=== PATIENT | female | born 1955 | race Caucasian/White ===

== ENCOUNTER → 2022-10-14 | Outpatient (CLI) | payer MEDICARE, SELFPAY ==
[2022-10-14 17:14] LABS: Absolute Lymphocyte Count 1.98 X10^3/uL (0.83-4.51); Absolute Neutrophil Count 4.1 X10^3/uL (2.0-7.7); Basophil# 0.02 X10^3/uL; Basophil% 0.3 % (0-1); Eosinophil# 0.14 X10^3/uL; Hematocrit 37.5 % (37-47); Lymphocyte # 1.98 X10^3/ul (0.83-4.51); Mean Corpuscular Hgb 29.1 pg (27.0-32.0); Mean Platelet Vol. 10.7 fl (6.2-12.0); Monocyte# 0.58 X10^3/uL; Monocyte% 8.5 % (0-10); NRBC Flagged by Analyzer 0 % (0-5); Neutrophil # 4.09 X10^3/uL (2.7-7.7); Neutrophil % 59.9 % (47-70); Platelet Count 237 K/mm3 (150-450); RBC Distribution Width CV 12.1 % (11.6-14.6); RBC Distribution Width SD 40.6 fl (35.1-43.9); Red Blood Count 4.12 M/mm3 (4.2-5.4); White Blood Count 6.8 K/mm3 (4.4-11.0)
[2022-10-14 17:27] LABS: Vitamin D,25 Hydroxy 14.2 ng/mL
[2022-10-14 17:47] LABS: ALB/GLOB Ratio 0.9 RATIO (0.9-2.4); AST(SGOT) 35 U/L (15-37); Alanine Aminotransfer ALT/SGPT 50 U/L (13-56); Albumin, Serum 3.4 g/dL (3.2-5.0); Alkaline Phosphatase 72 U/L (45-117); Anion Gap 5 (5-15); BUN 6 mg/dL (7-18); BUN/Creat Ratio 8.7 RATIO (10-20); Calcium,Total 8.9 mg/dL (8.5-10.1); Chloride 106 mmol/L (98-107); Creatinine, Serum 0.69 mg/dL (0.55-1.02); EST Glomerular Filtration Rate 91 mL/min (>60); Est Glom Filt Rate - Afr Amer 110 mL/min (>60); Globulin 3.9 g/dL (2.2-4.2); Glucose 86 mg/dL (74-106); Potassium 3.9 mmol/L (3.5-5.1); Protein, Total 7.3 g/dL (6.4-8.2); Sodium Level 139 mmol/L (136-145); Thyroid Stim Hormone (TSH) 0.47 uIU/mL (0.358-3.74)
== END | disposition home or self-care (01) ==
LOC: POLAB3 15:43
PROVIDERS: PCP Family Medicine Geriatric Medicine; Visit Provider Family Medicine Geriatric Medicine
DX: I10 Essential (primary) hypertension (principal)
CPT/HCPCS: 36415; 80053; 82306; 84443; 85025; 87522

== ENCOUNTER → 2022-10-20 | Outpatient (CLI) | payer MEDICARE, SELFPAY ==
[2022-10-24 18:07] LABS: Hepatitis C Genotype 1a (.)
== END | disposition home or self-care (01) ==
PROVIDERS: PCP Family Medicine Geriatric Medicine; Referring Provider Family Medicine Geriatric Medicine; Visit Provider Family Medicine Geriatric Medicine
DX: B19.20 Unspecified viral hepatitis C without hepatic coma (principal)
CPT/HCPCS: 36415; 87902

== ENCOUNTER → 2023-01-21 | Outpatient (CLI) | payer MEDICARE, SELFPAY ==
[2023-01-21 14:36] LABS: Absolute Lymphocyte Count 1.45 X10^3/uL (0.83-4.51); Absolute Neutrophil Count 4.3 X10^3/uL (2.0-7.7); Basophil# 0.03 X10^3/uL; Basophil% 0.4 % (0-1); Eosinophil# 0.08 X10^3/uL; Eosinophils% 1.2 % (0-5); Hematocrit 38.6 % (37-47); Hemoglobin 12.7 g/dL (12.0-15.0); Lymphocyte # 1.45 X10^3/ul (0.83-4.51); Lymphocyte % 21.7 % (19-41); Mean Corp Hgb Conc 32.9 g/dL (32-36); Mean Corpuscular Hgb 29.5 pg (27.0-32.0); Mean Corpuscular Volume 89.8 fL (81-99); Mean Platelet Vol. 11.2 fl (6.2-12.0); Monocyte# 0.77 X10^3/uL; Monocyte% 11.5 % (0-10); NRBC Flagged by Analyzer 0 % (0-5); Neutrophil # 4.33 X10^3/uL (2.7-7.7); Neutrophil % 65.1 % (47-70); Platelet Count 251 K/mm3 (150-450); RBC Distribution Width CV 12.3 % (11.6-14.6); RBC Distribution Width SD 40.2 fl (35.1-43.9); White Blood Count 6.7 K/mm3 (4.4-11.0)
[2023-01-21 14:48] LABS: Vitamin D,25 Hydroxy 37.3 ng/mL
[2023-01-21 15:06] LABS: ALB/GLOB Ratio 0.8 RATIO (0.9-2.4); AST(SGOT) 39 U/L (15-37); Alanine Aminotransfer ALT/SGPT 48 U/L (13-56); Albumin, Serum 3.4 g/dL (3.2-5.0); Alkaline Phosphatase 65 U/L (45-117); Anion Gap 4 (5-15); BUN 9 mg/dL (7-18); BUN/Creat Ratio 10.2 RATIO (10-20); Chloride 108 mmol/L (98-107); Creatinine, Serum 0.88 mg/dL (0.55-1.02); EST Glomerular Filtration Rate 69 mL/min (>60); Est Glom Filt Rate - Afr Amer 83 mL/min (>60); Globulin 4.1 g/dL (2.2-4.2); Glucose 101 mg/dL (74-106); Protein, Total 7.5 g/dL (6.4-8.2); Sodium Level 138 mmol/L (136-145); Thyroid Stim Hormone (TSH) 1.92 uIU/mL (0.358-3.74)
== END | disposition home or self-care (01) ==
LOC: POLAB3 13:25
PROVIDERS: PCP Family Medicine Geriatric Medicine; Visit Provider Family Medicine Geriatric Medicine
DX: I10 Essential (primary) hypertension (principal); E55.9 Vitamin D deficiency, unspecified
CPT/HCPCS: 36415; 80053; 82306; 84443; 85025

== ENCOUNTER → 2023-04-21 | Outpatient (CLI) | payer MEDICARE, SELFPAY ==
--- OUTSIDE RECORDS SUMMARY | 2023-04-21 11:43 | XMS RPT_ITS | CCD ---
Author Name Unknown Address [id number] [place] [address] Organization [facility] Care Team Providers Care Bufferer Name Role Phone No, Physician Primary Care Provider UnavailJarrett Dennison Primary Care Provider SADIA GRANT Attending Unav ailable JARRETT CARR Primary Care Unavailable Jarrett Carr MD Primary Care Provider El Douglass DO Primary Care Provider Saige White Unavailable Unavailable Otto DO, El N Primary Care Provider Saige White Unavailable Unavailable Saige White Unavailable Unavailable Fallon Franz Attending Unavailable Otto HAYS El N Primary Care Provider Jarrett Carr MD Primary Care Provider System, Provider Not In Primary Care Provider Un available AMY HAYWOOD Admitting Unavaila ble EL DOUGLASS N Primary Care Unavailable GSPANJACINTO STAPLES Admitting Unavail able JACINTO MERIDA Attending Unavail able AMY HAYWOOD Referring Unavaila ble EL DOUGLASS N Primary Care Unavailable Ly Mitchell DO Primary Care Provider Randi Moore MD Unavailable EL DOUGLASS Attending Unavailable EL DOUGLASS N Primary Care Unavailable EL DOUGLASS N Attending Unavailable EL DOUGLASS N Primary Care Unavailable LY MITCHELL Primary Care Unavailable LY MITCHELL Attending Unavailable Allergies Allergy Classification Reported Allergen(s) Allergy Type Date of Onset Reaction(s) Facility (6 sources) Sulfonamides (Antibiotic) Propensity to adverse reactions to drug 03-19-2020 [facility] Medications Current Medications Medication Drug Class(es) Dates Sig (Normalized) Sig (Original) acetaminophen 325 mg / HYDROcodone bitartrate 5 mg oral tablet (1 source) Opioid Agonist Start: 01-20-2020 End: 01-25-2020 take 1 tablet by mouth every four hours as needed for pain HYDROcodone-acetami nophen (NORCO) 5-325 mg per tablet Indications: Other closed intra-articular fracture of distal end of left radius with delayed healing, subsequent encounter Take 1 (one) tablet by mouth every 4 (four) hours as needed for pain . 20 tablet 0 01/20/2020 01/25/2020 Active atorvastatin 40 mg oral tablet (5 sources) HMG-CoA Reductase Inhibitor Start: 08-13-2022 End: 11-11-2022 take 1 tablet by mouth once daily atorvastatin (LIPITOR) 40 MG tablet Indications: Dyslipidemia Take 1 (one) tablet (40 mg total) by mouth daily . 30 tablet 2 08/13/2022 11/11/2022 Active carBAMazepine 200 mg oral tablet (20 sources) Mood Stabilizer Start: 07-25-2021 End: 08-08-2023 take 1 tablet by mouth twice daily carBAMazepine (TEGRETOL) 200 mg tablet Indications: Severe episode of recurrent major depressive disorder, without psychotic features (HCC) , History of seizure Take 1 (one) tablet (200 mg total) by mouth 2 (two) times a day . 60 tablet 11 08/13/2022 08/08/2023 Active Completed/Discontinued Medications Medication Drug Class(es) Dates Sig (Normalized) Sig (Original) ALPRAZolam 1 mg oral tablet (12 sources) Benzodiazepine Start: 01-11-2020 End: 04-11-2020 take 1 tablet by mouth three times daily ALPRAZolam (XANAX) 1 MG tablet TK 1 T PO TID PRA 0 01/11/2020 04/11/2020 Discontinued (Therapy completed) amLODIPine 10 mg oral tablet (20 sources) Dihydropyridine Calcium Channel Johnny Start: 04-02-2020 End: 07-14-2022 take 1 tablet by mouth once daily amLODIPine (NORVASC) 10 MG tablet Indications: Elevated BP without diagnosis of hypertension Take 1 (one) tablet (10 mg total) by mouth daily . 90 tablet 1 04/02/2020 07/14/2022 Discontinued (Patient's Request) Problems Active Problems Problem Classification Problem Date Documented Date Episodic/Chronic Administrative/socia l admission (10 sources) Patient encounter status; Translations: [Persons encountering health services in other specified circumstances] Episodic Alcohol-related disorders (3 sources) Alcohol abuse; Translations: [Alcohol dependence, in remission] Onset: 08-25-2022 08-26-2022 Chronic Anxiety disorders (20 sources) Anxiety; Translations: [Anxiety disorder, unspecified] Onset: 03-19-2020 03-19-2020 Chronic Disorders of lipid metabolism (9 sources) Dyslipidemia; Translations: [Hyperlipidemia, unspecified] Onset: 08-12-2022 08-13-2022 Chronic Esophageal disorders (18 sources) Gastroesophageal reflux disease; Translations: [Gastro-esophageal reflux disease without esophagitis] Onset: 10-06-2021 Chronic Essential hypertension (20 sources) Hypertensive disorder; Translations: [Essential (primary) hypertension] Onset: 03-19-2020 04-11-2020 Chronic Fracture of upper limb (1 source) Closed fracture of distal end of radius; Translations: [Other closed intra-articular fracture of distal end of left radius with delayed healing, subsequent encounter] Episodic Headache; including migraine (1 source) Acute headache; Translations: [Acute intractable headache, unspecified headache type] Hepatitis (5 sources) Chronic hepatitis C; Translations: [Chronic viral hepatitis C] Onset: 08-12-2022 07-16-2022 Chronic Immunizations and screening for infectious disease (20 sources) Suspected disease caused by 2019-nCoV; Translations: [Suspected COVID-19 virus infection] Onset: 07-14-2022 Episodic Mood disorders (20 sources) Depressive disorder; Translations: [Depression] Onset: 03-19-2020 Resolved: 07-14-2022 03-19-2020 Chronic Other circulatory disease (11 sources) Elevated blood-pressure reading without diagnosis of hypertension; Translations: [Elevated BP without diagnosis of hypertension] Onset: 03-19-2020 03-19-2020 Episodic Other nutritional; endocrine; and metabolic disorders (11 sources) Body mass index 30+ - obesity; Translations: [Obesity, unspecified] Onset: 07-14-2022 07-14-2022 Chronic Other nutritional; endocrine; and metabolic disorders (2 sources) Obesity, unspecified; Translations: [Obesity, unspecified] Onset: 07-14-2022 Chronic Other skin disorders (11 sources) Seborrheic keratosis; Translations: [Other seborrheic keratosis] Onset: 07-14-2022 07-14-2022 Episodic Other upper respiratory disease (18 sources) Seasonal allergy; Translations: [Other seasonal allergic rhinitis] Onset: 10-06-2021 Chronic Residual codes; unclassified (20 sources) Breast finding ; Translations: [Breast implant status] Onset: 03-19-2020 03-19-2020 Chronic Residual codes; unclassified (2 sources) Personal history of other specified conditions; Translations: [Personal history of other specified conditions] Onset: 03-19-2020 Episodic Substance-related disorders (20 sources) Benzodiazepine withdrawal; Translations: [Sedative, hypnotic or anxiolytic dependence with withdrawal, uncomplicated] Onset: 04-11-2020 Resolved: 06-12-2021 04-11-2020 Chronic Thyroid disorders (20 sources) Hypothyroidism; Translations: [Hypothyroidism, unspecified] Onset: 03-19-2020 03-19-2020 Chronic Unclassified (14 sources) History of clinical finding in subject; Translations: [History of seizure] Onset: 03-19-2020 03-19-2020 Unclassified (13 sources) Breast finding ; Translations: [Breast implant status] Onset: 03-19-2020 03-19-2020 Past or Other Problems Problem Classification Problem Date Documented Date Episodic/Chronic Genitourinary symptoms and ill-defined conditions (13 sources) Nocturia; Translations: [Nocturia] Onset: 07-14-2022 07-14-2022 Episodic Headache; including migraine (20 sources) Migraine; Translations: [Migraine, unspecified, not intractable, without status migrainosus] Onset: 04-02-2020 Resolved: 07-14-2022 04-02-2020 Chronic Inflammatory diseases of female pelvic organs (20 sources) Bacterial vaginosis; Translations: [Acute vaginitis] Onset: 06-25-2021 Resolved: 07-25-2021 Episodic Other skin disorders (12 sources) Actinic keratosis; Translations: [Actinic keratosis] Onset: 07-14-2022 07-14-2022 Episodic Other skin disorders (2 sources) Other seborrheic keratosis; Translations: [Other seborrheic keratosis] Onset: 07-14-2022 Episodic Other skin disorders (1 source) Actinic keratosis; Translations: [Actinic keratosis] Onset: 07-15-2022 Episodic Residual codes; unclassified (20 sources) History of clinical finding in subject; Translations: [Personal history of other specified conditions] Onset: 03-19-2020 03-19-2020 Episodic Substance-related disorders (12 sources) Benzodiazepine withdrawal; Translations: [Sedative, hypnotic or anxiolytic use, unspecified with withdrawal, uncomplicated] Onset: 04-11-2020 Resolved: 06-12-2021 06-12-2021 Episodic Results Test Name Value Interpretation Reference Range Facil ity Vital Signs Date Time Vital Sign Value Performing Clinician Faci lity 08-12-2022 10:59-0400 Diastolic blood pressure 102 mm[Hg] El Otto [employer] Work Phone: [facility] 08-12-2022 10:59-0400 Heart rate 76 /min [employer] Phone: [facility] 08-12-2022 10:59-0400 Systolic blood pressure 186 mm[Hg] [employer] Phone: [facility] 08-12-2022 10:56-0400 Body height 172.7 cm [employer] Phone: [facility] 08-12-2022 10:56-0400 Body mass index (BMI) [Ratio] 31.02 kg/m2 [employer] Phone: [facility] 08-12-2022 10:56-0400 Body weight 92.53 kg [employer] Phone: [facility] 08-12-2022 10:56-0400 SaO2% (BldA) [Mass fraction] 95 % [employer] Phone: [facility] 07-14-2022 13:55-0400 Diastolic blood pressure 94 mm[Hg] El Otto DO Work Phone: [facility] 07-14-2022 13:55-0400 Heart rate 65 /min El Otto DO Work Phone: [facility] 07-14-2022 13:55-0400 Systolic blood pressure 185 mm[Hg] El Otto DO Work Phone: [facility] 07-14-2022 13:54-0400 Body height 172.7 cm El Otto DO Work Phone: [facility] 07-14-2022 13:54-0400 Body mass index (BMI) [Ratio] 30.56 kg/m2 El Otto DO Work Phone: [facility] 07-14-2022 13:54-0400 Body weight 91.17 kg El Otto DO Work Phone: [facility] 07-14-2022 13:54-0400 SaO2% (BldA) [Mass fraction] 95 % El Otto DO Work Phone: [facility] 10-01-2021 14:51-0400 Body height 172.7 cm El Otto DO Work Phone: [facility] 10-01-2021 14:51-0400 Body mass index (BMI) [Ratio] 28.43 kg/m2 El Otto DO Work Phone: [facility] 10-01-2021 14:51-0400 Body temperature 98.4 [degF] El Otto DO Work Phone: [facility] 10-01-2021 14:51-0400 Body weight 84.82 kg El Otto DO Work Phone: [facility] 10-01-2021 14:51-0400 Diastolic blood pressure 67 mm[Hg] El Otto DO Work Phone: [facility] 10-01-2021 14:51-0400 Heart rate 72 /min El Otto DO Work Phone: [facility] 10-01-2021 14:51-0400 SaO2% (BldA) [Mass fraction] 96 % El Otto DO Work Phone: [facility] 10-01-2021 14:51-0400 Systolic blood pressure 126 mm[Hg] El Otto DO Work Phone: [facility] 07-24-2021 11:40-0400 Body temperature 98.49 [degF] El Otto DO Work Phone: [facility] 07-24-2021 11:40-0400 Heart rate 74 /min El Toto DO Work Phone: [facility] 07-24-2021 11:40-0400 SaO2% (BldA) [Mass fraction] 96 % El Otto DO Work Phone: [facility] 06-24-2021 10:51-0400 Diastolic blood pressure 85 mm[Hg] El Otto DO Work Phone: [facility] 06-24-2021 10:51-0400 Systolic blood pressure 134 mm[Hg] El Otto DO Work Phone: [facility] 06-24-2021 10:50-0400 Body height 172.7 cm El Otto DO Work Phone: [facility] 06-24-2021 10:50-0400 Body mass index (BMI) [Ratio] 27.67 kg/m2 El Otto DO Work Phone: [facility] 06-24-2021 10:50-0400 Body temperature 98.71 [degF] El Otto DO Work Phone: [facility] 06-24-2021 10:50-0400 Body weight 82.56 kg El Otto DO Work Phone: [facility] 06-24-2021 10:50-0400 Heart rate 70 /min El Otto DO Work Phone: [facility] 06-24-2021 10:50-0400 SaO2% (BldA) [Mass fraction] 96 % El Otto DO Work Phone: [facility] 06-11-2021 15:03-0400 Body mass index (BMI) [Ratio] 28.13 kg/m2 El Otto DO Work Phone: [facility] 06-11-2021 15:03-0400 Body weight 83.92 kg El Otto DO Work Phone: [facility] 06-11-2021 15:03-0400 Diastolic blood pressure 84 mm[Hg] El Otto DO Work Phone: [facility] 06-11-2021 15:03-0400 Heart rate 79 /min El Otto DO Work Phone: [facility] 06-11-2021 15:03-0400 SaO2% (BldA) [Mass fraction] 94 % El Otto DO Work Phone: [facility] 06-11-2021 15:03-0400 Systolic blood pressure 126 mm[Hg] El Otto DO Work Phone: [facility] 03-19-2020 13:57-0500 BMI (Body Mass Index) 26.61 kg/m2 [facility] 03-19-2020 13:57-0500 Body Temperature 97.81 [degF] [facility] 03-19-2020 13:57-0500 Body weight 79.38 kg [facility] 03-19-2020 13:57-0500 BP Diastolic 115 mm[Hg] [facility] 03-19-2020 13:57-0500 BP Systolic 179 mm[Hg] [facility] 03-19-2020 13:57-0500 Height 172.7 cm [facility] 03-19-2020 13:57-0500 Pulse (Heart Rate) 95 /min [facility] 03-19-2020 13:57-0500 Pulse Oximetry 96 % [facility] 01-20-2020 15:53-0500 BMI (Body Mass Index) 27.37 kg/m2 [facility] 01-20-2020 15:53-0500 Body Temperature 98.29 [degF] [facility] 01-20-2020 15:53-0500 Body weight 81.65 kg [facility] 01-20-2020 15:53-0500 BP Diastolic 92 mm[Hg] [facility] 01-20-2020 15:53-0500 BP Systolic 124 mm[Hg] [facility] 01-20-2020 15:53-0500 Height 172.7 cm [facility] 01-20-2020 15:53-0500 Pulse (Heart Rate) 87 /min [facility] 01-20-2020 15:53-0500 Pulse Oximetry 96 % [facility] 01-20-2020 15:53-0500 Respiratory Rate 16 /min [facility] Encounters Encounter Date Encounter Type Care Provider Facility Start: 09-29-2022 ambulatory [facility] Ambulatory Start: 09-17-2022 Refill Johnna Kunz [facility] Primary Care Physicians Procedures Date Procedure Procedure Detail Performing Clinician Start: 07-24-2021 Influenza virus A an d B and SARS-CoV-2 (COVID-19) and SARS-related CoV RNA panel - Respiratory specimen by MIGUEL ANGEL with probe detection El Douglass [employer] Work Phone: Start: 06-24-2021 Iadna nay specie s direct probe tq El Douglass DO Work Phone: Start: 01-20-2020 Application of splint B ivan Hong Work Phone: Start: 01-20-2020 Radex wrist complete minimum 3 views Nixon Hong Work Phone: Start: 02-25-2011 Mammography Nixon jewell Plan of Treatment Date Care Activity Detail Author Start: 11-07-2022 Influenza vaccination [facility] Start: 09-17-2022 End: 09-17-2022 Patient encounter procedure 09/17/2022 2:30 PM EDT Office Visit [facility] Physicians Infectious Disease [address] [place] [address] Randi Moore MD [address] [place] [address] [facility] Physicians Infectious Disease Start: 08-25-2022 End: 08-25-2022 Patient encounter procedure 08/25/2022 11:00 AM EDT Initial consult [facility] [address] [place] [address] Jacinto Merida MD [address] [place] [address] Discharge Disposition: Home [facility] Start: 08-12-2022 End: 08-12-2022 Patient encounter procedure 08/12/2022 10:50 AM EDT Office Visit [facility] Primary Care Physicians [address] [place] [address] [place] [phone] El Douglass DO [address] [place] [address] Dr [address] [place] [address] [facility] Primary Care Physicians Start: 08-01-2022 Depression Remission Assessment (PHQ9) Depression Remission Assessment (PHQ9) [facility] Start: 06-02-2022 End: 06-02-2022 Patient encounter procedure 06/02/2022 Office Visit Primary Care El Douglass DO [address] [place] [address] Dr [address] [place] [address] [facility] Physicians Start: 05-08-2022 End: 05-08-2022 Patient encounter procedure 05/08/2022 Office Visit Primary Care El Douglass DO [address] [place] [address] Dr [address] [place] [address] [facility] Physicians Start: 04-13-2022 Depression Remission Assessment (PHQ9) Depression Remission Assessment (PHQ9) [facility] Start: 11-26-2021 COVID-19 Vaccine (6 - Booster for Moderna series) COVID-19 Vaccine (6 - Booster for Moderna series) [facility] Start: 11-26-2021 COVID-19 Vaccine (6 - Moderna series) COVID-19 Vaccine (6 - Moderna series) [facility] Start: 11-07-2021 Influenza vaccination [facility] Start: 07-24-2021 End: 07-24-2021 Patient encounter procedure 07/24/2021 Office Visit Primary Care El Douglass DO [address] [facility] [place] [address] [facility] Primary Care Physicians Start: 07-10-2021 End: 07-10-2021 Patient encounter procedure 07/10/2021 Office Visit General Surgery Jacinto Liang, [address] [place] [phone] Aidne Mooney DO [address] [place] [address] [facility] Start: 07-04-2021 End: 07-04-2021 Patient encounter procedure 07/04/2021 Office Visit Primary Care El Douglass DO [address] [facility] [place] [address] [facility] Physicians Start: 05-30-2021 COVID-19 Vaccine (4 - Booster for Moderna series) COVID-19 Vaccine (4 - Booster for Moderna series) [facility] Start: 01-17-2021 Depression Remission Assessment (PHQ9) Depression Remission Assessment (PHQ9) [facility] Start: 11-29-2020 COVID-19 Vaccine (3 - Booster for Moderna series) COVID-19 Vaccine (3 - Booster for Moderna series) [facility] Start: 11-07-2020 Influenza vaccination Sequential Influenza Vaccine (#1) [facility] Start: 05-04-2020 End: 05-04-2020 Office Visit 05/04/2020 Office Visit Primary Care Esdras Munoz DO [address] [place] [address] [phone] [facility] Start: 04-11-2020 End: 04-11-2020 Office Visit 04/11/2020 Office Visit Primary Care Jarrett Carr MD [address] [place] [address] [phone] [facility] Physicians Start: 04-09-2020 End: 04-09-2020 Office Visit 04/09/2020 Office Visit Primary Care Jarrett Carr MD [address] [place] [address] [phone] [facility] Start: 04-02-2020 End: 04-02-2020 Office Visit 04/02/2020 Office Visit Primary Care Jarrett Carr MD [address] [place] [address] [phone] [facility] Start: 11-08-2019 Influenza vaccination given Sequential Influenza Vaccine (#1) [facility] Start: 02-14-2013 Tetanus vaccination Tetanus: Every 10yrs [facility] Start: 02-26-2012 Screening for malignant neoplasm of breast Mammogram [facility] Start: 02-26-2012 Screening mammography Mammogram [facility] Start: 12-05-2007 Administration of herpes zoster vaccine Zoster Vaccines (1 of 2) [facility] Start: 12-05-2007 Screening for malignant neoplasm of colon [facility] Start: 12-05-1975 Hepatitis C antibody, confirmatory test Hepatitis C Screening [facility] Start: 12-05-1975 Hepatitis C screening Hepatitis C Screening [facility] Start: 1973 COVID-19 Vaccine (1 of 2) COVID-19 Vaccine (1 of 2) [facility] Start: 1972 HIV screening HIV Screening [facility] Start: 12-05-1963 Pneumococcal Vaccine: Ped or At-Risk (1 - PCV) Pneumococcal Vaccine: Ped or At-Risk (1 - PCV) [facility] Start: 1960 History and physical examination, annual for health maintenance Wellness Visit [facility] Start: 1957 Screening for malignant neoplasm of cervix Pap Smear [facility] Start: 1957 Screening for malignant neoplasm of colon [facility] Start: 1957 Tetanus vaccination Tetanus: Every 10yrs [facility] End: 07-15-2023 Bacteria identified in Unspecified specimen by Aerobe culture Urine Aerobic Culture Microbiology Routine Nocturia 1 Occurrences starting 07/14/2022 until 07/15/2023 [facility] Work Phone: Immunizations Immunization Date Immunization Notes Care Provider Fa [facility] 08-12-2022 diphtheria, tetanus toxoids and acellular pertussis vaccine, unspecified formulation El Douglass DO Work Phone: [facility] 10-01-2021 Pfizer 12+ Years sandi-sucrose COVID-19 vaccine El Otto DO Work Phone: [facility] 10-01-2021 COVID-19 vac, sandi,Pfizer,,PF, (PFIZER COV-19 VACC, 12 YR UP,) injection (galvan cap) El Douglass DO Work Phone: [facility] 01-30-2021 Moderna SARS-CoV-2 Vaccination Booster El Otto DO Work Phone: [facility] 06-29-2020 Moderna SARS-CoV-2 Vaccination El Douglass DO Work Phone: [facility] 06-01-2020 Moderna SARS-CoV-2 Vaccination El Otto DO Work Phone: [facility] 01-05-2020 influenza, injectabl e, quadrivalent, preservative free Jarrett Carr [facility] Payers Date Payer Category Payer Unknown [id number] 2019 Unknown [id number] 2019 Medicare UHC MANAGED [facility] CARE UHC MEDICARE HMO/HMO-POS [id number] 2019-Present [id number] 2019 Medicare [id number] 2019 Medicare [employer] MANAGED MEDI CARE UHC MEDICARE HMO/HMO-POS [id number] 2019-Present [phone] [address] [place] [address] [id number] 1957 Unknown [id number] 1957 Unknown [id number] 1957 Unknown [id number] 1957 Unknown [id number] 1957 Unknown [id number] 1957 Unknown [id number] 1957 Unknown [id number] Social History Date Type Detail Facility Start: 01-20-2020 Tobacco smoking status NHIS Unknown if ever smoked [facility] Start: 1955 Sex Assigned At Not on file [facility] [facility] Start: 06-01-2021 End: 07-14-2022 Exposure to SARS-CoV-2 (event) Not sure [facility] Start: 03-19-2020 End: 04-02-2020 Tobacco smoking status NHIS Never smoker [facility] Start: 03-19-2020 End: 05-02-2021 Tobacco use and exposure Never used [facility] Start: 03-19-2020 End: 08-26-2022 Alcohol intake Lifetime non-drinker (finding) [facility] Start: 03-19-2020 End: 06-11-2021 History SDOH Alcohol Frequency 1 [facility] Start: 04-02-2020 History SDOH Social Connections Get Together 5 [facility] Start: 04-02-2020 End: 06-11-2021 History SDOH Financial 2 [facility] Start: 05-02-2021 Tobacco smoking status NHIS Ex-smoke r [facility] End: 04-30-2021 History of tobacco use Current smoker [facility] Start: 06-11-2021 History SDOH Social Connections Meetings 3 [facility] Start: 06-11-2021 History SDOH Social Connections Living 4 [facility] Start: 05-02-2021 End: 06-11-2021 Cigarette pack-years [facility] End: 04-30-2021 History of tobacco use Cigarette Smoker [facility] Start: 06-11-2021 End: 07-14-2022 Social connection and isolation panel [facility] Do you belong to any clubs or organizations such as gnosticist groups, unions, fraternal or athletic groups, or school groups? No [facility] Are you now , , , , never or living with a partner? [facility] How often to you hav e a drink containing alcohol? Never [facility] Average Number of Drinks Not on file [facility] How hard is it for y ou to pay for the very basics like food, housing, medical care, and heating Somewhat hard [facility] (I/We) worried wheth er (my/our) food would run out before (I/we) got money to buy more. Often true [facility] The food that (I/we) bought just didn't last, and (I/we) didn't have money to get more. Sometimes true [facility] Start: 05-02-2021 Sexual orientation Heterosexual (rosendo zavala) [facility] Clinical Notes 04-24-2021 to 09-17-2022 Telephone Encounter - Johnna Kunz MA - 09/17/2022 4:20 PM EDTTelephone Encounter - Johnna Kunz MA - 09/17/2022 4:20 PM EDTPatient Christina Douglass DO - 07/14/2022 1:50 PM EDT Note Date & Type Note Facility 09-17-2022 Miscellaneous Notes Formattin g of this note might be different from the original. ----- Message from Corina Hair sent at 09/17/2022 2:44 PM EDT ----- Regarding: RX Refill MEDICATION REFILL REQUEST: PCP: Ly Mitchell DO Patient called 09/17/22 and is requesting a medication refill for FLUoxetine (PROZAC) 40 MG capsule. This was confirmed from the current medication list found in the patients chart. Supply Requested: # of days: 30 days Method of receiving: Send to pharmacy Last set of flowsheet rows for OARRS report: OARRS/NARxCHECK Report Received and Assessed: 06/12/2021 Date controlled substance agreement signed: No data found Date of last drug screen: No data found Functional Assessment: No data found Will this refill be sent to the preferred pharmacy listed below? Yes Preferred pharmacies: [id number] - [place], [place] - [address] [facility] [address] [address] [facility] [phone] Pt Call Back Number Work Phone Not on file. Patient call back message sent to the primary care clinical pool. Corina Hair documented in this encounter [facility] 09-17-2022 Telephone encounter Note Form atting of this note might be different from the original. ----- Message from Corina Hair sent at 09/17/2022 2:44 PM EDT ----- Regarding: RX Refill MEDICATION REFILL REQUEST: PCP: Ly Mitchell DO Patient called 09/17/22 and is requesting a medication refill for FLUoxetine (PROZAC) 40 MG capsule. This was confirmed from the current medication list found in the patients chart. Supply Requested: # of days: 30 days Method of receiving: Send to pharmacy Last set of flowsheet rows for OARRS report: OARRS/NARxCHECK Report Received and Assessed: 06/12/2021 Date controlled substance agreement signed: No data found Date of last drug screen: No data found Functional Assessment: No data found Will this refill be sent to the preferred pharmacy listed below? Yes Preferred pharmacies: [id number] - [place], [place] - [address] [facility] [phone] Pt Call Back Number Work Phone Not on file. Patient call back message sent to the primary care clinical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 Differential includes UTI, undiagnosed sleep related breathing disorder, postmenopausal vaginal atrophy, and overactive bladder Urinalysis checked today and overall noninfectious, culture pending at this time If culture returns normal would recommend placing referral to sleep medicine for sleep study Can consider trial of pelvic therapy, vaginal estrogen, or antimuscarinic agent - Urinalysis with microscopic; Future - Urine Aerobic Culture; Future 2. Seborrheic keratosis Undiagnosed new problem Referral to dermatology as noted below - Ambulatory referral to Dermatology; Future 3. Actinic keratosis Undiagnosed new problem Referral to dermatology has been below - Ambulatory referral to Dermatology; Future 4. Severe episode of recurrent major depressive disorder, without psychotic features (HCC) Uncontrolled chronic problem with nocturia contributing to poor sleep as noted above We will continue current medications as noted below, refills have been sent with a short duration to ensure patient follows up in the office We will check blood work as noted below with the patient being on antipsychotic medication Patient not currently established with psychiatry/counseling, attempts at getting her established in the past have been unsuccessful We will place referral for one-time psych consult however patient will need psychiatry longitudinally Resources have been provided for [facility] psychiatrist and I have provided them again in her after visit summary We will also consult FINN Burroughs to assist patient with getting scheduled with psychiatry - Comprehensive Metabolic Panel; Future - CBC and Differential; Future - Lipid Panel; Future - Hemoglobin A1c; Future - hydrOXYzine (ATARAX) 25 MG tablet; Take 1 (one) tablet (25 mg total) by mouth 3 (three) times a day as needed for itching . Dispense: 90 tablet; Refill: 1 - QUEtiapine (SEROQUEL) 200 MG tablet; Take 1 (one) tablet (200 mg total) by mouth nightly . Dispense: 30 tablet; Refill: 1 - FLUoxetine (PROZAC) 40 MG capsule; Take 1 (one) capsule (40 mg total) by mouth daily . Dispense: 30 capsule; Refill: 1 5. Primary hypertension Uncontrolled chronic problem Patient not currently taking previously prescribed medications, Norvasc 10 mg daily and losartan 50 mg twice daily BP elevated in office today Encourage patient to check blood pressure over the next 2 weeks and bring log to her next visit If remains elevated would recommend restarting medications 6. Hypothyroidism, unspecified type Uncontrolled chronic problem TSH and T4 checked today and it seems patient has been undertreated Currently taking Synthroid 50 mcg every morning We will check with patient to ensure she is taking first thing in the morning at least 30 minutes prior to consuming any liquids, foods, or other medications If she confirms that she is taking medication appropriately we will plan to increase her Synthroid dose - TSH; Future - T4, Free; Future 7. Obesity (BMI 30-39.9) Uncontrolled chronic problem Recommended healthy lifestyle changes We will continue to monitor - Comprehensive Metabolic Panel; Future - Lipid Panel; Future - Hemoglobin A1c; Future 8. Polysubstance abuse (HCC) Stable chronic problem Most recent agent of abuse was Xanax which patient has avoided use since April 2021 We will continue to monitor and support patient as needed 9. Sedative, hypnotic or anxiolytic use disorder, severe, dependence (HCC) As above 10. History of seizure Stable chronic problem Possibly related to history of polysubstance abuse in the past Seizure-free for past 5 years on carbamazepine 200 mg twice daily Patient does not currently follow with neurology We can continue carbamazepine as long as patient remains stable If she does have a breakthrough seizure I would recommend that she establish with neurology Carbamazepine also likely providing additional mood stabilization for major depression as noted above 11. Encounter for hepatitis C screening test for low risk patient - Hepatitis C Antibody; Future 12. Screening for HIV without presence of risk factors - HIV Antibody (HIV1/HIV2); Future For any new medications prescribed today, patient was educated about indications for the medication, how to take the medication and potential side effects of the medications. Subjective: Kayla Page is a 66 y.o. female Chief Complaint Patient presents with Follow-up Requesting to see Dermatology to examine moles she has. Above L eye is bothersome- concerned for skin cancer. Gap Closure (Health Maintenance) Tetanus: Every 10yrs Never done Colorectal Cancer Screening/Monitoring Never done Pap Smear Never done Wellness Visit Never done HIV Screening Never done Hepatitis C Screening Never done Zoster Vaccines(1 of 2) Never done Mammogram due on 02/26/2012 COVID-19 Vaccine(6 - Booster for Moderna series) due on 11/26/2021 Depression Remission Assessment (PHQ9) due on 04/13/2022 HPI: Last visit September 2021 Hx of severe depression and polysubstance abuse (was using xanax but has been sober for 15 months, apr 2021) Currently taking Seroquel 200 mg nightly, Prozac 40 mg daily, and hydroxyzine prn Carbamazepine for hx of seizures Last seizure was 5-6 years ago Does not follow with neurology Referral placed for psychiatry, was unable to get in touch Waking up 3-4 times nightly because she has to pee Feels the urge to pee Has been a problem over last 2-3 months worse recently Urine has normal appearance, no cloudy, odor, blood Previous smoker, quit 3 weeks ago, average smoking 1 pack weekly, started at age 16 Has noticed that she has been gaining weight over last 6 months Has noticed that it has been hard to breath at night since gaining weight, sometimes snoring, denies apnea Hx of hypothyroid and HTN Was previously on Norvasc 10 mg daily and Losartan 50 mg BID PHQ= 14 (previously 16), denies SI CHUCK= 11 Wt Readings from Last 3 Encounters: 07/14/22 91.2 kg (201 lb) 10/01/21 84.8 kg (187 lb) 06/24/21 82.6 kg (182 lb) History of tanning bed use Concerned about mole RLQ abdomen, first noticed 4-5 years ago, seems to be gradually increasing in size since that time Another spot above left eye, sometimes looks like a scratch, patient also admits to scratching area, will scab up Due for many care gaps, pap/mammo/colonoscopy, TDAP, HIV and Hep C Labs The following portions of the patient's history were reviewed and updated as appropriate: allergies, current medications, past family history, past medical history, past social history, past surgical history and problem list. Review of Systems As noted in HPI Objective: Vitals: 07/14/22 1354 07/14/22 1355 BP: (!) 156/93 (!) 185/94 BP Location: Right arm Right arm Patient Position: Sitting Sitting BP Cuff Size: X-large Adult X-large Adult Pulse: 64 65 SpO2: 95% Weight: 91.2 kg (201 lb) Height: 5' 8 Physical Exam Vitals and nursing note reviewed. Constitutional: General: She is not in acute distress. Appearance: Normal appearance. HENT: Head: Normocephalic and atraumatic. Cardiovascular: Rate and Rhythm: Normal rate and regular rhythm. Heart sounds: No murmur heard. No friction rub. No gallop. Pulmonary: Effort: Pulmonary effort is normal. Breath sounds: No wheezing, rhonchi or rales. Abdominal: General: Bowel sounds are normal. There is no distension. Palpations: There is no mass. Tenderness: There is no abdominal tenderness. Hernia: No hernia is present. Skin: General: Skin is warm and dry. Comments: Small less than 0.5 cm brown plaque to right lower quadrant abdomen consistent with seborrheic keratoses. Small less than 0.5 cm crusted faintly red macule above left upper eyelid consistent with actinic keratoses. Neurological: Mental Status: She is alert. Psychiatric: Mood and Affect: Mood normal. Behavior: Behavior normal. El Guy, DO PGY-3 [facility] Depression Screening 03/19/2020 06/11/2021 10/01/2021 07/14/2022 Little interest or pleasure in doing things 3 3 3 3 Feeling down, depressed, or hopeless 3 3 2 2 PHQ-2 Total Score 6 6 5 5 Trouble falling or staying asleep, or sleeping too much 3 2 0 1 Feeling tired or having little energy 3 3 2 3 Poor appetite or overeating 3 3 3 3 Feeling bad about yourself - or that you are a failure or have let yourself or your family down 3 3 2 1 Trouble concentrating on things, such as reading the newspaper or watching television 3 1 2 1 Moving or speaking so slowly that other people could have noticed. Or the opposite - being so fidgety or restless that you have been moving around a lot more than usual 3 3 2 0 Thoughts that you would be better off , or of hurting yourself in some way 3 1 0 0 PHQ-9 Total Score 27 22 16 14 If you checked off any problems, how difficult have these problems made it for you to do your work, take care of things at home, or get along with other people? Extremely dIfficult Very difficult Very difficult Somewhat difficult documented in this encounter [facility] 07-15-2022 Note Addended by: EL GUY on: 07/15/2022 01:04 PM Modules accepted: Orders [facility] 07-15-2022 Miscellaneous Notes Addended by: EL GUY on: 07/15/2022 01:04 PM Modules accepted: Orders documented in this encounter [facility] 07-14-2022 Instructions El Douglass DO - 07/14/2022 10:31 PM EDT Crisis Resources- [facility] For immediate assistance with medical concerns, including overdose, call 911. 988 Suicide and Crisis Lifeline: When people call or 988, they will be connected to trained counselors that are part of the existing Lifeline network. These trained counselors will listen, understand how their problems are affecting them, provide support, and connect them to resources if necessary. Crisis Text Line: Text the keyword 4Hope to 808447 to be connected to a trained Crisis Counselor within 5 minutes. Throughout [place], you can text the keyword 4Hope to 774784 to be connected to a trained Crisis Counselor. National Suicide Prevention Hotline: 2-345-870-TALK (2512) [place] CareLine: Call the [place] CareLine at , 29/09 for free, confidential support. Adult Crisis Hotline: 894-424-ZUKJ (6424) Youth (17 and Under) Crisis Hotline: 654.256.5555 Older Adult Hotline: 617.764.4404 Teen Suicide Hotline: 763.991.1650 Veterans Crisis Line: LGBTQ youth: Contact The Ret[employer] hotline 396-435-0636, text 'Start' to 242-237 or visit website for online chat Medicare Insurance Counseling/Therapy Options (not all-inclusive) Below are some agencies in-network with Medicare for you to try. Just give any of the below agencies a call and verify they accept your specific insurance policy, accepting new patients and when they're scheduling new clients out. Please also check out [email or web address] and you can filter by zip code, insurance, provider preference, etc. if you don't go with any of the options listed below. You can also send online inquiries to schedule instead of calling individual therapists or offices which is helpful and a time-saver! [facility] [address] [place], [place] [id number] [facility] (also psychiatry) [address] [place], [place] [id number] *Must complete both New Patient Paperwork Packets prior to scheduling* Forms [facility] Multiple Locations Intake: [phone] [facility] (also has Older Adults program) [facility] Intake Line: [phone] extension 133 [facility] [address] [place], [place] [id number] [facility] [address] [facility] [facility] [address] [place] [id number] OMARI Vasquez [phone] Geena Castellon, Licensed Independent Assembly Line Leader, [place], [address] Munir Hamilton, [facility], [place] [phone] Munir Hamilton, Psychologist, [place], [address] [facility] [address] [place] [address] [address] [facility], [address] [place] [address] [facility] [address] [place] [address] [facility] [place] [address] [place] [address] [facility] [address] [place], [place] [address] [facility] [address] [place] [address] [facility] Counseling [facility] [phone] documented in this encounter [facility] 07-14-2022 Instructions El Douglass DO - 07/14/2022 10:31 PM EDT Crisis Resources- [place], [place] & [facility] For immediate assistance with medical concerns, including overdose, call 911. 972 Suicide and Crisis Lifeline: When people call or 988, they will be connected to trained counselors that are part of the existing Lifeline network. These trained counselors will listen, understand how their problems are affecting them, provide support, and connect them to resources if necessary. Crisis Text Line: Text the keyword 4Hope to 796289 to be connected to a trained Crisis Counselor within 5 minutes. Throughout [place], you can text the keyword 4Hope to 920169 to be connected to a trained Crisis Counselor. National Suicide Prevention Hotline: 2-977-795-TALK (6968) [place] CareLine: Call the [place] CareLine at , 29/09 for free, confidential support. Adult Crisis Hotline: 894-785-LOHC (2298) Youth (17 and Under) Crisis Hotline: 230.714.9206 Older Adult Hotline: 739.530.8661 Teen Suicide Hotline: 915.687.3940 Veterans Crisis Line: LGBTQ youth: Contact The [employer] hotline 829-043-9412, text 'Start' to 909-857 or visit website for online chat Medicare Insurance Counseling/Therapy Options (not all-inclusive) Below are some agencies in-network with Medicare for you to try. Just give any of the below agencies a call and verify they accept your specific insurance policy, accepting new patients and when they're scheduling new clients out. Please also check out [email or web address] and you can filter by zip code, insurance, provider preference, etc. if you don't go with any of the options listed below. You can also send online inquiries to schedule instead of calling individual therapists or offices which is helpful and a time-saver! [facility] [address] [place], [place] [id number] [facility] (also psychiatry) [address] [place], [place] [id number] *Must complete both New Patient Paperwork Packets prior to scheduling* Forms [facility] Multiple Locations Intake: [phone] [facility] (also has Older Adults program) [facility] Intake Line: [phone] extension 133 [facility] [address] [place] [address] [facility] [address] [facility] [facility] [address] [place], [place] [phone] CHILANGO VasquezW [phone] Geena Castellon, Licensed Independent Assembly Line Leader, [place], [address] Munir Hamilton [facility] [place], [place] [phone] Munir Hamilton, Psychologist, [place], [address] [facility] Today [facility] [address] [place] [address] [address] [facility], [address] [place] [address] [facility] [address] [place], [place] [address] [facility] [address] [facility] [address] [place] [id number] [facility] [address] [place] [address] [facility] [address] [place] [address] [facility] [phone] documented in this encounter [facility] 07-14-2022 History of Presen t illness Narrative Assessment/Plan: 1. Nocturia Undiagnosed new problem with uncertain prognosis Differential includes UTI, undiagnosed sleep related breathing disorder, postmenopausal vaginal atrophy, and overactive bladder Urinalysis checked today and overall noninfectious, culture pending at this time If culture returns normal would recommend placing referral to sleep medicine for sleep study Can consider trial of pelvic therapy, vaginal estrogen, or antimuscarinic agent - Urinalysis with microscopic; Future - Urine Aerobic Culture; Future 2. Seborrheic keratosis Undiagnosed new problem Referral to dermatology as noted below - Ambulatory referral to Dermatology; Future 3. Actinic keratosis Undiagnosed new problem Referral to dermatology has been below - Ambulatory referral to Dermatology; Future 4. Severe episode of recurrent major depressive disorder, without psychotic features (HCC) Uncontrolled chronic problem with nocturia contributing to poor sleep as noted above We will continue current medications as noted below, refills have been sent with a short duration to ensure patient follows up in the office We will check blood work as noted below with the patient being on antipsychotic medication Patient not currently established with psychiatry/counseling, attempts at getting her established in the past have been unsuccessful We will place referral for one-time psych consult however patient will need psychiatry longitudinally Resources have been provided for community longitudinal psychiatrist and I have provided them again in her after visit summary We will also consult FINN Burroughs to assist patient with getting scheduled with psychiatry - Comprehensive Metabolic Panel; Future - CBC and Differential; Future - Lipid Panel; Future - Hemoglobin A1c; Future - hydrOXYzine (ATARAX) 25 MG tablet; Take 1 (one) tablet (25 mg total) by mouth 3 (three) times a day as needed for itching . Dispense: 90 tablet; Refill: 1 - QUEtiapine (SEROQUEL) 200 MG tablet; Take 1 (one) tablet (200 mg total) by mouth nightly . Dispense: 30 tablet; Refill: 1 - FLUoxetine (PROZAC) 40 MG capsule; Take 1 (one) capsule (40 mg total) by mouth daily . Dispense: 30 capsule; Refill: 1 5. Primary hypertension Uncontrolled chronic problem Patient not currently taking previously prescribed medications, Norvasc 10 mg daily and losartan 50 mg twice daily BP elevated in office today Encourage patient to check blood pressure over the next 2 weeks and bring log to her next visit If remains elevated would recommend restarting medications 6. Hypothyroidism, unspecified type Uncontrolled chronic problem TSH and T4 checked today and it seems patient has been undertreated Currently taking Synthroid 50 mcg every morning We will check with patient to ensure she is taking first thing in the morning at least 30 minutes prior to consuming any liquids, foods, or other medications If she confirms that she is taking medication appropriately we will plan to increase her Synthroid dose - TSH; Future - T4, Free; Future 7. Obesity (BMI 30-39.9) Uncontrolled chronic problem Recommended healthy lifestyle changes We will continue to monitor - Comprehensive Metabolic Panel; Future - Lipid Panel; Future - Hemoglobin A1c; Future 8. Polysubstance abuse (HCC) Stable chronic problem Most recent agent of abuse was Xanax which patient has avoided use since April 2021 We will continue to monitor and support patient as needed 9. Sedative, hypnotic or anxiolytic use disorder, severe, dependence (HCC) As above 10. History of seizure Stable chronic problem Possibly related to history of polysubstance abuse in the past Seizure-free for past 5 years on carbamazepine 200 mg twice daily Patient does not currently follow with neurology We can continue carbamazepine as long as patient remains stable If she does have a breakthrough seizure I would recommend that she establish with neurology Carbamazepine also likely providing additional mood stabilization for major depression as noted above 11. Encounter for hepatitis C screening test for low risk patient - Hepatitis C Antibody; Future 12. Screening for HIV without presence of risk factors - HIV Antibody (HIV1/HIV2); Future For any new medications prescribed today, patient was educated about indications for the medication, how to take the medication and potential side effects of the medications. Subjective: Kayla Page is a 66 y.o. female Chief Complaint Patient presents with Follow-up Requesting to see Dermatology to examine moles she has. Above L eye is bothersome- concerned for skin cancer. Gap Closure (Health Maintenance) Tetanus: Every 10yrs Never done Colorectal Cancer Screening/Monitoring Never done Pap Smear Never done Wellness Visit Never done HIV Screening Never done Hepatitis C Screening Never done Zoster Vaccines(1 of 2) Never done Mammogram due on 02/26/2012 COVID-19 Vaccine(6 - Booster for Moderna series) due on 11/26/2021 Depression Remission Assessment (PHQ9) due on 04/13/2022 HPI: Last visit September 2021 Hx of severe depression and polysubstance abuse (was using xanax but has been sober for 15 months, apr 2021) Currently taking Seroquel 200 mg nightly, Prozac 40 mg daily, and hydroxyzine prn Carbamazepine for hx of seizures Last seizure was 5-6 years ago Does not follow with neurology Referral placed for psychiatry, was unable to get in touch Waking up 3-4 times nightly because she has to pee Feels the urge to pee Has been a problem over last 2-3 months worse recently Urine has normal appearance, no cloudy, odor, blood Previous smoker, quit 3 weeks ago, average smoking 1 pack weekly, started at age 16 Has noticed that she has been gaining weight over last 6 months Has noticed that it has been hard to breath at night since gaining weight, sometimes snoring, denies apnea Hx of hypothyroid and HTN Was previously on Norvasc 10 mg daily and Losartan 50 mg BID PHQ= 14 (previously 16), denies SI CHUCK= 11 Wt Readings from Last 3 Encounters: 07/14/22 91.2 kg (201 lb) 10/01/21 84.8 kg (187 lb) 06/24/21 82.6 kg (182 lb) History of tanning bed use Concerned about mole RLQ abdomen, first noticed 4-5 years ago, seems to be gradually increasing in size since that time Another spot above left eye, sometimes looks like a scratch, patient also admits to scratching area, will scab up Due for many care gaps, pap/mammo/colonoscopy, TDAP, HIV and Hep C Labs The following portions of the patient's history were reviewed and updated as appropriate: allergies, current medications, past family history, past medical history, past social history, past surgical history and problem list. Review of Systems As noted in HPI Objective: Vitals: 07/14/22 1354 07/14/22 1355 BP: (!) 156/93 (!) 185/94 BP Location: Right arm Right arm Patient Position: Sitting Sitting BP Cuff Size: X-large Adult X-large Adult Pulse: 64 65 SpO2: 95% Weight: 91.2 kg (201 lb) Height: 5' 8 Physical Exam Vitals and nursing note reviewed. Constitutional: General: She is not in acute distress. Appearance: Normal appearance. HENT: Head: Normocephalic and atraumatic. Cardiovascular: Rate and Rhythm: Normal rate and regular rhythm. Heart sounds: No murmur heard. No friction rub. No gallop. Pulmonary: Effort: Pulmonary effort is normal. Breath sounds: No wheezing, rhonchi or rales. Abdominal: General: Bowel sounds are normal. There is no distension. Palpations: There is no mass. Tenderness: There is no abdominal tenderness. Hernia: No hernia is present. Skin: General: Skin is warm and dry. Comments: Small less than 0.5 cm brown plaque to right lower quadrant abdomen consistent with seborrheic keratoses. Small less than 0.5 cm crusted faintly red macule above left upper eyelid consistent with actinic keratoses. Neurological: Mental Status: She is alert. Psychiatric: Mood and Affect: Mood normal. Behavior: Behavior normal. El Guy, DO PGY-3 [facility] Depression Screening 03/19/2020 06/11/2021 10/01/2021 07/14/2022 Little interest or pleasure in doing things 3 3 3 3 Feeling down, depressed, or hopeless 3 3 2 2 PHQ-2 Total Score 6 6 5 5 Trouble falling or staying asleep, or sleeping too much 3 2 0 1 Feeling tired or having little energy 3 3 2 3 Poor appetite or overeating 3 3 3 3 Feeling bad about yourself - or that you are a failure or have let yourself or your family down 3 3 2 1 Trouble concentrating on things, such as reading the newspaper or watching television 3 1 2 1 Moving or speaking so slowly that other people could have noticed. Or the opposite - being so fidgety or restless that you have been moving around a lot more than usual 3 3 2 0 Thoughts that you would be better off , or of hurting yourself in some way 3 1 0 0 PHQ-9 Total Score 27 22 16 14 If you checked off any problems, how difficult have these problems made it for you to do your work, take care of things at home, or get along with other people? Extremely dIfficult Very difficult Very difficult Somewhat difficult documented in this encounter [facility] 05-26-2022 Telephone encounter Note Form atting of this note might be different from the original. Patient requesting refills of Seroquel and trazodone. 30-day refills of both medications sent today. Patient has follow-up with me on 06/02 and will evaluate medications at that time. [facility] 05-26-2022 Miscellaneous Notes Formattin g of this note might be different from the original. Patient requesting refills of Seroquel and trazodone. 30-day refills of both medications sent today. Patient has follow-up with me on 06/02 and will evaluate medications at that time. ----- Message from Carlton Edwards sent at 05/26/2022 3:24 PM EDT ----- Regarding: Rx Refill MEDICATION REFILL REQUEST: PCP: lE Douglass DO Patient called 05/26/22 and is requesting a medication refill for QUEtiapine (SEROQUEL) 200 MG tablet traZODone (DESYREL) 100 MG tablet . This was confirmed from the current medication list found in the patients chart. Supply Requested: # of days: 90 days Method of receiving: Send to pharmacy Last set of flowsheet rows for OARRS report: OARRS/NARxCHECK Report Received and Assessed: 06/12/2021 Date controlled substance agreement signed: No data found Date of last drug screen: No data found Functional Assessment: No data found Will this refill be sent to the preferred pharmacy listed below? Yes [facility] pharmacies[id number] - [place], [place] [facility] [address] [facility] [address] [facility] [phone] Pt Call Back Number Work Phone Not on file. Patient call back message sent to the [facility]. Carlton Edwards documented in this encounter [facility] 05-26-2022 Telephone encounter Note Form atting of this note might be different from the original. ----- Message from Carlton Edwards sent at 05/26/2022 3:24 PM EDT ----- Regarding: Rx Refill MEDICATION REFILL REQUEST: PCP: El Douglass DO Patient called 05/26/22 and is requesting a medication refill for QUEtiapine (SEROQUEL) 200 MG tablet traZODone (DESYREL) 100 MG tablet . This was confirmed from the current medication list found in the patients chart. Supply Requested: # of days: 90 days Method of receiving: Send to pharmacy Last set of flowsheet rows for OARRS report: OARRS/NARxCHECK Report Received and Assessed: 06/12/2021 Date controlled substance agreement signed: No data found Date of last drug screen: No data found Functional Assessment: No data found Will this refill be sent to the preferred pharmacy listed below? Yes Preferred pharmacies: [id number] [address] [facility] [address] [facility] [phone] Pt Call Back Number Work Phone Not on file. Patient call back message [facility] [place]. Carlton Edwards [facility] 03-17-2022 Telephone encounter Note Form atting of this note might be different from the original. ----- Message from Christine Wahl MA sent at 03/17/2022 9:52 AM EST ----- Regarding: Rx Refill Contact: self MEDICATION REFILL REQUEST: PCP: El Douglass DO Patient is completely out of these medications Patient called 03/17/22 and is requesting a medication refill for levothyroxine (SYNTHROID, LEVOTHROID) 50 MCG tablet QUEtiapine (SEROQUEL) 200 MG tablet traZODone (DESYREL) 100 MG tablet This was confirmed from the current medication list found in the patients chart. Supply Requested: # of days: 30 days Method of receiving: Send to pharmacy Last set of flowsheet rows for OARRS report: OARRS/NARxCHECK Report Received and Assessed: 06/12/2021 Date controlled substance agreement signed: No data found Date of last drug screen: No data found Functional Assessment: No data found Will this refill be sent to the preferred pharmacy listed below? Yes Preferred pharmacies: [id number] - [place], [place] - [address] [facility] [address] [facility] [phone] Pt Call Back Number Patient call back message sent to the primary care clinical pool. Christine Wahl [facility] 03-17-2022 Miscellaneous Notes Formattin g of this note might be different from the original. ----- Message from Christine Wahl MA sent at 03/17/2022 9:52 AM EST ----- Regarding: Rx Refill Contact: self MEDICATION REFILL REQUEST: PCP: El Douglass DO Patient is completely out of these medications Patient called 03/17/22 and is requesting a medication refill for levothyroxine (SYNTHROID, LEVOTHROID) 50 MCG tablet QUEtiapine (SEROQUEL) 200 MG tablet traZODone (DESYREL) 100 MG tablet This was confirmed from the current medication list found in the patients chart. Supply Requested: # of days: 30 days Method of receiving: Send to pharmacy Last set of flowsheet rows for OARRS report: OARRS/NARxCHECK Report Received and Assessed: 06/12/2021 Date controlled substance agreement signed: No data found Date of last drug screen: No data found Functional Assessment: No data found Will this refill be sent to the preferred pharmacy listed below? Yes Preferred pharmacies: [facility] #[id number] - [place], [place] - [address] [facility] [address] [place] [phone] Pt Call Back Number Patient call back message sent to the primary care clinical pool. Christine Wahl documented in this encounter [facility] 10-14-2021 History of Presen t illness Narrative Consulted by Dr. Guy to assist patient in linkage with psychiatry. Call placed to patient to introduce self and role. MyChart message sent to patient as discussed via phone call with multiple provider options and instructions to schedule an appointment at preferred agency. This SW's direct phone number provided as need for additional support/assistance. Plan to follow up in one week. Will remain available to support patient as needed. documented in this encounter [facility] 10-11-2021 Telephone encounter Note Form atting of this note might be different from the original. Will refill mood medications today. Patient is working on scheduling with community psychiatrist as this would be ideal for her but has had some difficulty. Psych referral also placed at last appointment. Will notify in office pre parole counseling aide Laura Wen to see if she can assist. El Guy DO PGY-3 [facility] 10-11-2021 Miscellaneous Notes Formattin g of this note might be different from the original. Will refill mood medications today. Patient is working on scheduling with community psychiatrist as this would be ideal for her but has had some difficulty. Psych referral also placed at last appointment. Will notify in office pre parole counseling aide Laura Wen to see if she can assist. El Guy DO [facility]3 [facility] ----- Message from Amy Watson sent at 10/11/2021 10:27 AM EDT ----- Regarding: Medication Refill Contact: Patient advised she will be out of one medication on Thursday. She would like these called in today if possible. Please advise. MEDICATION REFILL REQUEST: PCP: El Douglass DO Patient called 10/11/21 and is requesting a medication refill for traZODone (DESYREL) 100 MG tablet QUEtiapine (SEROQUEL) 200 MG tablet This was confirmed from the current medication list found in the patients chart. Supply Requested: # of days: 30 days Method of receiving: Send to pharmacy Last set of flowsheet rows for OARRS report: OARRS/NARxCHECK Report Received and Assessed: 06/12/2021 Date controlled substance agreement signed: No data found Date of last drug screen: No data found Functional Assessment: No data found Will this refill be sent to the preferred pharmacy listed below? Yes [facility]ies: [id number] - [place], [place] - [address] [facility] [address] [facility] [phone] Pt Call Back Number Work Phone Not on file. documented in this encounter [facility] 10-11-2021 Telephone encounter Note Form atting of this note might be different from the original. ----- Message from Amy Watson sent at 10/11/2021 10:27 AM EDT ----- Regarding: Medication Refill Contact: Patient advised she will be out of one medication on Thursday. She would like these called in today if possible. Please advise. MEDICATION REFILL REQUEST: PCP: El Douglass DO Patient called 10/11/21 and is requesting a medication refill for traZODone (DESYREL) 100 MG tablet QUEtiapine (SEROQUEL) 200 MG tablet This was confirmed from the current medication list found in the patients chart. Supply Requested: # of days: 30 days Method of receiving: Send to pharmacy Last set of flowsheet rows for OARRS report: OARRS/NARxCHECK Report Received and Assessed: 06/12/2021 Date controlled substance agreement signed: No data found Date of last drug screen: No data found Functional Assessment: No data found Will this refill be sent to the preferred pharmacy listed below? Yes Preferred pharmacies: [facility] #[id number] - [place], [place] - [address] [facility] [address] [place] [phone] Pt Call Back Number Work Phone Not on file. [facility] 10-06-2021 Evaluation + Plan note Associ ated Problem(s): Seasonal allergies Uncontrolled Likely contributing to head pressure/pain Recommended discontinuing benadryl and starting Flonase and Zyrtec Follow up as needed [facility] 10-06-2021 Miscellaneous Notes Associate d Problem(s): Seasonal allergies Uncontrolled Likely contributing to head pressure/pain Recommended discontinuing benadryl and starting Flonase and Zyrtec Follow up as needed Associated Problem(s): Depression Uncontrolled Hx of severe depression with bipolar tendencies and polysubstance abuse likely used to cope with depression Current regimen Seroquel 200 mg nightly, hydroxyzine prn, and Prozac 40 mg daily Also taking carbamazepine for seizures but also likely providing mood stabilization No success with establishing with community psychiatry, will place referral to psychiatry today Associated Problem(s): Gastroesophageal reflux disease Controlled Continue Protonix 20 mg daily, refill sent today documented in this encounter [facility] 10-06-2021 Evaluation + Plan note Associ ated Problem(s): Depression Uncontrolled Hx of severe depression with bipolar tendencies and polysubstance abuse likely used to cope with depression Current regimen Seroquel 200 mg nightly, hydroxyzine prn, and Prozac 40 mg daily Also taking carbamazepine for seizures but also likely providing mood stabilization No success with establishing with community psychiatry, will place referral to psychiatry today [facility] 10-06-2021 Evaluation + Plan note Associ ated Problem(s): Gastroesophageal reflux disease Controlled Continue Protonix 20 mg daily, refill sent today [facility] 10-01-2021 History of Presen t illness Narrative I have reviewed the history, physical, diagnosis and care plan with the resident physician, El Douglass DO. I confirm the assessment and treatment plan: Diagnoses and all orders for this visit: COVID-19 vaccine administered - Pf[employer] 12+ Years sandi-sucrose COVID-19 vaccine Gastroesophageal reflux disease, unspecified whether esophagitis present - pantoprazole (PROTONIX) 20 MG tablet; Take 1 (one) tablet (20 mg total) by mouth daily . Ref to psych - now on med marijuana Flonase for allergies Assessment/Plan: Problem List Items Addressed This Visit Digestive Gastroesophageal reflux disease Controlled Continue Protonix 20 mg daily, refill sent today Relevant Medications pantoprazole (PROTONIX) 20 MG tablet Other Depression - Primary Uncontrolled Hx of severe depression with bipolar tendencies and polysubstance abuse likely used to cope with depression Current regimen Seroquel 200 mg nightly, hydroxyzine prn, and Prozac 40 mg daily Also taking carbamazepine for seizures but also likely providing mood stabilization No success with establishing with community psychiatry, will place referral to psychiatry today Relevant Orders Ambulatory referral to Behavioral Health Mood disorder (HCC) Relevant Orders Ambulatory referral to Behavioral Health Seasonal allergies Uncontrolled Likely contributing to head pressure/pain Recommended discontinuing benadryl and starting Flonase and Zyrtec Follow up as needed Other Visit Diagnoses COVID-19 vaccine administered Relevant Orders [employer] 12+ Years sandi-sucrose COVID-19 vaccine (Completed) For any new medications prescribed today, patient was educated about indications for the medication, how to take the medication and potential side effects of the medications. Subjective: Kayla Page is a 65 y.o. female Chief Complaint Patient presents with Headache Everyday for the last two weeks Mood Follow up Wants klonipin used to take it but wants to restart Gastroesophageal Reflux Needs pantoprazole refill HPI: Headaches During the whole day Frontal Throbbing pain No pain today, has not had for past week Has been taking benadryl but has not been helpful Has not tried anything else for allergies Allergies, runny nose, eye itching, throat drainage Denies any vision changes, waking up from headaches during the night, fevers, chills, Has not gotten into psychiatry Denies SI/HI The following portions of the patient's history were reviewed and updated as appropriate: allergies, current medications, past family history, past medical history, past social history, past surgical history and problem list. Review of Systems All systems have been reviewed and are negative except as noted in HPI PHQ-9 Total Score: 16 If you checked off any problems, how difficult have these problems made it for you to do your work, take care of things at home, or get along with other people?: Very difficult Objective: Vitals: 10/01/21 1451 BP: 126/67 BP Location: Left arm Patient Position: Sitting BP Cuff Size: X-large Adult Pulse: 72 Temp: 98.4 F (36.9 C) TempSrc: Infrared SpO2: 96% Weight: 84.8 kg (187 lb) Height: 5' 8 Physical Exam Vitals reviewed. Constitutional: Appearance: Normal appearance. HENT: Head: Normocephalic and atraumatic. Eyes: Extraocular Movements: Extraocular movements intact. Cardiovascular: Rate and Rhythm: Normal rate and regular rhythm. Pulses: Normal pulses. Heart sounds: No murmur heard. No friction rub. No gallop. Pulmonary: Effort: Pulmonary effort is normal. Breath sounds: Normal breath sounds. No wheezing, rhonchi or rales. Abdominal: General: Bowel sounds are normal. Tenderness: There is no abdominal tenderness. Musculoskeletal: General: Normal range of motion. Skin: General: Skin is warm and dry. Neurological: General: No focal deficit present. Mental Status: She is alert. Psychiatric: Mood and Affect: Mood normal. Behavior: Behavior normal. El Guy DO PGY-3 [facility] Depression Screening 03/19/2020 06/11/2021 10/01/2021 Little interest or pleasure in doing things 3 3 3 Feeling down, depressed, or hopeless 3 3 2 PHQ-2 Total Score 6 6 5 Trouble falling or staying asleep, or sleeping too much 3 2 0 Feeling tired or having little energy 3 3 2 Poor appetite or overeating 3 3 3 Feeling bad about yourself - or that you are a failure or have let yourself or your family down 3 3 2 Trouble concentrating on things, such as reading the newspaper or watching television 3 1 2 Moving or speaking so slowly that other people could have noticed. Or the opposite - being so fidgety or restless that you have been moving around a lot more than usual 3 3 2 Thoughts that you would be better off , or of hurting yourself in some way 3 1 0 PHQ-9 Total Score 27 22 16 If you checked off any problems, how difficult have these problems made it for you to do your work, take care of things at home, or get along with other people? Extremely dIfficult Very difficult Very difficult documented in this encounter [facility] 10-01-2021 History of Presen t illness Narrative I have reviewed the history, physical, diagnosis and care plan with the resident physician, El Douglass DO. I confirm the assessment and treatment plan: Diagnoses and all orders for this visit: Severe episode of recurrent major depressive disorder, without psychotic features (HCC) - Ambulatory referral to Behavioral Health; Future Mood disorder (HCC) - Ambulatory referral to Behavioral Health; Future Seasonal allergies Gastroesophageal reflux disease, unspecified whether esophagitis present - pantoprazole (PROTONIX) 20 MG tablet; Take 1 (one) tablet (20 mg total) by mouth daily . COVID-19 vaccine administered - Pfizer 12+ Years sandi-sucrose COVID-19 vaccine Ref to psych - now on med marijuana Flonase for allergies Assessment/Plan: Problem List Items Addressed This Visit Digestive Gastroesophageal reflux disease Controlled Continue Protonix 20 mg daily, refill sent today Relevant Medications pantoprazole (PROTONIX) 20 MG tablet Other Depression - Primary Uncontrolled Hx of severe depression with bipolar tendencies and polysubstance abuse likely used to cope with depression Current regimen Seroquel 200 mg nightly, hydroxyzine prn, and Prozac 40 mg daily Also taking carbamazepine for seizures but also likely providing mood stabilization No success with establishing with community psychiatry, will place referral to psychiatry today Relevant Orders Ambulatory referral to Behavioral Health Mood disorder (HCC) Relevant Orders Ambulatory referral to Behavioral Health Seasonal allergies Uncontrolled Likely contributing to head pressure/pain Recommended discontinuing benadryl and starting Flonase and Zyrtec Follow up as needed Other Visit Diagnoses COVID-19 vaccine administered Relevant Orders Pfizer 12+ Years sandi-sucrose COVID-19 vaccine (Completed) For any new medications prescribed today, patient was educated about indications for the medication, how to take the medication and potential side effects of the medications. Subjective: Kayla Page is a 65 y.o. female Chief Complaint Patient presents with Headache Everyday for the last two weeks Mood Follow up Wants klonipin used to take it but wants to restart Gastroesophageal Reflux Needs pantoprazole refill HPI: Headaches During the whole day Frontal Throbbing pain No pain today, has not had for past week Has been taking benadryl but has not been helpful Has not tried anything else for allergies Allergies, runny nose, eye itching, throat drainage Denies any vision changes, waking up from headaches during the night, fevers, chills, Has not gotten into psychiatry Denies SI/HI The following portions of the patient's history were reviewed and updated as appropriate: allergies, current medications, past family history, past medical history, past social history, past surgical history and problem list. Review of Systems All systems have been reviewed and are negative except as noted in HPI PHQ-9 Total Score: 16 If you checked off any problems, how difficult have these problems made it for you to do your work, take care of things at home, or get along with other people?: Very difficult Objective: Vitals: 10/01/21 1451 BP: 126/67 BP Location: Left arm Patient Position: Sitting BP Cuff Size: X-large Adult Pulse: 72 Temp: 98.4 F (36.9 C) TempSrc: Infrared SpO2: 96% Weight: 84.8 kg (187 lb) Height: 5' 8 Physical Exam Vitals reviewed. Constitutional: Appearance: Normal appearance. HENT: Head: Normocephalic and atraumatic. Eyes: Extraocular Movements: Extraocular movements intact. Cardiovascular: Rate and Rhythm: Normal rate and regular rhythm. Pulses: Normal pulses. Heart sounds: No murmur heard. No friction rub. No gallop. Pulmonary: Effort: Pulmonary effort is normal. Breath sounds: Normal breath sounds. No wheezing, rhonchi or rales. Abdominal: General: Bowel sounds are normal. Tenderness: There is no abdominal tenderness. Musculoskeletal: General: Normal range of motion. Skin: General: Skin is warm and dry. Neurological: General: No focal deficit present. Mental Status: She is alert. Psychiatric: Mood and Affect: Mood normal. Behavior: Behavior normal. El Guy, DO PGY-3 [facility] Depression Screening 03/19/2020 06/11/2021 10/01/2021 Little interest or pleasure in doing things 3 3 3 Feeling down, depressed, or hopeless 3 3 2 PHQ-2 Total Score 6 6 5 Trouble falling or staying asleep, or sleeping too much 3 2 0 Feeling tired or having little energy 3 3 2 Poor appetite or overeating 3 3 3 Feeling bad about yourself - or that you are a failure or have let yourself or your family down 3 3 2 Trouble concentrating on things, such as reading the newspaper or watching television 3 1 2 Moving or speaking so slowly that other people could have noticed. Or the opposite - being so fidgety or restless that you have been moving around a lot more than usual 3 3 2 Thoughts that you would be better off , or of hurting yourself in some way 3 1 0 PHQ-9 Total Score 27 22 16 If you checked off any problems, how difficult have these problems made it for you to do your work, take care of things at home, or get along with other people? Extremely dIfficult Very difficult Very difficult documented in this encounter [facility] 08-23-2021 Telephone encounter Note Form atting of this note might be different from the original. ----- Message from Christine Wahl MA sent at 08/23/2021 10:17 AM EDT ----- Regarding: Rx REfill Contact: self MEDICATION REFILL REQUEST: PCP: El Douglass DO Patient is completely out of this medication Patient called 08/23/21 and is requesting a medication refill for QUEtiapine (SEROQUEL) 200 MG tablet This was confirmed from the current medication list found in the patients chart. Supply Requested: # of days: 30 days Method of receiving: Send to pharmacy Last set of flowsheet rows for OARRS report: OARRS/NARxCHECK Report Received and Assessed: 06/12/2021 Date controlled substance agreement signed: No data found Date of last drug screen: No data found Functional Assessment: No data found Will this refill be sent to the preferred pharmacy listed below? Yes [facility] pharmacies: [id number] [place], [place] [facility] [address] [facility] [address] [facility] [phone] Pt Call Back Number Patient call back message sent to the primary care clinical pool. Christine Wahl [facility] 08-23-2021 Miscellaneous Notes Formattin g of this note might be different from the original. ----- Message from Christine Wahl MA sent at 08/23/2021 10:17 AM EDT ----- Regarding: Rx REfill Contact: self MEDICATION REFILL REQUEST: PCP: El Douglass DO Patient is completely out of this medication Patient called 08/23/21 and is requesting a medication refill for QUEtiapine (SEROQUEL) 200 MG tablet This was confirmed from the current medication list found in the patients chart. Supply Requested: # of days: 30 days Method of receiving: Send to pharmacy Last set of flowsheet rows for OARRS report: OARRS/NARxCHECK Report Received and Assessed: 06/12/2021 Date controlled substance agreement signed: No data found Date of last drug screen: No data found Functional Assessment: No data found Will this refill be sent to the preferred pharmacy listed below? Yes Preferred pharmacies: [id number] [address] [facility] [address] [facility] [phone] Pt Call Back Number Patient call back message sent to the primary care clinical pool. Christine Wahl documented in this encounter [facility] 07-25-2021 Evaluation + Plan note Associ ated Problem(s): MDD (major depressive disorder), recurrent episode (HCC) - Somewhat controlled with current regimen -We will increase Prozac to 40 mg daily, patient has noticed some relief with 20 mg dosing -We will send new refill for carbamazepine 200 mg twice daily -Encouraged patient to look into psychiatry/counseling options, patient states that she has been discussing with our office pre parole counseling aide -Follow-up in 4 weeks [facility] 07-25-2021 Miscellaneous Notes Associate d Problem(s): MDD (major depressive disorder), recurrent episode (HCC) - Somewhat controlled with current regimen -We will increase Prozac to 40 mg daily, patient has noticed some relief with 20 mg dosing -We will send new refill for carbamazepine 200 mg twice daily -Encouraged patient to look into psychiatry/counseling options, patient states that she has been discussing with our office pre parole counseling aide -Follow-up in 4 weeks documented in this encounter [facility] 07-24-2021 History of Presen t illness Narrative (GE) I have reviewed the history, physical, diagnosis and care plan with the resident physician, El Douglass DO. 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 Rf Carbamezapine. Susie Lau MD Assessment/Plan: Problem List Items Addressed This Visit Other MDD (major depressive disorder), recurrent episode (HCC) - Somewhat controlled with current regimen -We will increase Prozac to 40 mg daily, patient has noticed some relief with 20 mg dosing -We will send new refill for carbamazepine 200 mg twice daily -Encouraged patient to look into psychiatry/counseling options, patient states that she has been discussing with our office pre parole counseling aide -Follow-up in 4 weeks Relevant Medications carBAMazepine (TEGRETOL) 200 mg tablet FLUoxetine (PROZAC) 40 MG capsule Other Visit Diagnoses Suspected COVID-19 virus infection - Primary Relevant Orders COVID-19/Influenza A,B Molecular (Completed) For any new medications prescribed today, patient was educated about indications for the medication, how to take the medication and potential side effects of the medications. Subjective: Kayla Page is a 65 y.o. female coming into the office for follow up of mood and respiratory symptoms. Chief Complaint Patient presents with Medication Problem Pt would like an increase in prozac dosage, 40 instead of 20mg. Pt also needs carBAMazepine (TEGretol XR) 200 MG 12 hr tablet changed to immediate release instead of XR. Pt states this is cheaper. HPI: Last seen in office on 06/24/21 for severe depression with bipolar tendencies and polysubstance abuse to cope Current regimen Seroquel 200 mg nightly and Carbamazepine 200 mg BID Started on Prozac 20 mg daily at last visit due to predominately depressed symptoms Working to get patient to psychiatry/counseling Patient states that carbamazepine was refilled and extended release version, she needs is changed to immediate release version Prozac 20 mg daily has been somewhat working but patient is interested in increasing the dosage She is also noticed some sore throat, cough, runny nose, congestion x2 weeks which has been waxing and waning No known COVID contacts, has received COVID vaccination No other known sick contacts The following portions of the patient's history were reviewed and updated as appropriate: allergies, current medications, past family history, past medical history, past social history, past surgical history and problem list. Review of Systems All systems have been reviewed and are negative except as noted in HPI Objective: Vitals: 07/24/21 1140 Pulse: 74 Temp: 98.5 F (36.9 C) TempSrc: Infrared SpO2: 96% Physical Exam Vitals reviewed. Constitutional: Appearance: Normal appearance. HENT: Head: Normocephalic and atraumatic. Eyes: Extraocular Movements: Extraocular movements intact. Cardiovascular: Rate and Rhythm: Normal rate and regular rhythm. Pulses: Normal pulses. Heart sounds: No murmur heard. No friction rub. No gallop. Pulmonary: Effort: Pulmonary effort is normal. Breath sounds: Normal breath sounds. No wheezing, rhonchi or rales. Abdominal: General: Bowel sounds are normal. Tenderness: There is no abdominal tenderness. Musculoskeletal: General: Normal range of motion. Skin: General: Skin is warm and dry. Neurological: General: No focal deficit present. Mental Status: She is alert. Psychiatric: Mood and Affect: Mood normal. Behavior: Behavior normal. El Guy DO PGY-2 [facility] documented in this encounter [facility] 07-24-2021 Instructions El Douglass DO - 07/24/2021 11:55 AM EDT [facility] COVID-19 Post-swabbing Instructions We will do our best to update you as soon as we receive your test results, but if we had to send your test to be run at the lab, you may see the results on MyChart or receive a call from [facility] before we are able to contact you. You should continue to follow isolation recommendations until your test results have returned. You should receive a call from our COVID-19 results provider as soon as possible. If you test POSITIVE for COVID-19: If you have symptoms or are without symptoms isolate until: - 5 days have passed since onset of symptoms AND - If you have no symptoms or your symptoms are resolving AND - You have been without fever (100.4F) without the use of fever-reducing medication for 24 hours AND - You are able to wear a well fitting mask around others for 5 days after initial 5 day isolation period - If you have continued symptoms or fever on or after day 5, continue quarantine until resolution and wear a mask around others until day 10. - If you had been without symptoms and develop symptoms at any point please contact your medical provider Isolation is when you test positive for COVID-19 and is meant to keep the infected person away from all others, even in their own home. If you live with others, stay in a specific sick room or area and away from other people or animals, including pets. Use a separate bathroom, if available. It is not recommended by the CDC to have another COVID-19 test done in order to discontinue isolation or return to work/school. [facility] follows CDC guidelines and does not routinely retest within 90 days of previous infection. You should notify anyone within close contact with you (defined below) two days prior to your symptoms starting until 5 days after symptoms started, that they have been exposed while you were contagious. They should follow the instructions below on what quarantine/isolation is necessary based on their vaccination status, symptoms, and test results. If you are FULLY VACCINATED and have had a BOOSTER or if the LAST DOSE OF YOUR VACCINE WAS LESS THAN 6 MONTHS AGO (less than 2 months for J&J): - If you have had close contact with someone who tested positive for COVID-19, you do not need to isolate/quarantine unless you have symptoms. - It is recommended that you get tested 5 days after last exposure date, whether or not you have symptoms. - You should wear a mask in public for 10 days following last exposure date, whether or not you have symptoms. - If you have any symptoms after an exposure, you should immediately self-isolate. You will need a negative test to resume normal activity. Symptoms may be mild. - If you test positive for COVID and are fully vaccinated, follow the instructions above on what to do if you test positive. - People are considered fully vaccinated: 2 weeks after their second dose in a 2-dose series (such as Pfizer or Moderna vaccines) OR 2 weeks after a single-dose vaccine (such as [employer] vaccine) If you are sick or exposed and NOT FULLY VACCINATED, or your LAST DOSE OF YOUR VACCINE WAS MORE THAN 6 MONTHS AGO (or 2 months ago for J&J) and you have not received a BOOSTER: - You should quarantine for 5 days (even if you have no symptoms) plus wear a mask around others for 5 additional days. - Get tested on day 5 after exposure. - If you develop symptoms, quarantine and get tested. If this test is negative, you may end isolation when fever free for 24 hours and symptoms are improved. When Do I Self-Quarantine? You should quarantine if you are unvaccinated and have had a significant exposure which is defined as having been in close contact (as defined below) with someone that has a laboratory confirmed infection from COVID-19 or that person was diagnosed by a medical professional. This includes contact within 48 hours prior to when the COVID-19 positive person developed symptoms. You should also quarantine if you are vaccinated, but having symptoms. - Quarantine is used to keep someone who might have been exposed to COVID-19 away from others. - Quarantine helps prevent spread of disease that can occur before a person knows they are sick or if they are infected with the virus without feeling symptoms. - People in quarantine should stay home, separate themselves from others, monitor their health, and follow directions from their state or local health department. What counts as close contact? - You were within 6 feet of someone who has COVID-19 for at least 15 minutes - You provided care at home to someone who is sick with COVID-19 - You had direct physical contact with the person (touched, hugged, or kissed them) - You shared eating or drinking utensils - They sneezed, coughed, or somehow got respiratory droplets on you When and How Will I Get Results? Tests performed in the clinic will be available within 15-20 minutes from initiation of test. If your test was sent out to the lab for testing, it could take anywhere from 1-5 days after your specimen is collected. The provider/practice who placed the order for your test will notify you of your results. - If you have an active [employer] account, and your COVID-19 test is negative (not detected), then you will be notified through your [employer] account. You should call the urgent care if you have any further questions. - If your COVID-19 test is positive (detected), you will receive a phone call to discuss your results and answer any questions you might have at that time. Please make sure [facility] has your updated phone number so we can contact you. [facility] will notify the [facility] of any positive results to comply with state regulations. What Happens if I Develop Worsening COVID-19 Symptoms? All patients should self-quarantine at home until they receive their test results. While self-quarantining, contact your PCP or return to the urgent care if you develop any of the following: - A fever of 103 degrees F (39.4 C) or higher - A fever that lasts more than 3 days without medication - A fever that returns after being gone for more than 24 hours - Chest pain or difficulty breathing - A worsening of current symptoms For work concerns, please contact your employer's HR department. What Do I Do If I am Sick? Stay Home: If you are sick, stay home from work, school, public places, and social gatherings Social Distance: maintain 6 feet of distance from other people. Monitor Your Symptoms: If you develop fever, shortness of breath, confusion, or any respiratory symptoms, please notify your doctor immediately Cover Your Cough: Cough and sneeze into your shirt sleeve or inner elbow. Do not cough into your hands or into the air. If available, cough into a tissue and throw it into a trash can. Wash Your Hands: Wash hands often with soap and warm water and/or alcohol based hand grinding room supervisor, scrubbing your hands for at least 20 seconds. Wash your hands after sneezing or coughing, after going to the bathroom, and before eating or drinking. Wear a Mask: Wear a face mask when around others. Always wear a face mask (if able) if you have to leave your home Don't Touch: avoid touching your eyes, nose, and mouth Don't Share: avoid sharing items with others as they can spread infection Call First: If you do need to seek urgent medical care, call the facility first to let them know you are on your way Other COVID Questions? CDC - https://www.cdc.gov/coronavirus/2019-n cov/index.html - https://www.cdc.gov/coronavirus/2019-n cov/rc-naw-apk-sick/quarantine.html [facility] - Website: https://coronavirus.[place].gov/wps/gordy l/gov/covid-19/home - Hotline: 314-6-ATZ-[facility] (548-084-4452) [facility]: [email or web address].[employer]/series/cov iw-96-qirdctgoief-toolkit/ documented in this encounter [facility] 07-11-2021 Telephone encounter Note Form atting of this note might be different from the original. ----- Message from Hector Rosen sent at 07/10/2021 4:38 PM EDT ----- Regarding: Rx Refill Contact: Self Pt says that Dr. Guy is the only dr who should be prescribing this for her now, but our records show it was prescribed by [facility]. Don't see any record of Dr. Guy prescribing this. Pls contact pt if she will need an appt before this can be prescribed. MEDICATION REFILL REQUEST: PCP: El Douglass DO Patient called 07/10/21 and is requesting a medication refill for traZODone (DESYREL) 100 MG tablet This was confirmed from the current medication list found in the patients chart. Supply Requested: # of days: 30 days Method of receiving: Send to pharmacy Last set of flowsheet rows for OARRS report: OARRS/NARxCHECK Report Received and Assessed: 06/12/2021 Date controlled substance agreement signed: No data found Date of last drug screen: No data found Functional Assessment: No data found Will this refill be sent to the preferred pharmacy listed below? Yes Preferred pharmacies: [id number] [place], [place] [address] [facility] [address] [facility] [phone] Pt Call Back Number Patient call back message sent to the primary care clinical pool. Hector Rosen [facility] 07-11-2021 Miscellaneous Notes Formattin g of this note might be different from the original. ----- Message from Hector Rosen sent at 07/10/2021 4:38 PM EDT ----- Regarding: Rx Refill Contact: Self Pt says that Dr. Guy is the only dr who should be prescribing this for her now, but our records show it was prescribed by [facility]. Don't see any record of Dr. Guy prescribing this. Pls contact pt if she will need an appt before this can be prescribed. MEDICATION REFILL REQUEST: PCP: El Douglass DO Patient called 07/10/21 and is requesting a medication refill for traZODone (DESYREL) 100 MG tablet This was confirmed from the current medication list found in the patients chart. Supply Requested: # of days: 30 days Method of receiving: Send to pharmacy Last set of flowsheet rows for OARRS report: OARRS/NARxCHECK Report Received and Assessed: 06/12/2021 Date controlled substance agreement signed: No data found Date of last drug screen: No data found Functional Assessment: No data found Will this refill be sent to the preferred pharmacy listed below? Yes Preferred pharmacies: [id number] [place], [place] [address] [facility] [address] [place] [address] Pt Call Back Number Patient call back message sent to the primary care clinical pool. Hector Silas documented in this encounter [facility] 06-26-2021 History of Presen t illness Narrative I have reviewed the history, physical, diagnosis and care plan with the resident physician, El Douglass DO. I confirm the assessment and treatment plan: Diagnoses and all orders for this visit: Bacterial vaginosis - Chlamydia/GC/Trichomonas Amplified RNA; Future - Vaginitis DNA Probes; Future - Chlamydia/GC/Trichomonas Amplified RNA - Vaginitis DNA Probes - metroNIDAZOLE (FLAGYL) 500 MG tablet; Take 1 (one) tablet (500 mg total) by mouth 2 (two) times a day with meals for 7 days . Severe episode of recurrent major depressive disorder, without psychotic features (HCC) - Ambulatory Ref to [facility]; Future - FLUoxetine (PROZAC) 20 MG capsule; Take 1 (one) capsule (20 mg total) by mouth daily . Additional attending assessment/plan notes: Pelvic region odor with positive affirm for BV - agree with treatment with Metronidazole at this time. Recurrent MDD with mood disorder/bipolar suspect, need evaluation with psychiatry - patient declines resuming care with [facility]. Primary care team to bridge mental health management gap in meantime while / team assisting with transition to new psychiatrist. Start Prozac 20mg daily as depressive sx much more prominent at this time, and advised to continue on mood stabilization with Seroquel. Assessment/Plan: Problem List Items Addressed This Visit Genitourinary Bacterial vaginosis - Primary - Testing positive for bacterial vaginosis which is likely contributing to patient's vaginal odor -We will treat with metronidazole twice daily 500 mg x 7 days -Patient to follow-up as needed Relevant Medications metroNIDAZOLE (FLAGYL) 500 MG tablet Other Relevant Orders Chlamydia/GC/Trichomonas Amplified RNA (Completed) Vaginitis DNA Probes (Completed) Other Depression - History of severe depression with bipolar tendencies and polysubstance abuse likely used to cope with depression -Patient currently sober, recently discharged from [facility] after tapering off of benzodiazepines -Currently taking Seroquel 200 mg nightly which has been very helpful however patient still feels close during the day, denies any manic episodes -Patient is also taking carbamazepine for seizures but also likely contributing to some mood stabilization -We will start Prozac 20 mg daily, patient has been on this in the past seems to have been helpful -We will reach out to an office pre parole counseling aide Laura to assist with getting patient into alternative counseling/psychiatry as patient would like to avoid [facility] Relevant Medications FLUoxetine (PROZAC) 20 MG capsule Other Relevant Orders Ambulatory Ref to [facility] Tutor For any new medications prescribed today, patient was educated about indications for the medication, how to take the medication and potential side effects of the medications. Subjective: Kayla Page is a 65 y.o. female coming into the office this morning for follow up. Chief Complaint Patient presents with Follow-up Kayla is here to f/u with bladder infection/ c/o symptoms getting worse, states the odor is getting worse and she would like to treat this today. HPI: Established care on 06/11/2021 Concerns for UTI at that time, urine checked and negative History of Major depression and SI requiring hospitalization History of Polysubstance abuse Patient recommended to establish with psychiatrist and counseling at [facility] Confusion surrounding whether or not she should continue with Prozac switch to Seroquel or be on both of these medication, was suppose to reach out to [facility] Found a place and was accept for apartment, son cosigned Suppose to be taking seroquel 200 mg nightly, refill sent previously Psych cancled because on vacation, doesn't want to see [facility] anymore Would like something during the day to where she would feel better Feeling really down, hoping there can be adjustments made to her mood medication in the meantime while she tries to get in with psychiatry Foul smelling urine [address] 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 Review of Systems All systems have been reviewed and are negative except as noted in HPI Objective: Vitals: 06/24/21 1050 06/24/21 1051 BP: (!) 134/102 134/85 BP Location: Right arm Left arm Patient Position: Sitting Sitting BP Cuff Size: Adult Adult Pulse: 70 Temp: 98.7 F (37.1 C) TempSrc: Infrared SpO2: 96% Weight: 82.6 kg (182 lb) Height: 5' 8 Intimate exam performed with chaser helper Michelle Cedillo present for duration of exam. Physical Exam Vitals reviewed. Constitutional: Appearance: Normal appearance. HENT: Head: Normocephalic and atraumatic. Eyes: Extraocular Movements: Extraocular movements intact. Cardiovascular: Rate and Rhythm: Normal rate and regular rhythm. Pulses: Normal pulses. Heart sounds: No murmur heard. No friction rub. No gallop. Pulmonary: Effort: Pulmonary effort is normal. Breath sounds: Normal breath sounds. No wheezing, rhonchi or rales. Abdominal: General: Bowel sounds are normal. Tenderness: There is no abdominal tenderness. Genitourinary: General: Normal vulva. Vagina: No vaginal discharge. Musculoskeletal: General: Normal range of motion. Skin: General: Skin is warm and dry. Neurological: General: No focal deficit present. Mental Status: She is alert. Psychiatric: Mood and Affect: Mood is anxious. Affect is labile. Behavior: Behavior normal. El Guy DO PGY-2 [facility] documented in this encounter [facility] 06-26-2021 History of Presen t illness Narrative [facility] Salome SALCIDO made initial outreach attempt to [place] per referral to [facility] from Dr. Douglass for Depression. Message left requesting return call regarding referral from PCP. Follow-up 1 week should pt not return call. documented in this encounter [facility] 06-25-2021 Evaluation + Plan note Associ ated Problem(s): Depression - History of severe depression with bipolar tendencies and polysubstance abuse likely used to cope with depression -Patient currently sober, recently discharged from [facility] after tapering off of benzodiazepines -Currently taking Seroquel 200 mg nightly which has been very helpful however patient still feels close during the day, denies any manic episodes -Patient is also taking carbamazepine for seizures but also likely contributing to some mood stabilization -We will start Prozac 20 mg daily, patient has been on this in the past seems to have been helpful -We will reach out to an office pre parole counseling aide Laura to assist with getting patient into alternative counseling/psychiatry as patient would like to avoid [place] [facility] 06-25-2021 Miscellaneous Notes Associate d Problem(s): Depression - History of severe depression with bipolar tendencies and polysubstance abuse likely used to cope with depression -Patient currently sober, recently discharged from [facility] after tapering off of benzodiazepines -Currently taking Seroquel 200 mg nightly which has been very helpful however patient still feels close during the day, denies any manic episodes -Patient is also taking carbamazepine for seizures but also likely contributing to some mood stabilization -We will start Prozac 20 mg daily, patient has been on this in the past seems to have been helpful -We will reach out to an office pre parole counseling aide Laura to assist with getting patient into alternative counseling/psychiatry as patient would like to avoid [place] Associated Problem(s): Bacterial vaginosis - Testing positive for bacterial vaginosis which is likely contributing to patient's vaginal odor -We will treat with metronidazole twice daily 500 mg x 7 days -Patient to follow-up as needed documented in this encounter [facility] 06-25-2021 Miscellaneous Notes Associate d Problem(s): Depression - History of severe depression with bipolar tendencies and polysubstance abuse likely used to cope with depression -Patient currently sober, recently discharged from [facility] after tapering off of benzodiazepines -Currently taking Seroquel 200 mg nightly which has been very helpful however patient still feels close during the day, denies any manic episodes -Patient is also taking carbamazepine for seizures but also likely contributing to some mood stabilization -We will start Prozac 20 mg daily, patient has been on this in the past seems to have been helpful -We will reach out to an office pre parole counseling aide Laura to assist with getting patient into alternative counseling/psychiatry as patient would like to [place] Associated Problem(s): Bacterial vaginosis - Testing positive for bacterial vaginosis which is likely contributing to patient's vaginal odor -We will treat with metronidazole twice daily 500 mg x 7 days -Patient to follow-up as needed documented in this encounter [facility] 06-25-2021 Evaluation + Plan note Associ ated Problem(s): Bacterial vaginosis - Testing positive for bacterial vaginosis which is likely contributing to patient's vaginal odor -We will treat with metronidazole twice daily 500 mg x 7 days -Patient to follow-up as needed [facility] 06-24-2021 History of Presen t illness Narrative Assessment/Plan: Problem List Items Addressed This Visit Genitourinary Bacterial vaginosis - Primary - Testing positive for bacterial vaginosis which is likely contributing to patient's vaginal odor -We will treat with metronidazole twice daily 500 mg x 7 days -Patient to follow-up as needed Relevant Medications metroNIDAZOLE (FLAGYL) 500 MG tablet Other Relevant Orders Chlamydia/GC/Trichomonas Amplified RNA (Completed) Vaginitis DNA Probes (Completed) Other Depression - History of severe depression with bipolar tendencies and polysubstance abuse likely used to cope with depression -Patient currently sober, recently discharged from [facility] after tapering off of benzodiazepines -Currently taking Seroquel 200 mg nightly which has been very helpful however patient still feels close during the day, denies any manic episodes -Patient is also taking carbamazepine for seizures but also likely contributing to some mood stabilization -We will start Prozac 20 mg daily, patient has been on this in the past seems to have been helpful -We will reach out to an office pre parole counseling aide Laura to assist with getting patient into alternative counseling/psychiatry as patient would like to avoid [facility] Relevant Medications FLUoxetine (PROZAC) 20 MG capsule Other Relevant Orders Ambulatory Ref to [facility] Tutor For any new medications prescribed today, patient was educated about indications for the medication, how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 MG tablet SUMAtriptan (IMITREX) 100 MG tablet Take 1 (one) tablet (100 mg total) by mouth every 2 (two) hours as needed for migraine . Max of 200 mg in 24hrs . 10 tablet 0 traZODone (DESYREL) 100 MG tablet Take 1 (one) tablet (100 mg total) by mouth nightly as needed for sleep . 30 tablet 0 No current facility-administered medications for this visit. Social History Tobacco Use Smoking status: Former Smoker Quit date: 04/30/2021 Years since quittin.1 Smokeless tobacco: Never Used Vaping Use Vaping Use: Never used Substance Use Topics Alcohol use: Never Drug use: Yes Types: Marijuana Objective: Vitals: 06/11/21 1503 BP: 126/84 BP Location: Right arm Patient Position: Sitting BP Cuff Size: Adult Pulse: 79 SpO2: 94% Weight: 83.9 kg (185 lb) Physical Exam Vitals reviewed. Constitutional: Appearance: Normal appearance. HENT: Head: Normocephalic and atraumatic. Eyes: Extraocular Movements: Extraocular movements intact. Cardiovascular: Rate and Rhythm: Normal rate and regular rhythm. Pulses: Normal pulses. Heart sounds: No murmur heard. No friction rub. No gallop. Pulmonary: Effort: Pulmonary effort is normal. Breath sounds: Normal breath sounds. No wheezing, rhonchi or rales. Abdominal: General: Bowel sounds are normal. Tenderness: There is no abdominal tenderness. Musculoskeletal: General: Normal range of motion. Skin: General: Skin is warm and dry. Neurological: General: No focal deficit present. Mental Status: She is alert. Psychiatric: Attention and Perception: Attention normal. Mood and Affect: Affect is labile and tearful. Speech: Speech normal. Behavior: Behavior normal. Comments: Tangential thoughts Hearing and vision grossly normal. 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 The patient did not answer. Voice mail message was left with request for return call. [phone] documented in this encounter [facility] Diagnosis Severe episode of recurrent major depressive disorder, without psychotic features (HCC)- Primary Polysubstance abuse (HCC) Other, mixed, or unspecified nondependent drug abuse, unspecified Migraine without status migrainosus, not intractable, unspecified migraine type Encounter to establish care with new doctor Screening for colon cancer Special screening for malignant neoplasms, colon Encounter for screening mammogram for malignant neoplasm of [facility] Diagnosis Severe episode of recurrent major depressive disorder, without psychotic features (HCC)- Primary [facility] of [facility] Diagnosis Bacterial vaginosis- Primary Unspecified vaginitis and vulvovaginitis Severe episode of recurrent major depressive disorder, without psychotic features (HCC) [facility] Diagnosis Bacterial vaginosis- Primary Unspecified vaginitis and vulvovaginitis Severe episode of recurrent major depressive disorder, without psychotic features (HCC) [facility] Diagnosis Suspected COVID-19 virus infection- Primary Severe episode of recurrent major depressive disorder, without psychotic features (HCC) [facility] Diagnosis Severe episode of recurrent major depressive disorder, without psychotic features (HCC) [facility] Diagnosis Severe episode of recurrent major depressive disorder, without psychotic features (HCC)- Primary Mood disorder (HCC) Unspecified episodic mood disorder Seasonal allergies Allergic rhinitis, cause unspecified Gastroesophageal reflux disease, unspecified whether esophagitis present COVID-19 vaccine administered [facility] Diagnosis Severe episode of recurrent major depressive disorder, without psychotic features (HCC) [facility]* Diagnosis Depression, unspecified depression type Anxiety Anxiety state, unspecified [facility] Diagnosis Severe episode of recurrent major depressive disorder, without psychotic features (HCC) [facility] Diagnosis Nocturia- Primary Seborrheic keratosis Actinic keratosis Severe episode of recurrent major depressive disorder, without psychotic features (HCC) Primary hypertension Unspecified essential hypertension Hypothyroidism, unspecified type Obesity (BMI 30-39.9) Polysubstance abuse (HCC) Other, mixed, or unspecified nondependent drug abuse, unspecified Sedative, hypnotic or anxiolytic use disorder, severe, dependence (HCC) History of seizure Encounter for hepatitis C screening test for low risk patient Screening for HIV without presence of risk factors [facility] Diagnosis Nocturia- Primary Seborrheic keratosis Actinic keratosis Severe episode of recurrent major depressive disorder, without psychotic features (HCC) Primary hypertension Unspecified essential hypertension Hypothyroidism, unspecified type Obesity (BMI 30-39.9) Polysubstance abuse (HCC) Other, mixed, or unspecified nondependent drug abuse, unspecified Sedative, hypnotic or anxiolytic use disorder, severe, dependence (HCC) History of seizure Encounter for hepatitis C screening test for low risk patient Screening for HIV without presence of risk factors Positive hepatitis C antibody test [facility] Diagnosis Severe episode of recurrent major depressive disorder, without psychotic features (HCC)- Primary [facility]* Diagnosis Chronic hepatitis C without hepatic coma (HCC)- Primary [facility]* Diagnosis Severe episode of recurrent major depressive disorder, without psychotic features (HCC)- Primary Hypothyroidism, unspecified type Primary hypertension Unspecified essential hypertension History of seizure Dyslipidemia Other and unspecified hyperlipidemia Chronic hepatitis C without hepatic coma (HCC) Need for vaccination Need for prophylactic vaccination and inoculation against unspecified single disease [facility]* Diagnosis Persistent depressive disorder- Primary Generalized anxiety disorder Xanax use disorder, severe, in sustained remission (HCC) Alcohol use disorder, severe, in sustained remission (HCC) Tobacco use disorder, severe, in early remission [facility]* Diagnosis Severe episode of recurrent major depressive disorder, without psychotic features (HCC) [facility] [place] [facility] Diagnosis Severe episode of recurrent major depressive disorder, without psychotic features (HCC) documented in this encounter [facility] for referral (narrative)* Consultation (Routine) - Authorized Specialty Diagnoses / Procedures Referred By Sekou diego Referred To Contact Care Management Diagnoses Encounter to establish care with new Jacinto Eddy DO [address] [place] [address] Referral ID Status Reason Start Date Expiration Date Visits Requested Visits Authorized [id number] Authorized Specialty Services Required/Pat ient's Best Interest 06/11/2021 06/11/2022 1 1 * Screening Colonoscopy (Routine) - Authorized Specialty Diagnoses / Procedures Referred By Sekou diego Referred To Contact General Surgery Diagnoses Screening for colon cancer Jacinto Liang DO [address] [place] [address] [facility] [address] [place] [address] Referral ID Status Reason Start Date Expiration Date V isits Requested Visits Authorized [id number] Authorized 06/11/2021 06/11/2022 1 1 * Diagnostic Imaging (Routine) - Authorized Specialty Diagnoses / Procedures Referred By Contac t Referred To Contact Radiology Diagnoses Encounter for screening mammogram for malignant neoplasm of breast Procedures Mammography Screening Myles Jacinto Santa DO [address] [place] [address] Referral ID Status Reason Start Date Expiration Date V isits Requested Visits Authorized [id number] Authorized 06/11/2021 06/11/2022 1 1 [facility] for referral (narrative)* Consultation (Routine) - Authorized Specialty Diagnoses / Procedures Referred By Contac t Referred To Contact Care Management Diagnoses Severe episode of recurrent major depressive disorder, without psychotic features (HCC) Amy Haywood MD [address] [place] [address] [address] [facility] [place] [address] Referral ID Status Reason Start Date Expiration Date Visits Requested Visits Authorized [id number] Authorized Specialty Services Required/Pat ient's Best Interest 07/15/2022 07/15/2023 1 1 * Psychiatric (Routine) - Pending Review Specialty Diagnoses / Procedures Referred By Contac t Referred To Contact Psychiatry Diagnoses Severe episode of recurrent major depressive disorder, without psychotic features (HCC) Amy Haywood MD [address] [place] [address] [address] [facility] [place] [address] Referral ID Status Reason Start Date Expiration Date V isits Requested Visits Authorized [id number] Pending Review 07/15/2022 07/15/2023 1 1 [facility] Discharge Instructions * Instructions* Nixon Hong MD - 01/20/2020 Be sure to keep the splint on until seen in follow-up by Ortho 1 and having a another splint or cast placed. * Attachments The following attachments cannot be sent through Care Everywhere. * Wrist Fracture (Lao) documented in this encounter Assessments Diagnosis Other closed intra-articular fracture of distal end of left radius with delayed healing, subsequent encounter- Primary Diagnosis Elevated BP without diagnosis of hypertension History of seizure Diagnosis Anxiety- Primary Anxiety state, unspecified Breast implant status Hypothyroidism, unspecified type Depression, unspecified depression type Elevated BP without diagnosis of hypertension History of seizure Diagnosis Anxiety- Primary Anxiety state, unspecified Acute intractable headache, unspecified headache type Diagnosis Anxiety- Primary Anxiety state, unspecified Depression, unspecified depression type Benzodiazepine withdrawal without complication (HCC) Hypertension, unspecified type Advance Directives No Advanced Directives Records FoundDocuments on File Type Date Recorded Patient Dry Curer Expl anation Advance Directives and Livin g Will 01/20/2020 4:03 PM Documents on File Type Date Recorded Patient Dry Curer Expl anation Advance Directives and Livin g Will 01/20/2020 4:03 PM Documents on File Type Date Recorded Patient Dry Curer Expl anation Advance Directives and Livin g Will 02/10/2021 8:20 AM Documents on File Type Date Recorded Patient Dry Curer Expl anation Advance Directives and Livin g Will 05/02/2021 3:46 PM Latest Code Status on File Code Status Date Activated Date Inactivated Comments Full Code - Unverified 05/03/2021 12:28 AM 05/06/2021 4: 50 PM Full Code 05/02/2021 1:31 PM 05/02/2021 11:24 PM Documents on File Type Date Recorded Patient Dry Curer Expl anation Advance Directives and Livin g Will 05/02/2021 3:46 PM Latest Code Status on File Code Status Date Activated Date Inactivated Comments Full Code - Unverified 05/03/2021 12:28 AM 05/06/2021 4: 50 PM Full Code 05/02/2021 1:31 PM 05/02/2021 11:24 PM Latest Code Status on File Code Status Date Activated Date Inactivated Comments Full Code - Unverified 05/03/2021 12:28 AM 05/06/2021 4: 50 PM Code Status History Code Status Date Activated Date Inactivated Comments Full Code 05/02/2021 1:31 PM 05/02/2021 11:24 PM Latest Code Status on File Code Status Date Activated Date Inactivated Comments Full Code - Unverified 05/03/2021 12:28 AM 05/06/2021 4: 50 PM Code Status History Code Status Date Activated Date Inactivated Comments Full Code 05/02/2021 1:31 PM 05/02/2021 11:24 PM Reason for Referral Status Reason Specialty Diagnoses / Procedures Referred By Contact Referred To Contact Pending Review Specialty Services Required/Patien t's Best Interest Neurology Diagnoses History of seizure Jarrett Carr MD [address] [place] [address] Status Reason Specialty Diagnoses / Procedures Referred By Contact Referred To Contact Pending Review Specialty Services Required/Patie nt's Best Interest Behavorist (Outpatient Social Work) Diagnoses Depression, unspecified depression type Anxiety Jarrett Carr MD [address] [place] [address] Status Reason Specialty Diagnoses / Procedures Referred By Contact Referred To Contact Pending Review Specialty Services Required/Patie nt's Best Interest Plastic Surgery Diagnoses Breast implant status Jarrett Carr MD [address] [place] [address] Specialty Diagnoses / Procedures Referred By Contac t Referred To Contact Behavorist (Outpatient Social Work) Diagnoses Severe episode of recurrent major depressive disorder, without psychotic features (HCC) Ivan Avery MD [address] [place] [address] Referral ID Status Reason Start Date Expiration Date V isits Requested Visits Authorized [id number] Pending Review 06/25/2021 06/25/2022 1 1 Referral ID Status Reason Start Date Expiration Date Visits Re quested Visits Authorized [id number] Closed 06/25/2021 06/25/2022 1 1 Specialty Diagnoses / Procedures Referred By Contac t Referred To Contact Psychiatry Diagnoses Severe episode of recurrent major depressive disorder, without psychotic features (HCC) Mood disorder (HCC) Jacinto Liang, DO [address] [place] [address] Referral ID Status Reason Start Date Expiration Date V isits Requested Visits Authorized [id number] Pending Review 10/06/2021 10/06/2022 1 1 Specialty Diagnoses / Procedures Referred By Contac t Referred To Contact Psychiatry Diagnoses Severe episode of recurrent major depressive disorder, without psychotic features (HCC) Mood disorder (HCC) Jacinto Liang, DO [address] [place] [address] Ny [facility] Bh/Psych [address] [place] [address] Specialty Diagnoses / Procedures Referred By Contac t Referred To Contact Dermatology Diagnoses Seborrheic keratosis Actinic keratosis Amy Haywood MD [address] [place] [address] [address] [place] [id number] Referral ID Status Reason Start Date Expiration Date V isits Requested Visits Authorized [id number] Pending Review 07/14/2022 07/14/2023 1 1 Specialty Diagnoses / Procedures Referred By Contac t Referred To Contact Infectious Diseases Diagnoses Chronic hepatitis C without hepatic coma (HCC) Amy Haywood MD [address] [place] [address] [address] [place] [id number] Referral ID Status Reason Start Date Expiration Date V isits Requested Visits Authorized [id number] Pending Review 07/16/2022 07/16/2023 1 1 Instructions * Patient Instructions* Jarrett Carr MD - 03/19/2020 2:40 PM EST I recommend you check your blood pressure regularly at home. If you do not have a blood pressure cuff, you can get one at a pharmacy or online (e.g., [facility]). You can get them more cheaply online, but please try to get one with a good number of positive reviews. As a note, arm cuffs are generally more accurate than wrist cuffs. When you check your blood pressure, please make sure that you are seated with both feet on the floor, and leaning against a back rest. Sitting upright on a stool or the edge of a couch can give an elevated reading. Try to check your blood pressure at about the same time every day - every morning after waking up, every afternoon after finishing work, or every evening before bed. This helps control for the natural changes in blood pressure during the day. Finally, please keep a log of your blood pressures. When we discuss your blood pressures, I will generally want to know the highest, lowest, and most common readings over the past few weeks. Please let me know if you have any questions. documented in this encounter History of Present Illness * Jarrett Carr MD - 03/19/2020 1:48 PM EST Kayla Page is a 64 y.o. female who presents for Chief Complaint Patient presents with [facility] establish care for anxiety and depression issues Procedure requests breast reduction consult Assessment/Plan: Problem List Items Addressed This Visit Endocrine Hypothyroidism Hx of hypothyroid. Has been stable on Synthroid 50mcg for several years. Does have current anxiety and depression; cannot rule out hypothyroid contribution. - TSH Relevant Orders TSH with Reflex Free T4 Other Breast implant status Breast augmentation performed approx 30yrs ago. Reports recent change in appearance of breasts. Also reports cold feeling in chest. Would like evaluation. - Refer plastics Relevant Orders Ambulatory referral to Plastic Surgery Depression Significant depression w/o SI. Had prior benefit from Zoloft, Prozac, but was switched to Cymbalta.Not tolerating cymbalta at prescribed dose; taking half dose. No recent therapy. Discussed. - Wean Cymbalta - Start Prozac - Refer [facility] for initial counseling, linkage to ongoing therapy Relevant Medications FLUoxetine (PROZAC) 10 MG capsule DULoxetine (Cymbalta) 20 MG capsule Other Relevant Orders Ambulatory Ref to [facility] Anxiety - Primary Significant anxiety. Does have occasional panic attacks. Significant recent stressors. Currently treated with cymbalta, temazepam, and alprazolam. Poor response to cymbalta. Has been out of benzos x1wk. Previously had benefit with prozac, zoloft. Has not worked with therapist recently. Discussed medication options, need to avoid benzos. - Taper cymbalta - Start Prozac - Hydroxyzine for panic - Refer [facility] for initial counseling, linkage to ongoing therapy Relevant Medications FLUoxetine (PROZAC) 10 MG capsule hydrOXYzine (VISTARIL) 25 MG capsule DULoxetine (Cymbalta) 20 MG capsule Other Relevant Orders Ambulatory Ref to [facility] Elevated BP without diagnosis of hypertension Significant elevation in BP in office. In setting of anxiety/depression. May have previously been on antihypertensives. Does report some headache. - Home BP check w/daily log - Start Amlodipine 5mg; consider titration Relevant Medications miscellaneous medical supply Misc Other Relevant Orders TSH with Reflex Free T4 Basic Metabolic Panel History of seizure Reports hx seizures. Last seizure approx 3yrs ago. Was on tegretol 200mg, but was rationing doses due to lack of refills; currently taking 200mg when feeling onset of seizure. Unclear etiology. - Refill tegretol - Refer Neuro for evaluation Relevant Orders Ambulatory referral to Neurology Goals None Return in about 2 weeks (around 04/02/2020) for Follow Up Mood, Elevated BP. Subjective: Was in [place] for 7yrs. Moved back to [place] a few months ago. Needs to reestablish local care. Reports hx breast implants 30yrs ago. Feels new sense of coldness in the chest. Wondering if there's a problem with the implants. Depression/Anxiety. Taking temazepam for sleep; has been out since 03/11. Has been out of Xanax sincethe same period; was taking for anxiety. Taking Cymbalta 30mg; was Rx'd 60mg, but didn't tolerate. States that symptoms started years ago; most recently exacerbated when mother had a stroke and sister/mother excluded her. Hasn't done therapy in several years. Reports having tried prozac or zoloft. Whatley that both worked. Reports hx panic attacks; happens 1/2wks. Elevated BP: Was previously on medication for HTN; was discontinued by prior PCP. Doesn't recall what medication it was. Taking Synthroid 50mcg for several years. Reports hx of seizures; hasn't had one in 3yrs. Takes tegretol (carbamazepine) 200mg PRN. Used to take daily, but has been rationing. Has lost chunks of time, but not in the last year. Patient Active Problem List Diagnosis Breast implant status Hypothyroidism Depression Anxiety Elevated BP without diagnosis of hypertension History of seizure Past Medical History: Diagnosis Date Anxiety Chronic headaches Depression Disease of thyroid gland Seizures (HCC) Past Surgical History: Procedure Laterality Date BREAST AUGMENTATION N/A ORTHOPEDIC SURGERY Family History Problem Relation Age of Onset Stroke Mother Social History Tobacco Use Smoking status: Never Smoker Smokeless tobacco: Never Used Substance Use Topics Alcohol use: Never Frequency: Never Drug use: Never Tobacco Counseling: Counseling given: Not Answered Current Outpatient Medications Medication Sig Dispense Refill ALPRAZolam (XANAX) 1 MG tablet TK 1 T PO TID PRA amLODIPine (NORVASC) 5 MG tablet TAKE 1 TABLET(5 MG) BY MOUTH DAILY 90 tablet 3 carBAMazepine (TEGretol XR) 200 MG 12 hr tablet TAKE 1 TABLET(200 MG) BY MOUTH TWICE DAILY 180 tablet 0 DULoxetine (Cymbalta) 20 MG capsule Take 1 (one) capsule (20 mg total) by mouth daily for 7 days, THEN 1 (one) capsule (20 mg total) every other day for 7 days. 11 capsule 0 FLUoxetine (PROZAC) 10 MG capsule Take 1 (one) capsule (10 mg total) by mouth daily . 30 capsule 11 hydrOXYzine (VISTARIL) 25 MG capsule Take 1 (one) capsule (25 mg total) by mouth 3 (three) times a day as needed for itching . 30 capsule 0 levothyroxine (SYNTHROID, LEVOTHROID) 50 MCG tablet TK 1 T PO QD [employer] [facility] [place] [place] 1 blood pressure monitoring system, use as directed to monitor blood pressure . 1 each 0 pantoprazole (PROTONIX) 40 MG tablet temazepam (RESTORIL) 30 mg capsule TK 1 C PO QHS PRN No current facility-administered medications for this visit. Review of Systems Constitutional: Negative for chills and fever. Respiratory: Negative for cough and shortness of breath. Neurological: Positive for headaches. Psychiatric/Behavioral: Positive for dysphoric mood and sleep disturbance. Negative for suicidal ideas. The patient is nervous/anxious. Objective: BP (!) 179/115 Pulse 95 Temp 97.8 F (36.6 C) Ht 5' 8 Wt 79.4 kg (175 lb) SpO2 96% BMI 26.61 kg/m Wt Readings from Last 3 Encounters: 03/19/20 79.4 kg (175 lb) 01/20/20 81.6 kg (180 lb) 12/26/19 83.9 kg (185 lb) BP Readings from Last 3 Encounters: 03/19/20 (!) 179/115 01/20/20 (!) 124/92 12/26/19 (!) 150/100 Physical Exam Vitals signs reviewed. Constitutional: General: She is not in acute distress. Appearance: Normal appearance. She is well-developed. She is not ill-appearing. HENT: Head: Normocephalic and atraumatic. Right Ear: External ear normal. Left Ear: External ear normal. Nose: No rhinorrhea. Eyes: Extraocular Movements: Extraocular movements intact. Conjunctiva/sclera: Conjunctivae normal. Neck: Musculoskeletal: Normal range of motion and neck supple. Cardiovascular: Rate and Rhythm: Normal rate and regular rhythm. Heart sounds: Normal heart sounds. No murmur. Pulmonary: Effort: Pulmonary effort is normal. No respiratory distress. Breath sounds: Normal breath sounds. No wheezing, rhonchi or rales. Abdominal: General: There is no distension. Musculoskeletal: Normal range of motion. General: No deformity or signs of injury. Skin: General: Skin is warm and dry. Findings: No rash. Neurological: General: No focal deficit present. Mental Status: She is alert and oriented to person, place, and time. Psychiatric: Mood and Affect: Mood normal. Behavior: Behavior normal. PHQ-9 Depression Screening - 03/19/20 6515 Over the last 2 weeks, how often have you been bothered by any of the following problems? (Retired)Little interest or pleasure in doing things Little interest or pleasure in doing things 3 (Retired)Feeling down, depressed, or hopeless Feeling down, depressed, or hopeless 3 PHQ-2 Total Score 6 Trouble falling or staying asleep, or sleeping too much 3 Feeling tired or having little energy 3 Poor appetite or overeating 3 Feeling bad about yourself - or that you are a failure or have let yourself or your family down 3 Trouble concentrating on things, such as reading the newspaper or watching television 3 Moving or speaking so slowly that other people could have noticed. Or the opposite - being so fidgety or restless that you have been moving around a lot more than usual 3 Thoughts that you would be better off , or of hurting yourself in some way 3 PHQ-9 Total Score 27 RETIRED - PHQ-9 Total Score If you checked off any problems, how difficult have these problems made it for you to do your work,take care of things at home, or get along with other people? Extremely dIfficult PHQ-2 Total Score For any new medications prescribed today, patient was educated about indications for the medication, how to take the medication and potential side effects of the medications. documented in this encounter* Valeria Tay MA - 03/20/2020 3:40 PM EST This [facility] landmen attempted to contact patient regarding referral to BHI program placed by PCP at request of [facility]. Note: PCP note stated that pt denies current SI....would benefit from initial counseling sessions and being tied into ongoing therapy. The patient did not answer. Left voice mail message at patient's contact number with request for return call. First attempt. documented in this encounter* Valeria Tay MA - 03/27/2020 11:08 AM EST This [facility] landmen attempted to contact patient regarding referral to BHI program placed by PCP at request of [facility]. Note: PCP note stated that pt denies current SI....would benefit from initial counseling sessions and being tied into ongoing therapy. The patient did not answer. Left voice mail message at patient's contact number with request for return call. SECOND attempt. documented in this encounter* Fallon Sky LSW - 04/03/2020 9:55 AM EST SW received referral from: Dr. Carr Reason for Referral: Community resources Resources Recommended: left message Action/Result: SW received referral to help pt with community resources. SW attempted to call pt and left a message offering assistance. SW will make follow up call as well to pt. RUPALI Moreno, RHIANNON Assembly Line Leader [facility] documented in this encounter* Fallon Sky LSW - 04/10/2020 3:05 PM EST SW follow up call this date. Reason for call: Community resources Result: SW sent [email or web address] message to pt offering assistance. Will remain available to assist pt as needed. RUPALI Moreno, RHIANNON Assembly Line Leader [facility] documented in this encounter* Valeria Tay MA - 04/11/2020 9:42 AM EST This [facility] landmen contacted the patient regarding referral to BHI program placed by PCP at request of [facility]. Note: PCP note stated pt denies current SI....would benefit from initial counseling sessions and being tied into ongoing therapy. Today the pt shared that she had participated in counseling on and off for quite a while ending 15-20 yrs ago for similar symptoms. [place]. Pt is actually scheduled with a new PCP, as she is unhappy that Dr. Shipley refused benzodiazepine refills. Pt was informed that switching PCP's disqualified her from BHI program, as new PCP office does not have [facility] access. Pt agreed to receiving both counseling and psychiatry resources via [employer] and was appreciative of this offer. Pt was informed that she should receive resources within next 48 hours. documented in this encounter* Jarrett Carr MD - 04/11/2020 3:00 PM EST Kayla Page is a 64 y.o. female who presents for No chief complaint on file. Video Visit [facility] [address] [place] [address] Video Visit [facility] 04/11/2020 Jarrett Carr MD Provider Location: Office Patient Location Butadiene Converter Operator: None Patient Location: Patient's Home Patient: Kayla Page Date of : 1955 (64 y.o. female) PCP: Jarrett Carr MD Video Visit Consent Statement: I discussed risks, benefits and alternatives of a video visit telemedicine consultation with the patient (and any accompanying persons) including the risks that the patient s personal health details and medical records will be discussed over real-time, synchronous, interactive video/audio/telecommunication technology, the visit will not be recorded without the express consent of both the provider and the patient, and that there are inherent diagnostic limitations compared to [id number] evaluations. We elected to proceed with the video visit telemedicine consultation. Assessment/Plan: Problem List Items Addressed This Visit Cardiovascular and Mediastinum Hypertension Did not bring home log, but reports DBP well above goal. Otherwise tolerating Amlodipine w/o issues. 2/3: Continuing to tolerate medication. Some improvement in BP at higher dose, but remains above goal. Ongoing anxiety, possible withdrawal, contributing to pressures. - Continue current dose - Consider adding RIGO-I - Continue home logging Other Depression Significant depression w/o SI. Had prior benefit from Zoloft, Prozac, but was switched to Cymbalta.Not tolerating cymbalta at prescribed dose; taking half dose. No recent therapy. Discussed. 04/02: Stopped cymbalta w/o difficulty. No improvement from prozac at this time/dose. Labile and depressed. Makes fatalistic comments about the end in context of being refused benzodiazepine refills. Improves with discussion of plan w/addition of seroquel to improve sleep and assist in symptom management. Low suspicion of SI, but patient is in need of support. Reports stressful home environment,but no indication of abuse per patient report. 2/3: Stable mood. Denies SI. See above. - Continue Prozac - Increase Seroquel, as above - F/u [facility] as above Relevant Medications QUEtiapine (SEROQUEL) 100 MG tablet diazePAM (VALIUM) 5 MG tablet diazePAM (VALIUM) 2 MG tablet Anxiety - Primary Significant anxiety. Does have occasional panic attacks. Significant recent stressors. Currently treated with cymbalta, temazepam, and alprazolam. Poor response to cymbalta. Has been out of benzos x1wk. Previously had benefit with prozac, zoloft. Has not worked with therapist recently. Discussed medication options, need to avoid benzos. 04/02: Off Cymbalta. Tolerating prozac, but not seeing benefit. No improvement with Atarax. Tried Klonopin as stopgap, but didn't see benefit and reported disposing of medication. Did not respond to calls from [facility]. Requesting prior Xanax, Restoril. Lengthy discussion of risks/benefits of medication. 04/11: Continued symptoms. Little benefit from seroquel at this time. Continues to ask for xanax. Haslinked to [facility]; should get list of providers, psychiatry. 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 Ran out of medication just over 3wks ago. Continues to have headache, anxiety. Tremor noted on exam. Given duration of treatment, may have continuing symptoms of withdrawal. Discussed with patient. Will provide taper of long-acting benzo for treatment of withdrawal; patient understands that this is not for treatment of her anxiety or insomnia. Patient is to continue her other treatments, and follow-up with Psychiatry. - Diazepam 5mg BID x2wks, 2mg BID x2wks, 1mg BID x7d, 1mg QD X6d, then off Relevant Medications diazePAM (VALIUM) 5 MG tablet diazePAM (VALIUM) 2 MG tablet Goals None Return in about 2 weeks (around 04/25/2020) for Follow Up Mood, Sleep. Subjective: HPI Elevated BP (Amlod 5>10mg; ?log): Has checked in a few days. Last 148/117. Denies any hypotensive episodes. Anxiety/Depression (-Cymbalta; +Prozac 10 > 30mg; +Seroquel 50; ?N[facility]; ?Psych): Doesn't feel that the medications are helping. Not much benefit from seroquel at this time. Continues to feelthat xanax would work best for her. Did get call from pre parole counseling aide; discussed. Looking forward to meeting with psychiatrist. Thinks the zoloft is making her feel a little off, but doesn't want to switch to another medication. Reports feeling like her head is going to explode . Has headache that won't go away. 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 90 tablet 1 carBAMazepine (TEGretol XR) 200 MG 12 hr tablet TAKE 1 TABLET(200 MG) BY MOUTH TWICE DAILY 180 tablet 0 diazePAM (VALIUM) 2 MG tablet Take 1 (one) tablet (2 mg total) by mouth 2 (two) times a day for 14 days, THEN 0.5 (one-half) tablet (1 mg total) 2 (two) times a day for 7 days, THEN 0.5 (one-half) tablet (1 mg total) daily for 6 days. (Days supply per fill: 28). 38 tablet 0 diazePAM (VALIUM) 5 MG tablet Take 1 (one) tablet (5 mg total) by mouth 2 (two) times a day (Days supply per fill: 14) for 14 days . 28 tablet 0 FLUoxetine (PROZAC) 10 MG capsule Take 3 (three) capsules (30 mg total) by mouth daily . 90 [id number] levothyroxine (SYNTHROID, LEVOTHROID) 50 MCG tablet TK 1 T PO QD miscellaneous medical supply [place] 1 blood pressure monitoring system, use as directed to monitor blood pressure . 1 each 0 pantoprazole (PROTONIX) 40 MG tablet QUEtiapine (SEROQUEL) 100 MG tablet Take 1 (one) tablet (100 mg total) by mouth nightly . 30 [id number] SUMAtriptan (IMITREX) 100 MG tablet Take 1 (one) tablet (100 mg total) by mouth every 2 (two) hoursas needed for migraine . Max of 200 mg in 24hrs . 10 tablet 0 No current facility-administered medications for this visit. Review of Systems Constitutional: Negative for chills and fever. Respiratory: Negative for cough and shortness of breath. Skin: Reports cold breasts . Neurological: Positive for headaches. Psychiatric/Behavioral: Positive for dysphoric mood and sleep disturbance. Negative for suicidal ideas. The patient is nervous/anxious. Objective: There were no vitals taken for this visit. Wt Readings from Last 3 Encounters: 04/02/20 81.9 kg (180 lb 8 oz) 03/19/20 79.4 kg (175 lb) 01/20/20 81.6 kg (180 lb) BP Readings from Last 3 Encounters: 04/02/20 127/82 03/19/20 (!) 179/115 01/20/20 (!) 124/92 Physical Exam Constitutional: General: She is not in acute distress. Appearance: Normal appearance. HENT: Head: Normocephalic and atraumatic. Nose: Nose normal. Pulmonary: Effort: Pulmonary effort is normal. Neurological: General: No focal deficit present. Mental Status: She is alert. Psychiatric: Mood and Affect: Affect is labile. Thought Content: Thought content does not include suicidal ideation. For any new medications prescribed today, patient was educated about indications for the medication, how to take the medication and potential side effects of the medications. documented in this encounter* Valeria Tay MA - 03/27/2020 11:08 AM EST This [facility] landmen attempted to contact patient regarding referral to BHI program placed by PCP at request of [facility]. Note: PCP note stated that pt denies current SI....would benefit from initial counseling sessions and being tied into ongoing therapy. The patient did not answer. Left voice mail message at patient's contact number with request for return call. SECOND attempt. documented in this encounter Summary Purpose Family History No Family History Records FoundNo Family History Records FoundNo Family History Records FoundNo Family History Records FoundNo Family History Records Found Additional Source Comments Reason for Visit (unrecogniz ed section and content) Reason Comments Medication Refill Reason Comments Establish Care establish care for a nxiety and depression issues Procedure requests breast redu ction consult Reason Onset Date Comments Care coordination [facility] 03/20/2020 Reason Onset Date Comments Care coordination [facility] 03/27/2020 Reason Onset Date Comments Medication Refill 03/28/2020 Reason Onset Date Comments Community Resource Linkage 04/03/2020 Resou rces Reason Onset Date Comments Community Resource Linkage 04/10/2020 Follo w up Reason Onset Date Comments Care coordination [facility] 04/11/2020 Reason Onset Date Comments Medication Refill 03/27/2020 Reason Onset Date Comments Care coordination [facility] 04/24/2021 Reason Comments Establish Care Needs to know which medications she should be taking since leaving [facility] Dysuria Going on for a coupl e weeks, c/o foul oder getting stronger and stronger. Reason Onset Date Comments Social Care 06/17/2021 SDOH Reason Onset Date Comments Medication Refill 06/21/2021 Reason Comments Follow-up Kayla is here to f /u with bladder infection/ c/o symptoms getting worse, states the odor is getting worse and she would like to treat this today. Reason Onset Date Comments Care Coordination - [facility] 06/26/2021 Reason Comments Medication Problem Pt would like an inc rease in prozac dosage, 40 instead of 20mg.Pt also needs carBAMazepine (TEGretol XR) 200 MG 12 hr tablet changed to immediate release instead of XR. Pt states this is cheaper. Reason Onset Date Comments SDOH 07/31/2021 Reason Comments Headache Everyday for the las t two weeks Mood Follow up Wants klonipin used to take it but wants to restart Gastroesophageal Reflux Needs pantoprazo le refill Reason Onset Date Comments Medication Refill 05/26/2022 Reason Comments Follow-up Requesting to see De rmatology to examine moles she has. Above L eye is bothersome- concerned for skin cancer. Gap Closure (Health Maintenance) Tetanus : Every 10yrs Never doneColorectal Cancer Screening/Monitoring Never donePap Smear Never doneWellness Visit Never doneHIV Screening Never doneHepatitis C Screening Never doneZoster Vaccines(1 of 2) Never doneMammogram due on 02/26/2012COVID-19 Vaccine(6 - Booster for Moderna series) due on 2Depression Remission Assessment (PHQ9) due on 04/13/2022 Reason Comments Gap Closure (Health Maintenance) Tetanus : Every 10yrs Never doneColorectal Cancer Screening/Monitoring Never donePap Smear Never doneWellness Visit Never donePneumococcal Vaccine: Ped or At-Risk(1 - PCV) Never doneZoster Vaccines(1 of 2) Never doneMammogram due on 02/26/2012COVID-19 Vaccine(6 - Booster for Moderna series) due on 2Depression Remission Assessment (PHQ9) due on 08/01/2022 Medication Refill Seizure medications- pt has 5 days left Pt is asking for a water pill- feels like she is retaining water Specialty Diagnoses / Procedures Referred By Contac t Referred To Contact Psychiatry Diagnoses Severe episode of recurrent major depressive disorder, without psychotic features ([facility]) Amy Haywood MD [address] [place] [address] [place] [id number] [place] [address] [place] [address] Referral ID Status Reason Start Date Expiration Date Visits Re quested Visits Authorized [id number] Closed 07/15/2022 07/15/2023 1 1 Reason Onset Date Comments Medication Refill 08/28/2022 Reason Onset Date Comments Medication Refill 09/17/2022 [place] Hong MD - 01/20/2020 4:02 PM Kamari Thomas RN - 01/20/2020 3:51 PM EST ED Notes (unrecognized secti on and content) PCP - Provider Not in System Chief Complaint Patient presents with Wrist Pain HPI This is a very pleasant 64-year-old female who presents emerge department with complaint of swelling of her left wrist decreased range of motion and decreased ability to do activities at home. Patient fell and suffered a distal radius fracture on 25 December. She was seen in the emerge department had a splint placed. Patient was to follow-up with orthopedics she made an appointment apparently with Dr. Baer of hand. However her pipe broke and she had some flooding so she missed her appointment that day. Subsequently between her calling the office them calling back another 2 weeks past. At this point the patient had taken off her splint. They told her that should they could see her in 2 weeks which is still be on this date so she did not make the appointment she has not followed up and she is been using her hand and wrist for the last 10 days. She does have some pain with certain activities a sharp aching pain. No recurrent injury no other complaints. She is slowly healing wound on her right tib-fib area that she wanted looked at. Not infected see below Review of Systems All systems reviewed negative except as mentioned above. Past Medical History Past Medical History: Diagnosis Date Disease of thyroid gland Seizures (HCC) Past Surgical History Past Surgical History: Procedure Laterality Date ORTHOPEDIC SURGERY Family History History reviewed. No pertinent family history. Social History Social History Socioeconomic History Marital status: Spouse name: Not on file Number of children: Not on file Years of education: Not on file Highest education level: Not on file Occupational History Not on file Social Needs Financial resource strain: Not on file Food insecurity Worry: Not on file Inability: Not on file Transportation needs Medical: Not on file Non-medical: Not on file Tobacco Use Smoking status: Not on file Substance and Sexual Activity Alcohol use: Not on file Drug use: Not on file Sexual activity: Not on file Lifestyle Physical activity Days per week: Not on file Minutes per session: Not on file Stress: Not on file Relationships Social connections Talks on phone: Not on file Gets together: Not on file Attends scientologist service: Not on file Active member of club or organization: Not on file Attends meetings of clubs or organizations: Not on file Relationship status: Not on file Other Topics Concern Not on file Social History Narrative Not on file Allergies No Known Allergies Medications Kayla Page Home Medication Instructions Prior to Surgery KAUR:[id number] Printed on:01/20/20 6084 Medication Information Take last dose on Take the morning of surgery Comment(s) ALPRAZolam (XANAX) 1 MG tablet TK 1 T PO TID PRA DULoxetine (CYMBALTA) 30 MG capsule Take 30 mg by mouth 2 (two) times a day . levothyroxine (SYNTHROID, LEVOTHROID) 50 MCG tablet TK 1 T PO QD pantoprazole (PROTONIX) 40 MG tablet temazepam (RESTORIL) 30 mg capsule TK 1 C PO QHS PRN Physical Exam Initial Vital Signs BP (!) 124/92 (BP Location: Right arm, Patient Position: Sitting) Pulse 87 Temp 98.3 F (36.8 C) (Oral) Resp 16 Ht 5' 8 Wt 81.6 kg (180 lb) SpO2 96% BMI 27.37 kg/m Vital Signs During ED Visit (as charted by nursing) Patient Vitals for the past 24 hrs: BP Temp Temp src Pulse Resp SpO2 Height Weight 01/20/20 1553 (!) 124/92 98.3 F (36.8 C) Oral 87 16 96 % 5' 8 81.6 kg (180 lb) Physical Exam Vitals signs and nursing note reviewed. Constitutional: General: She is not in acute distress. Appearance: Normal appearance. She is not ill-appearing, toxic-appearing or diaphoretic. HENT: Head: Normocephalic and atraumatic. Right Ear: External ear normal. Left Ear: External ear normal. Eyes: General: No scleral icterus. Right eye: No discharge. Left eye: No discharge. Extraocular Movements: Extraocular movements intact. Conjunctiva/sclera: Conjunctivae normal. Pupils: Pupils are equal, round, and reactive to light. Musculoskeletal: Comments: Left wrist has what appears now by a chronic swelling deformity fairly uniform. Flexion is to just 60 degrees extension is full. No specific tenderness. Radial pulse 2+ radial median and ulnar function tach with warm sensory distally. Proximal forearm normal nontender. Skin: General: Skin is warm and dry. Capillary Refill: Capillary refill takes less than 2 seconds. Comments: Scabbed area volar aspect right lower tib-fib approximately a 2 cm oval healing well scabbing no surrounding erythema drainage discharge nothing infectious. Scab is starting to peel off. Neurological: General: No focal deficit present. Mental Status: She is alert. Cranial Nerves: No cranial nerve deficit. Motor: No weakness. Coordination: Coordination normal. Gait: Gait normal. Psychiatric: Mood and Affect: Mood normal. Behavior: Behavior normal. IMPRESSION/ ED COURSE The patient came in she was evaluated as noted. X-ray of her left wrist shows no change in alignment of the nondisplaced intra-articular distal radius fracture. There is only faint sclerosis indicating incomplete healing. I reviewed these films I feel like there is some displacement of the previous fracture and I agree that there is no healing going on here. This is the etiology of the patient's ongoing pain decreased range of motion. Patient replaced in a volar splint and given referral for orthopedic follow-up. Refer to Ortho 1 as they are on-call today and patient does not wish to go back to [facility]. FINAL DIAGNOSIS 1. Other closed intra-articular fracture of distal end of left radius with delayed healing, subsequent encounter Labs Reviewed - No data to display Radiographic Imaging (if any) During ED Visit XR Wrist Left 3+ Views (Standard) Final Result No change in alignment to the nondisplaced intra-articular distal radial fracture. Workstation ID: [id number] Medications Ordered/Given During ED Visit Medications - No data to display Procedures [place] Hong MD 01/20/20 1635 Pt states she was here a month ago for a broken bone in the left wrist. Pt states they splinted it. Pt had an appointment with the ortho doc and was unable to make it to the appointment. Pt was unable to reschedule the appointment and took her splint off after 2 weeks. Pt also c/o wound on the right lower leg that occurred a week ago. documented in this encounter ED Procedure Note - [place] MD - 01/20/2020 4:35 PM ESTAssessment & Plan Note - Jarrett Carr MD - 03/19/2020 3:38 PM EST Miscellaneous Notes (unrecog nized section and content) Associated Order(s): Splint Application Splint Application Date/Time: 01/20/2020 4:35 PM Performed by: [place] MD Authorized by: [place] MD Verbal consent: obtained Location details: left wrist Splint type: volar short arm Supplies used: cotton padding, elastic bandage and Ortho-Glass Post-procedure: The splinted body part was neurovascularly intact following the procedure. Patient tolerance: patient tolerated the procedure well with no immediate complications documented in this encounter Associated Problem(s): History of seizure Reports hx seizures. Last seizure approx 3yrs ago. Was on tegretol 200mg, but was rationing doses due to lack of refills; currently taking 200mg when feeling onset of seizure. Unclear etiology. - Refill tegretol - Refer Neuro for evaluation Associated Problem(s): Elevated BP without diagnosis of hypertension Significant elevation in BP in office. In setting of anxiety/depression. May have previously been on antihypertensives. Does report some headache. - Home BP check w/daily log - Start Amlodipine 5mg; consider titration Associated Problem(s): Depression Significant depression w/o SI. Had prior benefit from Zoloft, Prozac, but was switched to Cymbalta. Not tolerating cymbalta at prescribed dose; taking half dose. No recent therapy. Discussed. - Wean Cymbalta - Start Prozac - Refer [facility] for initial counseling, linkage to ongoing therapy Associated Problem(s): Breast implant status Breast augmentation performed approx 30yrs ago. Reports recent change in appearance of breasts. Also reports cold feeling in chest. Would like evaluation. - Refer plastics Associated Problem(s): Anxiety Significant anxiety. Does have occasional panic attacks. Significant recent stressors. Currently treated with cymbalta, temazepam, and alprazolam. Poor response to cymbalta. Has been out of benzos x1wk. Previously had benefit with prozac, zoloft. Has not worked with therapist recently. Discussed medication options, need to avoid benzos. - Taper cymbalta - Start Prozac - Hydroxyzine for panic - Refer [facility] for initial counseling, linkage to ongoing therapy Associated Problem(s): Hypothyroidism Hx of hypothyroid. Has been stable on Synthroid 50mcg for several years. Does have current anxiety and depression; cannot rule out hypothyroid contribution. - TSH documented in this encounter [prior documentation @ 1440 was incomplete] Reports headache feeling like its going to explode . Describes frontal headache. Sometimes feels to the sides. Headache present for two weeks; doesn't go away. Denies nausea or scintillation. Vision has decreased over past month. Reports some paresthesias in legs/feet, mostly on the right. Denies any peripheral weakness. Taking 10mg amlodipine. Has taken 1000mg ibuprofen with some benefit. Suspect that headache is independent of blood pressure. Suspect migraine w/o aura based on patient description. Likely has some increased blood pressure 2/2 headache. Started taking prozac yesterday. Hydroxyzine not helping with anxiety; has increased to 50mg. Patient very upset and noting that xanax would work to control her symptoms. Discussed with patient. Patient does have significant anxiety; not benefiting from hydroxyzine. Will need some coverage pending improvement on SSRI. Discussed using long-acting benzo to cover. Discussed that this was a short term medication while waiting for Prozac to become effective. There will be no refills of this medication; patient is aware and agrees. - Trial imitrex for headache - Short course of Klonopin Called and left [facility] for pt stating that there was a new RX being sent to the pharmacy per the plan that Dr. Carr and the pt had worked out. Reports headache feeling like its going to explode . Describes frontal headache. Sometimes feels to the sides. Headache present for two weeks; doesn't go away. Denies nausea or scintillation. Vision has decreased over past month. Reports some paresthesias in legs/feet, mostly on the right. Denies any peripheral weakness. Taking 10mg amlodipine. Has taken 1000mg ibuprofen with Started taking prozac yesterday. Hydroxyzine not helping with anxiety; has increased to 50mg. Per pt she has tried two tablets (50mg) of hydroxyzine (atarax/vistaril) but she is still have excruciating headaches. Pt states she has tried taking two tablets of the amlodipine (norvasc) (10mg total) for the last 2 days. Still getting excruciating headaches. Her BP today is 148/118 Patient will need to wait until the 04/02 visit to discuss the Xanax. If she has tried the hydroxyzine (atarax/vistaril) 25mg and it is not working to control her anxiety, she can increase to two tablets (50mg) PRN. Please ask about BP medication not working : does this mean side effects, or her BP is not coming down? If the first, I will change the prescription. If the second, and assuming she is taking it as directed, she can take two tablets of the amlodipine (norvasc) (10mg total) each day until her appointment on 04/02. Refill alprazolam [address] JOHN: 03/19/20 NOV: 04/02/20 Pt stated in [facility] message that BP medication is not working. Pt has upcoming appt on 04/02/20. No CSA on file. Will pt need to wait for visit on 04/02/20 for refill? ----- Message from Francisca Zavaleta sent at 03/26/2020 11:32 AM EST ----- Regarding: RX refill Contact: Kayla Page, MEDICATION REFILL REQUEST: PCP: Jarrett Carr MD Patient called 03/26/20 and is requesting a medication refill for ALPRAZolam (XANAX) 1 MG tablet And blood pressure medication(pt stated what he prescribed to her is not working) Pt has appt 04/02 This was confirmed from the current medication list found in the patients chart. Supply Requested: # of days: 90 days Method of receiving: Send to pharmacy Last set of flowsheet rows for OARRS report: OARRS/NARxCHECK Report Received and Assessed: No data found Date controlled substance agreement signed: No data found Date of last drug screen: No data found Functional Assessment: No data found Will this refill be sent to the preferred pharmacy listed below? Yes Preferred pharmacies: [id number] - [place], [place] - [address] [facility] [phone] Pt Call Back Number Patient call back message sent to the primary care clinical pool. 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 Ran out of medication just over 3wks ago. Continues to have headache, anxiety. Tremor noted on exam. Given duration of treatment, may have continuing symptoms of withdrawal. Discussed with patient. Will provide taper of long-acting benzo for treatment of withdrawal; patient understands that this is not for treatment of her anxiety or insomnia. Patient is to continue her other treatments, and follow-up with Psychiatry. - Diazepam 5mg BID x2wks, 2mg BID x2wks, 1mg BID x7d, 1mg QD X6d, then off Associated Problem(s): Depression Significant depression w/o SI. Had prior benefit from Zoloft, Prozac, but was switched to Cymbalta. Not tolerating cymbalta at prescribed dose; taking half dose. No recent therapy. Discussed. 04/02: Stopped cymbalta w/o difficulty. No improvement from prozac at this time/dose. Labile and depressed. Makes fatalistic comments about the end in context of being refused benzodiazepine refills. Improves with discussion of plan w/addition of seroquel to improve sleep and assist in symptom management. Low suspicion of SI, but patient is in need of support. Reports stressful home environment, but no indication of abuse per patient report. 2/3: Stable mood. Denies SI. See above. - Continue Prozac - Increase Seroquel, as above - F/u [facility] as above Associated Problem(s): Anxiety Significant anxiety. Does have occasional panic attacks. Significant recent stressors. Currently treated with cymbalta, temazepam, and alprazolam. Poor response to cymbalta. Has been out of benzos x1wk. Previously had benefit with prozac, zoloft. Has not worked with therapist recently. Discussed medication options, need to avoid benzos. 04/02: Off Cymbalta. Tolerating prozac, but not seeing benefit. No improvement with Atarax. Tried Klonopin as stopgap, but didn't see benefit and reported disposing of medication. Did not respond to calls from [facility]. Requesting prior Xanax, Restoril. Lengthy discussion of risks/benefits of medication. 2/3: Continued symptoms. Little benefit from seroquel at this time. Continues to ask for xanax. Has linked to [facility]; should get list of providers, psychiatry. - Continue current dose - Increase Seroquel 50 > 100mg QHS - Encourage patient to follow-up w/therapy, psychiatry Associated Problem(s): Hypertension Did not bring home log, but reports DBP well above goal. Otherwise tolerating Amlodipine w/o issues. 2/3: Continuing to tolerate medication. Some improvement in BP at higher dose, but remains above goal. Ongoing anxiety, possible withdrawal, contributing to pressures. - Continue current dose - Consider adding RIGO-I - Continue home logging documented in this encounter Received refill request for Xanax, Restoril. New patient; seen one time previously. At that visit, patient had been out of benzo medications for 1wk. Plan after discussion was to discontinue those medications and start other medications to manage anxiety. Patient referred to counseling; did not answer/return call per [facility] note. Has PCP follow-up appt in 6d. - Refills refused - Patient to notify office if current medications are not sufficient LV: 03/19/2020 [place]: 04/02/2020 .last office notes state to return Return in about 2 weeks (around 04/02/2020) for Follow Up Mood, Elevated BP. ----- Message from Woody Odell sent at 03/23/2020 12:07 PM EST ----- Regarding: RX refill Contact: KAYLA PAGE [[id number]] MEDICATION REFILL REQUEST: PCP: Jarrett Carr MD Patient called 03/23/20 and is requesting a medication refill for ALPRAZolam (XANAX) 1 MG tablet temazepam (RESTORIL) 30 mg capsule This was confirmed from the current medication list found in the patients chart. Supply Requested: # of days: 30 days Method of receiving: Send to pharmacy Last set of flowsheet rows for OARRS report: OARRS/NARxCHECK Report Received and Assessed: No data found Date controlled substance agreement signed: No data found Date of last drug screen: No data found Functional Assessment: No data found Will this refill be sent to the preferred pharmacy listed below? Yes Preferred pharmacies: [id number] [place], [place] - [address] [facility] [address] [facility] [phone] Pt Call Back Number Work Phone Not on file. Pt states she had high blood pressure and headaches for about a week now and thoise RX need filled bc they are the ones that make her feel better. Patient call back message sent to the primary care clinical pool. Yesley Leanna Odell documented in this encounter INFORMATION SOURCE (unrecogn ized section and content) DATE CREATED AUTHOR AUTHOR'S ORGANIZ ATION 01/25/[address] [facility] DATE CREATED AUTHOR AUTHOR'S ORGANIZ ATION 07/19/2022 [facility] DATE CREATED AUTHOR AUTHOR'S ORGANIZ ATION 08/29/2022 [facility] DATE CREATED AUTHOR AUTHOR'S ORGANIZ ATION 10/31/2022 [facility] Teams (unrecognized sec tion and content) Bufferer Relationship Specialty Start Date End Date El Douglass DO [address] [place] [address] [place] [address] PCP - General Family Medicine 06/11/21 Bufferer Relationship Specialty Start Date End Date El Douglass [address] [place] [address] PCP - General Family Medicine 06/11/21 Bufferer Relationship Specialty Start Date End Date El Douglass DO [address] [place] [address] [place] [address] PCP - General Family Medicine 06/11/21 Saige [facility] Worker Case Management 06/17/21 Bufferer Relationship Specialty Start Date End Date El Douglass DO [address] [place] [address] [place] [address] PCP - General Family Medicine 06/11/21 Saige White Community Health Worker Case Management 06/17/21 Bufferer Relationship Specialty Start Date End Date El Douglass DO [address] [place] [address] [place] [address] PCP - General Family Medicine 06/11/21 Saige White Community Health Worker Case Management 06/17/21 Bufferer Relationship Specialty Start Date End Date El Douglass, DO [address] [place] [address] [place] [address] PCP - General Family Medicine 06/11/21 Saige White Community Health Worker Case Management 06/17/21 Bufferer Relationship Specialty Start Date End Date El Douglass, [address] [place] [address] [place] [address] PCP - General Family Medicine 06/11/21 Saige White Community Health Worker Case Management 06/17/21 Bufferer Relationship Specialty Start Date End Date El Douglass, [address] [place] [address] [place] [address] PCP - General Family Medicine 06/11/21 Saige White Community Health Worker Case Management 06/17/21 Bufferer Relationship Specialty Start Date End Date El Douglass, [address] [place] [address] PCP - General Family Medicine 06/11/21 Saige White Community Health Worker Case Management 06/17/21 Bufferer Relationship Specialty Start Date End Date El Douglass, [address] [place] [address] [place] [address] PCP - General Family Medicine 06/11/21 Saige White Community Health Worker Case Management 06/17/21 Bufferer Relationship Specialty Start Date End Date El Douglass, [address] [place] [address] [place] [address] PCP - General Family Medicine 06/11/21 Saige White Community Health Worker Case Management 06/17/21 Bufferer Relationship Specialty Start Date End Date El Douglass, [address] [place] [address] [place] [address] PCP - General Family Medicine 06/11/21 Saige White Community Health Worker Case Management 06/17/21 Bufferer Relationship Specialty Start Date End Date El Douglass, [address] [place] [address] PCP - General Family Medicine 06/11/21 Saige White Community Health Worker Case Management 06/17/21 09/18/21 Bufferer Relationship Specialty Start Date End Date El Douglass, [address] [place] [address] PCP - General Family Medicine 06/11/21 Bufferer Relationship Specialty Start Date End Date El Douglass, [address] [place] [address] PCP - General Family Medicine 06/11/21 Bufferer Relationship Specialty Start Date End Date El Douglass, [address] [place] [address] PCP - General Family Medicine 06/11/21 Bufferer Relationship Specialty Start Date End Date Jarrett Carr MD [address] [place] [address] [place] [address], [place] [address] PCP - General Family Medicine 03/19/20 05/01/21 System, Provider Not In PCP - General 05/02/21 06/10/21 El Douglass, [address] [place] [facility] [place] [address] PCP - General Family Medicine 06/11/21 Saige White Community Health Worker Case Management 06/17/21 09/18/21 Bufferer Relationship Specialty Start Date End Date El Douglass, [address] [place] [address] PCP - General Family Medicine 06/11/21 Bufferer Relationship Specialty Start Date End Date El Douglass DO [address] [place] [address] [place] [address] PCP - General Family Medicine 06/11/21 Bufferer Relationship Specialty Start Date End Date El Douglass DO [address] [place] [address] [place] [address] PCP - General Family Medicine 06/11/21 Bufferer Relationship Specialty Start Date End Date El Douglass DO [address] [place] [address] [place] [address] PCP - General Family Medicine 06/11/21 Bufferer Relationship Specialty Start Date End Date El Douglass DO [address] [place] [address] [place] [address] PCP - General Family Medicine 06/11/21 Bufferer Relationship Specialty Start Date End Date El Douglass DO [address] [place] [address] [place] [address] PCP - General Family Medicine 06/11/21 Bufferer Relationship Specialty Start Date End Date El Douglass DO [address] [place] [address] [place] [address] PCP - General Family Medicine 06/11/21 Bufferer Relationship Specialty Start Date End Date El Douglass DO [address] [place] [address] [place] [address] PCP - General Family Medicine 06/11/21 Bufferer Relationship Specialty Start Date End Date Ly Mitchell DO [address] [facility] [address] [place] [address] PCP - General Family Medicine 09/02/22 Randi Moore MD [address] [facility] [address] [place] [address] Infectious Diseases 09/12/22 FOR RECORDS PERTAINING TO PATIENTS WHO ARE OR HAVE BEEN ENROLLED IN A CHEMICAL DEPENDENCY/SUBSTANCEABUSE PROGRAM, SOME INFORMATION MAY BE OMITTED. This clinical summary was aggregated from multiple sources. Caution should be exercised in using it in the provision of clinical care. This summary normalizes information from multiple sources, and as a consequence, information in this document may materially change the coding, format and clinical context of patient data. In addition, data may be omitted in some cases. CLINICAL DECISIONS SHOULD BE BASED ON THE PRIMARY CLINICAL RECORDS. [employer] provides no warranty or guarantee of the accuracy or completeness of information in this document.
[2023-04-21 12:44] LABS: Absolute Lymphocyte Count 1.49 X10^3/uL (0.83-4.51); Absolute Neutrophil Count 3.9 X10^3/uL (2.0-7.7); Basophil# 0.03 X10^3/uL; Basophil% 0.5 % (0-1); Eosinophil# 0.06 X10^3/uL; Eosinophils% 0.9 % (0-5); Hematocrit 40.6 % (37-47); Hemoglobin 12.9 g/dL (12.0-15.0); Lymphocyte # 1.49 X10^3/ul (0.83-4.51); Lymphocyte % 23.4 % (19-41); Mean Corp Hgb Conc 31.8 g/dL (32-36); Mean Corpuscular Hgb 29.3 pg (27.0-32.0); Mean Corpuscular Volume 92.1 fL (81-99); Mean Platelet Vol. 11.1 fl (6.2-12.0); Monocyte# 0.81 X10^3/uL; Monocyte% 12.7 % (0-10); NRBC Flagged by Analyzer 0 % (0-5); Neutrophil # 3.94 X10^3/uL (2.7-7.7); Platelet Count 250 K/mm3 (150-450); RBC Distribution Width CV 12.5 % (11.6-14.6); RBC Distribution Width SD 42.1 fl (35.1-43.9); Red Blood Count 4.41 M/mm3 (4.2-5.4); White Blood Count 6.4 K/mm3 (4.4-11.0)
[2023-04-21 13:01] LABS: Vitamin D,25 Hydroxy 28.9 ng/mL
[2023-04-21 13:06] LABS: ALB/GLOB Ratio 0.8 RATIO (0.9-2.4); AST(SGOT) 55 U/L (15-37); Alanine Aminotransfer ALT/SGPT 64 U/L (13-56); Albumin, Serum 3.7 g/dL (3.2-5.0); Alkaline Phosphatase 74 U/L (45-117); Anion Gap 5 (5-15); BUN 10 mg/dL (7-18); BUN/Creat Ratio 12.1 RATIO (10-20); Calcium,Total 9.4 mg/dL (8.5-10.1); Chloride 108 mmol/L (98-107); Creatinine, Serum 0.83 mg/dL (0.55-1.02); EST Glomerular Filtration Rate 73 mL/min (>60); Est Glom Filt Rate - Afr Amer 89 mL/min (>60); Globulin 4.5 g/dL (2.2-4.2); Glucose 111 mg/dL (74-106); Potassium 3.9 mmol/L (3.5-5.1); Protein, Total 8.2 g/dL (6.4-8.2); Sodium Level 140 mmol/L (136-145); Thyroid Stim Hormone (TSH) 2.58 uIU/mL (0.358-3.74)
== END | disposition home or self-care (01) ==
LOC: LAB.FUTURE 11:14 → POLAB3 11:15
PROVIDERS: PCP Family Medicine Geriatric Medicine; Visit Provider Family Medicine Geriatric Medicine
DX: I10 Essential (primary) hypertension (principal); E55.9 Vitamin D deficiency, unspecified
CPT/HCPCS: 36415; 80053; 82306; 84443; 85025

== ENCOUNTER → 2023-06-10 | Outpatient (CLI) | payer MEDICARE, SELFPAY ==
[2023-06-10 18:55] LABS: ALB/GLOB Ratio 0.8 RATIO (0.9-2.4); AST(SGOT) 44 U/L (15-37); Alanine Aminotransfer ALT/SGPT 57 U/L (13-56); Albumin, Serum 3.5 g/dL (3.2-5.0); Alkaline Phosphatase 77 U/L (45-117); Anion Gap 7 (5-15); BUN 17 mg/dL (7-18); BUN/Creat Ratio 17.4 RATIO (10-20); Calcium,Total 9.9 mg/dL (8.5-10.1); Chloride 105 mmol/L (98-107); Creatinine, Serum 0.98 mg/dL (0.55-1.02); EST Glomerular Filtration Rate 61 mL/min (>60); Est Glom Filt Rate - Afr Amer 73 mL/min (>60); Globulin 4.5 g/dL (2.2-4.2); Glucose 107 mg/dL (74-106); Potassium 4.1 mmol/L (3.5-5.1); Sodium Level 137 mmol/L (136-145)
[2023-06-16 00:06] LABS: AFP, Tumor Marker 2.8 ng/mL (0.0-9.2); HCV Quant. RNA PCR 530000 IU/mL (.); HCV log 10 5.724 (.); Hepatitis C Genotype 1a (.)
== END | disposition home or self-care (01) ==
PROVIDERS: PCP Family Medicine Geriatric Medicine; Referring Provider Internal Medicine Gastroenterology; Visit Provider Internal Medicine Gastroenterology
DX: B18.2 Chronic viral hepatitis C (principal)
CPT/HCPCS: 36415; 80053; 82105; 87522; 87902

== ENCOUNTER → 2023-06-25 | Outpatient (CLI) | payer MEDICARE, SELFPAY ==
--- NOTE | 2023-06-25 09:22 | US_ITS ---
STUDY: ABDOMINAL ULTRASOUND - RIGHT UPPER QUADRANT; ELASTOGRAPHY REASON FOR VISIT: Female, 67 years old. Hepatitis C. TECHNIQUE: Ultrasound evaluation of the right upper quadrant was performed with real-time and static galvan-scale imaging. Point quantification shear wave elastography was performed (UGOBE). TECHNICAL QUALITY: Adequate. COMPARISON: None. FINDINGS: Liver: The liver is enlarged and measures 22.4 cm. There is increased echogenicity consistent with fatty infiltration. The bile ducts are within normal limits. There is hepatic color flow. The direction of portal flow is hepatopetal. There is no demonstrated mass lesion. Median liver stiffness measured 8.5 kPa. Gallbladder: Normal distended gallbladder. The gallbladder wall measures 2.7 mm. There is a negative sonographic Man''s sign. There is no pericholecystic fluid. There are multiple echogenic structures within the gallbladder, consistent with multiple gallstones. Common Bile Duct (C.B.D.): The common bile duct measures 4.8 mm. Pancreas: There is normal echogenicity of the visualized pancreas. There is no demonstrated pancreatic mass or cyst. Right Kidney: Normal size of the right kidney. The right kidney measures 11.7 cm x 6 cm x 3.5 cm. Normal renal cortex. The right cortex measures 1.5 cm. There is no demonstrated renal mass or cyst. There is no right hydronephrosis. US/ABD Limited w/ Elastography IMPRESSION: 1. Liver stiffness measures 8.5 kPa compatible with F2-F3 (Mild to moderate liver fibrosis) Metavir score. 2. Hepatomegaly. 3. Multiple gallstones. Electronically Signed: Natalio Hutchins MD at 16:17 EDT ,
== END | disposition home or self-care (01) ==
PROVIDERS: PCP Family Medicine Geriatric Medicine; Referring Provider Internal Medicine Gastroenterology; Visit Provider Internal Medicine Gastroenterology
DX: B19.20 Unspecified viral hepatitis C without hepatic coma (principal)
CPT/HCPCS: 76705; 76981

== ENCOUNTER → 2023-10-14 | Outpatient (CLI) | payer MEDICARE, SELFPAY ==
[2023-10-14 12:00] LABS: Absolute Lymphocyte Count 2.03 X10^3/uL (0.83-4.51); Absolute Neutrophil Count 6.8 X10^3/uL (2.0-7.7); Basophil# 0.05 X10^3/uL; Basophil% 0.5 % (0-1); Eosinophil# 0.16 X10^3/uL; Eosinophils% 1.6 % (0-5); Hematocrit 39.9 % (37-47); Hemoglobin 12.8 g/dL (12.0-15.0); Lymphocyte # 2.03 X10^3/ul (0.83-4.51); Lymphocyte % 20.4 % (19-41); Mean Corp Hgb Conc 32.1 g/dL (32-36); Mean Corpuscular Hgb 29.4 pg (27.0-32.0); Mean Corpuscular Volume 91.5 fL (81-99); Mean Platelet Vol. 9.7 fl (6.2-12.0); Monocyte# 0.89 X10^3/uL; NRBC Flagged by Analyzer 0 % (0-5); Neutrophil # 6.77 X10^3/uL (2.7-7.7); Neutrophil % 68.2 % (47-70); Platelet Count 338 K/mm3 (150-450); RBC Distribution Width CV 13.3 % (11.6-14.6); RBC Distribution Width SD 45.1 fl (35.1-43.9); Red Blood Count 4.36 M/mm3 (4.2-5.4); White Blood Count 9.9 K/mm3 (4.4-11.0)
[2023-10-14 12:13] LABS: Protein, Urine (Random) 14.2 mg/dL (<11.9)
[2023-10-14 12:30] LABS: Vitamin B12 281 pg/mL (211-911); Vitamin D,25 Hydroxy 23.2 ng/mL
[2023-10-14 12:39] LABS: ALB/GLOB Ratio 0.8 RATIO (0.9-2.4); AST(SGOT) 22 U/L (15-37); Alanine Aminotransfer ALT/SGPT 41 U/L (13-56); Albumin, Serum 3.7 g/dL (3.2-5.0); Alkaline Phosphatase 66 U/L (45-117); Anion Gap 7 (5-15); BUN 12 mg/dL (7-18); BUN/Creat Ratio 11.2 RATIO (10-20); Calcium,Total 9.4 mg/dL (8.5-10.1); Chloride 107 mmol/L (98-107); Creatinine, Serum 1.07 mg/dL (0.55-1.02); EST Glomerular Filtration Rate 55 mL/min (>60); Est Glom Filt Rate - Afr Amer 66 mL/min (>60); Globulin 4.5 g/dL (2.2-4.2); Glucose 99 mg/dL (74-106); Potassium 3.5 mmol/L (3.5-5.1); Protein, Total 8.2 g/dL (6.4-8.2); Sodium Level 138 mmol/L (136-145); Thyroid Stim Hormone (TSH) 0.72 uIU/mL (0.358-3.74)
[2023-10-21 00:06] LABS: HOMOCYSTEINE 17.7 umol/L (0.0-17.2); Methylmalonic Acid Bld 306 nmol/L (0-378)
== END | disposition home or self-care (01) ==
LOC: LAB 11:33
PROVIDERS: PCP Family Medicine Geriatric Medicine; Referring Provider Family Medicine Geriatric Medicine; Visit Provider Family Medicine Geriatric Medicine
DX: I10 Essential (primary) hypertension (principal); E55.9 Vitamin D deficiency, unspecified; E87.1 Hypo-osmolality and hyponatremia; G62.9 Polyneuropathy, unspecified; D51.9 Vitamin B12 deficiency anemia, unspecified
CPT/HCPCS: 36415; 80053; 82306; 82607; 83090; 83921; 84156; 84443; 85025

== ENCOUNTER → 2023-10-19 | Outpatient (CLI) | payer MEDICARE, SELFPAY ==
--- NOTE | 2023-10-19 07:47 | CT_ITS ---
STUDY: LOW DOSE CT LUNG CANCER SCREENING REASON FOR EXAM: Female, 67 years old. NICOTINE DEPENDENCE. Patient smoked 2 packs per days for 40 years. COPD. RADIATION DOSAGE (If Supplied By Facility): CTDIvol = ( 3.18 ) mGy, DLP = ( 101.25 ) mGycm TECHNIQUE: No contrast was administered. Low dose technique was utilized (average mAS-38 and kVp 120). 1.25 mm axial source images with a slice interval of 1.25-mm were reconstructed in lung windows. 2.5 mm axial source images with a slice interval of 2.5-mm were reconstructed in lung windows. 5.0 mm axial source images with a slice interval of 5.0-mm were reconstructed in soft tissue windows. COMPARISON: None. NODULES: No suspicious nodules seen. Emphysema: No significant emphysematous changes. Endobronchial lesion: None Aorta: Mild atherosclerotic plaque formation of the aortic arch. CORONARY ARTERIES: Coronary artery calcification is seen. Heart: Unremarkable Pulmonary artery: Remarkable Mediastinal nodes: Unremarkable Other chest and abdominal findings: Bilateral breast prostheses. CT/Low Dose CT Lung Screening IMPRESSION: Lung-RADS category 2 - Continue annual screening with LDCT in 12 months. IMPORTANT NOTES FOR USE: ACR Lung-RADS Version 1.1 Assessment Categories Release Date: 2018 Category: Coded 0-4 bases on nodule(s) with highest degree of suspicion. Negative screen is defined as categories 1 and 2; a positive screen is defined as categories 3 and 4. Category 3 and 4A nodules that are unchanged on interval CT should be coded as category 2, and individuals returned to screening in 12 months. Category 4X: Category 3 or 4 nodules with additional imaging findings that increase the suspicion of lung cancer, such as spiculation, GGN that doubles in size in 1 year, enlarged lymph notes, etc. Category Modifiers: S (significant finding unrelated to lung cancer) Electronically Signed: Natalio Hutchins MD at 15:56 EDT ,
== END | disposition home or self-care (01) ==
PROVIDERS: PCP Family Medicine Geriatric Medicine; Referring Provider Family Medicine Geriatric Medicine; Visit Provider Family Medicine Geriatric Medicine
DX: F17.210 Nicotine dependence, cigarettes, uncomplicated (principal); Z12.39 Encounter for other screening for malignant neoplasm of breast
CPT/HCPCS: 71271

== ENCOUNTER → 2023-10-26 | Outpatient (CLI) | payer MEDICARE, SELFPAY ==
--- NOTE | 2023-10-26 12:22 | BI_ITS ---
MAMMOGRAPHY - BILATERAL SCREENING REASON FOR EXAM: Female, 67 years old. Routine annual screening examination. PERTINENT HISTORY: Non-contributory. Bilateral breast implants. TECHNIQUE: Digital bilateral breast brain (3D mammographic acquisition) in the CC and MLO projections. 2-D mediolateral oblique (MLO) and craniocaudad (CC) views of both breasts were obtained. CAD: Full Field Digital Mammography with Computer Added Detection was performed. COMPARISON: Comparison is made with prior outside examination dated October 23, 2016. FINDINGS: Breast Composition: There are scattered areas of fibroglandular density. There are no dominant masses or suspicious calcifications. Stable appearance of the bilateral breast implants with a calcific rim. Stable fat-containing bilateral axillary lymph nodes. No other significant abnormalities are identified. There has been no significant change since the prior study. BI/SCRN MAMM (CAD)W/BRAIN BILAT IMPRESSION: Stable bilateral screening mammogram. Yearly follow-up mammogram recommended. (A) ASSESSMENT CATEGORY: BIRADS Category 2: Benign. A letter regarding these results will be sent to the patient by the facility within 30 days. Approximately 10% of breast cancers are not detected by mammography. A normal mammogram should not delay biopsy of a clinically suspicious abnormality. [id number] Electronically Signed: Natalio Hutchins MD at 7:49 EDT ,
== END | disposition home or self-care (01) ==
LOC: OPBI 12:20
PROVIDERS: PCP Family Medicine Geriatric Medicine; Referring Provider Family Medicine Geriatric Medicine; Visit Provider Family Medicine Geriatric Medicine
DX: Z12.31 Encounter for screening mammogram for malignant neoplasm of breast (principal); F17.210 Nicotine dependence, cigarettes, uncomplicated
CPT/HCPCS: 77063; 77067

== ENCOUNTER → 2023-12-04 | Outpatient (CLI) | payer MEDICARE, SELFPAY | END | disposition home or self-care (01) | PROVIDERS: PCP Family Medicine Geriatric Medicine; Referring Provider Internal Medicine Gastroenterology; Visit Provider Internal Medicine Gastroenterology | DX: B19.20 Unspecified viral hepatitis C without hepatic coma (principal) | CPT/HCPCS: 36415 ==

== ENCOUNTER → 2024-04-06 | Outpatient (CLI) | payer OTHER, SELFPAY ==
[2024-04-06 11:04] LABS: Absolute Lymphocyte Count 2.15 X10^3/uL (0.83-4.51); Absolute Neutrophil Count 7.8 X10^3/uL (2.0-7.7); Basophil# 0.08 X10^3/uL; Basophil% 0.7 % (0-1); Eosinophil# 0.29 X10^3/uL; Eosinophils% 2.6 % (0-5); Hematocrit 39.2 % (37-47); Lymphocyte # 2.15 X10^3/ul (0.83-4.51); Mean Corp Hgb Conc 33.2 g/dL (32-36); Mean Corpuscular Hgb 29.7 pg (27.0-32.0); Mean Corpuscular Volume 89.7 fL (81-99); Monocyte# 0.94 X10^3/uL; Monocyte% 8.3 % (0-10); NRBC Flagged by Analyzer 0 % (0-5); Neutrophil # 7.78 X10^3/uL (2.7-7.7); Neutrophil % 68.6 % (47-70); Platelet Count 333 K/mm3 (150-450); RBC Distribution Width CV 13.1 % (11.6-14.6); RBC Distribution Width SD 43.1 fl (35.1-43.9); Red Blood Count 4.37 M/mm3 (4.2-5.4); White Blood Count 11.3 K/mm3 (4.4-11.0)
[2024-04-06 11:42] LABS: ALB/GLOB Ratio 0.8 RATIO (0.9-2.4); AST(SGOT) 18 U/L (15-37); Alanine Aminotransfer ALT/SGPT 23 U/L (13-56); Albumin, Serum 3.5 g/dL (3.2-5.0); Alkaline Phosphatase 55 U/L (45-117); Anion Gap 9 (5-15); BUN 12 mg/dL (7-18); BUN/Creat Ratio 10.7 RATIO (10-20); Calcium,Total 9.3 mg/dL (8.5-10.1); Chloride 105 mmol/L (98-107); Creatinine, Serum 1.12 mg/dL (0.55-1.02); EST Glomerular Filtration Rate 52 mL/min (>60); Est Glom Filt Rate - Afr Amer 63 mL/min (>60); Globulin 4.6 g/dL (2.2-4.2); Glucose 118 mg/dL (74-106); Potassium 4.1 mmol/L (3.5-5.1); Protein, Total 8.1 g/dL (6.4-8.2); Sodium Level 136 mmol/L (136-145)
== END | disposition home or self-care (01) ==
PROVIDERS: PCP Family Medicine Geriatric Medicine; Visit Provider Family Medicine Geriatric Medicine
DX: I10 Essential (primary) hypertension (principal); E55.9 Vitamin D deficiency, unspecified
CPT/HCPCS: 36415; 80053; 82306; 84443; 85025

== ENCOUNTER → 2024-06-22 | Outpatient (CLI) | payer MEDICARE, SELFPAY ==
--- NOTE | 2024-06-22 10:47 | US_ITS ---
PROCEDURE: ABDOMEN LIMITED (USABDL), 06/22/2024 REASON FOR EXAM: GALLSTONE COMPARISON: None FINDINGS: Liver: Echogenic and mildly coarsened echotexture. 21.5 cm in length. Gallbladder: Cholelithiasis. No visualized wall thickening or pericholecystic fluid. Reportedly, sonographic Man's was negative. Biliary tree: Extrahepatic biliary dilatation. CBD measures 5 mm at the gordy hepatis, 11 mm more inferiorly, tapering near the ampulla to 2 mm. Pancreas: Partially obscured by shadowing bowel gas, grossly unremarkable as visualized. Prominent but technically nonenlarged main pancreatic duct measures 3 mm. Right kidney: Unremarkable. 11.2 cm in length. Other: No visualized free fluid. US/Abdomen Limited IMPRESSION: 1. Cholelithiasis without findings to suggest cholecystitis. Biliary dilatatio n as detailed, without visualized choledocholithiasis or other obstructing process. Correlate with serum bilirub in and recommend cross-sectional imaging such as MRCP. 2. Hepatomegaly with echogenic appearance of the liver which is typically assoc iated with steatosis although given mild coarsening coexisting fibrosis may be present. No overt serosal nodularity to confirm cirrhosis. Correlate with clinical and laboratory evaluation. 3. Additional description as above. Reading Location: [id number]
== END | disposition home or self-care (01) ==
PROVIDERS: PCP Family Medicine Geriatric Medicine; Referring Provider Family Medicine Geriatric Medicine; Visit Provider Family Medicine Geriatric Medicine
DX: K80.20 Calculus of gallbladder without cholecystitis without obstruction (principal)
CPT/HCPCS: 76705

== ENCOUNTER → 2024-07-08 | Outpatient (CLI) | payer MEDICARE, SELFPAY ==
--- NOTE | 2024-07-08 11:11 | NM_ITS ---
PROCEDURE: HEPATOBILLIARY IMG W/PHARM INT 07/08/2024 REASON FOR EXAM: GALLSTONES TECHNIQUE: Intravenous Choletec with planar imaging of the abdomen. RADIOPHARMACEUTICAL: 5.3 mCi of technetium 99 M mebrofenin COMPARISON: None. FINDINGS: There is good uptake of the radiopharmaceutical by the liver. Despite imaging for 120 minutes, there is nonvisualization of the gallbladder. There is excretion of radiopharmaceutical into the biliary tree through the common bile duct and into the duodenum and jejunum. Minutes. NM/Hepatobilliary Img w/Pharm Int IMPRESSION: Nonvisualization of the gallbladder. Differential diagnosis includes prolonged fasting, recent meal, acute cholecystitis, or chronic cholecystitis. Reading Location: [id number]
== END | disposition home or self-care (01) ==
LOC: NM 11:09
PROVIDERS: PCP Family Medicine Geriatric Medicine; Referring Provider Surgery; Visit Provider Surgery
DX: K80.20 Calculus of gallbladder without cholecystitis without obstruction (principal)
CPT/HCPCS: 78227; A9537

== ENCOUNTER 2024-08-18 08:16 | Day surgery (SDC) | payer MEDICARE, SELFPAY ==
--- NOTE | 2024-08-09 11:47 | EKG12_ITS ---
Test Reason : PRE OP Blood Pressure : */* mmHG Vent. Rate : 89 BPM Atrial Rate : 89 BPM P-R Int : 130 ms QRS Dur : 68 ms QT Int : 386 ms P-R-T Axes : 52 15 71 degrees QTcB Int : 469 ms Normal sinus rhythm Possible Left atrial enlargement Low voltage QRS Cannot rule out Septal infarct , age undetermined Abnormal ECG Confirmed by Flaco Sutton ([id number]), clinical editor JADE DE LA ROSA ([id number]) on 08/10/2024 5:49:26 AM Referred By: Vicente Villanueva Confirmed By: Flaco Sutton
[2024-08-09 12:59] LABS: Partial Thromboplast Time 22.2 Seconds (24.1-36.2)
--- NOTE | 2024-08-10 10:48 | PAT.ANESEVAL ---
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 When Was Last Pacemaker Check QUESTION #4 FULL TEXT: You/Your Family Experience fever (hyperthermia) with Anesthesia Last Oral Intake Last Oral intake: Last Oral Intake NPO since Meds taken in AM with sips of water? 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 Female Yes 08/04/24 09:45 HX of Motion Sickness Yes 08/04/24 09:45 HX of N/V After Surgery No 08/04/24 09:45 Non-Smoker Yes 08/04/24 09:45 Duration of Surgery greater Yes 08/04/24 09:45 than 60 minutes Number of Risk Factors 4 08/04/24 09:45 PONV Score Severe Risk 08/04/24 09:45 Height & Weight Height & Weight: Anesthesia: Height & Weight Height 5 ft 8 in 07/22/24 13:12 Respiratory Assessment Respiratory Assessment - coke crusher operator: Respiratory Tract Infection Hx - coke crusher operator Hx Respiratory Tract Infection No 08/04/24 09:45 STOP Sleep Apnea STOP Sleep Apnea - coke crusher operator: STOP Sleep Apnea - coke crusher operator Hx Hypertension Yes: controlled with meds 08/04/24 09:45 Hx Sleep Apnea No 08/04/24 09:45 CPAP BIPAP Do you snore loudly (louder Yes 08/04/24 09:45 than talking or can be heard Do you often feel tired/ Yes 08/04/24 09:45 fatigued/ sleepy during daytime? Has anyone observed you stop No 08/04/24 09:45 breathing during sleep? STOP Results Positive 08/04/24 09:45 QUESTION #5 FULL TEXT : Do you snore loudly (louder than talking or can be heard through closed doors)? 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 Specify any problems Hx of Preganancy in last 3 No 08/04/24 09:45 Months Nurse Filling Out Transfusion JZOLLINGE 08/04/24 09:45 & Questions: Date: 08/04/24 08/04/24 09:45 Time: 09:48 08/04/24 09:45 Patient unable to answer at this time (ie. confused, unrespo /Reproduction History /Reproductive History - coke crusher operator: /Reproductive Hx- coke crusher operator Hx Now No 08/04/24 09:45 Gestational Age (in weeks): EDC: Hx Hx Para Hx Section SAB No 08/04/24 09:45 Active Medications Active Medications: Current Medications Generic Name Dose Route Start Last Admin Trade Name Freq PRN Reason Stop Dose Admin Indocyanine Green 3.75 mg/ N/A 1.5 mls @ 999 mls/hr 08/18/24 09:30 IV 08/18/24 09:31 PREOP [facility] Medical History (Updated 08/04/24 @ 09:45 by Saige Salcido) Wears glasses Wears dentures Marijuana use Injury of head and neck Gastric reflux Heartburn Former smoker Shortness of breath on exertion Chronic cough Constipation Abdominal pain Cholelithiasis Thyroid disease Skin cancer Seizures Osteoporosis Neuropathy High cholesterol High blood pressure Hearing problem Cataracts, bilateral Arthritis Major depressive disorder, recurrent, in full remission Anxiety disorder, unspecified Bipolar 1 disorder Home Medications ?Medication ?Instructions ?Recorded ?Last Taken ?Type cholecalciferol (vitamin D3) 25 25 mcg PO QDAY 05/16/24 Unknown History mcg (1,000 unit) tablet (Vitamin D3) fluoxetine 60 mg tablet 60 mg PO QDAY 05/16/24 Unknown History levetiracetam 500 mg tablet 500 mg PO QDAY 05/16/24 Unknown History levothyroxine 75 mcg tablet 75 mcg PO QDAY 05/16/24 Unknown History mecobalamin (vitamin B12) 10,000 10,000 mcg IM MONTHLY 05/16/24 Unknown History mcg solution for injection Held on 08/04/24. Instructions: pt waiting until november quetiapine 400 mg tablet 100 mg PO QHS 05/16/24 Unknown History valacyclovir 500 mg tablet 500 mg PO QDAY 05/16/24 Unknown History valsartan 320 mg tablet 320 mg PO QDAY 05/16/24 Unknown History aripiprazole 5 mg tablet 5 mg PO DAILY #30 tabs 06/15/24 Unknown Rx Allergy/AdvReac Type Severity Reaction Status Date / Time No Known Allergies Allergy Verified 08/04/24 09:29 Family History Other Anxiety Surgical History (Updated 08/04/24 @ 09:45 by Saige Salcido) Hx of colonoscopy Hx of tubal ligation H/O knee surgery Hx of tonsillectomy History of ankle surgery Social History Smoking Status: Former smoker alcohol intake: former substance use type: marijuana Audit: Pertinent Findings Pertinent Findings EKG Perinent findings: NSR, possible left atrial enlargement Recommendation Anesthesia Recommendation Anesthesia recommendation: OPTIMIZED for anesthesia
[2024-08-18] VITALS (12 sets, daily range): BP systolic 99–125; BP diastolic 52–73; PULSE 78–89; RESP 16–18; TEMP 36.2–36.7; O2SAT 2–98; BMI 34.7
--- NOTE | 2024-08-18 08:27 | PCM.PRE.AN2 ---
ASA Classification* ASA Classification ASA Classification: 2 Assessment & Plan Anesthesia* Anesthesia Assessment Anesthesia Assessment: Discussed sedation and/or anesthesia options, risks, benefits, and alternatives with patient/parents/legal guardian/POA. Questions invited. The patient/parents/legal guardian/POA seems to understand and agrees to proceed with anesthesia plan. Reviewed the physical assessment, medical history, allergy history and patient home medications list prior to surgery/procedure/anesthetic and documented any changes. Performed airway and anesthesia risk assessments. Anesthesia Type Anesthesia Type: General Anesthesia Focused Assessment* Airway Assessment Mouth opens: >3 cm Mallampati Score: II Labs Anesthesia Preop lab: CBC WBC 11.3 K/mm3 (4.4-11.0) H 04/06/24 10:36 04/06/24 RBC 4.37 M/mm3 (4.2-5.4) 04/06/24 10:36 04/06/24 Hgb 13.0 g/dL (12.0-15.0) 04/06/24 10:36 04/06/24 Hct 39.2 % (37-47) 04/06/24 10:36 04/06/24 Plt Count 333 K/mm3 (150-450) 04/06/24 10:36 04/06/24 CHEMISTRY Potassium 4.1 mmol/L (3.5-5.1) 04/06/24 10:36 04/06/24 Sodium 136 mmol/L (136-145) 04/06/24 10:36 04/06/24 BUN 12 mg/dL (7-18) 04/06/24 10:36 04/06/24 Creatinine 1.12 mg/dL (0.55-1.02) H 04/06/24 10:36 04/06/24 Glucose 118 mg/dL (74-106) H 04/06/24 10:36 04/06/24 TSH 1.280 uIU/mL (0.300-4.200) 08/09/24 12:00 08/09/24 COAG Pre-Assessment Diagnosis/Proposed Procedure Planned Operative Procedure(s): Robotic Cholecystectomy with ICG Anesthesia History 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 When Was Last Pacemaker Check QUESTION #4 FULL TEXT: You/Your Family Experience fever (hyperthermia) with Anesthesia Last Oral Intake Last Oral intake: Last Oral Intake NPO since Meds taken in AM with sips of water? Meds patient instructed to take am of surgery PONV PONV - medical records administrator: PONV - medical records administrator Female Yes 08/04/24 09:45 HX of Motion Sickness Yes 08/04/24 09:45 HX of N/V After Surgery No 08/04/24 09:45 Non-Smoker Yes 08/04/24 09:45 Duration of Surgery greater Yes 08/04/24 09:45 than 60 minutes Number of Risk Factors 4 08/04/24 09:45 PONV Score Severe Risk 08/04/24 09:45 Height & Weight Height & Weight: Anesthesia: Height & Weight Height 5 ft 8 in 07/22/24 13:12 Respiratory Assessment Respiratory Assessment - medical records administrator: Respiratory Tract Infection Hx - medical records administrator Hx Respiratory Tract Infection No 08/04/24 09:45 STOP Sleep Apnea STOP Sleep Apnea - medical records administrator: STOP Sleep Apnea - medical records administrator Hx Hypertension Yes: controlled with meds 08/04/24 09:45 Hx Sleep Apnea No 08/04/24 09:45 CPAP BIPAP Do you snore loudly (louder Yes 08/04/24 09:45 than talking or can be heard Do you often feel tired/ Yes 08/04/24 09:45 fatigued/ sleepy during daytime? Has anyone observed you stop No 08/04/24 09:45 breathing during sleep? STOP Results Positive 08/04/24 09:45 QUESTION #5 FULL TEXT : Do you snore loudly (louder than talking or can be heard through closed doors)? 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 Specify any problems Hx of Preganancy in last 3 No 08/04/24 09:45 Months Nurse Filling Out Transfusion JZOLLINGE 08/04/24 09:45 & Questions: Date: 08/04/24 08/04/24 09:45 Time: 09:48 08/04/24 09:45 Patient unable to answer at this time (ie. confused, unrespo /Reproduction History /Reproductive History - medical records administrator: /Reproductive Hx- medical records administrator Hx Now No 08/04/24 09:45 Gestational Age (in weeks): EDC: Hx Hx Para Hx Section SAB No 08/04/24 09:45 Active Medications Active Medications: Current Medications Generic Name Dose Route Start Last Admin Trade Name Freq PRN Reason Stop Dose Admin Indocyanine Green 3.75 mg/ N/A 1.5 mls @ 999 mls/hr 08/18/24 09:30 IV 08/18/24 09:31 PREOP ONE Lactated Ringer's 1,000 mls @ 15 mls/hr 08/18/24 08:30 IV .Q48H KALEY PFSH Medical History Wears glasses Wears dentures Marijuana use Injury of head and neck Gastric reflux Heartburn Former smoker Shortness of breath on exertion Chronic cough Constipation Abdominal pain Cholelithiasis Thyroid disease Skin cancer Seizures Osteoporosis Neuropathy High cholesterol High blood pressure Hearing problem Cataracts, bilateral Arthritis Major depressive disorder, recurrent, in full remission Anxiety disorder, unspecified Bipolar 1 disorder Home Medications ?Medication ?Instructions ?Recorded ?Last Taken ?Type cholecalciferol (vitamin D3) 25 25 mcg PO QDAY 05/16/24 Unknown History mcg (1,000 unit) tablet (Vitamin D3) fluoxetine 60 mg tablet 60 mg PO QDAY 05/16/24 Unknown History levetiracetam 500 mg tablet 500 mg PO QDAY 05/16/24 Unknown History levothyroxine 75 mcg tablet 75 mcg PO QDAY 05/16/24 Unknown History mecobalamin (vitamin B12) 10,000 10,000 mcg IM MONTHLY 05/16/24 Unknown History mcg solution for injection Held on 08/04/24. Instructions: pt waiting until november quetiapine 400 mg tablet 100 mg PO QHS 05/16/24 Unknown History valacyclovir 500 mg tablet 500 mg PO QDAY 05/16/24 Unknown History valsartan 320 mg tablet 320 mg PO QDAY 05/16/24 Unknown History aripiprazole 5 mg tablet 5 mg PO DAILY #30 tabs 06/15/24 Unknown Rx Allergy/AdvReac Type Severity Reaction Status Date / Time No Known Allergies Allergy Verified 08/04/24 09:29 Family History Other Anxiety Surgical History Hx of colonoscopy Hx of tubal ligation H/O knee surgery Hx of tonsillectomy History of ankle surgery Social History Smoking Status: Former smoker alcohol intake: former substance use type: marijuana Review of Systems (Anesthesia) ROS Narrative System reviewed and no additional complaints, except as documented.
[2024-08-18] MEDS: Lactated Ringers 1,000 ML 15 ML IV (09:05)
[2024-08-18] MEDS: INDOCYANINE GREEN 3.75 MG in Syringe 1.5 ML 999 MG IV (09:06)
--- NOTE | 2024-08-18 09:52 | PCM.HP.STD ---
HPI - General General Date of Admission: 08/18/24 Date of Service: 08/18/24 Chief Complaint: Right upper quadrant pain HPI Narrative AMIE PAGE, is a 68 F who presents for robotic cholecystectomy. She was seen in the office recently with right upper quadrant pain, gallstones and a HIDA scan that showed nonvisualization of the gallbladder. I offered her cholecystectomy as treatment. We discussed the details of the planned procedure and she wishes to proceed. [facility] Medical History Wears glasses Wears dentures Marijuana use Injury of head and neck Gastric reflux Heartburn Former smoker Shortness of breath on exertion Chronic cough Constipation Abdominal pain Cholelithiasis Thyroid disease Skin cancer Seizures Osteoporosis Neuropathy High cholesterol High blood pressure Hearing problem Cataracts, bilateral Arthritis Major depressive disorder, recurrent, in full remission Anxiety disorder, unspecified Bipolar 1 disorder Home Medications ?Medication ?Instructions ?Recorded ?Last Taken ?Type cholecalciferol (vitamin D3) 25 25 mcg PO QDAY 05/16/24 08/18/24 04:00 History mcg (1,000 unit) tablet (Vitamin D3) fluoxetine 60 mg tablet 60 mg PO QDAY 05/16/24 08/18/24 04:00 History levetiracetam 500 mg tablet 500 mg PO QDAY 05/16/24 08/18/24 04:00 History levothyroxine 75 mcg tablet 75 mcg PO QDAY 05/16/24 08/18/24 04:00 History mecobalamin (vitamin B12) 10,000 10,000 mcg IM MONTHLY 05/16/24 Unknown History mcg solution for injection Held on 08/04/24. Instructions: pt waiting until november quetiapine 400 mg tablet 100 mg PO QHS 05/16/24 08/17/24 History valacyclovir 500 mg tablet 500 mg PO QDAY 05/16/24 08/18/24 04:00 History valsartan 320 mg tablet 320 mg PO QDAY 05/16/24 08/18/24 04:00 History aripiprazole 5 mg tablet 5 mg PO DAILY #30 tabs 06/15/24 08/18/24 04:00 Rx Allergy/AdvReac Type Severity Reaction Status Date / Time No Known Allergies Allergy Verified 08/18/24 08:53 Family History Other Anxiety Surgical History Hx of colonoscopy Hx of tubal ligation H/O knee surgery Hx of tonsillectomy History of ankle surgery Social History Smoking Status: Former smoker alcohol intake: former substance use type: marijuana Vital Signs Vital Signs Vital Signs: 08/18/24 08:55 08/18/24 08:59 Temperature 98.0 F Temperature Source Temporal Pulse Rate 78 Respiratory Rate 16 Respiratory Pattern Normal Blood Pressure 122/73 H Blood Pressure Mean 89 Blood Pressure Source Monitor Blood Pressure Position Semi-Fowlers Blood Pressure Location Left Arm Pulse Ox 98 Oxygen Delivery Method Room Air Weight Weight: 228 lb 9.6 oz Body Mass Index (BMI) 34.7 Physical Exam Const alert and oriented x3 Assessment & Plan Assessment/Plan (1) Cholelithiasis: PLAN: Plan Plan for robotic cholecystectomy today.
--- NOTE | 2024-08-18 10:00 | GALL_PTH ---
PATIENT: AMIE PAGE [place] [facility] [id number] AGE/SX: 68/F ROOM: RE08/18/[address]: Dr. Vicente Villanueva MD : 1955 BED: DIS: 08/18/2024 SPEC #: [id number] RECD: 08/18/24 12:53 STATUS: CULLEN REDarren #: [id number] NABILA: 08/18/24 10:[address]: Vicente Villanueva DEPT: SURGICAL PATHOLOGY RECD BY: Henrry Meraz ENTERED: 08/18/24 14:40 SP TYPE: TESFAYE SHARMA DR: Dr. Morro Gonzalez MD Tissues: A - Gallbladder, NOS Procedures: Surgery Specimen Level III HEADER OPERATION: Robotic cholecystectomy with OCG PRE-OP DIAGNOSIS: Cholelithiasis TISSUE SUBMITTED: A- Gallbladder and contents MICROSCOPIC DIAGNOSIS A. Gallbladder and contents, cholecystectomy: * Chronic cholecystitis, cholelithiasis. MICROSCOPIC DESCRIPTION Slides are reviewed. GROSS DESCRIPTION A. Received in formalin labeled with the patient's name and date of . Designated as gallbladder and contents is an 11.8 x 4.6 x 4.5 cm green and distended, intact gallbladder with attached patent cystic duct (inked black, shaved). There are focal serosal adhesions. Opening reveals green bile admixed with multiple pigmented choleliths, 0.4-0.5 cm each. The mucosa is carrillo-green and granular with a maximum wall thickness of 0.1 cm. No cholesterolosis is grossly identified. Featheredger And Reducer Machine sections are submitted in 1 cassette. [facility] [place] 08/18/2024 CPT:[id number]
--- NOTE | 2024-08-18 11:32 | DCINST_ITS ---
Discharge Instructions Diet Discharge Diet: Light diet - advance as tolerated Activity Discharge Activity: May Shower May shower in (days): 1 Ice area for (Minutes): 30 Lifting Restrictions: No lifting pushing or pulling more than 20 pounds for 3 weeks Dressing / Incision Call your doctor if your incision/area has: Continuous Slow Oozing, Sudden Increased Bleeding, Increased Pain/ Swelling, Increased Redness, Foul Smelling Discharge and Swelling at the incision site Call your doctor if you observe: Fever of 101 or Higher Cleanse incision/area with: Soap & Water Follow Up Care Please Follow Up With: Vicente Villanueva MD When: 2 weeks. Please call office to schedule appointment Test Results: Test results from this visit will be discussed in further detail at your follow- up appointment, if applicable. Discharge Plan Admission Primary Reason for Your Visit: Robotic cholecystectomy Attending Provider: Vicente Villanueva Primary Care Provider: Morro Gonzalez Chi Instructions Print Language: Syriac Discharge Orders/Prescriptions Prescriptions: New oxycodone-acetaminophen [Percocet] 5-325 mg tablet 1 tab PO Q8H PRN (Reason: pain) 4 Days Qty: 10 0RF Continued fluoxetine 60 mg tablet 60 mg PO QDAY valsartan 320 mg tablet 320 mg PO QDAY quetiapine 400 mg tablet 100 mg PO QHS levothyroxine 75 mcg tablet 75 mcg PO QDAY levetiracetam 500 mg tablet 500 mg PO QDAY cholecalciferol (vitamin D3) [Vitamin D3] 25 mcg (1,000 unit) tablet 25 mcg PO QDAY valacyclovir 500 mg tablet 500 mg PO QDAY mecobalamin (vitamin B12) 10,000 mcg recon soln 10,000 mcg IM MONTHLY aripiprazole 5 mg tablet 5 mg PO DAILY Qty: 30 2RF Referrals / Follow Up: Morro Gonzalez Chi, MD [Primary Care Provider] - Disposition Disposition (needs filled in before D/C Order can be placed): Home, Self Care
--- NOTE | 2024-08-18 11:36 | OP.PCM_ITS ---
Problems Associated Problem List Diagnoses (1) Cholelithiasis: Operative Report (Standard) Operative Information Date of Procedure: 08/18/24 Pre-Operative Diagnosis: Symptomatic cholelithiasis Post-Operative Diagnosis: Symptomatic cholelithiasis Surgery/Procedure Performed: Robotic cholecystectomy with intraoperative ICG cholangiogram commissioning editor: Yes Interior Assemblies Installer: Muna Nino Tasks completed by wheelchair van operator first responder: Closing, Trocar and Other Additional office assistant receptionist?: No Type of Anesthesia: General and Local RN Documented Start/Stop Times: Operation Date: 08/18/24 10:00 Case Time Into Pre-Op 08/18/24 08:19 Out of Pre-Op 08/18/24 10:20 Anesthesia Start 08/18/24 10:24 Into Room 08/18/24 10:24 Procedure Start 08/18/24 10:40 Procedure Start Time: 10:40 Procedure Stop Time: 11:30 Select all DRAINS/GRAFTS/IMPLANTS that apply: None Estimated Blood Loss: 5 mL Specimen collected: Yes Description of specimen(s) removed: Gallbladder and contents Surgical Findings: See operative note; normal ICG cholangiogram Complications Complications: No Admit VTE Documentation VTE Present on Admission: No VTE Mechan Device Prophylaxis: SCD's VTE Pharm Prophylaxis ordered?: No Reason prophylaxis not ordered: Treatment Not Indicated
--- NOTE | 2024-08-18 11:36 | PCM.OPRPT ---
Problems Associated Problem List Diagnoses (1) Cholelithiasis: Procedures Digestive [id number]: [id number] Laparo cholecystectomy/graph Operative Report (Standard) Operative Information Date of Procedure: 08/18/24 Pre-Operative Diagnosis: Symptomatic cholelithiasis Post-Operative Diagnosis: Symptomatic cholelithiasis Surgery/Procedure Performed: Robotic cholecystectomy with intraoperative ICG cholangiogram accounts payable payroll coordinator: Yes Tile And Marble Setter: Muna Nino Tasks completed by certified first assistant: Closing, Trocar and Other Additional library services assistant?: No Type of Anesthesia: General and Local RN Documented Start/Stop Times: Operation Date: 08/18/24 10:00 Case Time Into Pre-Op 08/18/24 08:19 Out of Pre-Op 08/18/24 10:20 Anesthesia Start 08/18/24 10:24 Into Room 08/18/24 10:24 Procedure Start 08/18/24 10:40 Procedure Start Time: 10:40 Procedure Stop Time: 11:30 Select all DRAINS/GRAFTS/IMPLANTS that apply: None Estimated Blood Loss: 5 mL Specimen collected: Yes Description of specimen(s) removed: Gallbladder and contents Description of surgery: The patient is a 68-year-old female who was recently seen through the office with right upper quadrant pain. Workup revealed gallstones but no gallbladder wall thickening. She also had a HIDA scan as part of the workup and this revealed nonvisualization of the gallbladder. It was felt that her symptoms were likely suggestive of biliary colic and so a robotic cholecystectomy was offered to her as treatment. We discussed the details of the planned surgery as well as risks, benefits as well as alternatives to treatment and she wished to proceed. She was brought to the operating room today following informed consent. She was placed supine on the operative table with arms at her side. A general endotracheal anesthesia was induced. Once adequately anesthetized the abdomen was then prepped and draped in usual sterile manner. Local anesthetic was injected just above the umbilicus for which a 5 mm incision was made. A 5 mm trocar was then placed optically. This was placed without incident. The abdomen was then fully insufflated with CO2 gas. A 5 mm 0 degree scope was inserted. There were no signs of bowel or vascular injury. 3 additional 8 mm trocars were placed under direct visualization. 1 was placed on the right side of the abdomen. 1 was placed on the left side of the abdomen and then another was placed in the left upper quadrant. These were placed without difficulty. The original umbilical trocar was then switched also to a robotic 8 mm trocar. The da Ron robot was then brought onto the operative field. All 4 arms were docked. Prior to docking the patient was positioned with some head up and rolled to the left. The gallbladder was identified in the right upper quadrant. This was grasped and reflected in a cephalad direction. The infundibulum of the gallbladder was identified. The peritoneum on either side of the gallbladder was then scored using electrocautery and the L-hook. This provided greater mobility to the infundibulum to facilitate exposure. The cystic duct and cystic artery were both identified and dissected out circumferentially. ICG cholangiogram was performed and this clearly identified the cystic duct. The lower third of the gallbladder was then dissected free from the liver thus establishing a critical view of safety. There were 2 and only 2 structures going to the gallbladder. These structures were clipped proximally and distally and then transected using electrocautery. The gallbladder was then dissected off of the liver using electrocautery and the L-hook. Once the gallbladder was freed it was placed into a bag and brought out through the left sided trocar site. The fascia did need to be stretched in order to extract the gallbladder. The fascia was then closed using 0 PDS with the aid of the fascial closure device. 2 sutures were placed at this level. The remaining trocars were opened up. Insufflation was allowed to escape. Total of 30 cc of local anesthetic were injected through the course of the operation. 4-0 Vicryl was used to close the skin incisions. Skin glue was applied as dressing. She was awakened and taken to recovery in good condition. Surgical Findings: See operative note; normal ICG cholangiogram Complications Complications: No Admit VTE Documentation VTE Present on Admission: No VTE Mechan Device Prophylaxis: SCD's VTE Pharm Prophylaxis ordered?: No Reason prophylaxis not ordered: Treatment Not Indicated
--- NOTE | 2024-08-18 13:48 | PCM.POST.ANE ---
Anesthesia: Postop Eval I Current Vital Signs Temperature: 97.7 F Pulse Rate: 89 Blood Pressure: 109/69 Respiratory Rate: 16 Pulse Ox: 92 Oxygen Delivery Method: Room Air Assessment Airway patent: Yes Spontaneous unlabored respirations: Yes Mental status: Awake nausea: No Vomiting: No Anesthesia Complication: No Fluid Hydration Crystalloid volume administer (ml): 500 Total IV fluid infused: 500 Progress Note Anesthesia document: Postop Eval 1 completed: Yes
--- NOTE | 2024-08-18 13:50 | PCM.POSTANE2 ---
Anesthesia Postop Eval I Sum Postop Eval Completion status Anesthesia document: Postop Eval 1 completed: Yes Anesthesia Postop Eval I Summary Anesthesia Postop Eval I Summary: Anesthesia Postop Eval I: Assessment Summary Airway patent Yes 08/18/24 13:49 Spontaneous unlabored Yes 08/18/24 13:49 respirations Mental status Awake 08/18/24 13:49 nausea No 08/18/24 13:49 Vomiting No 08/18/24 13:49 Anesthesia Postop Eval I: Fluid Summary Crystalloid volume administer 500 08/18/24 13:49 (ml) Colloids volume administered ( ml) Blood Product volume administered (ml) Total IV fluid infused 500 08/18/24 13:49 Anesthesia Postop Eval I: Summary Notes Anesthesia Complication No 08/18/24 13:49 Anesthesia Complication Comment: Post-operative progress note Anesthesia: Postop Eval II Evaluation Mental status: Awake Pain Level: 0 nausea: No Vomiting: No
== END 2024-08-18 14:05 | disposition home or self-care (01) ==
LOC: SDC 08:16 → AC 08:18
PROVIDERS: Student in an Organized Health Care Education/Training Program; PCP Family Medicine Geriatric Medicine; Referring Provider Surgery; Visit Provider Surgery
PROC: 0FT44ZZ Resection of Gallbladder, Percutaneous Endoscopic Approach (ICD-10-PCS; CPT 47562; principal; 2024-08-18 09:45)
DX: K80.10 Calculus of gallbladder with chronic cholecystitis without obstruction (principal); E78.00 Pure hypercholesterolemia, unspecified; Z87.891 Personal history of nicotine dependence; I10 Essential (primary) hypertension; F33.42 Major depressive disorder, recurrent, in full remission; Z79.899 Other long term (current) drug therapy; K21.9 Gastro-esophageal reflux disease without esophagitis; E07.9 Disorder of thyroid, unspecified; Z79.890 Hormone replacement therapy
CPT/HCPCS: 47563; S2900; 00790; 36415; 84443; 85730; 88304; 93005; J2405

== ENCOUNTER → 2024-10-14 | Outpatient (CLI) | payer MEDICARE, SELFPAY ==
[2024-10-14 10:33] LABS: Hematocrit 35.8 % (37-47); Hemoglobin 11.4 g/dL (12.0-15.0); Immature Granulocytes Count 0.030 X10^3/uL (0.0-0.0); Mean Corp Hgb Conc 31.8 g/dL (32-36); Mean Corpuscular Volume 93.2 fL (81-99); Mean Platelet Vol. 9.9 fl (6.2-12.0); NRBC Flagged by Analyzer 0 % (0-5); Platelet Count 319 K/mm3 (150-450); RBC Distribution Width CV 13.5 % (11.6-14.6); RBC Distribution Width SD 45.9 fl (35.1-43.9); Red Blood Count 3.84 M/mm3 (4.2-5.4); White Blood Count 9.9 K/mm3 (4.4-11.0)
[2024-10-14 11:34] LABS: AST(SGOT) 27 U/L (<=31); Alanine Aminotransfer ALT/SGPT 27 U/L (<=34); Albumin, Serum 4.2 g/dL (3.4-4.8); Alkaline Phosphatase 60 U/L (35-104); Anion Gap 13 (5-15); BUN 18 mg/dL (4-19); BUN/Creat Ratio 16.6 RATIO (10-20); Calcium,Total 9.8 mg/dL (7.6-11.0); Carbon Dioxide 22.2 mmol/L (21.0-32.0); Chloride 104 mmol/L (98-108); Globulin 3.2 g/dL (2.2-4.2); Glucose 82 mg/dL (70-99); Potassium 4.0 mmol/L (3.3-5.1); Vitamin D,25 Hydroxy 22.9 ng/mL (30-100)
[2024-10-14 18:23] LABS: Xtra Tube Kwok EXTRA TUBE
== END | disposition home or self-care (01) ==
LOC: POLAB3 10:23
PROVIDERS: PCP Family Medicine Geriatric Medicine; Visit Provider Family Medicine Geriatric Medicine
DX: I10 Essential (primary) hypertension (principal); E55.9 Vitamin D deficiency, unspecified
CPT/HCPCS: 36415; 80053; 82306; 84443; 85025

== ENCOUNTER → 2024-11-22 | Outpatient (CLI) | payer MEDICARE, SELFPAY ==
[2024-11-22 19:23] LABS: Staph aureus DNA By PCR NEGATIVE (Negative)
--- OUTSIDE RECORDS SUMMARY | 2024-11-22 23:15 | XMS RPT_ITS | CCD ---
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 Phone No, Physician Primary Care Provider UnavailJarrett Dennison Primary Care Provider [phone] SADIA GRANT Attending Unav husseinable JARRETT CARR Primary Care Unavailable Jarrett Crar MD Primary Care Provider [phone] Rafat HAYS El N Primary Care Provider Saige White Unavailable Unavailable Rafat DO, El N Primary Care Provider Saige White Unavailable Unavailable Saige White Unavailable Unavailable Fallon Franz Attending Unavailable Rafat DO, El N Primary Care Provider [phone] Jarrett Crar MD Primary Care Provider System, Provider Not In Primary Care Provider Un available AMY HAYWOOD Admitting Unavaila ble RAFAT, EL N Primary Care Unavailable GSPANDLJACINTO Admitting Unavail able GSJACINTO TELLEZ Attending Unavail able AMY HAYWOOD Referring Unavaila ble RAFAT, EL N Primary Care Unavailable Gakpo DO, Ly Primary Care Provider Randi Moore MD Unavailable EL DOUGLASS N Attending Unavailable RAFAT, EL N Primary Care Unavailable RAFAT, EL N Attending Unavailable RAFAT, EL N Primary Care Unavailable GAKPO, LY Primary Care Unavailable GAKPO, LY Attending Unavailable Carlos, Morro Chi Primary Care Unavailable Carlos, Morro Chi Attending Unavailable Carlos, Morro Chi Primary Care Unavailable Vicente Villanueva Attending Unavailable WanekVicente Referring Unavailable Carlos, Morro Chi Primary Care Unavailable Wanek, Vicente Lai Referring Unavailable Wanek, Vicente Lai Attending Unavailable Carlos, Morro Chi Primary Care Unavailable Carlos, Morro Chi Attending Unavailable WanekVicente Consulting Unavailable Carlos, Morro Chi Referring Unavailable WanekVicente Attending Unavailable Carlos, Morro Chi Referring Unavailable Carlos, Morro Chi Primary Care Unavailable Carlos, Morro Chi Primary Care Unavailable WanVicente jc Attending Unavailable Carlos, Morro Chi Referring Unavailable Flaco Sutton Attending Unavailable Carlos, Morro Chi Primary Care Unavailable Wanek, Vicente Lai Referring Unavailable Carlos, Morro Chi Primary Care Unavailable Wanek, Vicente Lai Referring Unavailable Wanek, Vicente Lai Consulting Unavailable Wanek, Vicente Lai Attending Unavailable Carlos, Morro Chi Primary Care Unavailable Wanek, Vicente Lai Attending Unavailable Carlos, Morro Chi Referring Unavailable SeeseVicente Attending Unavailable Carlos, Morro Chi Primary Care Unavailable Vicente Keith Attending Unavailable Carlos, Morro Chi Primary Care Unavailable Carlos, Morro Chi Referring Unavailable JabourRoni Attending Unavailable JabourRoni Referring Unavailable Carlos, Morro Chi Primary Care Unavailable Carlos, Morro Chi Primary Care Unavailable Carlos, Morro Chi Attending Unavailable Carlos, Morro Chi Referring Unavailable Carlos, Morro Chi Attending Unavailable Carlos, Morro Chi Primary Care Unavailable Allergies Allergy Classification Reported Allergen(s) Allergy Type Date of Onset Reaction(s) Facility (6 sources) Sulfonamides (Antibiotic) Propensity to adverse reactions to drug 03-19-2020 [facility] Medications Current Medications Medication Drug Class(es) Dates [...] . 60 tablet 11 08/13/2022 08/08/2023 Active Start: 06-23-2021 End: 08-22-2021 take 1 tablet by mouth twice daily carBAMazepine (TEGretol XR) 200 MG 12 hr tablet Indications: History of seizure Take 1 (one) tablet (200 mg total) by mouth 2 (two) times a day . 60 tablet 1 06/23/2021 07/25/2021 Discontinued Start: 03-19-2020 End: 06-21-2021 take 1 tablet by mouth twice daily carBAMazepine (TEGretol XR) 200 MG 12 hr tablet Indications: History of seizure TAKE 1 TABLET(200 MG) BY MOUTH TWICE DAILY 180 tablet 0 03/19/2020 06/21/2021 Discontinued (Reorder (Suppress CancelRx Message to Pharmacy)) clonazePAM 0.5 mg oral tablet (1 source) Benzodiazepine Start: 03-28-2020 End: 04-27-2020 take 0.5 tablet by mouth twice daily as needed for anxiety clonazePAM (KlonoPIN) 0.5 MG tablet Indications: Anxiety Take 0.5 (one-half) tablet (0.25 mg total) by mouth 2 (two) times a day as needed for anxiety (Days supply per fill: 30) . 30 tablet 0 03/28/2020 04/27/2020 Active diazePAM 5 mg oral tablet (6 sources) Benzodiazepine Start: 04-11-2020 End: 05-08-2020 take 1 tablet by mouth twice daily diazePAM (VALIUM) 2 MG tablet Indications: Benzodiazepine withdrawal without complication (HCC) Take 1 (one) tablet (2 mg total) by mouth 2 (two) times a day for 14 days, THEN 0.5 (one-half) tablet (1 mg total) 2 (two) times a day for 7 days, THEN 0.5 (one-half) tablet (1 mg total) daily for 6 days. (Days supply per fill: 28). 38 tablet 0 04/11/2020 Active Start: 04-11-2020 End: 04-25-2020 take 1 tablet by mouth twice daily diazePAM (VALIUM) 5 MG tablet Indications: Benzodiazepine withdrawal without complication (HCC) Take 1 (one) tablet (5 mg total) by mouth 2 (two) times a day (Days supply per fill: 14) for 14 days . 28 tablet 0 04/11/2020 Active FLUoxetine 40 mg oral capsule (20 sources) Serotonin Reuptake Inhibitor Start: 09-19-2022 End: 11-18-2022 take 1 capsule by mouth once daily FLUoxetine (PROZAC) 40 MG capsule Indications: Severe episode of recurrent major depressive disorder, without psychotic features (HCC) Take 1 (one) capsule (40 mg total) by mouth daily . 30 capsule 1 09/19/2022 11/18/2022 Active Start: 07-25-2021 End: 09-17-2022 take 1 capsule by mouth once daily FLUoxetine (PROZAC) 40 MG capsule Indications: Severe episode of recurrent major depressive disorder, without psychotic features (HCC) Take 1 (one) capsule (40 mg total) by mouth daily . 30 capsule 1 07/14/2022 09/17/2022 Discontinued (Reorder (Suppress CancelRx Message to Pharmacy)) Start: 06-25-2021 End: 06-25-2022 take 1 capsule by mouth once daily FLUoxetine (PROZAC) 20 MG capsule Indications: Severe episode of recurrent major depressive disorder, without psychotic features (HCC) Take 1 (one) capsule (20 mg total) by mouth daily . 30 capsule 11 06/25/2021 07/25/2021 Discontinued (Reorder) Start: 05-07-2021 End: 06-25-2021 take 1 capsule by mouth once daily FLUoxetine (PROZAC) 40 MG capsule Take 1 (one) capsule (40 mg total) by mouth daily Start: 05/07/21. 30 capsule 0 05/07/2021 06/25/2021 Discontinued Start: 04-02-2020 End: 04-02-2021 take 3 capsules by mouth once daily FLUoxetine (PROZAC) 10 MG capsule Indications: Depression, unspecified depression type , Anxiety Take 3 (three) capsules (30 mg total) by mouth daily . 90 capsule 11 04/02/2020 Active Start: 03-19-2020 End: 03-19-2021 take 1 capsule by mouth once daily FLUoxetine (PROZAC) 10 MG capsule Indications: Depression, unspecified depression type , Anxiety Take 1 (one) capsule (10 mg total) by mouth daily . 30 capsule 11 03/19/2020 04/02/2020 Discontinued hydrOXYzine hydrochloride 25 mg oral tablet (20 sources) Antihistamine Start: 12-24-2021 End: 07-14-2022 take 1 tablet by mouth three times daily as needed hydrOXYzine (ATARAX) 25 MG tablet Indications: Severe episode of recurrent major depressive disorder, without psychotic features (HCC) Take 1 (one) tablet (25 mg total) by mouth 3 (three) times a day as needed for itching . 90 tablet 1 07/14/2022 Active Start: 06-08-2021 hydrOXYzine (A TARAX) 25 MG tablet Start: 03-19-2020 End: 03-19-2021 take 1 capsule by mouth three times daily as needed hydrOXYzine (VISTARIL) 25 MG capsule Indications: Anxiety Take 1 (one) capsule (25 mg total) by mouth 3 (three) times a day as needed for itching . 30 capsule 0 03/19/2020 04/02/2020 Discontinued (Ineffective) levothyroxine sodium 0.075 mg oral tablet (20 sources) l-Thyroxine Start: 08-13-2022 take 1 tablet by mouth once daily in the morning levothyroxine (SYNTHROID, LEVOTHROID) 75 MCG tablet Indications: Hypothyroidism, unspecified type Take 1 (one) tablet (75 mcg total) by mouth every morning . 30 tablet 2 08/13/2022 Active Start: 06-17-2022 End: 08-13-2022 take 1 tablet by mouth once daily in the morning levothyroxine (SYNTHROID, LEVOTHROID) 50 MCG tablet Take 1 (one) tablet (50 mcg total) by mouth every morning . 30 tablet 2 06/17/2022 08/13/2022 Discontinued (Reorder (Suppress CancelRx Message to Pharmacy)) Start: 11-08-2019 End: 03-17-2022 take 1 tablet by mouth once daily in the morning levothyroxine (SYNTHROID, LEVOTHROID) 50 MCG tablet Take 1 (one) tablet (50 mcg total) by mouth every morning . 30 tablet 2 03/18/2022 Active losartan potassium 50 mg oral tablet (20 sources) Angiotensin 2 Receptor Johnny Start: 08-13-2022 End: 11-11-2022 take 1 tablet by mouth once daily losartan (COZAAR) 50 MG tablet Indications: Primary hypertension Take 1 (one) tablet (50 mg total) by mouth daily . 30 tablet 2 08/13/2022 11/11/2022 Active Start: 03-19-2021 End: 07-14-2022 take 1 tablet by mouth twice daily losartan (COZAAR) 50 MG tablet Take 50 mg by mouth 2 (two) times a day . 0 03/19/2021 07/14/2022 Discontinued (Patient's Request) metroNIDAZOLE 500 mg oral tablet (3 sources) Nitroimidazole Antimicrobial Start: 06-25-2021 End: 07-02-2021 take 1 tablet by mouth twice daily at mealtime metroNIDAZOLE (FLAGYL) 500 MG tablet Indications: Bacterial vaginosis Take 1 (one) tablet (500 mg total) by mouth 2 (two) times a day with meals for 7 days . 14 tablet 0 06/25/2021 07/02/2021 Active pantoprazole 20 mg delayed release oral tablet (20 sources) Proton Pump Inhibitor Start: 03-12-2021 End: 09-26-2022 take 1 tablet by mouth once daily pantoprazole (PROTONIX) 20 MG tablet Indications: Gastroesophageal reflux disease, unspecified whether esophagitis present Take 1 (one) tablet (20 mg total) by mouth daily . 30 tablet 11 10/01/2021 09/26/2022 Active Start: 01-19-2020 End: 05-03-2021 pantoprazole (PROTONIX) 40 M G tablet QUEtiapine 200 mg oral tablet (20 sources) Atypical Antipsychotic Start: 06-23-2021 End: 10-28-2022 take 1 tablet by mouth once daily QUEtiapine (SEROQUEL) 200 MG tablet Indications: Severe episode of recurrent major depressive disorder, without psychotic features (HCC) Take 1 (one) tablet (200 mg total) by mouth nightly . 30 tablet 1 08/29/2022 10/28/2022 Active Start: 06-10-2021 End: 06-21-2021 take 1 tablet by mouth once daily QUEtiapine (SEROQUEL) 200 MG tablet Take 200 mg by mouth nightly . 0 06/10/2021 06/21/2021 Discontinued (Reorder) Start: 04-11-2020 End: 04-11-2021 take 1 tablet by mouth once daily QUEtiapine (SEROQUEL) 100 MG tablet Indications: Depression, unspecified depression type , Anxiety Take 1 (one) tablet (100 mg total) by mouth nightly . 30 tablet 11 04/11/2020 Active Start: 04-02-2020 End: 04-02-2021 take 1 tablet by mouth once daily QUEtiapine (SEROQUEL) 50 MG tablet Indications: Depression, unspecified depression type , Anxiety Take 1 (one) tablet (50 mg total) by mouth nightly . 30 tablet 11 04/02/2020 04/11/2020 Discontinued traZODone hydrochloride 100 mg oral tablet (20 sources) Serotonin Reuptake Inhibitor Start: 07-13-2021 End: 11-27-2022 take 1 tablet by mouth once daily as needed for sleep traZODone (DESYREL) 100 MG tablet Indications: Severe episode of recurrent major depressive disorder, without psychotic features (HCC) Take 1 (one) tablet (100 mg total) by mouth nightly as needed for sleep . 30 tablet 2 08/29/2022 11/27/2022 Active Start: 05-06-2021 End: 07-11-2021 take 1 tablet by mouth once daily as needed for sleep traZODone (DESYREL) 100 MG tablet Take 1 (one) tablet (100 mg total) by mouth nightly as needed for sleep . 30 tablet 0 05/06/2021 07/11/2021 Discontinued (Reorder) Completed/Discontinued Medications Medication Drug Class(es) Dates Sig [...] tablet 1 04/02/2020 07/14/2022 Discontinued (Patient's Request) Start: 03-19-2020 End: 04-02-2020 take 1 tablet by mouth once daily amLODIPine (NORVASC) 5 MG tablet Indications: Elevated BP without diagnosis of hypertension TAKE 1 TABLET(5 MG) BY MOUTH DAILY 90 tablet 3 03/19/2020 04/02/2020 Discontinued DULoxetine 20 mg delayed release oral capsule (9 sources) Serotonin and Norepinephrine Reuptake Inhibitor Start: 03-19-2020 End: 04-02-2020 take 1 capsule by mouth once daily, then take 1 capsule by mouth every other day DULoxetine (Cymbalta) 20 MG capsule Indications: Depression, unspecified depression type , Anxiety Take 1 (one) capsule (20 mg total) by mouth daily for 7 days, THEN 1 (one) capsule (20 mg total) every other day for 7 days. 11 capsule 0 03/19/2020 04/02/2020 Discontinued (Alternate therapy) End: 03-19-2020 take 1 capsule by mouth twice daily DULoxetine (CYMBALTA) 30 MG capsule Take 30 mg by mouth 2 (two) times a day . 0 03/19/2020 Discontinued (Alternate therapy) LORazepam 2 mg oral tablet (2 sources) Benzodiazepine Start: 05-06-2021 End: 06-11-2021 LORazepam (ATIVAN) 2 MG tablet Indications: Benzodiazepine withdrawal without complication (HCC) Take 1 (one) tablet (2 mg total) by mouth every 8 (eight) hours (Days supply per fill: 10) for 10 days . 30 tablet 0 05/06/2021 06/11/2021 Discontinued miscellaneous medical supply Misc (16 sources) Start: 03-19-2020 End: 06-11-2021 miscellaneous medical supply Misc Indications: Elevated BP without diagnosis of hypertension 1 blood pressure monitoring system, use as directed to monitor blood pressure . 1 each 0 03/19/2020 06/11/2021 Discontinued Start: 03-19-2020 miscellaneous medical supply [facility] [place] Indications: Elevated BP without diagnosis of hypertension 1 blood pressure monitoring system, use as directed to monitor blood pressure . 1 each 0 03/19/2020 Active sod sulf-pot chloride-mag arreola lf (Sutab) 1.479-0.188- 0.225 gram Tab (19 sources) Start: 06-14-2021 End: 07-14-2022 sod sulf-pot chloride-mag arreola lf (Sutab) 1.479-0.188- 0.225 gram Tab Take 12 tablets by mouth See Admin Instructions Please begin clear liquid diet the day before colonoscopy. Take one bottle Sutab at 3pm and 8pm on 07/09/2021 . 24 tablet 0 06/14/2021 07/14/2022 Discontinued (Patient's Request) Start: 06-14-2021 sod sulf-pot c hloride-mag sulf (Sutab) 1.479-0.188- 0.225 gram Tab Take 12 tablets by mouth See Admin Instructions Please begin clear liquid diet the day before colonoscopy. Take one bottle Sutab at 3pm and 8pm on 07/09/2021 . 24 tablet 0 06/14/2021 Active SUMAtriptan 100 mg oral tablet (20 sources) Serotonin-1b and Serotonin-1d Receptor Agonist Start: 03-28-2020 End: 07-14-2022 take 1 tablet by mouth every two hours as needed SUMAtriptan (IMITREX) 100 MG tablet Indications: Migraine without status migrainosus, not intractable, unspecified migraine type Take 1 (one) tablet (100 mg total) by mouth every 2 (two) hours as needed for migraine . Max of 200 mg in 24hrs . 10 tablet 0 06/11/2021 07/14/2022 Discontinued (Patient's Request) temazepam 30 mg oral capsule (12 sources) Benzodiazepine Start: 01-07-2020 End: 04-11-2020 temazepam (RESTORIL) 30 mg capsule TK 1 C PO QHS PRN 0 01/07/2020 04/11/2020 Discontinued (Therapy completed) Problems Active Problems Problem Classification Problem Date Documented Date Episodic/Chronic Abdominal pain (1 source) Right upper quadrant pain; Translations: [Right upper quadrant pain] Onset: 09-01-2024 Episodic Administrative/socia l admission (10 sources) Patient encounter status; Translations: [Persons encountering health services in other specified circumstances] Episodic Alcohol-related disorders (3 sources) Alcohol abuse; Translations: [Alcohol dependence, in remission] Onset: 08-25-2022 08-26-2022 Chronic Anxiety disorders (20 sources) Anxiety; Translations: [Anxiety disorder, unspecified] Onset: 03-19-2020 03-19-2020 Chronic Biliary tract disease (2 sources) Calculus of gallbladder without cholecystitis without obstruction; Translations: [Calculus of gallbladder without cholecystitis without obstruction] Onset: 09-01-2024 Episodic Disorders of lipid metabolism (9 sources) Dyslipidemia; [...] migrainosus] Onset: 04-02-2020 Resolved: 07-14-2022 04-02-2020 Chronic Hepatitis (1 source) Unspecified viral hepatitis C without hepatic coma; Translations: [Unspecified viral hepatitis C without hepatic coma] Onset: 01-04-2024 Episodic Inflammatory diseases of female pelvic organs (20 sources) Bacterial vaginosis; Translations: [Acute vaginitis] Onset: 06-25-2021 Resolved: 07-25-2021 Episodic Other screening for suspected conditions (not mental disorders or infectious disease) (1 source) Encounter for screening mammogram for malignant neoplasm of breast; Translations: [Encounter for screening mammogram for malignant neoplasm of breast] Onset: 11-13-2023 Episodic Other skin disorders (12 sources) Actinic [...] Results Test Name Value Interpretation Reference Range Facility CBC W/Diff, Automatedon 08-0 Absolute Lymph 2.28 X10 3/uL Normal 0.83-4.51 [facility] Comment on above: Performed By: #### L 100.0100, L500.4050, L506.1001, L501.9520 ####[facility] [address] [place], [place], [phone] Absolute Neut 6.1 X10 3/uL Normal 2.0-7.7 [facility] Comment on above: Performed By: #### L 100.0100, L500.4050, L506.1001, [id number] ####[facility] [address] [place], [address] Basophils/100 WBC (Bld) 0.5 % Normal 0-1 [facility] Comment on above: Performed By: #### L 100.0100, L500.4050, L506.1001, [id number] ####[facility] [address] [place], [address] Eosinophils/100 WBC (Bld) 4.6 % Normal 0-5 [facility] Comment on above: Performed By: #### L 100.0100, L500.4050, L506.1001, [id number] ####[facility] [address] [place], [address] Erythrocyte distribution width (RBC) [Ratio] 13.5 % Normal 11.6-14.6 [facility] Comment on above: Performed By: #### L 100.0100, L500.4050, L506.1001, [id number] ####[facility] [address] [place], [address] Hematocrit (Bld) [Volume fraction] 35.8 % Low 37-47 [facility] Comment on above: Performed By: #### L 100.0100, L500.4050, L506.1001, [id number] ####[facility] [address] [place], [address] Hemoglobin (Bld) [Mass/Vol] 11.4 g/dL Low 12.0-15.0 [facility] Comment on above: Performed By: #### L 100.0100, L500.4050, L506.1001, [id number] ####[facility] [address] [place], [address] IG% 0.300 Normal 0.0-0.9 [facility] Comment on above: Result Comment: IG% - Immature Granulocytes (promyelocytes, myelocytes and metamyelocytes) > 1% indicates that a LEFT SHIFT is Present. Performed By: #### L 100.0100, L500.4050, L506.1001, L501.9520 ####[facility] [address] [place], [address] Lymphocytes/100 WBC (Bld) 23.0 % Normal 19-41 [facility] Comment on above: Performed By: #### L 100.0100, L500.4050, L506.1001, [id number] ####[facility] [address] [place], [address] MCH (RBC) [Entitic mass] 29.7 pg Normal 27.0-32.0 [facility] Comment on above: Performed By: #### L 100.0100, L500.4050, L506.1001, [id number] ####[facility] [address] [place], [address] MCHC (RBC) [Mass/Vol] 31.8 g/dL Low 32-36 [facility] Comment on above: Performed By: #### L 100.0100, L500.4050, L506.1001, [id number] ####[facility] [address] [place], [address] MCV (RBC) [Entitic vol] 93.2 fL Normal 81-99 [facility] Comment on above: Performed By: #### L 100.0100, L500.4050, L506.1001, [id number] ####[facility] [address] [place], [address] Monocytes/100 WBC (Bld) 10.2 % High 0-10 [facility] Comment on above: Performed By: #### L 100.0100, L500.4050, L506.1001, [id number] ####[facility] [address] [place], [address] Neutrophils/100 WBC (Bld) 61.4 % Normal 47-70 [facility] Comment on above: Performed By: #### L 100.0100, L500.4050, L506.1001, [id number] ####[facility] [address] [place], [address] Nucleated RBC (Bld) [#/Vol] 0 10*3/uL Normal 0-5 [facility] Comment on above: Performed By: #### L 100.0100, L500.4050, L506.1001, [id number] ####[facility] [address] [place], [address] Platelet mean volume (Bld) [Entitic vol] 9.9 fL Normal 6.2-12.0 [facility] Comment on above: Performed By: #### L 100.0100, L500.4050, L506.1001, [id number] ####[facility] [address] [place], [address] Platelets (Bld) [#/Vol] 319 10*3/uL Normal 150-450 [facility] Comment on above: Performed By: #### L 100.0100, L500.4050, L506.1001, [id number] ####[facility] [address] [place], [address] RBC (Bld) [#/Vol] 3.84 10*6/uL Low 4.2-5.4 [facility] Comment on above: Performed By: #### L 100.0100, L500.4050, L506.1001, [id number] ####[facility] [address] [place], [address] RDW SD 45.9 fl High 35.1-43.9 [facility] Comment on above: Performed By: #### L 100.0100, L500.4050, L506.1001, [id number] ####[facility] [address] [place], [address] WBC (Bld) [#/Vol] 9.9 10*3/uL Normal 4.4-11.[address] [facility] Comment on above: Performed By: #### L 100.0100, L500.4050, L506.1001, [id number] ####[facility] [address] [place], [address] [facility] Albumin [Mass/Vol] 4.2 g/dL Normal 3.4-4.[address] [facility] Comment on above: Performed By: #### L 100.0100, L500.4050, L506.1001, [id number] ####[facility] [address] [place], [address] Albumin/Globulin [Mass ratio] 1.3 {ratio} Normal 0.9-2.4 [facility] Comment on above: Performed By: #### L 100.0100, L500.4050, L506.1001, [id number] ####[facility] [address] [place], [address] ALK PHOS 60 U/L Normal 35-104 [facility] Comment on above: Performed By: #### L 100.0100, L500.4050, L506.1001, [id number] ####[facility] [address] [place], [address] ALT [Catalytic activity/Vol] 27 U/L Normal <=34 [facility] Comment on above: Performed By: #### L 100.0100, L500.4050, L506.1001, [id number] ####[facility] [address] [place], [address] AST [Catalytic activity/Vol] 27 U/L Normal <=31 [facility] Comment on above: Performed By: #### L 100.0100, L500.4050, L506.1001, [id number] ####[facility] [address] [place], [address] Bilirubin [Mass/Vol] 0.22 mg/dL Normal 0.00-1.30 [facility] Comment on above: Performed By: #### L 100.0100, L500.4050, L506.1001, [id number] ####[facility] [address] [place], [address] BUN/CRE 16.6 RATIO Normal 10-20 [facility] Comment on above: Performed By: #### L 100.0100, L500.4050, L506.1001, [id number] ####[facility] [address] [place], [address] Calcium [Mass/Vol] 9.8 mg/dL Normal 7.6-11.[address] [facility] Comment on above: Performed By: #### L 100.0100, L500.4050, L506.1001, [id number] ####[facility] [address] [place], [address] Chloride [Moles/Vol] 104 mmol/L Normal 98-108 [facility] Comment on above: Performed By: #### L 100.0100, L500.4050, L506.1001, L501.9520 ####[facility] [address] [place], [address] CO2 [Moles/Vol] 22.2 mmol/L Normal 21.0-32.0 [facility] Comment on above: Performed By: #### L 100.0100, L500.4050, L506.1001, L501.9520 ####[facility] [address] [place], [address] Creatinine [Mass/Vol] 1.11 mg/dL Normal 0.70-1.20 [facility] Comment on above: Performed By: #### L 100.0100, L500.4050, L506.1001, L501.9520 ####[facility] [address] [place], [address] GAP 13 Normal 5-15 [facility] Comment on above: Performed By: #### L 100.0100, L500.4050, L506.1001, L501.9520 ####[facility] [address] [place], [address] GFR/1.73 sq M.predicted among non-blacks MDRD (S/P/Bld) [Vol rate/Area] 55 mL/min/{1.73_m2} Low >60 [facility] Comment on above: Result Comment: mL/m in/1.73m2 CKD-EPI Creatinine Equation (2020) Performed By: #### L 100.0100, L500.4050, L506.1001, L501.9520 ####[facility] [address] [place], [address] Globulin (S) [Mass/Vol] 3.2 g/dL Normal 2.2-4.2 [facility] Comment on above: Performed By: #### L 100.0100, L500.4050, L506.1001, L501.9520 ####[facility] [address] [place], [address] Glucose [Mass/Vol] 82 mg/dL Normal 70-[address] [facility] Comment on above: Performed By: #### L 100.0100, L500.4050, L506.1001, L501.9520 ####[facility] [address] [place], [address] Potassium [Moles/Vol] 4.0 mmol/L Normal 3.3-5.1 [facility] Comment on above: Performed By: #### L 100.0100, L500.4050, L506.1001, L501.9520 ####[facility] [address] [place], [address] Sodium [Moles/Vol] 139 mmol/L Normal 133-[address] [facility] Comment on above: Performed By: #### L 100.0100, L500.4050, L506.1001, L501.9520 ####[facility] [address] [place], [address] T PROT 7.4 g/dL Normal 5.9-8.4 [facility] Comment on above: Performed By: #### L 100.0100, L500.4050, L506.1001, L501.9520 ####[facility] [address] [place], [address] Urea nitrogen [Mass/Vol] 18 mg/dL Normal 4-19 [facility] Comment on above: Performed By: #### L 100.0100, L500.4050, L506.1001, L501.9520 ####[facility] [address] [place], [address] Thyroid Stim Hormone (TSH)on 10-14-2024 TSH 2.830 uIU/mL Normal 0.300-4.20 0 [facility] Comment on above: Performed By: #### L 100.0100, L500.4050, L506.1001, L501.9520 ####[facility] [address] [place], [address] Vitamin D,25 Hydroxyon 10-14 Vitamin D 25-OH 22.9 ng/mL Low 30-100 [facility] Comment on above: Result Comment: Penny min D Status Deficiency: <20 ng/mL (50nmol/L) Insufficiency: 20-30 ng/mL (50-75 nmol/L) Sufficiency: 30-100 ng/mL (75-250 nmol/L) Toxicity: >100 ng/mL (>250 nmol/L) Performed By: #### L 100.0100, L500.4050, L506.1001, L501.9520 ####[facility] [address] [place], [address] Surgery Visit Reporton 09-12 Surgery Visit Report [facility] [address] [place] [address] OFFICE VISIT Date of Service: 09/12/24 MR#: [id number] Acct: [id number] Name: KAYLA PAGE Rep #: [id number] : 1955 Provider: Dr. Vicente jc MD Age/Sex: 68/F Location: [facility] Status: Signed Intake Vital Signs 08/18/24 08:59 Height 5 ft 8 in Intake Visit Reasons: GALLBLADDER DOS 08/18/24 Chief Complaint: gallbladder dos 08/18/1924 Is patient in pain?: No Allergies No Known Allergies Allergy (Verified 09/12/24 14:17) Medications ???Medication ???Instructions ???Recorded ???Confirmed ???Type cholecalciferol (vitamin D3) 25 25 mcg PO QDAY 05/16/24 09/12/24 H istory mcg (1,000 unit) tablet (Vitamin D3) fluoxetine 60 mg tablet 60 mg PO QDAY 05/16/24 09/12/24 Hi story levetiracetam 500 mg tablet 500 mg PO QDAY 05/16/24 09/12/24 H istory levothyroxine 75 mcg tablet 75 mcg PO QDAY 05/16/24 09/12/24 H istory mecobalamin (vitamin B12) 10,000 10,000 mcg IM MONTHLY 05/16/2409/30 History mcg solution for injection quetiapine 400 mg tablet 100 mg PO QHS 05/16/24 09/12/24 Hi story valacyclovir 500 mg tablet 500 mg PO QDAY 05/16/24 09/12/24 H istory valsartan 320 mg tablet 320 mg PO QDAY 05/16/24 09/12/24 H istory aripiprazole 5 mg tablet 5 mg PO DAILY #30 tabs 06/15/24 Rx Have you fallen in the past year?: No Subjective Details: Patient is a 68-year-old female status post a recent cholecystectomy. She returns today for postoperative visit. She denies any significant issues or problems. She states that all of her preoperative symptoms have resolved. She does admit that she has not had a bowel movement a couple days. All of her preoperative symptoms have resolved since surgery. Objective Details: She is alert and oriented x 3. She is in no acute distress. Her abdomen is soft nontender nondistended. Incisions appear to be healing well. No signs of erythema or infection. Coding Level of Care Code Global Post Op Diagnoses S/P cholecystectomy Z90.49 [facility] Medical History Wears glasses Wears dentures Marijuana use Injury of head and neck Gastric reflux Heartburn Former smoker Shortness of breath on exertion Chronic cough Constipation Abdominal pain Cholelithiasis Thyroid disease Skin cancer Seizures Osteoporosis Neuropathy High cholesterol High blood pressure Hearing problem Cataracts, bilateral Arthritis Major depressive disorder, recurrent, in full remission Anxiety disorder, unspecified Bipolar 1 disorder Surgical History (Updated 09/12/24 @ 14:18 by Surekha Hsu) S/P cholecystectomy Hx of colonoscopy Hx of tubal ligation H/O knee surgery Hx of tonsillectomy History of ankle surgery Family History Other Anxiety Social History Smoking Status: Former smoker alcohol intake: former substance use type: marijuana Assessment and Plan (No Qualifiers) Assessment and Plan (1) S/P cholecystectomy: Status: Acute Plan The patient is a 68-year-old female status post a successful robotic cholecystectomy. She is doing well postoperatively. I suggested adding MiraLAX daily to assist with more frequent bowel movements. Otherwise follow-up will be as needed. She may certainly call if any questions or problems arise 09/12/24 1432 Date Vicente Villanueva MD Cosigner Signature: Date (if applicable) CC: Dr. Morro Gonzalez MD Normal [facility] Discharge Instructionon 08-07 Discharge Instruction [facility] Medical Records Department [address] [place] [address] Instructions for Home/Discharge Instructions 08/18/24 1132 MR#: [id number] Acct: [id number] Name: KAYLA PAGE Rep #: [id number] : 1955 68 From: Vicente Villanueva MD PCP: Dr. Morro Gonzalez MD Status:REG [facility] [place]charge Instructions Diet Discharge Diet: Light diet - advance as tolerated Activity Discharge Activity: May Shower May shower in (days): 1 Ice area for (Minutes): 30 Lifting Restrictions: No lifting pushing or pulling more than 20 pounds for 3 weeks Dressing / Incision Call your doctor if your incision/area has: Continuous Slow Oozing, Sudden Increased Bleeding, Increased Pain/ Swelling, Increased Redness, Foul Smelling Discharge and Swelling at the incision site Call your doctor if you observe: Fever of 101 or Higher Cleanse incision/area with: Soap Water Follow Up Care Please Follow Up With: Vicente Villanueva MD When: 2 weeks. Please call office to schedule appointment Test Results: Test results from this visit will be discussed in further detail at your follow-up appointment, if applicable. Discharge Plan Admission Primary Reason for Your Visit: Robotic cholecystectomy Attending Provider: Vicente Villanueva Primary Care Provider: Morro Gonzalez Chi Instructions Print Language: Nepali Discharge Orders/Prescriptions Prescriptions: New oxycodone-acetaminophen [Percocet] 5-325 mg tablet 1 tab PO Q8H PRN (Reason: pain) 4 Days Qty: 10 0RF Continued fluoxetine 60 mg tablet 60 mg PO QDAY valsartan 320 mg tablet 320 mg PO QDAY quetiapine 400 mg tablet 100 mg PO QHS levothyroxine 75 mcg tablet 75 mcg PO QDAY levetiracetam 500 mg tablet 500 mg PO QDAY cholecalciferol (vitamin D3) [Vitamin D3] 25 mcg (1,000 unit) tablet 25 mcg PO QDAY valacyclovir 500 mg tablet 500 mg PO QDAY mecobalamin (vitamin B12) 10,000 mcg recon soln 10,000 mcg IM MONTHLY aripiprazole 5 mg tablet 5 mg PO DAILY Qty: 30 2RF Referrals / Follow Up: Morro Gonzalez Chi, MD [Primary Care Provider] - Disposition Disposition (needs filled in before D/C Order can be placed): Home, Self Care 08/18/24 1136 Vicente Villanueva MD CC: Dr. Morro Gonzalez MD Signed [facility] MR/POSTOP.ANEon 08-18-2024 MR/[facility]OP[facility] Medical Records Department [address] [place] [address] Anesthesia Postop Eval I 08/18/24 1348 MR#: [id number] Acct: [id number] Name: KAYLA PAGE Rep #: [id number] : 1955 68 From: Apolinar Gracia MD PCP: Dr. Morro Gonzalez MD Status:REG [facility] Y Race: C Location: [place] [address] Anesthesia: Postop Eval I Current Vital Signs Temperature: 97.7 F Pulse Rate: 89 Blood Pressure: 109/69 Respiratory Rate: 16 Pulse Ox: 92 Oxygen Delivery Method: Room Air Assessment Airway patent: Yes Spontaneous unlabored respirations: Yes Mental status: Awake nausea: No Vomiting: No Anesthesia Complication: No Fluid Hydration Crystalloid volume administer (ml): 500 Total IV fluid infused: 500 Progress Note Anesthesia document: Postop Eval 1 completed: Yes 08/18/24 1349 Date Apolinar Gracia MD Cosigner Signature: Date CC: Signed [facility] MR/SJPOSPTV8dw 08-18-2024 MR/POSTOPAN2 [facility] Medical Records Department [address] [place] [address] Anesthesia Postop Eval II 08/18/24 1350 MR#: [id number] Acct: [id number] Name: KAYLA PAGE SOPHIE Rep #: [id number] : 1955 68 From: Apolinar Gracia MD PCP: Dr. Morro Gonzalez MD Status:REG [facility] Y Race: C Location: [address] Anesthesia Postop Eval I Sum Postop Eval Completion status Anesthesia document: Postop Eval 1 completed: Yes Anesthesia Postop Eval I Summary Anesthesia Postop Eval I Summary: Anesthesia Postop Eval I: Assessment Summary Airway patent Yes 08/18/24 13:49 Spontaneous unlabored Yes 08/18/24 13:49 respirations Mental status Awake 08/18/24 13:49 nausea No 08/18/24 13:49 Vomiting No 08/18/24 13:49 Anesthesia Postop Eval I: Fluid Summary Crystalloid volume administer 500 08/18/24 13:49 (ml) Colloids volume administered ( ml) Blood Product volume administered (ml) Total IV fluid infused 500 08/18/24 13:49 Anesthesia Postop Eval I: Summary Notes Anesthesia Complication No 08/18/24 13:49 Anesthesia Complication Comment: Post-operative progress note Anesthesia: Postop Eval II Evaluation Mental status: Awake Pain Level: 0 nausea: No Vomiting: No 08/18/24 1350 Date Apolinar Gracia MD Cosigner Signature: Date CC: Signed Normal [facility] Operative Reporton 5 Operative Report [facility] Medical Records Department [address] [place] [address] Operative Report 08/18/24 1136 MR#: [id number] Acct: [id number] Name: KAYLA PAGE Rep #: [id number] : 1955 68 From: Vicente Villanueva MD PCP: Dr. Morro Gonzalez MD Status:REG [facility] Location: [place] [address] Problems Associated Problem List Diagnoses (1) Cholelithiasis: Procedures Digestive 40xxx-49xxx: 45018 Laparo cholecystectomy/graph Operative Report (Standard) Operative Information Date of Procedure: 08/18/24 Pre-Operative Diagnosis: Symptomatic cholelithiasis Post-Operative Diagnosis: Symptomatic cholelithiasis Surgery/Procedure Performed: Robotic cholecystectomy with intraoperative ICG cholangiogram capsule filler: Yes Dressmaker Garment Fitter: Muna Nino Tasks completed by delivery driver assistant: Closing, Trocar and Other Additional funeral director's assistant?: No Type of Anesthesia: General and Local RN Documented Start/Stop Times: Operation Date: 08/18/24 10:00 Case Time Into Pre-Op 08/18/24 08:19 Out of Pre-Op 08/18/24 10:20 Anesthesia Start 08/18/24 10:24 Into Room 08/18/24 10:24 Procedure Start 08/18/24 10:40 Procedure Start Time: 10:40 Procedure Stop Time: 11:30 Select all DRAINS/GRAFTS/IMPLANTS that apply: None Estimated Blood Loss: 5 mL Specimen collected: Yes Description of specimen(s) removed: Gallbladder and contents Description of surgery: The patient is a 68-year-old female who was recently seen through the office with right upper quadrant pain. Workup revealed gallstones but no gallbladder wall thickening. She also had a HIDA scan as part of the workup and this revealed nonvisualization of the gallbladder. It was felt that her symptoms were likely suggestive of biliary colic and so a robotic cholecystectomy was offered to her as treatment. We discussed the details of the planned surgery as well as risks, benefits as well as alternatives to treatment and she wished to proceed. She was brought to the operating room today following informed consent. She was placed supine on the operative table with arms at her side. A general endotracheal anesthesia was induced. Once adequately anesthetized the abdomen was then prepped and draped in usual sterile manner. Local anesthetic was injected just above the umbilicus for which a 5 mm incision was made. A 5 mm trocar was then placed optically. This was placed without incident. The abdomen was then fully insufflated with CO2 gas. A 5 mm 0 degree scope was inserted. There were no signs of bowel or vascular injury. 3 additional 8 mm trocars were placed under direct visualization. 1 was placed on the right side of the abdomen. 1 was placed on the left side of the abdomen and then another was placed in the left upper quadrant. These were placed without difficulty. The original umbilical trocar was then switched also to a robotic 8 mm trocar. The da Ron robot was then brought onto the operative field. All 4 arms were docked. Prior to docking the patient was positioned with some head up and rolled to the left. The gallbladder was identified in the right upper quadrant. This was grasped and reflected in a cephalad direction. The infundibulum of the gallbladder was identified. The peritoneum on either side of the gallbladder was then scored using electrocautery and the L-hook. This provided greater mobility to the infundibulum to facilitate exposure. The cystic duct and cystic artery were both identified and dissected out circumferentially. ICG cholangiogram was performed and this clearly identified the cystic duct. The lower third of the gallbladder was then dissected free from the liver thus establishing a critical view of safety. There were 2 and only 2 structures going to the gallbladder. These structures were clipped proximally and distally and then transected using electrocautery. The gallbladder was then dissected off of the liver using electrocautery and the L- hook. Once the gallbladder was freed it was placed into a bag and brought out through the left sided trocar site. The fascia did need to be stretched in order to extract the gallbladder. The fascia was then closed using 0 PDS with the aid of the fascial closure device. 2 sutures were placed at this level. The remaining trocars were opened up. Insufflation was allowed to escape. Total of 30 cc of local anesthetic were injected through the course of the operation. 4-0 Vicryl was used to close the skin incisions. Skin glue was applied as dressing. She was awakened and taken to recovery in good condition. Surgical Findings: See operative note; normal ICG cholangiogram Complications Complications: No Admit VTE Documentation VTE Present on Admission: No VTE Mechan Device Prophylaxis: SCD's VTE Pharm Prophylaxis ordered?: No Reason prophylaxis not ordered: Treatment Not Indicated 08/18/24 1151 Shira Lott (more content not included)... Normal [facility] Surgery Specimen Level IIIon 08-18-2024 Surgery Specimen Level III Patient Age/Sex Location Account Attending Physician KAYLA PAGE 68/F [facility] [id number] Dr. Vicente Villanueva MD Specimen: [id number] Received: 08/18/24 Status: CULLEN Frost Num: [id number] Spec Type: TESFAYE Thomas Dr: Dr. Vicente Villanueva MD HEADER OPERATION: Robotic cholecystectomy with OCG PRE-OP DIAGNOSIS: Cholelithiasis TISSUE SUBMITTED: A- Gallbladder and contents MICROSCOPIC DIAGNOSIS A. Gallbladder and contents, cholecystectomy: * Chronic cholecystitis, cholelithiasis. MICROSCOPIC DESCRIPTION Slides are reviewed. GROSS DESCRIPTION A. Received in formalin labeled with the patient's name and date of . Designated as gallbladder and contents is an 11.8 x 4.6 x 4.5 cm green and distended, intact gallbladder with attached patent cystic duct (inked black, shaved). There are focal serosal adhesions. Opening reveals green bile admixed with multiple pigmented choleliths, 0.4-0.5 cm each. The mucosa is carrillo-green and granular with a maximum wall thickness of 0.1 cm. No cholesterolosis is grossly identified. Aluminum Welder sections are submitted in 1 cassette. [facility] [place] 08/18/2024 CPT:02402 Patient Age/Sex Location Account Attending Physician KAYLA PAGE 68/F [facility] [id number] Dr. Vicente Villanueva MD Signed (signature on file) Dr. Rafaela Muhammad MD 08/19/24 1705 Normal [facility] Comment on above: Performed By: #### P SUIII ####[facility] [address] [place], [address] MR/PAT.Shreyas 08-10-2024 MR/PAT.CAYLA [facility] Medical Records Department [address] [place] [address] PAT - Anesthesia 08/10/24 1048 MR#: [id number] Acct: [id number] Name: KAYLA PAEG SOPHIE Rep #: [id number] : 1955 68 From: Conor Joseph MD PCP: Dr. Morro Gonzalez MD Status:PRE [facility] Y Race: C Location: [facility] Pre-Assessment Diagnosis/Proposed Procedure Planned Operative Procedure(s): Robotic Cholecystectomy with ICG Anesthesia History Anesthesia History - emblem fuser tender: Anesthesia History - emblem fuser tender Hx Hospitalization No 08/04/24 09:45 Any Problems With Anesthesia No 08/04/24 09:45 Cholinesterase deficiency No 08/04/24 09:45 You/Your Family Experience No 08/04/24 09:45 fever (hyperthermia) with Relationship Recent Exposure to Contagious Disease Does patient have nerve No 08/04/24 09:45 stimulator Patient instructed to have device shut off --Does patient have Pacemaker or ICD? When Was Last Pacemaker Check QUESTION #4 FULL TEXT: You/Your Family Experience fever (hyperthermia) with Anesthesia Last Oral Intake Last Oral intake: Last Oral Intake NPO since Meds taken in AM with sips of water? Meds patient instructed to take am of surgery PONV PONV - emblem fuser tender: PONV - emblem fuser tender Female Yes 08/04/24 09:45 HX of Motion Sickness Yes 08/04/24 09:45 HX of N/V After Surgery No 08/04/24 09:45 Non-Smoker Yes 08/04/24 09:45 Duration of Surgery greater Yes 08/04/24 09:45 than 60 minutes Number of Risk Factors 4 08/04/24 09:45 PONV Score Severe Risk 08/04/24 09:45 Height Weight Height Weight: Anesthesia: Height Weight Height 5 ft 8 in 07/22/24 13:12 Respiratory Assessment Respiratory Assessment - emblem fuser tender: Respiratory Tract Infection Hx - emblem fuser tender Hx Respiratory Tract Infection No 08/04/24 09:45 STOP Sleep Apnea STOP Sleep Apnea - emblem fuser tender: STOP Sleep Apnea - emblem fuser tender Hx Hypertension Yes: controlled with meds 08/04/24 09:45 Hx Sleep Apnea No 08/04/24 09:45 CPAP BIPAP Do you snore loudly (louder Yes 08/04/24 09:45 than talking or can be heard Do you often feel tired/ Yes 08/04/24 09:45 fatigued/ sleepy during daytime? Has anyone observed you stop No 08/04/24 09:45 breathing during sleep? STOP Results Positive 08/04/24 09:45 QUESTION #5 FULL TEXT : Do you snore loudly (louder than talking or can be heard through closed doors)? Tobacco Use History Tobacco Use History - emblem fuser tender: Tobacco Use History - emblem fuser tender Tobacco Use Smoking Status Former smoker 08/04/24 09:45 Hx Tobacco Use No 08/04/24 09:45 Years Smoking Packs Smoked per Day Smoking Cessation Date was Yes - quit smoking within 15 08/04/24 09:45 within the last 15 years years Hx Smoking Cessation Date Hx Smoking Cessation Yes: 202108/04/24 09:45 Counseling Hematologic Medial History Hematologic Hx - emblem fuser tender: Hematologic Medical Hx - oil rag washer Hx of Blood Transfusion No 08/04/24 09:45 Hx of Transfusion in last 3 No 08/04/24 09:45 Months Date of Last Transfusion (if within last 3 months) Ever experience any problems No 08/04/24 09:45 with transfusion(s)? Specify any problems Hx of Preganancy in last 3 No 08/04/24 09:45 Months Nurse Filling Out Transfusion JZOLLLIZ 08/04/24 09:45 Questions: Date: 08/04/24 08/04/24 09:45 Time: 09:48 08/04/24 09:45 Patient unable to answer at this time (ie. confused, unrespo /Reproduction History /Reproductive History - emblem fuser tender: /Reproductive Hx- emblem fuser tender Hx Now No 08/04/24 09:45 Gestational Age (in weeks): EDC: Hx Hx Para Hx Section SAB No 08/04/24 09:45 Active Medications Active Medications: Current Medications Generic Name Dose Route Start Last Admin Trade Name Freq PRN Reason Stop Dose Admin Indocyanine Green 3.75 mg/ N/A 1.5 mls @ 999 mls/hr 08/18/24 09:30 IV 08/18/24 09:31 PREOP ONE [facility] Medical History (Updated 08/04/24 @ 09:45 by Saige Salcido) Wears glasses Wears dentures Marijuana use Injury of head and neck Gastric reflux Heartburn Former smoker Shortness of breath on exertion Chronic cough Constipation Abdominal pain Cholelithiasis Thyroid disease Skin cancer Seizures Osteoporosis Neuropathy High cholesterol High blood pressure Hearing problem Cataracts, bilateral Arthritis Major depressive disorder, recurrent, in full remission Anxiety disorder, unspecified Bipolar 1 disorder Home Medications ???Medication ???Instructions ???Recorded ??? (more content not included)... Normal [facility] 12 Lead EKGon 08-09-2024 12 Lead EKG [facility] Cardiovascular Services [address] [place] [address] 12 Lead EKG 08/09/24 1152 MR#: [id number] Acct: [id number] Name: KAYLA PAGE Rep #: [id number] : 1955 68 From: Flaco Sutton MD Attending Dr: Dr. Vicente Villanueva MD Status: MO E SD Ordering Dr: Conor Joseph MD Date: 08/09/24 Location: [facility] Sex: F C Admitted: Test Reason : PRE OP Blood Pressure : */* mmHG Vent. Rate : 89 BPM Atrial Rate : 89 BPM P-R Int : 130 ms QRS Dur : 68 ms QT Int : 386 ms P-R-T Axes : 52 15 71 degrees QTcB Int : 469 ms Normal sinus rhythm Possible Left atrial enlargement Low voltage QRS Cannot rule out Septal infarct , age undetermined Abnormal ECG Confirmed by Flaco Sutton ([id number]), deputy editor in chief CORINA DE LA ROSA ([id number]) on 08/10/2024 5:49:26 AM Referred By: Vicente Villanueva Confirmed By: Flaco Sutton 08/10/24 0549 Date Flaco Sutton MD CC: Dr. Conor Joseph MD; Dr. Vicente Villanueva MD; Dr. Morro Gonzalez MD Signed Normal [facility] Partial Thromboplast Timeon 08-09-2024 aPTT Coag (Bld) [Time] 22.2 s Low 24.1-36.2 [facility] Comment on above: Performed By: #### L 501.9520, L300.4310 ####[facility] [address] [place], [place], [address] Thyroid Stim Hormone (TSH)on 08-09-2024 TSH 1.280 uIU/mL Normal 0.300-4.20 0 [facility] Comment on above: Performed By: #### L 501.9520, L300.4310 ####[facility] [address] [place], [address] Surgery Visit Reporton 07-22 Surgery Visit Report [facility] [address] [place] [address] OFFICE VISIT Date of Service: 07/22/24 MR#: [id number] Acct: [id number] Name: KAYLA PAGE SOPHIE Rep #: [id number] : 1955 Provider: Dr. Vicente jc MD Age/Sex: 68/F Location: [facility] Status: Signed Intake Vital Signs 06/29/24 10:05 07/22/24 13:12 Height 5 ft 8 in 5 ft 8 in Weight: 219 lb 8 oz 222 lb BMI 33.3 33.7 BP 108/72 130/72 H Blood Pressure Location Rt brachial Rt brachial Position Sitting Sitting Respiration 18 18 Pulse 72 80 Pulse Source Monitor Monitor Temp 97.2 F L 97.2 F L Temp Source Temporal Temporal Pulse Oximetry (%) 98 97 Oxygen Delivery Method room air room air Intake Visit Reasons: DISCUSS GALLBLADDER SURGERY Chief Complaint: discuss gallbladder sx Accompanied by: roommate Is patient in pain?: Yes Allergies No Known Allergies Allergy (Verified 07/22/24 13:13) Medications ???Medication ???Instructions ???Recorded ???Confirmed ???Type cholecalciferol (vitamin D3) 25 25 mcg PO QDAY 05/16/24 07/22/24 H istory mcg (1,000 unit) tablet (Vitamin D3) fluoxetine 60 mg tablet 60 mg PO QDAY 05/16/24 07/22/24 Hi story levetiracetam 500 mg tablet 500 mg PO QDAY 05/16/24 07/22/24 H istory levothyroxine 75 mcg tablet 75 mcg PO QDAY 05/16/24 07/22/24 H istory mecobalamin (vitamin B12) 10,000 mcg IM MONTHLY 05/16/24 07/22/24 H istory mcg solution for injection quetiapine 400 mg tablet mg PO 05/16/24 07/22/24 History valacyclovir 500 mg tablet 500 mg PO QDAY 05/16/24 07/22/24 H istory valsartan 320 mg tablet 320 mg PO QDAY 05/16/24 07/22/24 H istory aripiprazole 5 mg tablet 5 mg PO DAILY #30 tabs 06/15/24 Rx Have you fallen in the past year?: No PFSH Medical History Constipation Abdominal pain Cholelithiasis Thyroid disease Skin cancer Seizures Osteoporosis Neuropathy High cholesterol High blood pressure Hearing problem Cataracts, bilateral Arthritis Major depressive disorder, recurrent, in full remission Anxiety disorder, unspecified Bipolar 1 disorder Surgical History Hx of tubal ligation H/O knee surgery Hx of tonsillectomy History of ankle surgery Family History Other Anxiety Social History Smoking Status: Former smoker alcohol intake: former substance use type: marijuana HPI HPI HPI: Patient is a 68-year-old female who presents today to discuss results of her recent HIDA scan. This showed nonvisualization of her gallbladder. She states she continues to have epigastric and right upper quadrant pain. ROS General General: Yes weight change (gain) and fatigue; No appetite, colon cancer, breast cancer or weakness HEENT HEENT: No difficulty swallowing, eye injury, eye surgery, swollen glands or hoarseness Endo Endocrine: Yes thyroid disease; No diabetes mellitus, thyroid cancer, Hair loss, heat intolerance or cold intolerance Skin Skin: No rash or changing moles Musc Musculoskeletal: Yes back problems and arthritis; No rheumatoid arthritis, gout or joint pain Cardio Cardiovascular: Yes high blood pressure; No murmur, pacemaker, heart disease, atrial fibrillation, heart attack, heart stent, palpitations, shortness of breath with exertion or chest pain Psych Psychiatric: Yes depression and anxiety; No hearing voices Resp Respiratory: No shortness of breath, No sleep apnea, Yes cough, Yes COPD, No asthma, No emphysema and No wheezing Gastro Gastrointestinal: Yes abdominal pain, Yes nausea or vomiting, Yes diarrhea, Yes constipation, No blood in stool, Yes acid reflux, Yes hemorrhoids, No ulcers, Yes gallbladder problem and No black,tarry stools Kwabena Hematologic: No blood thinners, No blood disorders, No bleeding, No anemia and No blood clots Neuro Neurologic: No numbness, No tingling and No weakness Exam Const General: cooperative, healthy appearing and comfortable Assessment and Plan Assessment and Plan (1) Abdominal pain: Status: Acute (2) Cholelithiasis: Status: Acute Plan: The patient is a 68-year-old female who I suspect has chronic cholecystitis/cholelithias is. I have offered her a robotic cholecystectomy with ICG. We discussed the details of the planned procedure including risk benefits and alternatives. She wishes to proceed. This will be scheduled in a timely manner. Coding Level of Care Code Off vis,est,level 3 Diagnoses Abdominal pain R10.9 Cholelithiasis K80.20 Clinical Quality Measures Falls Risk Screening/Andriy (more content not included)... Normal [facility] Hepatobilliary Img w/Pharm I nton 07-08-2024 Hepatobilliary Img w/Pharm Int [facility] [address] [place] [address] Hepatobilliary Img w/Pharm Int MR#: [id number] Acct: [id number] Name: KAYLA PAGE Rep #: [id number] : 1955 F 68 From: Francois Morales MD PCP: Dr. Morro Gonzalez MD Status: REG CLI Study: Hepatobilliary Img w/Pharm Int Date of Exam: 0 07/08/24 Exam# [id number] Ordering Dr: Vicente Villanueva MD PROCEDURE: HEPATOBILLIARY IMG W/PHARM INT 07/08/2024 REASON FOR EXAM: GALLSTONES TECHNIQUE: Intravenous Choletec with planar imaging of the abdomen. RADIOPHARMACEUTICAL: 5.3 mCi of technetium 99 M mebrofenin COMPARISON: None. FINDINGS: There is good uptake of the radiopharmaceutical by the liver. Despite imaging for 120 minutes, there is nonvisualization of the gallbladder. There is excretion of radiopharmaceutical into the biliary tree through the common bile duct and into the duodenum and jejunum. Minutes. NM/Hepatobilliary Img w/Pharm Int IMPRESSION: Nonvisualization of the gallbladder. Differential diagnosis includes prolonged fasting, recent meal, acute cholecystitis, or chronic cholecystitis. Reading Location: [facility] CC: Dr. Vicente Villanueva MD; Dr. Morro Gonzalez MD Stacker Attendant: Signed Normal [facility] Surgery Visit Reporton 06-29 Surgery Visit Report [facility] [address] [place] [address] OFFICE VISIT Date of Service: 06/29/24 MR#: [id number] Acct: [id number] Name: KAYLA PAGE Rep #: [id number] : 1955 Provider: Dr. Vicente jc MD Age/Sex: 68/F Location: [facility] Status: Signed Intake Vital Signs 06/15/24 14:28 06/29/24 10:05 Height 5 ft 8 in 5 ft 8 in Weight: 219 lb 8 oz BMI 33.3 BP 135/79 H 108/72 Blood Pressure Location Lt brachial Rt brachial Position Sitting Sitting Respiration 16 18 Pulse 93 72 Pulse Source Monitor Monitor Temp 97.2 F L Temp Source Temporal Pulse Oximetry (%) 98 Oxygen Delivery Method room air Intake Visit Reasons: GALLSTONES Chief Complaint: gallstones Accompanied by: Friend Allergies No Known Allergies Allergy (Verified 06/29/24 10:05) Medications ???Medication ???Instructions ???Recorded ???Confirmed ???Type cholecalciferol (vitamin D3) 25 25 mcg PO QDAY 05/16/24 06/29/24 H istory mcg (1,000 unit) tablet (Vitamin D3) fluoxetine 60 mg tablet 60 mg PO QDAY 05/16/24 06/29/24 Hi story levetiracetam 500 mg tablet 500 mg PO QDAY 05/16/24 06/29/24 H istory levothyroxine 75 mcg tablet 75 mcg PO QDAY 05/16/24 06/29/24 H istory mecobalamin (vitamin B12) 10,000 mcg IM MONTHLY 05/16/24 06/29/24 H istory mcg solution for injection quetiapine 400 mg tablet mg PO 05/16/24 06/29/24 History valacyclovir 500 mg tablet 500 mg PO QDAY 05/16/24 06/29/24 H istory valsartan 320 mg tablet 320 mg PO QDAY 05/16/24 06/29/24 H istory aripiprazole 5 mg tablet 5 mg PO DAILY #30 tabs 06/15/24 Rx Have you fallen in the past year?: No PFSH Medical History (Updated 06/29/24 @ 10:07 by Belen Pacheco LPN) Constipation Abdominal pain Cholelithiasis Thyroid disease Skin cancer Seizures Osteoporosis Neuropathy High cholesterol High blood pressure Hearing problem Cataracts, bilateral Arthritis Major depressive disorder, recurrent, in full remission Anxiety disorder, unspecified Bipolar 1 disorder Surgical History (Updated 06/29/24 @ 10:07 by Belen Pacheco LPN) Hx of tubal ligation H/O knee surgery Hx of tonsillectomy History of ankle surgery Family History Other Anxiety Social History (Updated 06/15/24 @ 14:54 by Lizzy Chavez) Smoking Status: Former smoker alcohol intake: former substance use type: marijuana HPI HPI HPI: The patient is a 68-year-old female who is being seen today for evaluation of symptomatic cholelithiasis. She states that she has been having some occasional epigastric and right upper quadrant pain as well as also some heartburn type symptoms. She believes this has become more frequent in the past few months. She also states that her energy level is diminished. She admits to some bloating at times. She also complains of some nausea and later admits to vomiting periodically as well. She has not noticed any obvious association with meals or fatty foods in particular. She brought this to the attention of her primary care provider and an ultrasound of the right upper quadrant was performed. This did show gallstones but no evidence to suggest acute cholecystitis. She presents today for further evaluation. She denies any abdominal pain or discomfort today. She states that the discomfort occurs about once every couple weeks. ROS General General: Yes weight change (gain) and fatigue; No appetite, colon cancer, breast cancer or weakness HEENT HEENT: No difficulty swallowing, eye injury, eye surgery, swollen glands or hoarseness Endo Endocrine: Yes thyroid disease; No diabetes mellitus, thyroid cancer, Hair loss, heat intolerance or cold intolerance Skin Skin: No rash or changing moles Musc Musculoskeletal: Yes back problems and arthritis; No rheumatoid arthritis, gout or joint pain Cardio Cardiovascular: Yes high blood pressure; No murmur, pacemaker, heart disease, atrial fibrillation, heart attack, heart stent, palpitations, shortness of breath with exertion or chest pain Psych Psychiatric: Yes depression and anxiety; No hearing voices Resp Respiratory: No shortness of breath, No sleep apnea, Yes cough, Yes COPD, No asthma, No emphysema and No wheezing Gastro Gastrointestinal: Yes abdominal pain, Yes nausea or vomiting, Yes diarrhea, Yes constipation, No blood in stool, Yes acid reflux, Yes hemorrhoids, No ulcers, Yes gallbladder problem and No black,tarry stools Kwabena Hematologic: No blood thinners, No blood disorders, No bleeding, No anemia and No blood clots Neuro Neurologic: No numbness, No tingling and No weakness Exam Const General: cooperative, healthy appearing, comfortable an (more content not included)... Normal [facility] Abdomen Limitedon 06-22-2024 Abdomen Limited [facility] [address] [place] [address] Abdomen Limited MR#: [id number] Acct: [id number] Name: KAYLA PAGE Rep #: [id number] : 1955 F 68 From: Wyatt Zuniga MD PCP: Dr. Morro Gonzalez MD Status: REG CLI Study: Abdomen Limited Date of Exam: 06/22/24 Exam# [id number] Ordering Dr: Morro Gonzalez MD PROCEDURE: ABDOMEN LIMITED (USABDL), 06/22/2024 REASON FOR EXAM: GALLSTONE COMPARISON: None FINDINGS: Liver: Echogenic and mildly coarsened echotexture. 21.5 cm in length. Gallbladder: Cholelithiasis. No visualized wall thickening or pericholecystic fluid. Reportedly, sonographic Man's was negative. Biliary tree: Extrahepatic biliary dilatation. CBD measures 5 mm at the gordy hepatis, 11 mm more inferiorly, tapering near the ampulla to 2 mm. Pancreas: Partially obscured by shadowing bowel gas, grossly unremarkable as visualized. Prominent but technically nonenlarged main pancreatic duct measures 3 mm. Right kidney: Unremarkable. 11.2 cm in length. Other: No visualized free fluid. US/Abdomen Limited IMPRESSION: 1. Cholelithiasis without findings to suggest cholecystitis. Biliary dilatation as detailed, without visualized choledocholithiasis or other obstructing process. Correlate with serum bilirubin and recommend cross-sectional imaging such as MRCP. 2. Hepatomegaly with echogenic appearance of the liver which is typically associated with steatosis although given mild coarsening coexisting fibrosis may be present. No overt serosal nodularity to confirm cirrhosis. Correlate with clinical and laboratory evaluation. 3. Additional description as above. Reading Location: [facility] CC: Dr. Morro Gonzalez MD Stacker Attendant: Signed Normal [facility] MR/BMS.BPon 06-15-2024 MR/BMS.[facility] [address], [address] [place] [address] OFFICE VISIT Date of Service: 06/15/24 MR#: [id number] Acct: [id number] Name: KAYLA PAGE Rep #: [id number] : 1955 Provider: Dr. Vicente Barr se, DO Age/Sex: 68/F Location: [facility] Status: Signed Intake Vital Signs 05/16/24 13:54 06/15/24 14:28 Height 5 ft 8 in 5 ft 8 in Weight: 215 lb BMI 32.6 BP 118/79 135/79 H Blood Pressure Location Lt brachial Lt brachial Position Sitting Sitting Respiration 16 16 Pulse 86 93 Pulse Source Monitor Monitor BP Intake Visit Reasons: 1 M FU Accompanied by: Self Allergies No Known Allergies Allergy (Verified 05/16/24 13:56) Medications ???Medication ???Instructions ???Recorded ???Confirmed ???Type cholecalciferol (vitamin D3) 25 25 mcg PO QDAY 05/16/24 06/15/24 H istory mcg (1,000 unit) tablet (Vitamin D3) fluoxetine 60 mg tablet 60 mg PO QDAY 05/16/24 06/15/24 Hi story levetiracetam 500 mg tablet 500 mg PO QDAY 05/16/24 06/15/24 H istory levothyroxine 75 mcg tablet 75 mcg PO QDAY 05/16/24 06/15/24 H istory mecobalamin (vitamin B12) 10,000 mcg IM MONTHLY 05/16/24 06/15/24 H istory mcg solution for injection quetiapine 200 mg tablet See Rx Instructions PO QHS #35 tab s 05/16/24 06/15/24 Rx quetiapine 400 mg tablet mg PO 05/16/24 06/15/24 History sodium sul 1.479 gram-potas ch 1 tab PO DIRECTED 05/16/2412/01 History 0.188 gram-magnes sul 0.225 gram tablet (Sutab) valacyclovir 500 mg tablet 500 mg PO QDAY 05/16/24 06/15/24 H istory valsartan 320 mg tablet 320 mg PO QDAY 03/10/25 04/09/25 H istory aripiprazole 5 mg tablet 5 mg PO DAILY #30 tabs 06/15/24 Rx quetiapine 50 mg tablet See Rx Instructions PO QHS #42 tab s 06/15/24 06/15/24 Rx Have you fallen in the past year?: No PFSH Medical History (Updated 06/15/24 @ 14:53 by Lizzy Chavez) Thyroid disease Skin cancer Seizures Osteoporosis Neuropathy High cholesterol High blood pressure Hearing problem Cataracts, bilateral Arthritis Major depressive disorder, recurrent, in full remission Anxiety disorder, unspecified Bipolar 1 disorder Family History (Updated 06/15/24 @ 14:55 by Lizzy Chavez) Other Anxiety Social History (Updated 06/15/24 @ 14:54 by Lizzy Chavez) Smoking Status: Former smoker alcohol intake: former substance use type: marijuana HPI History of Present Illness History provided by: patient HPI: Kayla Page is a 68-year-old female who presents today for follow up evaluation. Patient has been taking aripiprazole 2.5 mg every day and does feel somewhat better. Also reduced seroquel to 200 mg, and has tolerated largely well. Feels like her patience has been reduced to some capacity in recent past. Sleep has been not the best. Can sometimes only get 2-3 hours at night. Weight remains the same. Wishes to discontinue from seroquel as she feels like she continues to gain weight. Will need to have cataract surgery in near future. Denies SI/HI or AVH. Review of Systems Constitutional Denies: fever(s), chills, change in weight or fatigue Eyes Denies: change in vision or blurry vision Ears, Nose, Mouth, Throat Denies: throat pain, neck pain or change in hearing Cardiovascular Denies: chest pain, palpitations or dyspnea Respiratory Denies: dyspnea, cough or wheezing Gastrointestinal Denies: abdominal pain, nausea, vomiting, diarrhea or constipation Genitourinary Denies: dysuria or urinary frequency Musculoskeletal Denies: back pain, neck pain, joint pain or muscle weakness Integumentary/Breast Denies: rash or new lesions Neurological Reports: headache(s); Denies: dizziness or confusion Endocrine Denies: fatigue or excessive sweating Hematologic/Lymphatic Denies: easy bruising or easy bleeding Allergic/Immunologic Denies: wheezing Exam Mental Status Exam - Psych Appearance adequately groomed Attitude cooperative and calm Activity/Motor Behavior MSE activity/motor behavior finding no adventitious movements Speech regular rate, regular volume and regular prosody Mood OK Affect restricted Thought Process linear, logical and coherent Thought Content no delusions and no hallucinations Suicidal Ideation none Homicidal Ideation none Attention intact Concentration intact Sensorium/Orientation awake, alert and oriented x3 Memory/Cognition other (appropriate for stated age) Insight fair Judgement good Assessment Plan Assessment Plan (1) Bipolar 1 disorder: Plan: - P we will further taper Seroquel to 100 mg for 2 weeks then 50 mg for 2 weeks then discontinue ??? We will titrate Abilify from 2.5 mg every day to 5 mg every day ???Patient was informed of the risk, benefits, and (more content not included)... Normal [facility] MR/BMS.BPon 05-16-2024 MR/BMS.BP [facility] [address], [address] [place] [address] OFFICE VISIT Date of Service: 05/16/24 MR#: [id number] Acct: [id number] Name: KAYLA PAGE SOPHIE Rep #: [id number] : 1955 Provider: Dr. Vicente Barr se, DO Age/Sex: 68/F Location: [facility] Status: Signed Intake Vital Signs 05/16/24 13:54 Height 5 ft 8 in Weight: 215 lb BMI 32.6 BP 118/79 Blood Pressure Location Lt brachial Position Sitting Respiration 16 Pulse 86 Pulse Source Monitor BP Intake Visit Reasons: Anxiety/Bipolar/Major Depressive Disorder Accompanied by: Self Allergies No Known Allergies Allergy (Verified 05/16/24 13:56) Medications ???Medication ???Instructions ???Recorded ???Confirmed ???Type aripiprazole 5 mg tablet See Rx Instructions PO DAILY #21 0 05/16/24 05/16/24 Rx tabs cholecalciferol (vitamin D3) 25 25 mcg PO QDAY 05/16/24 05/16/24 H istory mcg (1,000 unit) tablet (Vitamin D3) fluoxetine 60 mg tablet 60 mg PO QDAY 05/16/24 05/16/24 Hi story levetiracetam 500 mg tablet 500 mg PO QDAY 05/16/24 05/16/24 H istory levothyroxine 75 mcg tablet 75 mcg PO QDAY 05/16/24 05/16/24 H istory mecobalamin (vitamin B12) 10,000 mcg IM MONTHLY 05/16/24 05/16/24 H istory mcg solution for injection quetiapine 200 mg tablet See Rx Instructions PO QHS #35 tab s 05/16/24 05/16/24 Rx quetiapine 400 mg tablet mg PO 05/16/24 05/16/24 History sodium sul 1.479 gram-potas ch 1 tab PO DIRECTED 05/16/2405/07 History 0.188 gram-magnes sul 0.225 gram tablet (Sutab) valacyclovir 500 mg tablet 500 mg PO QDAY 05/16/24 05/16/24 H istory valsartan 320 mg tablet 320 mg PO QDAY 05/16/24 05/16/24 H istory Have you fallen in the past year?: No [facility] Medical History (Updated 02/11/24 @ 14:23 by Cathy Murillo) Major depressive disorder, recurrent, in full remission Anxiety disorder, unspecified Bipolar 1 disorder HPI History of Present Illness History provided by: patient Chief complaint: depression/bipolar. HPI: Kayla Page is a 68-year-old female who presents today for new patient evaluation. Patient states that she has a very poor memory however presents today as she wishes to try to get off of Seroquel. States that she was started on Seroquel approximately 4 to 5 years ago when she was tapered off of Xanax which she was taking up to 20 to 30 mg/day appetite abuse. States that she was addicted and went through some significant withdrawal and spent time at [facility] for substance abuse detox. Describes her mood as being depressed. States that for her entire life she has found it hard to make friends and has some difficulty with trusting people. Describes having diminished energy and some loss of interest. States that she has been trying to eat less if she gained 60 pounds with Seroquel however has found it difficult to lose additional weight. Does have a history of high cholesterol. Describes a history of suicidality however no attempts in the past. Describes being diagnosed with bipolar in the past describes some potential hypomanic type symptoms including 5 days of very broken sleep but describes being tired with inability to sleep. Does feel as though she has impulsive. Denies any history of grandiosity. Describes a history of visual and auditory hallucinations in the past however both of these symptoms occurred in the context of benzodiazepine withdrawal. Developmental History Developmental History: Born/Raised -[facility] Living Situation -lives with a friend Employment -currently on disability Psychiatric History Previous psychiatric treatment history: Yes (Previous admission via a 72-hour hold with withdrawals while in [place]) Previous psychiatric diagnoses: Depression, bipolar, anxiety Previous psychiatric treatment programs: residential treatment (Substance abuse rehab at [facility]) Family Psychiatric History: Admits that her sister has bipolar disorder Suicidal Ideation Current: No Past: Yes History of suicide attempt: No (Denies admits to history of suicidal ideation without any attempts) Suicide Risk Assessment Suicide risk factors: depression and jonathan (suspected) Suicide protective factors: connected to treatment and future looking Self Injurious Behavior Current: none Past: none Medication Trials Previous psychiatric medication trials: Xanax, Zoloft, Effexor Current/Previous Provider Psychiatrist: Admits to seeing 1 in remote past in [place] Other Substance Use History Nicotine-admits developing and smoking cigarettes intermittently Alcohol-reports to having drank for the last 3 years Marijuana-admits to nearly daily use Stimulants-denies Opioids-admits to remote history of opioid use Other-admits to significant benzodiazepine abuse in (more content not included)... Normal [facility] CBC W/Diff, Automatedon 03-10 Absolute Lymph 2.15 X10 3/uL Normal 0.83-4.51 [facility] Comment on above: Performed By: #### L 100.0100, L501.9520, L506.1000, L500.4050 #### [facility] [address] [place], [address] Absolute Neut 7.8 X10 3/uL High 2.0-7.7 [facility] Comment on above: Performed By: #### L 100.0100, L501.9520, L506.1000, L500.4050 #### [facility] [address] [place], [address] Basophils/100 WBC (Bld) 0.7 % Normal 0-1 [facility] Comment on above: Performed By: #### L 100.0100, L501.9520, L506.1000, L500.4050 #### [facility] [address] [place], [address] Eosinophils/100 WBC (Bld) 2.6 % Normal 0-5 [facility] Comment on above: Performed By: #### L 100.0100, L501.9520, L506.1000, L500.4050 #### [facility] [address] [place], [address] Erythrocyte distribution width (RBC) [Ratio] 13.1 % Normal 11.6-14.6 [facility] Comment on above: Performed By: #### L 100.0100, L501.9520, L506.1000, L500.4050 #### [facility] [address] [place], [address] Hematocrit (Bld) [Volume fraction] 39.2 % Normal 37-47 [facility] Comment on above: Performed By: #### L 100.0100, L501.9520, L506.1000, L500.4050 #### [facility] [address] [place], [address] Hemoglobin (Bld) [Mass/Vol] 13.0 g/dL Normal 12.0-15.0 [facility] Comment on above: Performed By: #### L 100.0100, L501.9520, L506.1000, L500.4050 #### [facility] [address] [place], [address] IG% 0.800 Normal 0.0-0.9 [facility] Comment on above: Result Comment: IG% - Immature Granulocytes (promyelocytes, myelocytes and metamyelocytes) > 1% indicates that a LEFT SHIFT is Present. Performed By: #### L 100.0100, L501.9520, L506.1000, L500.4050 #### [facility] [address] [place], [address] Lymphocytes/100 WBC (Bld) 19.0 % Normal 19-41 [facility] Comment on above: Performed By: #### L 100.0100, L501.9520, L506.1000, L500.4050 #### [facility] [address] [place], [address] MCH (RBC) [Entitic mass] 29.7 pg Normal 27.0-32.0 [facility] Comment on above: Performed By: #### L 100.0100, L501.9520, L506.1000, L500.4050 #### [facility] [address] [place], [address] MCHC (RBC) [Mass/Vol] 33.2 g/dL Normal 32-36 [facility] Comment on above: Performed By: #### L 100.0100, L501.9520, L506.1000, L500.4050 #### [facility] [address] [place], [address] MCV (RBC) [Entitic vol] 89.7 fL Normal 81-99 [facility] Comment on above: Performed By: #### L 100.0100, L501.9520, L506.1000, L500.4050 #### [facility] [address] [place], [address] Monocytes/100 WBC (Bld) 8.3 % Normal 0-10 [facility] Comment on above: Performed By: #### L 100.0100, L501.9520, L506.1000, L500.4050 #### [facility] [address] [place], [address] Neutrophils/100 WBC (Bld) 68.6 % Normal 47-70 [facility] Comment on above: Performed By: #### L 100.0100, L501.9520, L506.1000, L500.4050 #### [facility] [address] [place], [address] Nucleated RBC (Bld) [#/Vol] 0 10*3/uL Normal 0-5 [facility] Comment on above: Performed By: #### L 100.0100, L501.9520, L506.1000, L500.4050 #### [facility] [address] [place], [address] Platelet mean volume (Bld) [Entitic vol] 10.0 fL Normal 6.2-12.0 [facility] Comment on above: Performed By: #### L 100.0100, L501.9520, L506.1000, L500.4050 #### [facility] [address] [place], [address] Platelets (Bld) [#/Vol] 333 10*3/uL Normal 150-450 [facility] Comment on above: Performed By: #### L 100.0100, L501.9520, L506.1000, L500.4050 #### [facility] [address] [place], [address] RBC (Bld) [#/Vol] 4.37 10*6/uL Normal 4.2-5.4 [facility] Comment on above: Performed By: #### L 100.0100, L501.9520, L506.1000, L500.4050 #### [facility] [address] [place], [address] RDW SD 43.1 fl Normal 35.1-43.9 [facility] Comment on above: Performed By: #### L 100.0100, L501.9520, L506.1000, L500.4050 #### [facility] [address] [place], [address] WBC (Bld) [#/Vol] 11.3 10*3/uL High 4.4-11.0 [facility] Comment on above: Performed By: #### L 100.0100, L501.9520, L506.1000, L500.4050 #### [facility] [address] [place], [address] Comprehensive Metabolic Prof ilon 04-06-2024 Albumin [Mass/Vol] 3.5 g/dL Normal 3.2-5.[address] [facility] Comment on above: Performed By: #### L 100.0100, L501.9520, L506.1000, L500.4050 #### [facility] [address] [place], [address] Albumin/Globulin [Mass ratio] 0.8 {ratio} Low 0.9-2.4 [facility] Comment on above: Performed By: #### L 100.0100, L501.9520, L506.1000, L500.4050 #### [facility] [address] [place], [address] ALK P 55 U/L Normal 45-117 [facility] Comment on above: Performed By: #### L 100.0100, L501.9520, L506.1000, L500.4050 #### [facility] [address] [place], [address] ALT [Catalytic activity/Vol] 23 U/L Normal 13-56 [facility] Comment on above: Performed By: #### L 100.0100, L501.9520, L506.1000, L500.4050 #### [facility] [address] [place], [address] AST [Catalytic activity/Vol] 18 U/L Normal 15-37 [facility] Comment on above: Performed By: #### L 100.0100, L501.9520, L506.1000, L500.4050 #### [facility] [address] [place], [address] Bilirubin [Mass/Vol] 0.50 mg/dL Normal 0.20-1.00 [facility] Comment on above: Result Comment: For patients on eltrombopag therapy, use of Dimension Marcellus TBIL is not recommended. Performed By: #### L 100.0100, L501.9520, L506.1000, L500.4050 #### [facility] [address] [place], [address] BUN/CRE 10.7 RATIO Normal 10-20 [facility] Comment on above: Performed By: #### L 100.0100, L501.9520, L506.1000, L500.4050 #### [facility] [address] [place], [address] CA,Total 9.3 mg/dL Normal 8.5-10.1 [facility] Comment on above: Performed By: #### L 100.0100, L501.9520, L506.1000, L500.4050 #### [facility] [address] [place], [address] Chloride [Moles/Vol] 105 mmol/L Normal 98-107 [facility] Comment on above: Performed By: #### L 100.0100, L501.9520, L506.1000, L500.4050 #### [facility] [address] [place], [address] CO2 [Moles/Vol] 22.0 mmol/L Normal 21.0-32.0 [facility] Comment on above: Performed By: #### L 100.0100, L501.9520, L506.1000, L500.4050 #### [facility] [address] [place], [address] Creatinine [Mass/Vol] 1.12 mg/dL High 0.55-1.02 [facility] Comment on above: Result Comment: The validity of the calculated GFR GFRAA in patients over 70 years has not been determined. Clinical correlation is essential. Performed By: #### L 100.0100, L501.9520, L506.1000, L500.4050 #### [facility] [address] [place], [address] EST GFR - AA 63 mL/min Normal >60 [facility] Comment on above: Result Comment: Afri can [place] GFR Calc Performed By: #### L 100.0100, L501.9520, L506.1000, L500.4050 #### [facility] [address] [place], [address] GAP 9 Normal 5-15 [facility] Comment on above: Performed By: #### L 100.0100, L501.9520, L506.1000, L500.4050 #### [facility] [address] [place], [address] GFR/1.73 sq M.predicted among non-blacks MDRD (S/P/Bld) [Vol rate/Area] 52 mL/min/{1.73_m2} Low >60 [facility] Comment on above: Result Comment: Non- GFR Calc Performed By: #### L 100.0100, L501.9520, L506.1000, L500.4050 #### [facility] [address] [place], [address] Globulin (S) [Mass/Vol] 4.6 g/dL High 2.2-4.2 [facility] Comment on above: Performed By: #### L 100.0100, L501.9520, L506.1000, L500.4050 #### [facility] [address] [place], [address] Glucose [Mass/Vol] 118 mg/dL High 74-[address] [facility] Comment on above: Result Comment: Fast ing Glucose result from 100 to 125 mg/dL suggests IMPAIRED HOMEOSTASIS per A.D.A. criteria. Performed By: #### L 100.0100, L501.9520, L506.1000, L500.4050 #### [facility] [address] [place], [address] Potassium [Moles/Vol] 4.1 mmol/L Normal 3.5-5.1 [facility] Comment on above: Performed By: #### L 100.0100, L501.9520, L506.1000, L500.4050 #### [facility] [address] [place], [address] Sodium [Moles/Vol] 136 mmol/L Normal 136-[address] [facility] Comment on above: Performed By: #### L 100.0100, L501.9520, L506.1000, L500.4050 #### [facility] [address] [place], [address] T PROT 8.1 g/dL Normal 6.4-8.2 [facility] Comment on above: Performed By: #### L 100.0100, L501.9520, L506.1000, L500.4050 #### [facility] [address] [place], [address] Urea nitrogen [Mass/Vol] 12 mg/dL Normal 7-18 [facility] Comment on above: Performed By: #### L 100.0100, L501.9520, L506.1000, L500.4050 #### [facility] [address] [place], [address] Thyroid Stim Hormone (TSH)on 04-06-2024 TSH 1.110 uIU/mL Normal 0.358-3.74 0 [facility] Comment on above: Performed By: #### L 100.0100, L501.9520, L506.1000, L500.4050 ####[facility] [address] [place], [place], [address] Vitamin D,25 Hydroxyon 04-06 Vitamin D 25-OH 16.0 ng/mL Normal [facility] Comment on above: Result Comment: Penny min D 25(OH) Status Range Deficiency <20 ng/mL (50nmol/L) Insufficiency 20 - 30 ng/mL (50 - 75 nmol/L) Sufficiency 30 - 100 ng/mL (75 - 250 nmol/L) Toxicity >100 ng/mL (>250 nmol/L) Performed By: #### L 100.0100, L501.9520, L506.1000, L500.4050 #### [facility] [address] [place], [address] Miscellaneous Lab Procedureo n 12-25-2023 [facility] [place] [facility] [place] Normal [facility] Comment on above: Order Comment: HEB C PCR QUANT SST FZHEB C PCR QUANT SST FZ Result Comment: TEST RESULTS LIMITS HCV RT-PCR, Quant (Non-Graph) Hepatitis C Quantitation HCV Not Detected IU/mL Test Information: The quantitative range of this assay is 15 IU/mL to 100 million IU/mL. TESTING PERFORMED AT [facility]. ORIGINAL REPORT ON FILE IN LAB CONTAINS ADDITIONAL TEST SITE INFORMATION. Performed By: #### L 801.1541 ####[facility] [id number] [place], [id number] SCRN MAMM (CAD)W/MYLES BILATo n 10-26-2023 SCRN MAMM (CAD)W/MYLES BILAT [facility] [address] [place] [id number] SCRN MAMM (CAD)W/MYLES BILAT MR#: [id number] Acct: [id number] Name: KAYLA PAGE Rep #: [id number] : 1955 F 67 From: Natalio fournier MD PCP: Dr. Morro Gonzalez MD Status: [facility] Study: SCRN MAMM (CAD)W/MYLES BILAT Date of Exam: 10/07 11/30 Exam# [id number] Ordering Dr: Morro Gonzalez MD [id number] MAMMOGRAPHY - BILATERAL SCREENING REASON FOR EXAM: Female, 67 years old. Routine annual screening examination. PERTINENT HISTORY: Non-contributory. Bilateral breast implants. TECHNIQUE: Digital bilateral breast myles (3D mammographic acquisition) in the CC and MLO projections. 2-D mediolateral oblique (MLO) and craniocaudad (CC) views of both breasts were obtained. CAD: Full Field Digital Mammography with Computer Added Detection was performed. COMPARISON: Comparison is made with prior outside examination dated October 23, 2016. FINDINGS: Breast Composition: There are scattered areas of fibroglandular density. There are no dominant masses or suspicious calcifications. Stable appearance of the bilateral breast implants with a calcific rim. Stable fat-containing bilateral axillary lymph nodes. No other significant abnormalities are identified. There has been no significant change since the prior study. BI/SCRN MAMM (CAD)W/MYLES BILAT IMPRESSION: Stable bilateral screening mammogram. Yearly follow-up mammogram recommended. (A) ASSESSMENT CATEGORY: BIRADS Category 2: Benign. A letter regarding these results will be sent to the patient by the facility within 30 days. Approximately 10% of breast cancers are not detected by mammography. A normal mammogram should not delay biopsy of a clinically suspicious abnormality. [id number] Electronically Signed: Natalio Hutchins MD at 7:49 EDT , CC: Dr. Morro Gonzalez MD Stacker Attendant: Signed Normal [facility] Basophil percentageOrdered B y: Roni Hoang on 06-10-2023 Basophil percentage 5.724 . [facility] Comment on above: Result Units: log10 IU/mL Bilirubin [Mass/Vol] 0.30 mg/dL 0.20-1.00 [facility] Comment on above: For patients on eltr ombopag therapy, use of Dimension Marcellus TBIL is not recommended. Chloride [Moles/Vol] 105 mmol/L 98-107 [facility] Glucose [Mass/Vol] 107 mg/dL 74-[address] [facility] Comment on above: Fasting Glucose resu lt from 100 to 125 mg/dL suggests IMPAIRED HOMEOSTASIS per A.D.A. criteria. Potassium [Moles/Vol] 4.1 mmol/L 3.5-5.1 [facility] Protein [Mass/Vol] 8.0 g/dL 6.4-8.[address] [facility] Sodium [Moles/Vol] 137 mmol/L 136-[address] [facility] Laboratory - Chemistry and C hemistry - challengeOrdered By: Roni Hoang on 06-10-2023 Albumin/Globulin [Mass ratio] 0.8 {ratio} 0.9-2.4 [facility] ALP [Catalytic activity/Vol] 77 U/L 45-117 [facility] ALT [Catalytic activity/Vol] 57 U/L 13-56 [facility] CO2 [Moles/Vol] 25.0 mmol/L 21.0-32.0 [facility] Globulin (S) [Mass/Vol] 4.5 g/dL 2.2-4.2 [facility] Urea nitrogen/Creatinine [Mass ratio] 17.4 mg/mg 10-20 [facility] - Miscellaneous t estsOrdered By: Roni Hoang on 06-10-2023 Service comment (Unsp spec) [Interp] Comment . [facility] Comment on above: This test was develo ped and its performance characteristicsdetermined by [employer]. It has not been cleared or approvedby the U.S. Food and Drug Administration.The FDA has determined that such clearance or approval isnot necessary. This test is used for clinical purposes. Itshould not be regarded as investigational or for research. No Panel InformationOrdered By: Roni Hoang on 06-10-2023 Addendum Document Comment . [facility] Comment on above: The quantitative ran ge of this assay is 15 IU/mL to 100million IU/mL. Estimated GFR (MDRD) Amer 73 mL/min >60 [facility] Comment on above: GFR Calc Estimated GFR (MDRD) Non-Af Amer 61 mL/min >60 [facility] Comment on above: Non- GFR Calc Hepatitis C Genotype 1a . [facility] Tumor Marker Alpha Fetoprotein 2.8 ng/mL 0.0-9.2 [facility] Comment on above: [facility] El ectrochemiluminescence Immunoassay(ECLIA)Values obtained with different assay methods or kits cannotbe used interchangeably. Results cannot be interpreted asabsolute evidence of the presence or absence of malignantdisease.This test is not interpretable in females.Performed at: [facility] [employer] [id number] Director: Anna Avendano MD, Phone: [phone] at: [address] [id number] Director: Roni Pan PhD, Phone: [phone] Serum or plasma calcium tricia urement (mass/volume)Ordered By: Roni Hoang on 06-10-2023 Calcium [Mass/Vol] 9.9 mg/dL 8.5-10.[address] [facility] Serum or plasma creatinine m easurement (mass/volume)Ordered By: Roni Hoang on 06-10-2023 Creatinine [Mass/Vol] 0.98 mg/dL 0.55-1.02 [facility] Comment on above: The validity of the calculated GFR & GFRAA in patients over 70 years has not been determined. Clinical correlation is essential. Serum or plasma hepatitis C virus RNA measurement by probe and target amplification mOrdered By: Roni Hoang on 06-10-2023 HCV RNA MIGUEL ANGEL+probe Qn [id number] IU/mL . [facility] Serum or plasma urea nitroge n measurement (mass/volume)Ordered By: Roni Hoang on 06-10-2023 Urea nitrogen [Mass/Vol] 17 mg/dL 7-18 [facility] Thin prep Papanicolaou smear with manual screeningOrdered By: Roni Hoang on 06-10-2023 Thin prep Papanicolaou smear with manual screening 3.5 g/dL 3.2-5.0 [facility] Thin prep Papanicolaou smear with manual screening 44 U/L 15-37 [facility] Thin prep Papanicolaou smear with manual screening 7 5-15 [facility] Absolute lymphocyte countOrd ered By: Morro Gonzalez on 04-21-2023 Lymphocytes Auto (Unsp spec) [#/Vol] 1.49 10*3/uL 0.83-4.51 [facility] Automated lymphocyte count a s percentage of total leukocytesOrdered By: Morro Gonzalez on 04-21-2023 Lymphocytes/100 WBC Auto (Unsp spec) 23.4 % 19-41 [facility] Basophil percentageOrdered B y: Morro Gonzalez on 04-21-2023 Basophils/100 WBC (Bld) 0.5 % 0-1 [facility] Bilirubin [Mass/Vol] 0.30 mg/dL 0.20-1.00 [facility] Comment on above: For patients on eltr ombopag therapy, use of Dimension Marcellus TBIL is not recommended. Chloride [Moles/Vol] 108 mmol/L 98-107 [facility] Eosinophils/100 WBC (Bld) 0.9 % 0-5 [facility] Glucose [Mass/Vol] 111 mg/dL 74-[address] [facility] Comment on above: Fasting Glucose resu lt from 100 to 125 mg/dL suggests IMPAIRED HOMEOSTASIS per A.D.A. criteria. Hemoglobin (Bld) [Mass/Vol] 12.9 g/dL 12.0-15.0 [facility] Monocytes/100 WBC (Bld) 12.7 % 0-10 [facility] Neutrophils (Bld) [#/Vol] 3.9 10*3/uL 2.0-7.7 [facility] Neutrophils/100 WBC (Bld) 62.0 % 47-70 [facility] Potassium [Moles/Vol] 3.9 mmol/L 3.5-5.1 [facility] Protein [Mass/Vol] 8.2 g/dL 6.4-8.[address] [facility] Sodium [Moles/Vol] 140 mmol/L 136-[address] [facility] WBC (Bld) [#/Vol] 6.4 10*3/uL 4.4-11.[address] [facility] Determination of erythrocyte mean corpuscular volume (MCV)Ordered By: Morro Gonzalez on 04-21-2023 MCV (RBC) [Entitic vol] 92.1 fL 81-99 [facility] Erythrocyte distribution wid th ratioOrdered By: Morro Gonzalez on 04-21-2023 Erythrocyte distribution width (RBC) [Ratio] 12.5 % 11.6-14.6 [facility] Erythrocyte distribution wid th standard deviationOrdered By: Morro Gonzalez on 04-21-2023 Erythrocyte distribution width (RBC) [Entitic vol] 42.1 fL 35.1-43.9 [facility] Hematocrit Auto (Bld) [Volum e fraction]Ordered By: Morro Gonzalez on 04-21-2023 Hematocrit (Bld) [Volume fraction] 40.6 % 37-47 [facility] Immature granulocytes/100 WB C Auto (Bld)Ordered By: Morro Gonzalez 04-21-2023 Immature granulocytes/100 WBC (Bld) 0.500 % 0.0-0.9 [facility] Comment on above: IG% - Immature Granu locytes (promyelocytes, myelocytes and metamyelocytes) > 1% indicates that a LEFT SHIFT is Present. Laboratory - Chemistry and C hemistry - challengeOrdered By: Morro Gonzalez on 04-21-2023 Albumin/Globulin [Mass ratio] 0.8 {ratio} 0.9-2.4 [facility] ALP [Catalytic activity/Vol] 74 U/L 45-117 [facility] ALT [Catalytic activity/Vol] 64 U/L 13-56 [facility] CO2 [Moles/Vol] 27.0 mmol/L 21.0-32.0 [facility] Globulin (S) [Mass/Vol] 4.5 g/dL 2.2-4.2 [facility] Urea nitrogen/Creatinine [Mass ratio] 12.1 mg/mg 10-20 [facility] - Hematology and Cell countsOrdered By: Morro Gonzalez on 04-21-2023 MCH (RBC) [Entitic mass] 29.3 pg 27.0-32.0 [facility] MCHC (RBC) [Mass/Vol] 31.8 g/dL 32-36 [facility] Nucleated RBC/100 WBC (Bld) [Ratio] 0 % 0-5 [facility] Platelet mean volume (Bld) [Entitic vol] 11.1 fL 6.2-12.0 [facility] Platelets (Bld) [#/Vol] 250 10*3/uL 150-450 [facility] No Panel InformationOrdered By: Morro Gonzalez on 04-21-2023 Estimated GFR (MDRD) Amer 89 mL/min >60 [facility] Comment on above: GFR Calc Estimated GFR (MDRD) Non-Af Amer 73 mL/min >60 [facility] Comment on above: Non- GFR Calc Vitamin D 25-Hydroxy 28.9 ng/mL [facility] Comment on above: Vitamin D 25(OH) Sta tus Range Deficiency <20 ng/mL (50nmol/L) Insufficiency 20 - 30 ng/mL (50 - 75 nmol/L) Sufficiency 30 - 100 ng/mL (75 - 250 nmol/L) Toxicity >100 ng/mL (>250 nmol/L) RBC Auto (Bld) [#/Vol]Ordere d By: Morro Gonzalez on 04-21-2023 RBC (Bld) [#/Vol] 4.41 10*6/uL 4.2-5.4 [facility] Serum or plasma calcium tricia urement (mass/volume)Ordered By: Morro Gonzalez on 04-21-2023 Calcium [Mass/Vol] 9.4 mg/dL 8.5-10.[address] [facility] Serum or plasma creatinine m easurement (mass/volume)Ordered By: Morro Gonzalez on 04-21-2023 Creatinine [Mass/Vol] 0.83 mg/dL 0.55-1.02 [facility] Comment on above: The validity of the calculated GFR & GFRAA in patients over 70 years has not been determined. Clinical correlation is essential. Serum or plasma thyroid stim ulating hormone (TSH) measurement (units/volume)Ordered By: Morro Alonzook on 04-21-2023 TSH Qn 2.58 uIU/mL 0.358-3.74 [facility] Serum or plasma urea nitroge n measurement (mass/volume)Ordered By: Morro Alonzook on 04-21-2023 Urea nitrogen [Mass/Vol] 10 mg/dL 7-18 [facility] Thin prep Papanicolaou smear with manual screeningOrdered By: Morro Carlos on 04-21-2023 Thin prep Papanicolaou smear with manual screening 3.7 g/dL 3.2-5.0 [facility] Thin prep Papanicolaou smear with manual screening 55 U/L 15-37 [facility] Thin prep Papanicolaou smear with manual screening 5 5-15 [facility] Absolute lymphocyte countOrd ered By: Morro Alonzook on 01-21-2023 Lymphocytes Auto (Unsp spec) [#/Vol] 1.45 10*3/uL 0.83-4.51 [facility] Basophil percentageOrdered B y: Morro Gonzalez on 01-21-2023 Basophils/100 WBC (Bld) 0.4 % 0-1 [facility] Bilirubin [Mass/Vol] 0.40 mg/dL 0.20-1.00 [facility] Comment on above: For patients on eltr ombopag therapy, use of Dimension Marcellus TBIL is not recommended. Chloride [Moles/Vol] 108 mmol/L 98-107 [facility] Eosinophils/100 WBC (Bld) 1.2 % 0-5 [facility] Glucose [Mass/Vol] 101 mg/dL 74-[address] [facility] Comment on above: Fasting Glucose resu lt from 100 to 125 mg/dL suggests IMPAIRED HOMEOSTASIS per A.D.A. criteria. Neutrophils (Bld) [#/Vol] 4.3 10*3/uL 2.0-7.7 [facility] Neutrophils/100 WBC (Bld) 65.1 % 47-70 [facility] Potassium [Moles/Vol] 4.0 mmol/L 3.5-5.1 [facility] Protein [Mass/Vol] 7.5 g/dL 6.4-8.[address] [facility] Sodium [Moles/Vol] 138 mmol/L 136-[address] [facility] WBC (Bld) [#/Vol] 6.7 10*3/uL 4.4-11.[address] [facility] Blood erythrocytes count (nu mber/volume)Ordered By: Morro Gonzalez on 01-21-2023 RBC (Bld) [#/Vol] 4.30 10*6/uL 4.2-5.4 [facility] Blood hemoglobin measurement (mass/volume)Ordered By: Morro Gonzalez on 01-21-2023 Hemoglobin (Bld) [Mass/Vol] 12.7 g/dL 12.0-15.0 [facility] Blood lymphocytes/100 leukoc ytesOrdered By: Morro Gonzalez on 01-21-2023 Lymphocytes/100 WBC (Bld) 21.7 % 19-41 [facility] Blood monocytes/100 leukocyt esOrdered By: Morro Gonzalez on 01-21-2023 Monocytes/100 WBC (Bld) 11.5 % 0-10 [facility] Blood platelet mean volumeOr dered By: Morro Gonzalez on 01-21-2023 Platelet mean volume (Bld) [Entitic vol] 11.2 fL 6.2-12.0 [facility] Determination of erythrocyte mean corpuscular volume (MCV)Ordered By: Morro Gonzalez on 01-21-2023 MCV (RBC) [Entitic vol] 89.8 fL 81-99 [facility] Hematocrit Auto (Bld) [Volum e fraction]Ordered By: Morro Gonzalez on 01-21-2023 Hematocrit (Bld) [Volume fraction] 38.6 % 37-47 [facility] Laboratory - Chemistry and C hemistry - challengeOrdered By: Morro Gonzalez on 01-21-2023 ALP [Catalytic activity/Vol] 65 U/L 45-117 [facility] ALT [Catalytic activity/Vol] 48 U/L 13-56 [facility] CO2 [Moles/Vol] 26.0 mmol/L 21.0-32.0 [facility] Globulin (S) [Mass/Vol] 4.1 g/dL 2.2-4.2 [facility] Urea nitrogen/Creatinine [Mass ratio] 10.2 mg/mg 10-20 [facility] Laboratory - Hematology and Cell countsOrdered By: Morro Gonzalez on 01-21-2023 Erythrocyte distribution width (RBC) [Entitic vol] 40.2 fL 35.1-43.9 [facility] Erythrocyte distribution width (RBC) [Ratio] 12.3 % 11.6-14.6 [facility] Immature granulocytes/100 WBC (Bld) 0.100 % 0.0-0.9 [facility] Comment on above: IG% - Immature Granu locytes (promyelocytes, myelocytes and metamyelocytes) > 1% indicates that a LEFT SHIFT is Present. MCH (RBC) [Entitic mass] 29.5 pg 27.0-32.0 [facility] Nucleated RBC/100 WBC (Bld) [Ratio] 0 % 0-5 [facility] MCHC Auto (RBC) [Mass/Vol]Or dered By: Morro Gonzalez on 01-21-2023 MCHC (RBC) [Mass/Vol] 32.9 g/dL 32-36 [facility] No Panel InformationOrdered By: Morro Gonzalez on 01-21-2023 Estimated GFR (MDRD) Amer 83 mL/min >60 [facility] Comment on above: GFR Calc Estimated GFR (MDRD) Non-Af Amer 69 mL/min >60 [facility] Comment on above: Non- GFR Calc Thyroid Stimulating Hormone (TSH) 1.92 uIU/mL 0.358-3.74 [facility] Vitamin D 25-Hydroxy 37.3 ng/mL [facility] Comment on above: Vitamin D 25(OH) Sta tus Range Deficiency <20 ng/mL (50nmol/L) Insufficiency 20 - 30 ng/mL (50 - 75 nmol/L) Sufficiency 30 - 100 ng/mL (75 - 250 nmol/L) Toxicity >100 ng/mL (>250 nmol/L) Platelets bldOrdered By: Morro Gonzalez on 01-21-2023 Platelets (Bld) [#/Vol] 251 10*3/uL 150-450 [facility] Serum or plasma albumin tricia urement (mass/volume)Ordered By: Morro Gonzalez on 01-21-2023 Albumin [Mass/Vol] 3.4 g/dL 3.2-5.[address] [facility] Serum or plasma albumin/glob ulin mass ratioOrdered By: Morro Gonzalez on 01-21-2023 Albumin/Globulin [Mass ratio] 0.8 {ratio} 0.9-2.4 [facility] Serum or plasma calcium tricia urement (mass/volume)Ordered By: Morro Gonzalez on 01-21-2023 Calcium [Mass/Vol] 9.0 mg/dL 8.5-10.[address] [facility] Serum or plasma creatinine m easurement (mass/volume)Ordered By: Morro Gonzalez on 01-21-2023 Creatinine [Mass/Vol] 0.88 mg/dL 0.55-1.02 [facility] Comment on above: The validity of the calculated GFR & GFRAA in patients over 70 years has not been determined. Clinical correlation is essential. Serum or plasma urea nitroge n measurement (mass/volume)Ordered By: Morro Gonzalez on 01-21-2023 Urea nitrogen [Mass/Vol] 9 mg/dL 7-18 [facility] Thin prep Papanicolaou smear with manual screeningOrdered By: Morro Gonzalez 01-21-2023 Thin prep Papanicolaou smear with manual screening 39 U/L 15-37 [facility] Thin prep Papanicolaou smear with manual screening 4 5-15 [facility] Absolute lymphocyte countOrd ered By: Morro Carlos on 10-14-2022 Lymphocytes Auto (Unsp spec) [#/Vol] 1.98 10*3/uL 0.83-4.51 [facility] Basophil percentageOrdered B y: Morro Carlos on 10-14-2022 Basophil percentage 5.840 . [facility] Comment on above: Result Units: log10 IU/mL Basophils/100 WBC (Bld) 0.3 % 0-1 [facility] Bilirubin [Mass/Vol] 0.30 mg/dL 0.20-1.00 [facility] Comment on above: For patients on eltr ombopag therapy, use of Dimension Marcellus TBIL is not recommended. Chloride [Moles/Vol] 106 mmol/L 98-107 [facility] Eosinophils/100 WBC (Bld) 2.0 % 0-5 [facility] Glucose [Mass/Vol] 86 mg/dL 74-[address] [facility] Neutrophils (Bld) [#/Vol] 4.1 10*3/uL 2.0-7.7 [facility] Neutrophils/100 WBC (Bld) 59.9 % 47-70 [facility] Potassium [Moles/Vol] 3.9 mmol/L 3.5-5.1 [facility] Protein [Mass/Vol] 7.3 g/dL 6.4-8.[address] [facility] Sodium [Moles/Vol] 139 mmol/L 136-[address] [facility] WBC (Bld) [#/Vol] 6.8 10*3/uL 4.4-11.[address] [facility] Blood erythrocytes count (nu mber/volume)Ordered By: Morro Gonzalez on 10-14-2022 RBC (Bld) [#/Vol] 4.12 10*6/uL 4.2-5.4 [facility] Blood hemoglobin measurement (mass/volume)Ordered By: Morro Gonzalez on 10-14-2022 Hemoglobin (Bld) [Mass/Vol] 12.0 g/dL 12.0-15.0 [facility] Blood lymphocytes/100 leukoc ytesOrdered By: Morro Gonzalez on 10-14-2022 Lymphocytes/100 WBC (Bld) 29.0 % 19-41 [facility] Blood monocytes/100 leukocyt esOrdered By: Morro Gonzalez 10-14-2022 Monocytes/100 WBC (Bld) 8.5 % 0-10 [facility] Blood platelet mean volumeOr dered By: Morro Gonzalez on 10-14-2022 Platelet mean volume (Bld) [Entitic vol] 10.7 fL 6.2-12.0 [facility] Determination of erythrocyte mean corpuscular volume (MCV)Ordered By: Morro Gonzalez 10-14-2022 MCV (RBC) [Entitic vol] 91.0 fL 81-99 [facility] Hematocrit Auto (Bld) [Volum e fraction]Ordered By: Morro Gonzalez 10-14-2022 Hematocrit (Bld) [Volume fraction] 37.5 % 37-47 [facility] Laboratory - Chemistry and C hemistry - challengeOrdered By: Morro Gonzalez on 10-14-2022 ALP [Catalytic activity/Vol] 72 U/L 45-117 [facility] ALT [Catalytic activity/Vol] 50 U/L 13-56 [facility] CO2 [Moles/Vol] 28.0 mmol/L 21.0-32.0 [facility] Globulin (S) [Mass/Vol] 3.9 g/dL 2.2-4.2 [facility] Urea nitrogen/Creatinine [Mass ratio] 8.7 mg/mg 10-20 [facility] Laboratory - Hematology and Cell countsOrdered By: Morro Gonzalez on 10-14-2022 Erythrocyte distribution width (RBC) [Entitic vol] 40.6 fL 35.1-43.9 [facility] Erythrocyte distribution width (RBC) [Ratio] 12.1 % 11.6-14.6 [facility] Immature granulocytes/100 WBC (Bld) 0.300 % 0.0-0.9 [facility] Comment on above: IG% - Immature Granu locytes (promyelocytes, myelocytes and metamyelocytes) > 1% indicates that a LEFT SHIFT is Present. MCH (RBC) [Entitic mass] 29.1 pg 27.0-32.0 [facility] Nucleated RBC/100 WBC (Bld) [Ratio] 0 % 0-5 [facility] MCHC Auto (RBC) [Mass/Vol]Or dered By: Morro Gonzalez on 10-14-2022 MCHC (RBC) [Mass/Vol] 32.0 g/dL 32-36 [facility] No Panel InformationOrdered By: Morro Gonzalez on 10-14-2022 Addendum Document Comment . [facility] Comment on above: The quantitative ran ge of this assay is 15 IU/mL to 100million IU/mL.Performed at: [facility] [address] [id number] Director: Anna Avendano MD, Phone: [phone] Estimated GFR (MDRD) Amer 110 mL/min >60 [facility] Comment on above: GFR Calc Estimated GFR (MDRD) Non-Af Amer 91 mL/min >60 [facility] Comment on above: Non- GFR Calc Thyroid Stimulating Hormone (TSH) 0.47 uIU/mL 0.358-3.74 [facility] Vitamin D 25-Hydroxy 14.2 ng/mL [facility] Comment on above: Vitamin D 25(OH) Sta tus Range Deficiency <20 ng/mL (50nmol/L) Insufficiency 20 - 30 ng/mL (50 - 75 nmol/L) Sufficiency 30 - 100 ng/mL (75 - 250 nmol/L) Toxicity >100 ng/mL (>250 nmol/L) Platelets bldOrdered By: Morro Gonzalez on 10-14-2022 Platelets (Bld) [#/Vol] 237 10*3/uL 150-450 [facility] Serum or plasma albumin tricia urement (mass/volume)Ordered By: Morro Gonzalez on 10-14-2022 Albumin [Mass/Vol] 3.4 g/dL 3.2-5.[address] [facility] Serum or plasma albumin/glob ulin mass ratioOrdered By: Morro Gonzalez 10-14-2022 Albumin/Globulin [Mass ratio] 0.9 {ratio} 0.9-2.4 [facility] Serum or plasma calcium tricia urement (mass/volume)Ordered By: Morro Gonzalez 10-14-2022 Calcium [Mass/Vol] 8.9 mg/dL 8.5-10.[address] [facility] Serum or plasma creatinine m easurement (mass/volume)Ordered By: Morro Gonzalez 10-14-2022 Creatinine [Mass/Vol] 0.69 mg/dL 0.55-1.02 [facility] Comment on above: The validity of the calculated GFR & GFRAA in patients over 70 years has not been determined. Clinical correlation is essential. Serum or plasma hepatitis C virus RNA measurement by probe and target amplification mOrdered By: Morro Gonzalez on 10-14-2022 HCV RNA MIGUEL ANGEL+probe Qn [id number] IU/mL . [facility] Serum or plasma urea nitroge n measurement (mass/volume)Ordered By: Morro Gonzalez on 10-14-2022 Urea nitrogen [Mass/Vol] 6 mg/dL 7-18 [facility] Thin prep Papanicolaou smear with manual screeningOrdered By: Morro Gonzalez on 10-14-2022 Thin prep Papanicolaou smear with manual screening 35 U/L 15-37 [facility] Thin prep Papanicolaou smear with manual screening 5 5-15 [facility] HIV Antibody (HIV1/HIV2)on 0 07-15-2022 HIV 1+2 Ab+HIV1 p24 Ag IA Ql Negative Negative [facility] Interpretation and review of laboratory results Normal [facility] This assay screens f or the presence of HIV-1, HIV-2 antibodies and for the presence of HIV-1 antigen. Test performed using Juan Diego ALEJANDRA immunoassay system [facility] Hepatitis C Antibodyon 07-15 HCV Ab Ql (S) Positive Abnormal Negative [facility] Comment on above: A positive antibody test requires additional follow-up testing, Hepatitis C Virus Quantitation, to determine if a person is currently infected with Hepatitis C. Interpretation and review of laboratory results Abnormal [facility] Test performed using Juan Diego ALEJANDRA immunoassay system [facility] No Panel Informationon 07-15 [facility] Comprehensive metabolic 2000 panelon 07-14-2022 Albumin [Mass/Vol] 4.4 g/dL 3.2 - 5.2 g/dL [facility] ALP [Catalytic activity/Vol] 68 U/L 40 - 150 U/L [facility] ALT [Catalytic activity/Vol] 24 U/L 0 - 40 U/L [facility] Anion gap [Moles/Vol] 14 mmol/L 10 - 2 0 mmol/L [facility] AST [Catalytic activity/Vol] 21 U/L 0 - 45 U/L [facility] Bilirubin [Mass/Vol] 0.3 mg/dL 0.0 - 1 .3 mg/dL [facility] Calcium [Mass/Vol] 9.9 mg/dL 8.4 - 10. 2 mg/dL [facility] Chloride [Moles/Vol] 103 mmol/L 98 - 10 8 mmol/L [facility] Creatinine [Mass/Vol] 0.70 mg/dL 0.60 - 1.20 mg/dL [facility] GFR/1.73 sq M.predicted CKD-EPI (S/P/Bld) [Vol rate/Area] 97 - PINF [facility] Comment on above: Estimated GFR was ca lculated using the 2020 CKD-EPI creatinine equation. Glucose [Mass/Vol] 87 mg/dL 65 - 99 mg/dL [facility] HCO3 [Moles/Vol] 29 mmol/L 21 - 32 mmol/L [facility] Potassium [Moles/Vol] 4.5 mmol/L 3.5 - 5.1 mmol/L [facility] Protein [Mass/Vol] 7.3 g/dL 6.0 - 8.0 g/dL [facility] Sodium [Moles/Vol] 141 mmol/L 135 - 145 mmol/L [facility] Urea nitrogen [Mass/Vol] 9 mg/dL 8 - 25 mg/dL [facility] Urea nitrogen/Creatinine [Mass ratio] 12.9 mg/mg 10.0 - 20.0 [facility] Laborator y Services has implemented the eGFR calculation approach that does not have a coefficient for race that conforms to the NKF-ASN Task Force Recommendations. [facility] HbA1c (Bld) [Mass fraction]o n 07-14-2022 Average glucose Estimated from glycated hemoglobin (Bld) [Mass/Vol] 120 mg/dL High 74 - 114 mg/dL [facility] Interpretation and review of laboratory results Abnormal [facility] Normal: 4.2% - 5.6% Increased risk for diabetes: 5.7% - 6.4% Diabetes: >= 6.5% Pediatrics: No established reference range Estimated average glucose: 74-114 mg/dL [facility] LaboratoryOrdered By: Damaris campo on 07-14-2022 Clarity Refractometry automated (U) Cloudy Abnormal Clear [facility] Laboratory - Chemistry and C hemistry - challengeon 07-14-2022 Free T4 [Mass/Vol] 0.9 ng/dL 0.7 - 1.7 ng/dL [facility] Laboratory - Chemistry and C hemistry - challengeOrdered By: Damaris Chau on 07-14-2022 Bilirubin Ql (U) Negative Negative [facility] th pH (U) 6.0 [pH] 5.0 - 7.0 [facility] Specific gravity (U) [Rel density] 1.018 1.005 - 1.025 [facility] Urobilinogen (U) [Mass/Vol] mg/dL NINF - 2.0 mg/dL [facility] Laboratory - Hematology and Cell countson 07-14-2022 HbA1c (Bld) [Mass fraction] 5.8 % High 4.2 - 5.6 % [facility] Laboratory - Specimen inform ationOrdered By: Damaris Chau on 07-14-2022 Color (U) Yellow Colorless, Yellow [facility] Laboratory - UrinalysisOrder ed By: Damaris Chau on 07-14-2022 Bacteria Auto Ql (U) None Seen None Se en /hpf [facility] Epithelial cells.squamous Auto (Urine sed) [#/Area] 7 High [facility] Glucose Auto test strip (U) [Mass/Vol] Negative Negative mg/dL [facility] Hemoglobin Auto test strip Ql (U) Negative Negative [facility] Hyaline casts Auto (Urine sed) [#/Area] 0-2 [facility] Ketones (U) [Mass/Vol] Negative Negat feliz mg/dL [facility] Leukocyte esterase Auto test strip Ql (U) Trace Abnormal Negative [facility] Mucus Auto (Urine sed) [#/Area] Rare None Seen, Rare /lpf [facility] Nitrite Auto test strip Ql (U) Negative Negative [facility] Protein (U) [Mass/Vol] Negative Negat feliz mg/dL [facility] RBC Auto (Urine sed) [#/Area] 3 [facility] WBC Auto (Urine sed) [#/Area] 4 [facility] Lipid 1996 panelon 3 Cholesterol [Mass/Vol] 252 mg/dL High 100 - 199 mg/dL [facility] Cholesterol in HDL [Mass/Vol] 42 mg/dL 40 - 59 mg/dL [facility] Cholesterol in LDL [Mass/Vol] 165 mg/dL High 10 - 130 mg/dL [facility] Comment on above: National Cholesterol Education Program Guidelines: LDL Cholesterol Optimal: <100 mg/dL Near Optimal/above Optimal: 100-129 mg/dL Borderline High: 130-159 mg/dL High: 160-189 mg/dL Very High: greater than or equal to 190 mg/dL Cholesterol non HDL [Mass/Vol] 210 mg/dL [facility] Comment on above: National Cholesterol Education Program Guidelines: NON HDL Cholesterol Desirable: <130 mg/dL Borderline High: 130-159 mg/dL High: 160-189 mg/dL Very High: > or = 190 mg/dL Cholesterol.total/Lila sterol in HDL [Mass ratio] 6.0 {ratio} ratio [facility] Comment on above: Female Cholesterol/H DL Ratio: Average risk: 4.4 1/2 average risk: 3.3 2 x average risk: 7.1 Triglyceride [Mass/Vol] 225 mg/dL High 30 - 150 mg/dL [facility] No Panel Informationon 07-14 Interpretation and review of laboratory results Normal [facility] Interpretation and review of laboratory results Abnormal [facility] No Panel InformationOrdered By: Damaris Chau on 07-14-2022 Interpretation and review of laboratory results Abnormal [facility] Microscopic examinat ion is performed on all urinalysis samples and only positive findings are reported. The test for blood on the chemical analytic portion of urinalysis may also be positive due to hemoglobinuria and myoglobinuria and if red blood cells are present they are quantified by microscopic examination. [facility] TSH DL <= 0.005 mIU/L Qnon 0 07-14-2022 TSH Qn 4.39 m[IU]/L High [facility] Influenza virus A and B and SARS-CoV-2 (COVID-19) and SARS-related CoV RNA panel MIGUEL ANGEL+probe (Resp)Ordered By: Deng Lee on 07-24-2021 FLUAV RNA MIGUEL ANGEL+probe Ql (Unsp spec) Not detected Not Detected [facility] FLUBV RNA MIGUEL ANGEL+probe Ql (Unsp spec) Not detected Not Detected [facility] Interpretation and review of laboratory results Normal [facility] SARS-CoV-2 (COVID-19) RNA MIGUEL ANGEL+probe Ql (Resp) Not detected Not Detected [facility] This test was perfor med under the FDA's Emergency Use Authorization (EUA). Testing was performed using the Alejandra SARS-CoV-2 RT-PCR & Influenza A/B assay on the Juan Diego Alejandra [id number] System. This test has not been approved for use in asymptomatic patients and its performance in this patient population has not been evaluated. Negative results do not rule out the presence of SARS-CoV-2/COVID-19, influenza A, and/or influenza B. Fact sheets for this EUA can be found at the following links: For Healthcare Providers: https://www.fda.gov/media/ 617974/download For Patients: https://www.fda.gov/media/ 191427/download [facility] Laboratory - Microbiology an d Antimicrobial susceptibilityon 06-25-2021 T. vaginalis rRNA MIGUEL ANGEL+probe Ql (U) Negative Negative [facility] Laboratory - Microbiology an d Antimicrobial susceptibilityOrdered By: Mae Batista on 06-25-2021 C. trachomatis rRNA MIGUEL ANGEL+probe Ql (Unsp spec) Negative Negative [facility] N. gonorrhoeae rRNA MIGUEL ANGEL+probe Ql (U) Negative Negative [facility] No Panel Informationon 06-25 Interpretation and review of laboratory results Normal [facility] No Panel InformationOrdered By: Mae Batista on 06-25-2021 Interpretation and review of laboratory results Normal [facility] Laboratory - Microbiology an d Antimicrobial susceptibilityOrdered By: Maritza Mckeon on 06-24-2021 Nay sp DNA Probe+sig amp Ql (Vag fld) Negative Negative [facility] G. vaginalis DNA Probe+sig amp Ql (Vag fld) Positive Abnormal Negative [facility] Comment on above: The presence of Jean nerella vaginalis, although suggestive, is not diagnostic for bacterial vaginosis. Results should be interpreted in conjunction with other clinical and laboratory data. T. vaginalis DNA Probe+sig amp Ql (Vag fld) Refer to Trichomonas Amplified RNA Result Negative [facility] No Panel InformationOrdered By: Maritza Mckeon on 06-24-2021 Interpretation and review of laboratory results Abnormal [facility] CT HEAD OR BRAIN WITHOUT CON TRASTon 02-10-2021 CT HEAD OR BRAIN WITHOUT CONTRAST EXAMINATION: CT HEAD OR BRAIN WITHOUT CONTRAST HISTORY: ORDERING SYSTEM PROVIDED HISTORY: head injury, recurrent headaches post fall, TECHNOLOGIST PROVIDED HISTORY: Injury/Trauma Reason for exam: head injury, recurrent headaches post fall Encounter Type: Initial Mechanism of injury: head injury, recurrent headaches post fall ORDERING SYSTEM PROVIDED DIAGNOSIS CODES: COMPARISON: CT of 12/26/2019 TECHNIQUE: CT examination of the head without IV contrast. Dose reduction techniques were achieved by using automated exposure control and/or adjustment of mA and/or kV according to patient size and/or use of iterative reconstruction technique. FINDINGS: Ventricles are normal size. There is no acute infarct, hemorrhage or mass effect. Sinuses and mastoids are clear. Calvarium is intact. Orbits are unremarkable. IMPRESSION: No acute process Workstation ID: [id number] Dictated by: JACINTO CARTER on ThuFeb 10, 2021 9:11:03 AM EST Transcribed by: JACINTO CARTER on ThuFeb 10, 2021 9:11:03 AM EST Finalized by: JACINTO CARTER on ThuFeb 10, 2021 9:11:03 AM EST [facility] Comment on above: Order Comment: Injur y/Trauma or Illness?:Injury/Trauma How long have you had these symptoms (acute/chronic)?:Acute Reason for exam?:head injury, recurrent headaches post fall Type of Exam?:Initial Mechanism of injury?:head injury, recurrent headaches post fall SPLINT APPLICATIONon 020 Nixon chan MD 01/20/2020 4:36 PM Splint Application Date/Time: 01/20/2020 4:35 PM Performed by: Nixon Hong MD Authorized by: Nixon Hong MD Verbal consent: obtained Location details: left wrist Splint type: volar short arm Supplies used: cotton padding, elastic bandage and Ortho-Glass Post-procedure: The splinted body part was neurovascularly intact following the procedure. Patient tolerance: patient tolerated the procedure well with no immediate complications [facility] XR Wrist Left 3+ Views (Len dard)on 01-20-2020 No change in alignme nt to the nondisplaced intra-articular distal radial fracture. Workstation ID: [id number] [facility] EXAMINATION: XR WRIS T LEFT 3+ VIEWS (STANDARD) HISTORY: F, 64 y/o , previous fracture COMPARISON: 12/26/2019 TECHNIQUE: Three views of the left wrist are performed. FINDINGS: There is redemonstration of the nondisplaced intra-articular fracture involving the distal radius. There is faint sclerosis at the fracture site. No significant change in alignment.Degenerative changes are seen within the 1st carpal metacarpal joint. [facility] Interface, Rad In Fu ji Speechq - 01/20/2020 4:24 PM EST EXAMINATION: XR WRIST LEFT 3+ VIEWS (STANDARD) HISTORY: F, 64 y/o , previous fracture COMPARISON: 12/26/2019 TECHNIQUE: Three views of the left wrist are performed. FINDINGS: There is redemonstration of the nondisplaced intra-articular fracture involving the distal radius. There is faint sclerosis at the fracture site. No significant change in alignment.Degenerative changes are seen within the 1st carpal metacarpal joint. IMPRESSION: No change in alignment to the nondisplaced intra-articular distal radial fracture. Workstation ID: [id number] [facility] Vital Signs Date Time Vital Sign Value Performing Clinician Navin salazar 08-12-2022 10:59-0400 Diastolic blood pressure 102 mm[Hg] El Douglass DO Work Phone: [facility] 08-12-2022 10:590400 Heart rate 76 /min El Rafat DO Work Phone: [facility] 08-12-2022 10:59-0400 Systolic blood pressure 186 mm[Hg] El Rafat DO Work Phone: [facility] 08-12-2022 10:56-0400 Body height 172.7 cm El Rafat DO Work Phone: [facility] 08-12-2022 10:56-0400 Body mass index (BMI) [Ratio] 31.02 kg/m2 El Rafat DO Work Phone: [facility] 08-12-2022 10:56-0400 Body weight 92.53 kg El Rafat DO Work Phone: [facility] 08-12-2022 10:56-0400 SaO2% (BldA) [Mass fraction] 95 % El Rafat DO Work Phone: [facility] 07-14-2022 13:55-0400 Diastolic blood pressure 94 mm[Hg] El Rafat DO Work Phone: [facility] 07-14-2022 13:55-0400 Heart rate 65 /min El Rafat DO Work Phone: [facility] 07-14-2022 13:55-0400 Systolic blood pressure 185 mm[Hg] El Rafat DO Work Phone: [facility] 07-14-2022 13:54-0400 Body height 172.7 cm El Rafat DO Work Phone: [facility] 07-14-2022 13:54-0400 Body mass index (BMI) [Ratio] 30.56 kg/m2 El Rafat DO Work Phone: [facility] 07-14-2022 13:54-0400 Body weight 91.17 kg El Rafat DO Work Phone: [facility] 07-14-2022 13:54-0400 SaO2% (BldA) [Mass fraction] 95 % El Rafat DO Work Phone: [facility] 10-01-2021 14:51-0400 Body height 172.7 cm El Rafat DO Work Phone: [facility] 10-01-2021 14:51-0400 Body mass index (BMI) [Ratio] 28.43 kg/m2 lE Rafat DO Work Phone: [facility] 10-01-2021 14:51-0400 Body temperature 98.4 [degF] El Rafat DO Work Phone: [facility] 10-01-2021 14:51-0400 Body weight 84.82 kg El Rafat DO Work Phone: [facility] 10-01-2021 14:51-0400 Diastolic blood pressure 67 mm[Hg] El Rafat DO Work Phone: [facility] 10-01-2021 14:51-0400 Heart rate 72 /min El Rafat DO Work Phone: [facility] 10-01-2021 14:51-0400 SaO2% (BldA) [Mass fraction] 96 % El Rafat DO Work Phone: [facility] 10-01-2021 14:51-0400 Systolic blood pressure 126 mm[Hg] El Rafat DO Work Phone: [facility] 07-24-2021 11:40-0400 Body temperature 98.49 [degF] El Rafat DO Work Phone: [facility] 07-24-2021 11:40-0400 Heart rate 74 /min El Rafat DO Work Phone: [facility] 07-24-2021 11:40-0400 SaO2% (BldA) [Mass fraction] 96 % El Rafat DO Work Phone: [facility] 06-24-2021 10:51-0400 Diastolic blood pressure 85 mm[Hg] El Rafat DO Work Phone: [facility] 06-24-2021 10:51-0400 Systolic blood pressure 134 mm[Hg] El Rafat DO Work Phone: [facility] 06-24-2021 10:50-0400 Body height 172.7 cm El Rafat DO Work Phone: [facility] 06-24-2021 10:50-0400 Body mass index (BMI) [Ratio] 27.67 kg/m2 El Rafat DO Work Phone: [facility] 06-24-2021 10:50-0400 Body temperature 98.71 [degF] El Rafat DO Work Phone: [facility] 06-24-2021 10:50-0400 Body weight 82.56 kg El Rafat DO Work Phone: [facility] 06-24-2021 10:50-0400 Heart rate 70 /min El Rafat DO Work Phone: [facility] 06-24-2021 10:50-0400 SaO2% (BldA) [Mass fraction] 96 % El Rafat DO Work Phone: [facility] 06-11-2021 15:03-0400 Body mass index (BMI) [Ratio] 28.13 kg/m2 El Rafat DO Work Phone: [facility] 06-11-2021 15:03-0400 Body weight 83.92 kg El Rafat DO Work Phone: [facility] 06-11-2021 15:03-0400 Diastolic blood pressure 84 mm[Hg] El Rafat DO Work Phone: [facility] 06-11-2021 15:03-0400 Heart rate 79 /min El Rafat DO Work Phone: [facility] 06-11-2021 15:03-0400 SaO2% (BldA) [Mass fraction] 94 % El Rafat DO Work Phone: [facility] 06-11-2021 15:03-0400 Systolic blood pressure 126 mm[Hg] El Rafat DO Work Phone: [facility] 03-19-2020 13:57-0500 BMI (Body Mass Index) 26.61 kg/m2 Jarrett [facility] 03-19-2020 13:57-0500 Body Temperature 97.81 [degF] Jarrett Bruno [facility] 03-19-2020 13:57-0500 Body weight 79.38 kg Jarrett [facility] 03-19-2020 13:57-0500 BP Diastolic 115 mm[Hg] Jarrett [facility] 03-19-2020 13:57-0500 BP Systolic 179 mm[Hg] Jarrett [facility] 03-19-2020 13:57-0500 Height 172.7 cm Jarrett [facility] 03-19-2020 13:57-0500 Pulse (Heart Rate) 95 /min Jarrett [facility] 03-19-2020 13:57-0500 Pulse Oximetry 96 % [facility] 01-20-2020 15:53-0500 BMI (Body Mass Index) 27.37 kg/m2 [facility] 01-20-2020 15:53-0500 Body Temperature 98.29 [degF] [facility] 01-20-2020 15:53-0500 Body weight 81.65 kg [facility] 01-20-2020 15:53-0500 BP Diastolic 92 mm[Hg] [facility] 01-20-2020 15:53-0500 BP Systolic 124 mm[Hg] [facility] 01-20-2020 15:53-0500 Height 172.7 cm [facility] 01-20-2020 15:53-0500 Pulse (Heart Rate) 87 /min [facility] 01-20-2020 15:53-0500 Pulse Oximetry 96 % [facility] 01-20-2020 15:53-0500 Respiratory Rate 16 /min [facility] Encounters Encounter Date Encounter Type Care Provider Facility Start: 10-14-2024 End: 10-14-2024 ambulatory Morro Gonzalez Facility:[facility] Start: 09-12-2024 End: 09-12-2024 ambulatory Vicente Villanueva Facility:[facility] Start: 09-01-2024 Encounter for other preprocedural examination Vicente Villanueva [facility] Start: 08-18-2024 ambulatory Morro Chi Carlos Facility:[facility] Start: 08-18-2024 End: 08-18-2024 ambulatory Morro Chi Carlos Facility:[facility] Start: 08-09-2024 End: 08-09-2024 ambulatory Flaco Sutton Facility:[facility] Start: 07-22-2024 End: 07-22-2024 ambulatory Morro Chi Carlos Facility:[facility] Start: 07-08-2024 End: 07-08-2024 ambulatory Morro Chi Carlos Facility:[facility] Start: 06-29-2024 End: 06-29-2024 ambulatory Morro Chi Carlos Facility:[facility] Start: 06-22-2024 End: 06-22-2024 ambulatory Morro Chi Carlos Facility:[facility] Start: 06-15-2024 End: 06-15-2024 ambulatory Vicente Palomares See Facility:[facility] Start: 05-16-2024 End: 05-16-2024 ambulatory Vicente Palomares See Facility:[facility] Start: 04-06-2024 End: 04-06-2024 ambulatory Morro Chi Carlos Facility:[facility] Start: 2023 End: 2023 ambulatory Roni Hoang Facility:[facility] Start: 10-26-2023 End: 10-26-2023 ambulatory Morro Chi Carlos Facility:[facility] Start: 06-25-2023 End: 06-25-2023 ambulatory [facility] Work Phone: Start: 06-25-2023 End: 06-25-2023 Patient encounter procedure [facility] Work Phone: Start: 06-10-2023 End: 06-10-2023 ambulatory [facility] Work Phone: Start: 06-10-2023 End: 06-10-2023 Patient encounter procedure [facility] Work Phone: Start: 04-21-2023 End: 04-21-2023 ambulatory [facility] Work Phone: Start: 04-21-2023 End: 04-21-2023 Patient encounter procedure [facility]-Laboratory, Phy Office 3rd Flr Start: 01-21-2023 End: 01-21-2023 Patient encounter procedure [facility]-Laboratory, Phy Office 3rd Flr Start: 10-20-2022 End: 10-20-2022 ambulatory [facility] Work Phone: Start: 10-20-2022 End: 10-20-2022 Patient encounter procedure [facility]-Laboratory, OP Pavilion Start: 10-14-2022 End: 10-14-2022 ambulatory [facility] Work Phone: Start: 10-14-2022 End: 10-14-2022 Patient encounter procedure [facility]-Laboratory, Phy Office 3rd Flr Start: 09-29-2022 ambulatory LY MITCHELL [facility] Ambulatory Start: 09-17-2022 Refill Johnna Kunz [facility] Comment on above: Severe episode of re current major depressive disorder, without psychotic features (HCC) Start: 08-28-2022 Refill El Frey Work Phone: [facility] Comment on above: Severe episode of re current major depressive disorder, without psychotic features (HCC) Start: 08-25-2022 End: 08-29-2022 ambulatory JACINTO MERIDA [facility] Start: 08-25-2022 End: 08-25-2022 Office consultation new/estab patient 80 min Jacinto Merida MD Work Phone: [facility] Comment on above: Persistent depressiv e disorder (Primary Dx); Generalized anxiety disorder; Xanax use disorder, severe, in sustained remission (HCC); Alcohol use disorder, severe, in sustained remission (HCC); Tobacco use disorder, severe, in early remission Start: 08-12-2022 End: 08-16-2022 ambulatory EL DOUGLASS [facility] Ambulatory Start: 08-12-2022 End: 08-12-2022 Office outpatient visit 25 minutes El Douglass DO Work Phone: [facility] Comment on above: Severe episode of re current major depressive disorder, without psychotic features (HCC) (Primary Dx); Hypothyroidism, unspecified type; Primary hypertension; History of seizure; Dyslipidemia; Chronic hepatitis C without hepatic coma (HCC); Need for vaccination Start: 07-16-2022 Orders Only El Frey Work Phone: [facility] Comment on above: Chronic hepatitis C without hepatic coma (HCC) (Primary Dx) Start: 07-15-2022 Orders Only El Frey Work Phone: [facility] Comment on above: Severe episode of re current major depressive disorder, without psychotic features (HCC) (Primary Dx) Start: 07-14-2022 End: 07-18-2022 ambulatory AMY MOTA YOBANY [facility] Start: 07-14-2022 End: 07-18-2022 ambulatory EL DOUGLASS [facility] Ambulatory Start: 07-14-2022 End: 07-14-2022 Office outpatient visit 25 minutes El Douglass DO Work Phone: [facility] Comment on above: Nocturia (Primary Dx ); Seborrheic keratosis; Actinic keratosis; Severe episode of recurrent major depressive disorder, without psychotic features (HCC); Primary hypertension; Hypothyroidism, unspecified type; Obesity (BMI 30-39.9); Polysubstance abuse (HCC); Sedative, hypnotic or anxiolytic use disorder, severe, dependence (HCC); History of seizure; Encounter for hepatitis C screening test for low risk patient; Screening for HIV without presence of risk factors Nocturia (Primary Dx ); Seborrheic keratosis; Actinic keratosis; Severe episode of recurrent major depressive disorder, without psychotic features (HCC); Primary hypertension; Hypothyroidism, unspecified type; Obesity (BMI 30-39.9); Polysubstance abuse (HCC); Sedative, hypnotic or anxiolytic use disorder, severe, dependence (HCC); History of seizure; Encounter for hepatitis C screening test for low risk patient; Screening for HIV without presence of risk factors; Positive hepatitis C antibody test Start: 05-26-[address] [facility] Comment on above: Severe episode of re current major depressive disorder, without psychotic features (HCC) Start: 03-17-[address] MA [facility] Comment on above: Severe episode of re current major depressive disorder, without psychotic features (HCC) Start: 01-24-2022 ambulatory Fallon Franz [facility] Start: 10-14-2021 Documentation procedure Amy GUARDADO [facility] Start: 10-11-2021 Refill Lorne Bang MA [facility] Comment on above: Severe episode of re current major depressive disorder, without psychotic features (HCC) Start: 10-01-2021 End: 10-01-2021 Office outpatient visit 25 minutes El N Rafat DO Work Phone: [facility] Comment on above: Severe episode of re current major depressive disorder, without psychotic features (HCC) (Primary Dx); Mood disorder (HCC); Seasonal allergies; Gastroesophageal reflux disease, unspecified whether esophagitis present; COVID-19 vaccine administered Start: 09-18-2021 Community Health Worker Saige evans [facility] Comment on above: Social Care Outreach for Social Care Start: 08-23-2021 Refill Lorne Bang [facility] Comment on above: Severe episode of re current major depressive disorder, without psychotic features (HCC) Start: 07-31-2021 Community Health Worker Saige evans [facility] Comment on above: Social Care Outreach for Social Care Start: 07-24-2021 End: 07-24-2021 Office outpatient visit 25 minutes El Shoutitout Work Phone: [facility] Comment on above: Suspected COVID-19 v irus infection (Primary Dx); Severe episode of recurrent major depressive disorder, without psychotic features (HCC) Start: 07-11-2021 Refill Christine Kulkarni MA [facility] Start: 06-26-2021 ambulatory Salome SALCIDO [facility] Start: 06-24-2021 End: 06-24-2021 Office outpatient visit 25 minutes El N Rafat DO Work Phone: [facility] Comment on above: Bacterial vaginosis (Primary Dx); Severe episode of recurrent major depressive disorder, without psychotic features (HCC) Start: 06-21-2021 Refill Johnna Kunz MA [facility] Comment on above: Severe episode of re current major depressive disorder, without psychotic features (HCC) (Primary Dx); History of seizure Start: 06-17-2021 ambulatory Saige White [facility] Start: 06-11-2021 End: 06-11-2021 Office outpatient new 45 minutes El Douglass DO Work Phone: [facility] Comment on above: Severe episode of re current major depressive disorder, without psychotic features (HCC) (Primary Dx); Polysubstance abuse (HCC); Migraine without status migrainosus, not intractable, unspecified migraine type; Encounter to establish care with new doctor; Screening for colon cancer; Encounter for screening mammogram for malignant neoplasm of breast Start: 04-24-2021 Documentation procedure Valeria Tay MA [facility] Comment on above: Care coordination P Start: 04-22-2021 Refill Jarrett luu MD Work Phone: [facility] Comment on above: Depression, unspecif ied depression type; Anxiety Start: 02-10-2021 End: 02-10-2021 Emergency department patient visit SADIA STOREY [facility] Start: 05-09-2020 End: 05-09-2020 Orders Only Camila Cardona Work Phone: [facility] Start: 04-11-2020 End: 04-11-2020 Office outpatient visit 25 minutes Jarrett Carr Work Phone: [facility] Comment on above: Anxiety (Primary Dx) ; Depression, unspecified depression type; Benzodiazepine withdrawal without complication (HCC); Hypertension, unspecified type Start: 04-11-2020 Coordination of care plan Valeria Tay [facility] Comment on above: Care coordination P Start: 04-11-2020 End: 04-11-2020 Patient encounter procedure Valeria Tay [facility] Start: 04-10-2020 Follow-up encounter Fallon Sky [facility] Comment on above: Community Resource L inkage (Follow up) Start: 04-10-2020 End: 04-10-2020 Patient encounter procedure Fallon Sky [facility] Start: 04-03-2020 End: 04-03-2020 Patient encounter procedure Fallon Schamanfransico [facility] Comment on above: Community Resource L inkage (Resources) Start: 03-28-2020 End: 03-28-2020 Refill Jarrett Carr Work Phone: [facility] Comment on above: Anxiety (Primary Dx) ; Acute intractable headache, unspecified headache type Start: 03-27-2020 End: 03-27-2020 Coordination of care plan Valeria Ingrid Tay [facility] Comment on above: Care coordination P Start: 03-27-2020 End: 03-27-2020 Patient encounter procedure Valeria Tay [facility] Start: 03-20-2020 Coordination of care plan Valeria Ingrid Tay [facility] Comment on above: Care coordination P Start: 03-20-2020 End: 03-20-2020 Patient encounter procedure Valeria Tay [facility] Start: 03-19-2020 End: 03-19-2020 Refill Jarrett Carr Work Phone: [facility] Comment on above: Elevated BP without diagnosis of hypertension; History of seizure Start: 03-19-2020 End: 03-19-2020 Office outpatient new 45 minutes Jarrett Carr Work Phone: [facility] Comment on above: Anxiety (Primary Dx) ; Breast implant status; Hypothyroidism, unspecified type; Depression, unspecified depression type; Elevated BP without diagnosis of hypertension; History of seizure Start: 01-20-2020 End: 01-20-2020 Emergency department patient visit Nixon Hong Work Phone: [facility] Emergency Department Comment on above: Other closed intra-a rticular fracture of distal end of left radius with delayed healing, subsequent encounter (Primary Dx) Procedures Date Procedure Procedure Detail Performing Clinician Start: 06-25-2023 Ultrasound elastogra phy of liver Start: 07-24-2021 Influenza virus A an d B and SARS-CoV-2 (COVID-19) and SARS-related CoV RNA panel - Respiratory specimen by MIGUEL ANGEL with probe detection El Douglass DO Work Phone: Start: 06-24-2021 Iadna nay specie s direct probe tq El Douglass DO Work Phone: Start: 01-20-2020 Application of splint B ivan Hong Work Phone: Start: 01-20-2020 Radex wrist complete minimum 3 views Nixon Hong Work Phone: Start: 02-25-2011 Mammography Nixon jewell Plan of Treatment Date Care Activity Detail Author Start: 11-07-2022 Influenza vaccination [facility] Start: 09-17-2022 End: 09-17-2022 Patient encounter procedure 09/17/2022 2:30 PM EDT Office Visit [facility] Infectious Disease [address] [place] [address] Randi Moore MD [address] [place] [address] [facility] Start: 08-25-2022 End: 08-25-2022 Patient encounter procedure 08/25/2022 11:00 AM EDT Initial consult [facility] [address] [phone] Jacinto Merida MD [address] [address] Discharge Disposition: Home [facility] Start: 08-12-2022 End: 08-12-2022 Patient encounter procedure 08/12/2022 10:50 AM EDT Office Visit [facility] [address] [place] [address] El Douglass DO [address] [place] [address] [facility] Start: 08-01-2022 Depression Remission Assessment (PHQ9) Depression Remission Assessment (PHQ9) [facility] Start: 06-02-2022 End: 06-02-2022 Patient encounter procedure 06/02/2022 Office Visit Primary Care El Douglass DO [address] [place] [address] [facility] Start: 05-08-2022 End: 05-08-2022 Patient encounter procedure 05/08/2022 Office Visit Primary Care El Douglass DO [address] [place] [address] [place] [address] [facility] Start: 04-13-2022 Depression Remission Assessment (PHQ9) Depression Remission Assessment (PHQ9) [facility] Start: 11-26-2021 COVID-19 Vaccine (6 - Booster for Moderna series) COVID-19 Vaccine (6 - Booster for Moderna series) [facility] Start: 11-26-2021 COVID-19 Vaccine (6 - Moderna series) COVID-19 Vaccine (6 - Moderna series) [facility] Start: 11-07-2021 Influenza vaccination [facility] Start: 07-24-2021 End: 07-24-2021 Patient encounter procedure 07/24/2021 Office Visit Primary Care El Douglass DO [address] [place] [address] [place] [address] [facility] Start: 07-10-2021 End: 07-10-2021 Patient encounter procedure 07/10/2021 Office Visit General Surgery Jacinto Liang DO [address] [place] [id number] Aiden Mooney DO [address] [facility] [place] [address] [facility] Start: 07-04-2021 End: 07-04-2021 Patient encounter procedure 07/04/2021 Office Visit Primary Care El Douglass DO [address] [place] [address] [facility] Start: 05-30-2021 COVID-19 Vaccine (4 - Booster for Moderna series) COVID-19 Vaccine (4 - Booster for Moderna series) [facility] Start: 01-17-2021 Depression Remission Assessment (PHQ9) Depression Remission Assessment (PHQ9) [facility] Start: 11-29-2020 COVID-19 Vaccine (3 - Booster for Moderna series) COVID-19 Vaccine (3 - Booster for Moderna series) [facility] Start: 11-07-2020 Influenza vaccination Sequenti al Influenza Vaccine (#1) [facility] Start: 05-04-2020 End: 05-04-2020 Office Visit 05/04/2020 Office Visit Primary Care Esdras Munoz DO [address] [place] [address] [phone] [facility] Primary [facility] Start: 04-11-2020 End: 04-11-2020 Office Visit 04/11/2020 Office Visit Primary Care Jarrett Carr MD [address] [place] [address] [phone] [facility] Start: 04-09-2020 End: 04-09-2020 Office Visit 04/09/2020 Office Visit Primary Care Jarrett Carr MD [address] [place] [address] [phone] [facility] Start: 04-02-2020 End: 04-02-2020 Office Visit 04/02/2020 Office Visit Primary Care Jarrett Carr MD [address] [place] [address] [phone] [facility] Start: 11-08-2019 Influenza vaccinatio n given Sequential Influenza Vaccine (#1) [facility] Start: 02-14-2013 Tetanus vaccination Tetanus: Every 1 0yrs [facility] Start: 02-26-2012 Screening for malign ant neoplasm of breast Mammogram [facility] Start: 02-26-2012 Screening mammography Mammogram [facility] Start: 12-05-2007 Administration of he rpes zoster vaccine Zoster Vaccines (1 of 2) [facility] Start: 12-05-2007 Screening for malign ant neoplasm of colon [facility] Start: 12-05-1975 Hepatitis C antibody , confirmatory test Hepatitis C Screening [facility] Start: 12-05-1975 Hepatitis C screening Hepatitis C Sc reening [facility] Start: 1973 COVID-19 Vaccine (1 of 2) COVI D-19 Vaccine (1 of 2) [facility] Start: 1972 HIV screening HIV Screening [facility] Start: 12-05-1963 Pneumococcal Vaccine : Ped or At-Risk (1 - PCV) Pneumococcal Vaccine: Ped or At-Risk (1 - PCV) [facility] Start: 1960 History and physical examination, annual for health maintenance Wellness Visit [facility] Start: 1957 Screening for malign ant neoplasm of cervix Pap Smear [facility] Start: 1957 Screening for malign ant neoplasm of colon [facility] Start: 1957 Tetanus vaccination Tetanus: Every 1 0yrs [facility] [id number]. tumor marker [Units/volume] in Serum or Plasma [facility] End: 07-15-2023 Bacteria identified in Unspecified specimen by Aerobe culture Urine Aerobic Culture Microbiology Routine Nocturia 1 Occurrences starting 07/14/2022 until 07/15/2023 [facility] Work Phone: Comment on above: 1 Occurrences starti ng 07/14/2022 until 07/15/2023 Bacteria identified in Unspecified specimen by Aerobe culture Urine Aerobic Culture Microbiology Routine Severe episode of recurrent major depressive disorder, without psychotic features (HCC) 07/14/2022 2:51 PM EDT [facility] End: 03-19-2021 Basic metabolic 2000 panel Basic Metabolic Panel Lab Routine Elevated BP without diagnosis of hypertension 1 Occurrences starting 03/19/2020 until 03/19/2021 [facility] Comment on above: 1 Occurrences starti ng 03/19/2020 until 03/19/2021 Basic metabolic 2000 panel Basic Metabolic Panel Lab Routine Elevated BP without diagnosis of hypertension 03/19/2020 2:56 PM EST [facility] End: 07-15-2023 Hepatitis C antibody measurement Hepatitis C Antibody Lab Add-On Encounter for hepatitis C screening test for low risk patient 1 Occurrences starting 07/14/2022 until 07/15/2023 [facility] Comment on above: 1 Occurrences starti ng 07/14/2022 until 07/15/2023 End: 07-16-2023 Hepatitis C viral load Hepatitis C Virus Quantitation Lab Add-On Encounter for hepatitis C screening test for low risk patient Positive hepatitis C antibody test 1 Occurrences starting 07/15/2022 until 07/16/2023 [facility] Comment on above: 1 Occurrences starti ng 07/15/2022 until 07/16/2023 Hepatitis C virus ge notype [Identifier] in Blood by MIGUEL ANGEL with probe detection [facility] Hepatitis C virus ge notype [Identifier] in Blood by MIGUEL ANGEL with probe detection [facility] End: 07-15-2023 Human immunodeficiency virus antibody test HIV Antibody (HIV1/HIV2) Lab Add-On Screening for HIV without presence of risk factors 1 Occurrences starting 07/14/2022 until 07/15/2023 [facility] Comment on above: 1 Occurrences starti ng 07/14/2022 until 07/15/2023 End: 08-11-2022 MG Breast - bilateral Screening Mammography Screening Myles Bilateral Imaging Routine Encounter for screening mammogram for malignant neoplasm of breast 1 Occurrences starting 06/11/2021 until 08/11/2022 [facility] Work Phone: Comment on above: 1 Occurrences starti ng 06/11/2021 until 08/11/2022 PCR for Hepatitis C [facility] End: 03-19-2021 TSH Qn TSH with Reflex Free T4 Lab Routine Hypothyroidism, unspecified type Elevated BP without diagnosis of hypertension 1 Occurrences starting 03/19/2020 until 03/19/2021 [facility] Comment on above: 1 Occurrences starti ng 03/19/2020 until 03/19/2021 TSH Qn TSH with Reflex Free T4 Lab Routine Hypothyroidism, unspecified type Elevated BP without diagnosis of hypertension 03/19/2020 2:56 PM EST [facility] Immunizations Immunization Date Immunization Notes Care Provider Fa koko 08-12-2022 diphtheria, tetanus toxoids and acellular pertussis vaccine, unspecified formulation El Douglass DO Work Phone: [facility] 10-01-2021 Pfizer 12+ Years sandi-sucrose COVID-19 vaccine El Douglass DO Work Phone: [facility] 10-01-2021 COVID-19 vac, sandi,Pfizer,,PF, (PFIZER COV-19 VACC, 12 YR UP,) injection (galvan cap) El Douglass DO Work Phone: [facility] 01-30-2021 Moderna SARS-CoV-2 Vaccination Booster El Douglass DO Work Phone: [facility] 06-29-2020 Moderna SARS-CoV-2 Vaccination El Douglass DO Work Phone: [facility] 06-01-2020 Moderna SARS-CoV-2 Vaccination El Douglass DO Work Phone: [facility] 01-05-2020 influenza, injectabl e, quadrivalent, preservative free Jarrett Carr [facility] Payers Date Payer Category Payer Unknown [id number] 2023 Private Health Insurance 101 [id number] 2023 Self-pay 2021 Unknown [id number] 2019 Unknown [id number] 2019 Medicare UHC MANAGED [facility] UHC MEDICARE HMO/HMO-POS [id number] 2019-Present [id number] 2019 Medicare [id number] 2019 Medicare UHC MANAGED [facility] UHC MEDICARE HMO/HMO-POS [id number] [address] [place] [address] [id number] 1957 Unknown [id number] 2.16.840.1.607713.3.579.2.9 02 1957 Unknown [id number] 2.16.840.1.119740.3.579.2.7 16 1957 Unknown [id number] 2.16.840.1.224392.3.579.2.9 00 1957 Unknown [id number] 2.16.840.1.313869.3.579.2.9 02 1957 Unknown [id number] 2.16.840.1.946032.3.579.2.9 03 1957 Unknown [id number] 2.16.840.1.509524.3.579.2.9 03 1955 Unknown [id number] 2.16.840.1.308964.3.579.2.9 03 Unknown [id number] 2.16.840.1.986022.3.579.2.4 62 Unknown [id number] 2.16.840.1.537261.3.579.2.4 62 Unknown [id number] 2.16.840.1.647838.3.579.2.4 62 Unknown [id number] 2.16.840.1.238669.3.579.2.4 62 Unknown [id number] 2.16.840.1.748688.3.579.2.4 62 Unknown [id number] 2.16.840.1.181585.3.579.2.4 62 Unknown [id number] 2.16.840.1.609013.3.579.2.4 62 Unknown [id number] 2.16.840.1.120926.3.579.2.4 62 Unknown [id number] 2.16.840.1.891112.3.579.2.4 62 Unknown [id number] 2.16.840.1.644831.3.579.2.4 62 Unknown [id number] 2.16.840.1.837090.3.579.2.4 62 Unknown [id number] 2.16.840.1.604810.3.579.2.4 62 Unknown [id number] 2.16.840.1.004286.3.579.2.4 62 Unknown [id number] 2.16.840.1.711916.3.579.2.4 62 Social History Date Type Detail Facility Start: 01-20-2020 Tobacco smoking status NHIS Unknown if ever smoked [facility] Start: 1955 Sex Assigned At Not on file [facility] Start: 06-01-2021 End: 07-14-2022 Exposure to SARS-CoV-2 (event) Not sure [facility] Start: 03-19-2020 End: 04-02-2020 Tobacco smoking status NHIS Never smoker [facility] Start: 03-19-2020 End: 05-02-2021 Tobacco use and exposure Never used [facility] Start: 03-19-2020 End: 08-26-2022 Alcohol intake Lifetime non-drinker (finding) [facility] Start: 03-19-2020 End: 06-11-2021 History SDOH Alcohol Frequency 1 [facility] Start: 04-02-2020 History SDOH Social Connections Get Together 5 [facility] Start: 04-02-2020 End: 06-11-2021 History SDOH Financial 2 [facility] Start: 05-02-2021 Tobacco smoking status NHIS Ex-smoker [facility] End: 04-30-2021 History of tobacco use Current smoker [facility] Start: 06-11-2021 History SDOH Social Connections Meetings 3 [facility] Start: 06-11-2021 History SDOH Social Connections Living 4 [facility] Start: 05-02-2021 End: 06-11-2021 Cigarette pack-years [facility] End: 04-30-2021 History of tobacco use Cigarette Smoker [facility] Start: 06-11-2021 End: 07-14-2022 Social connection and isolation panel [facility] Do you belong to any clubs or organizations such as hinduism groups, unions, fraternal or athletic groups, or school groups? No [facility] Are you now , , , , never or living with a partner? [facility] How often to you hav e a drink containing alcohol? Never [facility] Average Number of Drinks Not on file [facility] How hard is it for y ou to pay for the very basics like food, housing, medical care, and heating Somewhat hard [facility] (I/We) worried wheth er (my/our) food would run out before (I/we) got money to buy more. Often true [facility] The food that (I/we) bought just didn't last, and (I/we) didn't have money to get more. Sometimes true [facility] Start: 05-02-2021 Sexual orientation Heterosexual (finding) [facility] Start: 1955 Sex Assigned At Female [facility] Clinical Notes 04-24-2021 to 08-18-2024 Telephone Encounter - Johnna Kunz MA - 09/17/2022 4:20 PM EDTTelephone Encounter - Johnna Kunz MA - 09/17/2022 4:20 PM EDTPatient Christina Douglass DO - 07/14/2022 1:50 PM EDT Note Date & Type Note Facility 08-18-2024 Note [facility] Medical Records Department [address] [place] [address] History Physical Exam 08/18/24 0952 MR#: [id number] Acct: [id number] Name: KAYLA PAGE [facility] Rep #: [id number] : 1955 68 From: Vicente Villanueva MD PCP: Dr. Morro Gonzalez MD Status:[facility] Location: [place] [address] HPI - General General Date of Admission: 08/18/24 Date of Service: 08/18/24 Chief Complaint: Right upper quadrant pain HPI Narrative KAYLA PAGE, is a 68 F who presents for robotic cholecystectomy. She was seen in the office recently with right upper quadrant pain, gallstones and a HIDA scan that showed nonvisualization of the gallbladder. I offered her cholecystectomy as treatment. We discussed the details of the planned procedure and she wishes to proceed. [facility] Medical History Wears glasses Wears dentures Marijuana use Injury of head and neck Gastric reflux Heartburn Former smoker Shortness of breath on exertion Chronic cough Constipation Abdominal pain Cholelithiasis Thyroid disease Skin cancer Seizures Osteoporosis Neuropathy High cholesterol High blood pressure Hearing problem Cataracts, bilateral Arthritis Major depressive disorder, recurrent, in full remission Anxiety disorder, unspecified Bipolar 1 disorder Home Medications ???Medication ???Instructions ???Recorded ???Last Taken ???Type cholecalciferol (vitamin D3) 25 25 mcg PO QDAY 05/16/24 08/18/24 0 4:00 History mcg (1,000 unit) tablet (Vitamin D3) fluoxetine 60 mg tablet 60 mg PO QDAY 05/16/24 08/18/24 04 :00 History levetiracetam 500 mg tablet 500 mg PO QDAY 05/16/24 08/18/24 0 4:00 History levothyroxine 75 mcg tablet 75 mcg PO QDAY 05/16/24 08/18/24 0 4:00 History mecobalamin (vitamin B12) 10,000 10,000 mcg IM MONTHLY 05/16/24 Unk nown History mcg solution for injection Held on 08/04/24. Instructions: pt waiting until november quetiapine 400 mg tablet 100 mg PO QHS 05/16/24 08/17/24 Hi story valacyclovir 500 mg tablet 500 mg PO QDAY 05/16/24 08/18/24 0 4:00 History valsartan 320 mg tablet 320 mg PO QDAY 05/16/24 08/18/24 0 4:00 History aripiprazole 5 mg tablet 5 mg PO DAILY #30 tabs 06/15/24 04:00 Rx Allergy/AdvReac Type Severity Reaction Status Date / Time No Known Allergies Allergy Verified 08/18/24 08:53 Family History Other Anxiety Surgical History Hx of colonoscopy Hx of tubal ligation H/O knee surgery Hx of tonsillectomy History of ankle surgery Social History Smoking Status: Former smoker alcohol intake: former substance use type: marijuana Vital Signs Vital Signs Vital Signs: 08/18/24 08:55 08/18/24 08:59 Temperature 98.0 F Temperature Source Temporal Pulse Rate 78 Respiratory Rate 16 Respiratory Pattern Normal Blood Pressure 122/73 H Blood Pressure Mean 89 Blood Pressure Source Monitor Blood Pressure Position Semi-Fowlers Blood Pressure Location Left Arm Pulse Ox 98 Oxygen Delivery Method Room Air Weight Weight: 228 lb 9.6 oz Body Mass Index (BMI) 34.7 Physical Exam Const alert and oriented x3 Assessment Plan Assessment/Plan (1) Cholelithiasis: PLAN: Plan Plan for robotic cholecystectomy today. 08/18/24 0957 Cosigner Signature (if applicable): CC: Dr. Vicente Villanueva MD; Dr. Morro Gonzalez MD Signed [facility] 09-17-2022 Miscellaneous Notes ----- Message from Corina Hair sent at [...] preferred pharmacy listed below? Yes Preferred pharmacies: [id number] - [place], [place] - [address] [facility] [address] [facility] [address] Pt Call Back Number Work Phone Not on file. Patient call back message sent to the [facility]. Corina Hair documented in this encounter [facility] 09-17-2022 Telephone encounter Note ----- Message from Corina Hair sent at [...] preferred pharmacy listed below? Yes Preferred pharmacies: [id number] [address] [facility] [address] [facility] [address] [facility] [address] Pt Call Back Number Work Phone Not on file. Patient call back message sent to the [facility]. Corina Hair [facility] 08-29-2022 Telephone encounter Note Kayla called for a refill Requested Prescriptions [...] Visit date not found Please send to [facility] #[id number] - [place], [place] - [address] AT [facility] [address] [facility] [address] [id number] - [place] - [address] [facility] [address] [facility] [address] [facility] [place], [place] [address] [facility] [address] Wt Readings from Last 3 Encounters: 08/12/22 [...] Functional Assessment: No data found Please advise [facility] 08-29-2022 Miscellaneous Notes Kayla called for a refill Requested Prescriptions [...] Visit date not found Please send to [facility] #[id number] - [place], [place] - [address] [facility] [address] [place] [address] [place] [address] [facility][id number] - [place] [address] [facility] [address] [place] [address] [facility] [address] [facility] [address] Wt Readings from Last 3 Encounters: 08/12/22 [...] found Please advise documented in this encounter [facility] 08-26-2022 Instructions Jacinto Merida MD - 08/26/2022 10:03 AM EDT Please contact one of the following agencies for psychiatric medication management and psychotherapy. 1.) [facility] - 2.) [facility] - [phone] (medication management only) 3.) [facility] - [phone] If you would like to pursue partial hospitalization program/intensive outpatient program (PHP/IOP) please contact us at [phone] or [facility] [phone]. Call 911 or present to nearest emergency room if you are feeling unsafe or suicidal. Additionally individuals can call the Suicide Hotline locally at or nationally at . documented in this encounter [facility] 08-25-2022 History of Presen t illness Narrative OUTPATIENT PSYCHIATRY CONSULT / Initial Contact Patient Name: Kayla Page MR #: [id number] : 1955 Physicians: El Douglass DO (Family); [...] on my evaluation today Generalized anxiety disorder Katiex use disorder, severe, in sustained remission Alcohol [...] this level of care at [facility] [phone]. Patient would be best managed with longitudinal psychiatric care including psychotherapy. I have provided them with information on how to establish with providers in their area based on their insurance. 1.) [facility] - 2.) [facility] - [phone] (medication management only) 3.) [facility] - [phone] Denies imminent lethality concerns including suicidal or [...] medication aduustments, psychotherapy - encouraged linkage with PHP/IOP. 2.) Recommend considering maximization of Prozac to [...] significant weight gain since starting it at [facility]. Would defer these changes to a PHP/longitudinal psychiatric care once she is established. Psychotherapy: [...] time with the patient, counseling patient or door to door sales representative, reviewing patient's records or tests, reviewing [...] episode years ago when she was in [place] in the context of substance abuse. This [...] has a history of seeing a therapist/psychiatrist (way back in the day, 20+ years ago) Past Psychotropic Medication Trials: Lexapro, Valium, Xanax, Temazepam, Trazodone, Prozac, Seroquel, Cymbalta (-) ECT (-) TMS (-) Pharmacogenomic Testing Past Psychiatric Hospitalizations: [facility] 04/2021 - reviewed records, SI was [...] for the last 15 months, started at [facility], has noted weight gain, no EPS/TD [...] the following: Height as of 08/12/22: 5' 8. Weight as of 08/12/22: 92.5 kg (204 lb). LABS / DIAGNOSTICS / IMAGING: Reviewed SOCIAL HISTORY: Born and raised: [place] Raised by: Mother and Father Childhood: it was okay Siblings: 1 sister Children: 2 children Living Situation: Moving to [place] next month Relationship History: 4 times Academic History: Some college Occupational History: Worked at for 23 years; worked several other jobs then on disability for depression, back pain History: Denies Legal History: Yes, 13 DUIs Hoahaoism/Spirital: Jainism Biggest Support: Friend Likes and Hobbies: Watching [...] Chemical Dependency Treatment: Yes, inpatient rehab at [facility] for detox PSYCHIATRIC EXAMINATION Grooming & [...] by contextual derivation. documented in this encounter [facility] 08-13-2022 History of Presen t illness Narrative [...] conjunction with the immunization order to satisfy [place] Board of Pharmacy Positive ID requirements for [...] on 09/17 Needs new ID doctor in [place] after she moves Severe depression Meds include Prozac 40 mg daily, Seroquel 200 mg nightly, and hydroxyzine 25 mg prn Appointment with [facility] on 08/25 Family issues with son, she thinks he is upset that she is moving. She is moving to [place] with a friend, wants to have her [...] Behavior normal. El Guy DO PGY-3 [facility] Family Medicine documented in this encounter [facility] 07-15-2022 History of Presen t illness Narrative [...] psychiatry longitudinally Resources have been provided [facility] and I have provided them again [...] Behavior: Behavior normal. El Guy DO PGY-3 [facility] Medicine Depression Screening 03/19/2020 06/11/2021 10/01/2021 07/14/2022 [...] difficult Somewhat difficult documented in this encounter [facility] 07-15-2022 Note Addended by: EL GUY on: 07/15/2022 01:04 PM Modules accepted: Orders [facility] 07-15-2022 Miscellaneous Notes Addended by: EL GUY on: 07/15/2022 01:04 PM Modules accepted: Orders documented in this encounter [facility] 07-14-2022 Instructions El Douglass DO - 07/14/2022 10:31 PM EDT Crisis Resources- [facility] For immediate assistance with medical concerns, including [...] Text Line: Text the keyword 4Hope to 020381 to be connected to a trained Crisis Counselor within 5 minutes. Throughout [place], you can text the keyword 4Hope to 316060 to be connected to a trained Crisis Counselor. National Suicide Prevention Hotline: 6-359-223-TALK (5723) [place] CareLine: Call the [place] CareLine at , 29/09 for free, confidential support. Adult Crisis Hotline: 938-866-OPPG (7501) Youth (17 and Under) Crisis Hotline: 655.514.4667 Older Adult Hotline: 591.729.3335 Teen Suicide Hotline: 832.670.6762 Veterans Crisis Line: LGBTQ youth: Contact The [employer] hotline [phone], text 'Start' to 688-035 or visit website for online chat Medicare Insurance Counseling/Therapy Options (not all-inclusive) Below are some agencies in-network with Medicare for you to try. Just give any of the below agencies a call and verify they accept your specific insurance policy, accepting new patients and when they're scheduling new clients out. Please also check out www.psychologytoday.com and you can filter by zip code, insurance, provider preference, etc. if you don't go with any of the options listed below. You can also send online inquiries to schedule instead of calling individual therapists or offices which is helpful and a time-saver! [facility] [address] [place] [address] [facility] Counseling (also psychiatry) [address] [place], [place] [id number] *Must complete both New Patient Paperwork Packets prior to scheduling* Forms [facility] Multiple Locations Intake: [phone] [facility] (also has Older Adults program) [facility] Intake Line: [phone] extension 133 [facility] [address] [place], [place] [phone] [facility] DEBBY [address] [facility] [facility] [address] [place] [address] Geena Castellon, [facility] [phone] Geena Castellon, Licensed Independent Analyzer Sales, [place], [address] Munir Hamilton PsyD [place], [place] [phone] Munir Hamilton, Psychologist, [place], [address] [facility] [address] [place] [address] [address] [facility] [place] [address] [facility] [address] [place], [place] [address] [facility] [place] [address] [place] [address] [facility] [address] [place], [place] [address] [facility] [place] [address] [place] [address] [facility] Counsel[facility] Telehealth only [phone] documented in this encounter [facility] 07-14-2022 Instructions El Douglass, - 07/14/2022 10:31 PM EDT Crisis Resources- [place], [place] & [facility] For immediate assistance with medical [...] Text Line: Text the keyword 4Hope to 721651 to be connected to a trained Crisis Counselor within 5 minutes. Throughout [place], you can text the keyword 4Hope to 815690 to be connected to a trained Crisis Counselor. [place] Suicide Prevention Hotline: 8-177-441-TALK (8789) [place] CareLine: Call the [place] CareLine at , 29/09 for free, confidential support. Adult Crisis Hotline: 512-978-DZEF (1820) Youth (17 and Under) Crisis Hotline: 971.693.7386 Older Adult Hotline: 252.149.8301 Teen Suicide Hotline: 577.793.6430 Veterans Crisis Line: LGBTQ youth: Contact [employer] hotline 953-299-9469, text 'Start' to 630-151 or visit website for online chat Medicare Insurance Counseling/Therapy Options (not all-inclusive) Below are some agencies in-network with Medicare for you to try. Just give any of the below agencies a call and verify they accept your specific insurance policy, accepting new patients and when they're scheduling new clients out. Please also check out www.JAYSday.com and you can filter by zip code, insurance, provider preference, etc. if you don't go with any of the options listed below. You can also send online inquiries to schedule instead of calling individual therapists or offices which is helpful and a time-saver! [facility] [address] [place] [phone] [facility] (also psychiatry) [address] [place], [place] [id number] *Must complete both New Patient Paperwork Packets prior to scheduling* Forms [facility] Multiple Locations Intake: [phone] [facility] (also has Older Adults program) Tara Garcia, [facility] Intake Line: [phone] extension 133 [facility] [address] [place], [place] [phone] [facility] DEBBY Galan [address] [facility] [address] [place] [address] Geena Castellon, HOG TRADER [phone] Geena Castellon, Licensed Independent Analyzer Sales, [place], [address] Munir Hamilton, [place] [phone] Munir Hamilton, [place], [place], [address] [facility] [address] [place] [address] [address] [facility], [address] [place] [address] [facility] [facility] [address] [place], [place] [address] [facility] [place] [address] [place] [address] [facility] [address], [address] [place], [place] [address] [facility] [address] [place] [address] [facility] [phone] documented in this encounter [facility] 07-14-2022 History of Presen t illness Narrative [...] psychiatry longitudinally Resources have been provided [facility] and I have provided them again [...] Behavior: Behavior normal. El Guy DO PGY-3 [facility] Depression Screening 03/19/2020 06/11/2021 10/01/2021 07/14/2022 [...] difficult Somewhat difficult documented in this encounter [facility] 05-26-2022 Telephone encounter Note Patient requesting refills of Seroquel and trazodone. 30-day refills of both medications sent today. Patient has follow-up with me on 06/02 and will evaluate medications at that time. [facility] 05-26-2022 Miscellaneous Notes Patient requesting refills of Seroquel and trazodone. [...] preferred pharmacy listed below? Yes Preferred pharmacies: [facility] #[id number] [facility] [address] [facility] [address] [facility] [address] [facility] [facility] [phone] Pt Call Back Number Work Phone Not on file. Patient call back message sent to the primary care clinical pool. Carlton Edwards documented in this encounter [facility] 05-26-2022 Telephone encounter Note ----- Message from Carlton Edwards sent at [...] preferred pharmacy listed below? Yes Preferred pharmacies: [facility] #[id number] - [place], [place] - [address] [facility] [facility] [facility] [phone] Pt Call Back Number Work Phone Not on file. Patient call back message sent to the primary care clinical pool. Carlton Edwards [facility] 03-17-2022 Telephone encounter Note ----- Message from Christine Wahl MA sent [...] preferred pharmacy listed below? Yes Preferred pharmacies: [facility] #[id number] - [place], [place] - [address] [facility] [phone] Pt Call Back Number Patient call back message sent to the primary care clinical fedora. Christine Wahl [facility] 03-17-2022 Miscellaneous Notes ----- Message from Christine Wahl MA sent [...] preferred pharmacy listed below? Yes Preferred pharmacies: [facility] #[id number] - [place], [place] - [address] [facility] [facility] [address] [facility] [phone] Pt Call Back Number Patient call back message sent to the primary care clinical fedora. Christine Wahl documented in this encounter [facility] 10-14-2021 History of Presen t illness Narrative [...] patient as needed. documented in this encounter [facility] 10-11-2021 Telephone encounter Note Will refill mood medications today. Patient is working on scheduling with community psychiatrist as this would be ideal for her but has had some difficulty. Psych referral also placed at last appointment. Will notify in office twisthand Laura Wen to see if she can assist. El Guy DO PGY-3 [facility] Family Medicine [facility] 10-11-2021 Miscellaneous Notes Will refill mood medications today. Patient is working on scheduling with community psychiatrist as this would be ideal for her but has had some difficulty. Psych referral also placed at last appointment. Will notify in office twisthand Laura Wen to see if she can assist. El Guy DO PGY-3 [facility] Family Medicine ----- Message from Amy Watson [...] preferred pharmacy listed below? Yes Preferred pharmacies: [facility] #[id number] - [place], [place] - [address] [phone] Pt Call Back Number Work Phone Not on file. documented in this encounter [facility] 10-11-2021 Telephone encounter Note ----- Message from Amy Watson sent at [...] preferred pharmacy listed below? Yes Preferred pharmacies: [facility] #[id number] - [place], [place] - [address] [facility] & [facility] [address] [facility] [phone] Pt Call Back Number Work Phone Not on file. [facility] 10-06-2021 Evaluation + Plan note Associated Problem(s): Seasonal allergies Uncontrolled Likely contributing to head pressure/pain Recommended discontinuing benadryl and starting Flonase and Zyrtec Follow up as needed [facility] 10-06-2021 Miscellaneous Notes Associated Problem(s): Seasonal allergies Uncontrolled Likely contributing to [...] refill sent today documented in this encounter [facility] 10-06-2021 Evaluation + Plan note Associated Problem(s): Depression Uncontrolled Hx of severe depression with bipolar tendencies and polysubstance abuse likely used to cope with depression Current regimen Seroquel 200 mg nightly, hydroxyzine prn, and Prozac 40 mg daily Also taking carbamazepine for seizures but also likely providing mood stabilization No success with establishing with community psychiatry, will place referral to psychiatry today [facility] 10-06-2021 Evaluation + Plan note Associated Problem(s): Gastroesophageal reflux disease Controlled Continue Protonix 20 mg daily, refill sent today [facility] 10-01-2021 History of Presen t illness Narrative [...] last two weeks Mood Follow up Wants kldewayne used to take it but wants to [...] Behavior: Behavior normal. El Guy, DO PGY-3 [facility] Family Medicine Depression Screening 03/19/2020 06/11/2021 10/01/2021 [...] difficult Very difficult documented in this encounter [facility] 10-01-2021 History of Presen t illness Narrative [...] Behavior: Behavior normal. El Guy DO PGY-3 [facility] Depression Screening 03/19/2020 06/11/2021 10/01/2021 [...] difficult Very difficult documented in this encounter [facility] 08-23-2021 Telephone encounter Note ----- Message from Christine Wahl MA sent [...] preferred pharmacy listed below? Yes [id number] - [place], [place] - [address] [facility] [address] [facility] [address] [facility] [phone] Pt Call Back Number Patient call back message sent to the primary care clinical pool. Christine Wahl [facility] 08-23-2021 Miscellaneous Notes ----- Message from Christine Wahl MA sent [...] preferred pharmacy listed below? Yes Preferred pharmacies: [facility] #[id number] - [place], [place] - [address] [facility] [address] [facility] [phone] Pt Call Back Number Patient call back message sent to the primary care clinical pool. Christine Wahl documented in this encounter [facility] 07-25-2021 Evaluation + Plan note Associated Problem(s): MDD (major depressive disorder), recurrent episode (HCC) - Somewhat controlled with current regimen -We will increase Prozac to 40 mg daily, patient has noticed some relief with 20 mg dosing -We will send new refill for carbamazepine 200 mg twice daily -Encouraged patient to look into psychiatry/counseling options, patient states that she has been discussing with our office twisthand -Follow-up in 4 weeks [facility] 07-25-2021 Miscellaneous Notes Associated Problem(s): MDD (major depressive disorder), recurrent episode (HCC) - Somewhat controlled with current regimen -We will increase Prozac to 40 mg daily, patient has noticed some relief with 20 mg dosing -We will send new refill for carbamazepine 200 mg twice daily -Encouraged patient to look into psychiatry/counseling options, patient states that she has been discussing with our office twisthand -Follow-up in 4 weeks documented in this encounter [facility] 07-24-2021 History of Presen t illness Narrative [...] she has been discussing with our office twisthand -Follow-up in 4 weeks Relevant Medications carBAMazepine [...] Behavior: Behavior normal. El Guy DO PGY-2 [facility] documented in this encounter [facility] 07-24-2021 Instructions El Douglass DO - 07/24/2021 11:55 AM EDT [facility] COVID-19 Post-swabbing Instructions We will do our best to update you as soon as we receive your test results, but if we had to send your test to be run at the lab, you may see the results on MyChart or receive a call from [facility] before we are able to contact you. [...] to discontinue isolation or return to work/school. [facility] follows CDC guidelines and does not routinely [...] a single-dose vaccine (such as [employer] vaccine) If you are sick or exposed [...] results. - If you have an active [employer] account, and your COVID-19 test is negative (not detected), then you will be notified through your cartmi account. You should call the urgent care if you have any further questions. - If your COVID-19 test is positive (detected), you will receive a phone call to discuss your results and answer any questions you might have at that time. Please make sure [facility] has your updated phone number so we can contact you. [facility] will notify the [facility] of any positive results to comply with [...] and warm water and/or alcohol based hand self propelled hot mix roller operator, scrubbing your hands for at least 20 [...] your way Other COVID Questions? CDC - https://www.cdc.gov/coronavirus /2019-ncov/index.html - https://www.cdc.gov/coronavirus /2019-ncov/ii-wtv-jrm-sick/quar antine.html [facility] - Website: https://coronavirus.[place].gov/wp s/portal/gov/covid-19/home - Hotline: 302-4-JFG-[facility] (965-648-9072) [facility]: [email or web address]/ documented in this encounter [facility] 07-11-2021 Telephone encounter Note ----- Message from Hector Rosen sent at 07/10/2021 4:38 PM EDT ----- Regarding: Rx Refill Contact: Self Pt says that Dr. Guy is the only dr who should be prescribing this for her now, but our records show it was prescribed by [facility]. Don't see any record [...] preferred pharmacy listed below? Yes Preferred pharmacies: [facility] #[id number] [facility] [address] [facility] [address] [facility] [address] [facility] [phone] Pt Call Back Number Patient call back message sent to the primary care clinical pool. Hector Rosen [facility] 07-11-2021 Miscellaneous Notes ----- Message from Hector Rosen sent at 07/10/2021 4:38 PM EDT ----- Regarding: Rx Refill Contact: Self Pt says that Dr. Guy is the only dr who should be prescribing this for her now, but our records show it was prescribed by [facility]. Don't see any record [...] preferred pharmacy listed below? Yes Preferred pharmacies: [facility] #[id number] [facility] [address] [facility] [address] [facility] [address] [facility] [facility] [phone] Pt Call Back Number Patient call back message sent to the primary care clinical pool. Hector Rosen documented in this encounter [facility] 06-26-2021 History of Presen t illness Narrative [...] psychotic features (HCC) - Ambulatory Ref to [facility]; Future - FLUoxetine (PROZAC) 20 MG capsule; Take 1 (one) capsule (20 mg total) by mouth daily . Additional attending assessment/plan notes: Pelvic region odor with positive affirm for BV - agree with treatment with Metronidazole at this time. Recurrent MDD with mood disorder/bipolar suspect, need evaluation with psychiatry - patient declines resuming care with [facility]. Primary care team to bridge [...] depression -Patient currently sober, recently discharged from [facility] after tapering off of benzodiazepines -Currently taking [...] -We will reach out to an office twisthand Laura to assist with getting patient into alternative counseling/psychiatry as patient [place] Relevant Medications FLUoxetine (PROZAC) 20 MG capsule Other Relevant Orders Ambulatory Ref to [facility] For any new medications prescribed today, patient [...] to establish with psychiatrist and counseling at [facility] Confusion surrounding whether or not she should continue with Prozac switch to Seroquel or be on both of these medication, was suppose to reach out to [facility] Found a place and was accept for apartment, son cosigned Suppose to be taking seroquel 200 mg nightly, refill sent previously Psych cancled because on vacation, doesn't want to see [facility] anymore Would like something during the day to where she would feel better Feeling really down, hoping there can be adjustments made to her mood medication in the meantime while she tries to get in with psychiatry Foul smelling urine 2 days after going to [facility] Not so much isolated to the urine, smell is something present all the time Possibly has a fishy odor but not sure Urine darker in appearance, port drier since drinking more water Denies urinary frequency, [...] Height: 5' 8 Intimate exam performed with double bottom driver Michelle Cedillo present for duration of exam. [...] Behavior: Behavior normal. El Guy DO PGY-2 [facility] documented in this encounter [facility] 06-26-2021 History of Presen t illness Narrative [facility] made initial outreach attempt to [place] per referral to [facility] from Dr. Douglass for Depression. Message left requesting return call regarding referral from PCP. Follow-up 1 week should pt not return call. documented in this encounter [facility] 06-25-2021 Evaluation + Plan note Associated Problem(s): Depression - History of severe depression with bipolar tendencies and polysubstance abuse likely used to cope with depression -Patient currently sober, recently discharged from [facility] after tapering off of benzodiazepines -Currently taking [...] -We will reach out to an office twisthand Laura to assist with getting patient into alternative counseling/psychiatry as patient would like to [place] [facility] 06-25-2021 Miscellaneous Notes Associated Problem(s): Depression - History of severe depression with bipolar tendencies and polysubstance abuse likely used to cope with depression -Patient currently sober, recently discharged from [facility] after tapering off of benzodiazepines -Currently taking [...] -We will reach out to an office twisthand Laura to assist with getting patient into alternative counseling/psychiatry as patient would like to [place] Associated Problem(s): Bacterial vaginosis - Testing positive for bacterial vaginosis which is likely contributing to patient's vaginal odor -We will treat with metronidazole twice daily 500 mg x 7 days -Patient to follow-up as needed documented in this encounter [facility] 06-25-2021 Miscellaneous Notes Associated Problem(s): Depression - History of severe depression with bipolar tendencies and polysubstance abuse likely used to cope with depression -Patient currently sober, recently discharged from [facility] after tapering off of benzodiazepines -Currently taking [...] -We will reach out to an office twisthand Laura to assist with getting patient into alternative counseling/psychiatry as patient would like to [place] Associated Problem(s): Bacterial vaginosis - Testing positive for bacterial vaginosis which is likely contributing to patient's vaginal odor -We will treat with metronidazole twice daily 500 mg x 7 days -Patient to follow-up as needed documented in this encounter [facility] 06-25-2021 Evaluation + Plan note Associated Problem(s): Bacterial vaginosis - Testing positive for bacterial vaginosis which is likely contributing to patient's vaginal odor -We will treat with metronidazole twice daily 500 mg x 7 days -Patient to follow-up as needed [facility] 06-24-2021 History of Presen t illness Narrative [...] depression -Patient currently sober, recently discharged from [facility] after tapering off of benzodiazepines -Currently taking [...] -We will reach out to an office twisthand Laura to assist with getting patient into alternative counseling/psychiatry as patient would like to [place] Relevant Medications FLUoxetine (PROZAC) 20 MG capsule Other Relevant Orders Ambulatory Ref to [facility] For any new medications prescribed today, patient [...] to establish with psychiatrist and counseling at [facility] Confusion surrounding whether or not she should continue with Prozac switch to Seroquel or be on both of these medication, was suppose to reach out to [facility] Found a place and was accept for apartment, son cosigned Suppose to be taking seroquel 200 mg nightly, refill sent previously Psych cancled because on vacation, doesn't want to see [facility] anymore Would like something during the day to where she would feel better Feeling really down, hoping there can be adjustments made to her mood medication in the meantime while she tries to get in with psychiatry Foul smelling urine 2 days after going to [facility] Not so much isolated to the urine, smell is something present all the time Possibly has a fishy odor but not sure Urine darker in appearance, port drier since drinking more water Denies urinary frequency, [...] Height: 5' 8 Intimate exam performed with double bottom driver Michelle Cedillo present for duration of exam. [...] Behavior: Behavior normal. El Guy DO PGY-2 [facility] documented in this encounter [facility] 06-21-2021 Telephone encounter Note Just spoke to patient and clarified the dosage of her medications and corrected in her chart. Patient did state she saw her urine results were normal but that the urine odor is getting worse and has been going on for 2 weeks now. Patient wants to know your thoughts on next steps to get this resolved. [facility] 06-21-2021 Miscellaneous Notes Just spoke to patient and clarified the [...] of confusion when she was discharged from [facility]. She was going to given [facility] a call after our last appointment to [...] preferred pharmacy listed below? Yes Preferred pharmacies: [facility] #[id number] [facility] [address] [facility] [facility] [phone] Pt Call Back Number Patient call back message sent to the primary care clinical pool. Gaye Peng documented in this encounter [facility] 06-21-2021 Telephone encounter Note ----- Message from El Douglass DO sent [...] of confusion when she was discharged from [facility]. She was going to given [facility] a call after our last appointment to clarify. Thanks for your help! -Nacho [facility] 06-21-2021 Telephone encounter Note ----- Message from Gaye Peng sent at [...] preferred pharmacy listed below? Yes Preferred pharmacies: [facility] #[id number] [facility] [address] [facility] [address] [facility] [address] [facility] [address] [facility] [phone] Pt Call Back Number Patient call back message sent to the primary care clinical pool. Gaye Peng [facility] 06-12-2021 Evaluation + Plan note Associated Problem(s): MDD (major depressive disorder), recurrent episode [...] establish with her counselor and psychiatrist at [facility] -Some confusion as patient felt that she was on Seroquel when she was discharged from [facility] however recently had her medications filled today from the pharmacy and shows that she is currently on Prozac, recommended that she reach out to [facility] in the pharmacy to make sure that this is not an error -Plan for follow-up in 4 weeks or sooner as needed, this would ideally be after she sees her psychiatrist [facility] 06-12-2021 Evaluation + Plan note Associated Problem(s): Migraine -History of migraine headaches with improvement after taking Imitrex although patient states that she is out of this medication -We will send refill this medication today [facility] 06-12-2021 Miscellaneous Notes Associated Problem(s): MDD (major depressive disorder), recurrent episode [...] establish with her counselor and psychiatrist at [facility] -Some confusion as patient felt that she was on Seroquel when she was discharged from [facility] however recently had her medications filled today from the pharmacy and shows that she is currently on Prozac, recommended that she reach out to [facility] in the pharmacy to make sure that [...] this medication today documented in this encounter [facility] 06-11-2021 History of Presen t illness Narrative [...] establish with her counselor and psychiatrist at [facility] -Some confusion as patient felt that she was on Seroquel when she was discharged from [facility] however recently had her medications filled today from the pharmacy and shows that she is currently on Prozac, recommended that she reach out to [facility] in the pharmacy to make sure that [...] medications she should be taking since leaving [facility] Dysuria Going on for a couple weeks, c/o foul oder getting stronger and stronger. HPI: Recently admitted from 05/02/21-05/06/21 [facility] for SI with plan to overdose [...] (borderline personality disorder) Recently participated in the [facility] program Wants to stay off of Xanax, but former PCP keeps prescribing xanax Has not used any Xanax since before [facility] Establishing with psychiatrist later this month, establishing [...] vision grossly normal. El Guy DO PGY-2 [facility] documented in this encounter [facility] 06-11-2021 History of Presen t illness Narrative [...] establish with her counselor and psychiatrist at [facility] -Some confusion as patient felt that she was on Seroquel when she was discharged from [facility] however recently had her medications filled today from the pharmacy and shows that she is currently on Prozac, recommended that she reach out to [facility] in the pharmacy to make sure that [...] medications she should be taking since leaving [facility] Dysuria Going on for a couple weeks, c/o foul oder getting stronger and stronger. HPI: Recently admitted from 05/02/21-05/06/21 [facility] for SI with plan to overdose [...] (borderline personality disorder) Recently participated in the [facility] program Wants to stay off of Xanax, but former PCP keeps prescribing xanax Has not used any Xanax since before [facility] Establishing with psychiatrist later this month, establishing [...] vision grossly normal. El Guy DO PGY-2 [facility] documented in this encounter [facility] 04-24-2021 History of Presen t illness Narrative Kayla was contacted as part of the PHQ9 remission menhaden vessel pilot. The patient did not answer. Voice mail message was left with request for return call. [phone] documented in this encounter [facility] Evaluation note Diagnosis Severe episode of recurrent major depressive disorder, without psychotic features (HCC)- Primary Polysubstance abuse (HCC) Other, mixed, or unspecified nondependent drug abuse, unspecified Migraine without status migrainosus, not intractable, unspecified migraine type Encounter to establish care with new doctor Screening for colon cancer Special screening for malignant neoplasms, colon Encounter for screening mammogram for malignant neoplasm of breast [facility] Diagnosis Severe episode of recurrent major [...] neoplasm of breast [facility] Diagnosis Severe episode of recurrent major depressive disorder, without psychotic features (HCC)- Primary History of [facility] Bacterial vaginosis- Primary Unspecified vaginitis and vulvovaginitis Severe episode of recurrent major depressive disorder, without psychotic features (HCC) [facility] Diagnosis Bacterial vaginosis- Primary Unspecified vaginitis and vulvovaginitis Severe episode of recurrent major depressive disorder, without psychotic features (HCC) [facility] Diagnosis Suspected COVID-19 virus infection- Primary Severe episode of recurrent major depressive disorder, without psychotic features (HCC) [facility] Diagnosis Severe episode of recurrent major depressive disorder, without psychotic features (HCC) [facility] Severe episode of recurrent major depressive disorder, without psychotic features (HCC)- Primary Mood disorder (HCC) Unspecified episodic mood disorder Seasonal allergies Allergic rhinitis, cause unspecified Gastroesophageal reflux disease, unspecified whether esophagitis present COVID-19 vaccine administered [facility] Diagnosis Severe episode of recurrent major depressive disorder, without psychotic features (HCC) [facility] Diagnosis Depression, unspecified depression type Anxiety Anxiety state, unspecified [facility] Diagnosis Severe episode of recurrent major depressive disorder, without psychotic features (HCC) [facility] Nocturia- Primary Seborrheic keratosis Actinic [...] of risk factors [facility] Diagnosis Nocturia- Primary Seborrheic keratosis Actinic [...] C antibody test [facility] Diagnosis Severe episode of recurrent major depressive disorder, without psychotic features (HCC)- Primary [facility] Diagnosis Chronic hepatitis C without hepatic coma (HCC)- Primary [facility] Diagnosis Severe episode of recurrent major depressive disorder, without psychotic features (HCC)- Primary Hypothyroidism, unspecified type Primary hypertension Unspecified essential hypertension History of seizure Dyslipidemia Other and unspecified hyperlipidemia Chronic hepatitis C without hepatic coma (HCC) Need for vaccination Need for prophylactic vaccination and inoculation against unspecified single disease [facility] Diagnosis Persistent depressive disorder- Primary Generalized anxiety disorder Xanax use disorder, severe, in sustained remission (HCC) Alcohol use disorder, severe, in sustained remission (HCC) Tobacco use disorder, severe, in early remission [facility] Diagnosis Severe episode of recurrent major depressive disorder, without psychotic features (HCC) [facility] Diagnosis Severe episode of recurrent major depressive disorder, without psychotic features (HCC) [facility] noteNo assessment information availableWRegency Hospital Company Work Phone: Reason for referral (narrative)* Consultation (Routine) - Authorized Specialty Diagnoses / Procedures Referred By Sekou diego Referred To Contact Care Management Diagnoses Encounter to establish care with new Jacinto Eddy DO [address] [place] [address] Referral ID Status Reason Start Date Expiration Date Visits Requested Visits Authorized [id number] Authorized Specialty Services Required/Pat ient's Best Interest 06/11/2021 06/11/2022 1 1 * Screening Colonoscopy (Routine) - Authorized Specialty Diagnoses / Procedures Referred By Sekou diego Referred To Contact General Surgery Diagnoses Screening for colon cancer Jacinto Liang DO [address] [place] [address] [facility] [address] [place] [address] Referral ID Status Reason Start Date Expiration Date V isits Requested Visits Authorized [id number] Authorized 06/11/2021 06/11/2022 1 1 * Diagnostic Imaging (Routine) - Authorized Specialty Diagnoses / Procedures Referred By Sekou diego Referred To Contact Radiology Diagnoses Encounter for screening mammogram for malignant neoplasm of breast Procedures Mammography Screening Myles Bilateral Jacinto Liang DO [address] [place] [address] Referral ID Status Reason Start Date Expiration Date V isits Requested Visits Authorized [id number] Authorized 06/11/2021 06/11/2022 1 1 [facility] Consultation (Routine) - Authorized Specialty Diagnoses / Procedures Referred By Contac t Referred To Contact Care Management Diagnoses Severe episode of recurrent major depressive disorder, without psychotic features (HCC) Amy Haywood MD [address] [place] [address] [address] [place] [address] Referral ID Status Reason Start Date Expiration Date Visits Requested Visits Authorized [id number] Authorized Specialty Services Required/Pat ient's Best Interest 07/15/2022 07/15/2023 1 1 * Psychiatric (Routine) - Pending Review Specialty Diagnoses / Procedures Referred By Contac t Referred To Contact Psychiatry Diagnoses Severe episode of recurrent major depressive disorder, without psychotic features (HCC) Amy Haywood MD [address] [place] [address] [address] [place] [id number] Referral ID Status Reason Start Date Expiration Date V isits Requested Visits Authorized [id number] Pending Review 07/15/2022 07/15/2023 1 1 [facility] Discharge Instructions * Instructions* Nixon Hong MD - 01/20/2020 Be sure to keep the splint on until seen in follow-up by Ortho 1 and having a another splint or cast placed. * Attachments The following attachments cannot be sent through Care Everywhere. 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 Advance Directives and Livin g Will 05/02/2021 3:46 PM Latest Code Status on File Code Status Date Activated Date Inactivated Comments Full Code - Unverified 05/03/2021 12:28 AM 05/06/2021 4: 50 PM Full Code 05/02/2021 1:31 PM 05/02/2021 11:24 PM Documents on File Type Date Recorded 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 Expl 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 Advance Directives and Livin g [...] Jarrett Carr MD [address] [place] [address] Status Reason Specialty Diagnoses / Procedures Referred By Contact Referred To Contact Pending Review Specialty Services Required/Patie nt's Best Interest Behavorist (Outpatient Social Work) Diagnoses Depression, unspecified depression type Anxiety Jarrett Carr MD [address] [place] [address] Status Reason Specialty Diagnoses / Procedures Referred By Contact Referred To Contact Pending Review Specialty Services Required/Patie nt's Best Interest Plastic Surgery Diagnoses Breast implant status Jarrett Carr MD [address] [place] [address] Specialty Diagnoses / Procedures Referred By Contac t Referred To Contact Behavorist (Outpatient Social Work) Diagnoses Severe episode of recurrent major depressive disorder, without psychotic features (HCC) Ivan Avery MD [address] [place] [address] Referral ID Status Reason Start Date Expiration Date V isits Requested Visits Authorized [id number] Pending Review 06/25/2021 06/25/2022 1 1 Referral ID Status Reason Start Date Expiration Date Visits Re quested Visits Authorized [id number] Closed 06/25/2021 06/25/2022 1 1 Specialty Diagnoses / Procedures Referred By Contac t Referred To Contact Psychiatry Diagnoses Severe episode of recurrent major depressive disorder, without psychotic features (HCC) Mood disorder (HCC) Jacinto Liang DO [address] [place] [address] Referral ID Status Reason Start Date Expiration Date V isits Requested Visits Authorized [id number] Pending Review 10/06/2021 10/06/2022 1 1 Specialty Diagnoses / Procedures Referred By Contac t Referred To Contact Psychiatry Diagnoses Severe episode of recurrent major depressive disorder, without psychotic features (HCC) Mood disorder (HCC) Jacinto Liang, [address] [place] [address] [facility] [address] [place] [address] Specialty Diagnoses / Procedures Referred By Contac t Referred To Contact Dermatology Diagnoses Seborrheic keratosis Actinic keratosis Amy Haywood MD [address] [place] [address] Dr [address] [place] [address] Referral ID Status Reason Start Date Expiration Date V isits Requested Visits Authorized [id number] Pending Review 07/14/2022 07/14/2023 1 1 Specialty Diagnoses / Procedures Referred By Contac t Referred To Contact Infectious Diseases Diagnoses Chronic hepatitis C without hepatic coma (HCC) Amy Haywood MD [address] [place] [address] [address] [place] [address] Referral ID Status Reason Start Date Expiration Date V isits Requested Visits Authorized [id number] Pending Review 07/16/2022 07/16/2023 1 1 Instructions * Patient Instructions* Jarrett Carr MD - 03/19/2020 2:40 PM EST I recommend you check your blood pressure regularly at home. If you do not have a blood pressure cuff, you can get one at a pharmacy or online (e.g., [employer] You can get them more cheaply online, [...] presents for Chief Complaint Patient presents with [facility] Care establish care for anxiety and depression [...] Wean Cymbalta - Start Prozac - Refer [facility] for initial counseling, linkage to ongoing therapy Relevant Medications FLUoxetine (PROZAC) 10 MG capsule DULoxetine (Cymbalta) 20 MG capsule Other Relevant Orders Ambulatory Ref to [facility] Anxiety - Primary Significant anxiety. Does have occasional panic attacks. Significant recent stressors. Currently treated with cymbalta, temazepam, and alprazolam. Poor response to cymbalta. Has been out of benzos x1wk. Previously had benefit with prozac, zoloft. Has not worked with therapist recently. Discussed medication options, need to avoid benzos. - Taper cymbalta - Start Prozac - Hydroxyzine for panic - Refer [facility] for initial counseling, linkage to ongoing therapy Relevant Medications FLUoxetine (PROZAC) 10 MG capsule hydrOXYzine (VISTARIL) 25 MG capsule DULoxetine (Cymbalta) 20 MG capsule Other Relevant Orders Ambulatory Ref to [facility] Elevated BP without diagnosis of hypertension Significant [...] Up Mood, Elevated BP. Subjective: Was in [place] for 7yrs. Moved back to [place] a few months ago. Needs to reestablish [...] years. Reports having tried prozac or zoloft. [place] that both worked. Reports hx panic attacks; [...] 1 T PO QD miscellaneous medical supply [facility] 1 blood pressure monitoring system, use as [...] Behavior normal. PHQ-9 Depression Screening - 03/19/20 9992 Over the last 2 weeks, how often [...] - 03/20/2020 3:40 PM EST This [facility] metallurgical technician attempted to contact patient regarding referral to [...] - 03/27/2020 11:08 AM EST This [facility] metallurgical technician attempted to contact patient regarding referral to [...] as well to pt. RUPALI Moreno, RHIANNON Analyzer Sales [facility] documented in this encounter* Fallon Sky LSW - 04/10/2020 3:05 PM EST SW follow up call this date. Reason for call: Community resources Result: SW sent Mychart message to pt offering assistance. Will remain available to assist pt as needed. RUPALI Moreno LSW Analyzer Sales [facility] documented in this encounter* Valeria Tay MA - 04/11/2020 9:42 AM EST This [facility] metallurgical technician contacted the patient regarding referral to B[facility] program placed by PCP at request of [facility]. Note: PCP note stated pt denies current SI....would benefit from initial counseling sessions and being tied into ongoing therapy. Today the pt shared that she had participated in counseling on and off for quite a while ending 15-20 yrs ago for similar symptoms. Pt moved back to [facility] seven years ago. Pt is actually scheduled with a new PCP, as she is unhappy that Dr. Shipley refused benzodiazepine refills. Pt was informed that switching PCP's disqualified her from BHI program, as new PCP office does not have [facility] access. Pt agreed to receiving both counseling and psychiatry resources [facility] and was appreciative of this offer. Pt was informed that she should receive resources within next 48 hours. documented in this encounter* Jarrett Carr MD - 04/11/2020 3:00 PM EST Kayla Page is a 64 y.o. female who presents for No chief complaint on file. Video Visit [facility] [address] [place] [address] Video Visit [facility] 04/11/2020 Jarrett Carr MD Provider Location: Office Patient Location Fish Technologist: None Patient Location: Patient's Home Patient: Kayla [...] there are inherent diagnostic limitations compared to [id number] evaluations. We elected to proceed with the [...] - Increase Seroquel, as above - F/u [facility] as above Relevant Medications QUEtiapine (SEROQUEL) 100 [...] medication. Did not respond to calls from [facility]. Requesting prior Xanax, Restoril. Lengthy discussion of risks/benefits of medication. 2/3: Continued symptoms. Little benefit from seroquel at this time. Continues to ask for xanax. Haslinked to [facility]; should get list of providers, psychiatry. - [...] (-Cymbalta; +Prozac 10 > 30mg; +Seroquel 50; ?[facility]; ?Psych): Doesn't feel that the medications are helping. Not much benefit from seroquel at this time. Continues to feelthat xanax would work best for her. Did get call from [facility]; discussed. Looking forward to meeting with psychiatrist. Thinks the zoloft is making her feel a little off, but doesn't want to switch to another medication. Reports feeling like her head is going to explode. Has headache that won't go away. Patient [...] mg total) by mouth daily . 90 [id number] levothyroxine (SYNTHROID, LEVOTHROID) 50 MCG tablet TK 1 T PO QD miscellaneous medical supply [facility] 1 blood pressure monitoring system, use as directed to monitor blood pressure . 1 each 0 pantoprazole (PROTONIX) 40 MG tablet QUEtiapine (SEROQUEL) 100 MG tablet Take 1 (one) tablet (100 mg total) by mouth nightly . 30 SUMAtriptan (IMITREX) 100 MG tablet Take 1 (one) tablet (100 mg total) by mouth every 2 (two) hoursas needed for migraine . Max of 200 mg in 24hrs . 10 tablet 0 No current facility-administered medications for this visit. Review of Systems Constitutional: Negative for chills and fever. Respiratory: Negative for cough and shortness of breath. Skin: Reports cold breasts. Neurological: Positive for headaches. Psychiatric/Behavioral: Positive for [...] - 03/27/2020 11:08 AM EST This [facility] metallurgical technician attempted to contact patient regarding referral to [...] History Records FoundNo Family History Records Found Chief Complaint and Reason for Visit Chief Complaint HEP C Chief Complaint HEP C HEP C *ATTN:LIVER* Additional Source Comments Reason for Visit (unrecogniz ed section and content) Reason Comments Wrist Pain Reason Comments Medication Refill Reason Comments Establish Care establish care for a nxiety and depression issues Procedure requests breast redu ction consult Reason Onset Date Comments Care coordination [facility] 03/20/2020 Reason Onset Date Comments Care coordination [facility] 03/27/2020 Reason Onset Date Comments Medication Refill 03/28/2020 Reason Onset Date Comments Community Resource Linkage 04/03/2020 Resou rces Reason Onset Date Comments Community Resource Linkage 04/10/2020 Follo w up Reason Onset Date Comments Care coordination [facility] 04/11/2020 Reason Onset Date Comments Medication Refill 03/27/2020 Reason Onset Date Comments Care coordination [facility] 04/24/2021 Reason Comments Establish Care Needs to know which medications she should be taking since leaving [facility] Dysuria Going on for a coupl e weeks, c/o foul oder getting stronger and stronger. Reason Onset Date Comments Social Care 06/17/2021 [facility] Reason Onset Date Comments Medication Refill 06/21/2021 Reason Comments Follow-up Kayla is here to f /u with bladder infection/ c/o symptoms getting worse, states the odor is getting worse and she would like to treat this today. Reason Onset Date Comments Care Coordination - [facility] 06/26/2021 Reason Comments Medication Problem Pt would like an inc rease in prozac dosage, 40 instead of 20mg.Pt also needs carBAMazepine (TEGretol XR) 200 MG 12 hr tablet changed to immediate release instead of XR. Pt states this is cheaper. Reason Onset Date Comments [facility] 07/31/2021 Reason Comments Headache Everyday for the [...] recurrent major depressive disorder, without psychotic features ([facility]) Amy Haywood MD [address] [place] [address] [address] [place] [address] Jacinto Merida MD [address] [facility] [address] [place] [address] Referral ID Status Reason Start Date Expiration Date Visits Re quested Visits Authorized [id number] Closed 07/15/2022 07/15/2023 1 1 Reason Onset [...] file Gets together: Not on file Attends orthodox service: Not on file Active member of club or organization: Not on file Attends meetings of clubs or organizations: Not on file Relationship status: Not on file Other Topics Concern Not on file Social History Narrative Not on file Allergies No Known Allergies Medications Kayla Page Home Medication Instructions Prior to Surgery KAUR:[id number] Printed on:01/20/20 4125 Medication Information Take last dose on Take [...] Wean Cymbalta - Start Prozac - Refer [facility] for initial counseling, linkage to ongoing therapy [...] Prozac - Hydroxyzine for panic - Refer [facility] for initial counseling, linkage to ongoing therapy Associated Problem(s): Hypothyroidism Hx of hypothyroid. Has been stable on Synthroid 50mcg for several years. Does have current anxiety and depression; cannot rule out hypothyroid contribution. - TSH documented in this encounter [prior documentation @ 1440 was incomplete] Reports headache feeling like its going to explode. Describes frontal headache. Sometimes feels to the [...] Short course of Klonopin Called and left msg for pt stating that there was a new RX being sent to the pharmacy per the plan that Dr. Carr and the pt had worked out. Reports headache feeling like its going to explode. Describes frontal headache. Sometimes feels to the [...] PRN. Please ask about BP medication not working: does this mean side effects, or her [...] preferred pharmacy listed below? Yes [id number] [place], [place] - [address] [facility] [phone] Pt Call Back Number Patient call back [...] no indication of abuse per patient report. /: Stable mood. Denies SI. See above. - Continue Prozac - Increase Seroquel, as above - F/u [facility] as above Associated Problem(s): Anxiety Significant anxiety. [...] medication. Did not respond to calls from [facility]. Requesting prior Xanax, Restoril. Lengthy discussion of risks/benefits of medication. 2/3: Continued symptoms. Little benefit from seroquel at this time. Continues to ask for xanax. Has linked to [facility]; should get list of providers, psychiatry. - [...] to counseling; did not answer/return call per [facility] note. Has PCP follow-up appt in 6d. - Refills refused - Patient to notify office if current medications are not sufficient LV: 03/19/2020 [place]: 04/02/2020 .last office notes state to return Return in about 2 weeks (around 04/02/2020) for Follow Up Mood, Elevated BP. ----- Message from Woody Odell sent at 03/23/2020 12:07 PM EST ----- Regarding: RX refill Contact: KAYLA PAGE [[phone]] MEDICATION REFILL REQUEST: PCP: Jarrett Carr MD [...] preferred pharmacy listed below? Yes Preferred pharmacies: [id number] [address] [facility] [address] [facility] [address] Pt Call Back Number Work Phone Not on file. Pt states she had high blood pressure and headaches for about a week now and thoise RX need filled bc they are the ones that make her feel better. Patient call back message sent to the primary care clinical pool. Woody Odell documented in this encounter INFORMATION SOURCE (unrecogn ized section and content) DATE CREATED AUTHOR 02/17/2021 [facility] DATE CREATED AUTHOR AUTHOR'S ORGANIZ ATION 01/25/2022 [facility] DATE CREATED AUTHOR AUTHOR'S ORGANIZ ATION 07/19/2022 [facility] DATE CREATED AUTHOR AUTHOR'S ORGANIZ ATION 08/29/2022 [facility] DATE CREATED AUTHOR AUTHOR'S ORGANIZ ATION 10/31/2022 [facility] DATE CREATED AUTHOR AUTHOR'S ORGANIZ ATION 10/23/2024 [facility] Care Teams (unrecognized sec tion and content) 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 Start Date End Date Jarrett Carr MD [address] [place] [address] PCP - General Family Medicine 03/19/20 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 Specialty Start Date End Date El Douglass[address] [place] [facility]0 [place] [address] PCP - General Family Medicine 06/11/21 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 Specialty Start Date End Date El Douglass[address] [place] [address] [place] [id number] PCP - General Family Medicine 06/11/21 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 Specialty Start Date End Date El Douglass [address] [place] [facility] [place] [address] PCP - General Family Medicine 06/11/21 Saige White Community Health Worker Case Management 06/17/21 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 Specialty Start Date End Date El Douglass [address] [place] [facility] [place] [address] PCP - General Family Medicine 06/11/21 Saige White Community Health Worker Case Management 06/17/21 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 Specialty Start Date End Date El Douglass [address] [place] [facility] [place] [address] PCP - General Family Medicine 06/11/21 Saige White Community Health Worker Case Management 06/17/21 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 Specialty Start Date End Date El Douglass, DO [address] [place] [address] [place] [address] PCP - General Family Medicine 06/11/21 Saige White Community Health Worker Case Management 06/17/21 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 Specialty Start Date End Date El Douglass, DO [address] [place] [address] [place] [address] PCP - General Family Medicine 06/11/21 Saige White Community Health Worker Case Management 06/17/21 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 Specialty Start Date End Date El Douglass, [address] [place] [address] [place] [address] PCP - General Family Medicine 06/11/21 Saige White Community Health Worker Case Management 06/17/21 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 Specialty Start Date End Date El Douglass, [address] [place] [address] [place] [address] PCP - General Family Medicine 06/11/21 Saige White Community Health Worker Case Management 06/17/21 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 Specialty Start Date End Date El Douglass, [address] [place] [address] [place] [address] PCP - General Family Medicine 06/11/21 Saige White Community Health Worker Case Management 06/17/21 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 Specialty Start Date End Date El Douglass, [address] [place] [address] [place] [address] PCP - General Family Medicine 06/11/21 Saige White Community Health Worker Case Management 06/17/21 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 Specialty Start Date End Date El Douglass, [address] [place] [address] [place] [address] PCP - General Family Medicine 06/11/21 Saige White Community Health Worker Case Management 06/17/21 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 Specialty Start Date End Date El Douglass, [address] [place] [address] [place] [address] PCP - General Family Medicine 06/11/21 Saige White Community Health Worker Case Management 06/17/21 09/18/21 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 Specialty Start Date End Date El Douglass, [address] [place] [facility] [place] [address] PCP - General Family Medicine 06/11/21 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 Specialty Start Date End Date El Douglass, [address] [place] [facility] [place] [address] PCP - General Family Medicine 06/11/21 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 Specialty Start Date End Date El Douglass, [address] [place] [facility] [place] [address] PCP - General Family Medicine 06/11/21 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 Specialty Start Date End Date Jarrett Carr MD [address] [place] [address] [place] [address] PCP - General Family Medicine 03/19/20 05/01/21 System, Provider Not In PCP - General 05/02/21 06/10/21 El oDuglass, [address] [place] [facility] [place] [address] PCP - General Family Medicine 06/11/21 Saige White Community Health Worker Case Management 06/17/21 09/18/21 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 Specialty Start Date End Date El Douglass, [address] [place] [facility] [place] [address] PCP - General Family Medicine 06/11/21 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 Specialty Start Date End Date El Douglass DO [address] [place] [address] [place] [address] PCP - General Family Medicine 06/11/21 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 Specialty Start Date End Date El Douglass DO [address] [place] [address] [place] [address] PCP - General Family Medicine 06/11/21 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 Specialty Start Date End Date El Douglass DO [address] [place] [address] [place] [address] PCP - General Family Medicine 06/11/21 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 Specialty Start Date End Date El Douglass DO [address] [place] [address] [place] [address] PCP - General Family Medicine 06/11/21 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 Specialty Start Date End Date El Douglass DO [address] [place] [address] [place] [address] PCP - General Family Medicine 06/11/21 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 Specialty Start Date End Date El Douglass DO [address] [place] [address] [place] [address] PCP - General Family Medicine 06/11/21 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 Morro Gonzalez MD Primary Care Provider Active Team Status: Inactive Member Role Status Dates Dr. Morro Gonzalez MD Primary Care Provider, Attending Provider Active Team Status: Inactive Member Role Status Dates Dr. Morro Gonzalez MD Primary Care Provi edu, Attending Provider, Referring Provider Active Team Status: Inactive Member Role Status Dates Dr. Morro Gonzalez MD Primary Care Provider Active Dr. Roni Hoang MD Attending Provider, Referring Provider Active Goals (unrecognized section and content) Goals may be documented in a n alternate sectionGoals may be documented in an alternate sectionGoals may be documented in an alternate sectionGoals may be documented in an alternate sectionGoals may be documented in an alternate section FOR RECORDS PERTAINING TO PATIENTS WHO ARE [...] BE BASED ON THE PRIMARY CLINICAL RECORDS. [facility] [employer] [facility]. provides no warranty or guarantee of the accuracy or completeness of information in this document.
== END | disposition home or self-care (01) ==
LOC: POLAB3 17:02
PROVIDERS: PCP Family Medicine Geriatric Medicine; Visit Provider Family Medicine Geriatric Medicine
DX: Z22.39 Carrier of other specified bacterial diseases (principal)
CPT/HCPCS: 87070; 87075; 87077; 87186; 87205; 87640

== ENCOUNTER → 2024-11-23 | Outpatient (CLI) | payer MEDICARE, SELFPAY ==
--- NOTE | 2024-11-23 14:25 | RAD_ITS ---
PROCEDURE: ABD INC DECUB AND/OR ERECT 11/23/2024 REASON FOR EXAM: CONSTIPATION TECHNIQUE: Procedure Code: RADABDMV Modality: DX Procedure: ABD INC DECUB AND/OR ERECT COMPARISON: HIDA scan from July 08, 2024 and ultrasound abdomen from June 22, 2024 FINDINGS: There are a few air-fluid levels suspected involving nondistended small bowel. There is a large amount of colonic stool, particularly in the ascending colon. No pathologic calcifications. Degenerative lumbosacral spinal changes are noted. RAD/Abd Inc Decub and/or Erect IMPRESSION: Large amount of colonic stool. Nonspecific but nonobstructive bowel-gas pattern. Additional findings as above. Reading Location: [facility]
== END | disposition home or self-care (01) ==
LOC: RAD 14:21
PROVIDERS: PCP Family Medicine Geriatric Medicine; Referring Provider Family Medicine Geriatric Medicine; Visit Provider Family Medicine Geriatric Medicine
DX: K59.00 Constipation, unspecified (principal)
CPT/HCPCS: 74019

== ENCOUNTER → 2024-12-23 | Outpatient (CLI) | payer MEDICARE, SELFPAY ==
--- NOTE | 2024-12-23 10:09 | RAD_ITS ---
PROCEDURE: ABD INC DECUB AND/OR ERECT 12/23/2024 REASON FOR EXAM: CONSTIPATION, UNSPECIFIED TECHNIQUE: Procedure Code: RADABDMV Modality: DX Procedure: ABD INC DECUB AND/OR ERECT COMPARISON: KUB, 11/23/2024. FINDINGS: There are few air-fluid levels in nondistended bowel, however, there is gas in the rectum. There is no significant stool. There is multilevel degenerative disc disease of the lower thoracic and lumbar spine. RAD/Abd Inc Decub and/or Erect IMPRESSION: Possible mild enteritis. Reading Location: [place] [address]
--- NOTE | 2024-12-23 10:09 | RAD_ITS ---
PROCEDURE: ABD INC DECUB AND/OR ERECT 12/23/2024 REASON FOR EXAM: CONSTIPATION, UNSPECIFIED TECHNIQUE: Procedure Code: RADABDMV Modality: DX Procedure: ABD INC DECUB AND/OR ERECT COMPARISON: KUB, 11/23/2024. FINDINGS: There are few air-fluid levels in nondistended bowel, however, there is gas in the rectum. There is no significant stool. There is multilevel degenerative disc disease of the lower thoracic and lumbar spine. RAD/Abd Inc Decub and/or Erect IMPRESSION: Possible mild enteritis. Reading Location: [place] [address]
--- NOTE | 2024-12-23 10:44 | CPS ---
Pt was ordered pre and post bronchodilator/spirometry with bronchodilator response
--- NOTE | 2024-12-23 10:44 | CPS ---
Pt was ordered pre and post bronchodilator/spirometry with bronchodilator response
== END | disposition home or self-care (01) ==
PROVIDERS: PCP Family Medicine Geriatric Medicine; Referring Provider Family Medicine Geriatric Medicine; Visit Provider Family Medicine Geriatric Medicine
DX: K59.00 Constipation, unspecified (principal)
CPT/HCPCS: 74019; 94060

== ENCOUNTER → 2025-01-19 | Outpatient (CLI) | payer MEDICARE, SELFPAY ==
[2025-01-19 18:35] LABS: Staph aureus DNA By PCR NEGATIVE (Negative)
== END | disposition home or self-care (01) ==
LOC: POLAB3 16:59
PROVIDERS: PCP Family Medicine Geriatric Medicine; Visit Provider Family Medicine Geriatric Medicine
DX: S91.301A Unspecified open wound, right foot, initial encounter (principal); M79.671 Pain in right foot; X58.XXXA Exposure to other specified factors, initial encounter
CPT/HCPCS: 87070; 87075; 87077; 87186; 87205; 87640